=== PATIENT | male | born 1935 ===

== ENCOUNTER 2024-08-18 10:25 | Inpatient (IN) | payer MEDICARE, SELFPAY ==
--- NOTE | ~2024-08-18 | CT_ITS ---
EXAMINATION: CT CERVICAL SPINE WITHOUT CONTRAST CLINICAL INFORMATION: Status post fall. COMPARISON: None available. TECHNIQUE: Contiguous axial images through the cervical spine using 3 mm collimation with bone and soft tissue algorithm. Sagittal and coronal reformatted images acquired. DLP: [address] examination was performed using dose optimization techniques as appropriate, variously including the following: *Automated exposure control *Adjustment of mA and/or kV according to patient size (this includes techniques or standardized protocols for targeted exams where dose is matched to indication/reason for exam; i.e. extremities or head) *Use of iterative reconstruction technique FINDINGS: Craniocervical junction is intact with sclerosis along the articular surfaces of the occipital condyles and lateral masses of C1. No gross malalignment. Marginal osteophyte formation, endplate sclerosis subchondral cyst formation and decreased intervertebral disc height at C6-7 and to a lesser extent C5-6, C4-5 and C3-4 levels. Calcification of the posterior longitudinal ligament at C7-T1. Bilateral facet joint hypertrophy, C2-3 to C7-T1. C1 is intact. C2 demonstrates a subtle lucency at the base of odontoid process junction without gross cortical disruption. C3 is intact. C4 is intact. C5 is intact. C6 is intact. C7 is intact. No prevertebral compartment hematoma. Central spinal canal stenosis at C5-6 on a degenerative basis. Calcified plaques in the carotic arteries bilaterally. Tympanic cavities and mastoid cells are aerated. Calcified plaques in the cavernous segments both ICAs. CT/CT cervical spine wo IV con IMPRESSION: Multilevel cervical spondylosis more conspicuous at C6-7, C5-6 and to a lesser extent C3-4 level. Transverse oriented lucency at the odontoid process/base of C2. Although this could be artifactual nondisplaced type II C2 fracture cannot be excluded. Recommend MRI cervical spine. Fleischner guidelines were followed. Electronically signed by: Lorenzo Jeffrey MD 08/18/2024 12:16 PM EDT
--- NOTE | ~2024-08-18 | MR_ITS ---
EXAMINATION: MR CERVICAL SPINE WITHOUT CONTRAST CLINICAL INFORMATION: Possible C2 fracture seen on CT examination. Recent fall/trauma. COMPARISON: CT cervical spine 08/18/2024. TECHNIQUE: Multiplanar multisequence MR imaging of the cervical spine was done prior to and without the administration IV gadolinium. Examination was performed on a 1.5 Earnestine Siemens unit, using standard sequences. FINDINGS: CORONAL ALIGNMENT: -Normal. SAGITTAL ALIGNMENT: -Minimal straightening of the normal lordosis. -There is a 2 mm degenerative anterolisthesis of C3 on C4, and C4 on C5. -No additional subluxations. CRANIOCERVICAL JUNCTION/C1-2 ARTICULATIONS: -Intact and aligned. Moderate degenerative arthritis. VERTEBRAL BODIES/BONE MARROW: -There is no bone marrow edema, fracture, or evidence of infiltrating abnormal bone marrow signal. No endplate changes are present. DISCS: -Severe degenerative disc changes C5-6 and C6-7. There is otherwise mild to moderate disc degeneration with sparing of C2-3. CERVICAL CORD: -Normal in caliber and signal throughout. No cord impingement evident. PARAVERTEBRAL SOFT TISSUES: -There is a small amount of soft tissue edema in the prevertebral space spanning C3-C7. -The anterior longitudinal ligament, posterior longitudinal ligament, ligamentum flavum, and interspinous ligaments are all intact without tearing. -There is no paraspinous edema identified. VISUALIZED INTRACRANIAL STRUCTURES: -Within normal limits. AXIAL DISC SPACE IMAGING: C2-C3: No central canal or neural foraminal narrowing. C3-C4: Diffuse disc bulge, indenting upon the ventral thecal sac, contiguous with bilateral uncinate spurs. Mild hypertrophic facet changes bilaterally. Mild central canal stenosis, and moderate bilateral neural foraminal stenosis. C4-C5: Minimal shallow disc bulge present without significant central canal narrowing. Normal facets. Patent neural foramen. C5-C6: Diffuse disc osteophytic ridge complex present, contiguous with bilateral uncinate spurs left greater than right, mild bilateral facet hypertrophic arthropathy. There is mild to moderate central canal stenosis, and severe left greater than right neural foraminal stenosis. C6-C7: There is a diffuse disc osteophytic ridge complex present, contiguous with bilateral uncinate spurring. Mild bilateral facet spurring present. There is mild central canal stenosis, severe right and moderate left neural foraminal stenosis. C7-T1: Small central disc extrusion. No significant central canal or neural foraminal narrowing. MR/MR cervical spine wo con IMPRESSION: 1. There is no acute fracture of the cervical spine. C2 is intact. 2. There is trace prevertebral fluid spanning C3-C7, suspect for hyperextension strain injury. No ligamentous tearing is evident. 3. There is moderate degenerative spondylosis as discussed. Electronically signed by: Rudolph Mendoza MD 08/19/2024 12:37 PM EDT
--- NOTE | ~2024-08-18 | CT_ITS ---
EXAMINATION: CT ABDOMEN PELVIS WITHOUT IV CONTRAST HISTORY: left-sided abdominal pain. COMPARISON: There are no prior studies for comparison. TECHNIQUE: CT scan of the abdomen and pelvis was performed without contrast using standard departmental protocol. Coronal and sagittal reformatted images were generated and reviewed. Oral contrast material was not administered at the request of the referring physician. This CT exam was performed with one or more of the following dose reduction techniques: automated exposure control, adjustment of the mA and/or kV according to patient size, use of iterative reconstruction technique. DLP: 1248 mGy-cm FINDINGS: LOWER CHEST: There is mild dependent atelectasis at the left lung base. The visualized right lung base is clear.. There is no pleural effusion. CARDIOVASCULATURE: The heart is normal in size. There is no pericardial effusion. LIVER: The liver is normal in size and contour. The liver has an unremarkable unenhanced appearance. GALLBLADDER / BILE DUCTS: There is cholelithiasis. There is no intra or extrahepatic biliary ductal dilatation. SPLEEN: The spleen is normal in size and has an unremarkable unenhanced appearance. PANCREAS: The pancreas has an unremarkable unenhanced appearance. ADRENAL GLANDS: There is calcification of the bilateral adrenal glands which may be due to prior hemorrhage. KIDNEYS/RETROPERITONEUM: No renal calculi are identified. There is no hydronephrosis. There is a probable 2.6 cm cyst at the upper pole of the right kidney and a probable 1.4 cm cyst at the upper pole of the left kidney. LYMPH NODES: No retroperitoneal lymphadenopathy is identified in the abdomen or pelvis. VASCULATURE: The abdominal aorta demonstrates atherosclerotic calcification, but is normal in caliber. There is a linear calcification in the IVC which may be due to prior thrombus. MESENTERY/PERITONEUM: No free fluid. No masses. There is no free intraperitoneal gas. STOMACH: The stomach is collapsed, limiting evaluation. SMALL BOWEL: The small bowel is normal in caliber. COLON: The colon is unremarkable. APPENDIX: Normal. URINARY BLADDER/PELVIC ORGANS: The urinary bladder is unremarkable. The prostate is normal in size. BONES / SOFT TISSUES: There is a tiny fat-containing umbilical hernia. There is degenerative disc disease of the spine. CT/CT abdomen pelvis wo IV con IMPRESSION: No evidence of traumatic injury to the abdomen or pelvis, although evaluation for solid organ injury is limited by lack of intravenous contrast material. Incidental findings as described. Electronically signed by: Sourav Hale MD 08/18/2024 11:47 AM EDT
--- NOTE | ~2024-08-18 | CT_ITS ---
EXAMINATION: CT HEAD WITHOUT CONTRAST CLINICAL INFORMATION: fall and on Coumadin COMPARISON: None available. TECHNIQUE: Contiguous axial imaging was performed from the skull base to vertex without intravenous administration of contrast. This CT examination was performed using dose optimization techniques as appropriate, variously including the following: *Automated exposure control *Adjustment of mA and/or kV according to patient size (this includes techniques or standardized protocols for targeted exams where dose is matched to indication/reason for exam; i.e. extremities or head) *Use of iterative reconstruction technique DLP: 896 mGy-cm FINDINGS: There is a faint, 1 cm hyperdensity in the mid mal[place]ika. No acute intracranial hemorrhage mass effect midline shift, hydrocephalus or herniation. Lee-white matter differentiation is normal. Bilateral multifocal patchy deep periventricular white matter hypodensities involving centrum semiovale and dutton radiata. Prominence of the extra-axial CSF spaces cerebral sulci and ventricles. Calcified plaques in the cavernous supracavernous segments both ICA. Mucosal thickening right saphenous sinus with increased density. Edentulous, maxilla. Tympanic cavities and mastoid cells are aerated. No acute fracture in the bony calvarium. CT/CT head/brain wo IV con IMPRESSION: No gross acute intracranial hemorrhage. Small vessel occlusive disease. Global cerebral atrophy. Acute on chronic right saphenous sinus disease with the questionable inspissated secretions versus superimposed fungal infection. Questionable subtle hyperdensity mid [place]. Probable artifactual.. Electronically signed by: Lorenzo Jeffrey MD 08/18/2024 12:08 PM EDT
--- NOTE | ~2024-08-18 | CT_ITS ---
CLINICAL HISTORY: abnromal cxr, confusion CT chest without contrast Comparison: CR/SR - XR CHEST 1V - 09/08/24 12:40 EDT Findings: Normal heart size. Moderate coronary artery calcification. The visualized thyroid and mediastinum are unremarkable. Gaseous distention of the esophagus suggesting possible achalasia. Small bilateral pleural effusions. Multiple linear foci of atelectasis within the bilateral lower lobes. Small focus of atelectasis within the lingula. The visualized upper abdomen is unremarkable. The bones are intact. IMPRESSION: Small bilateral pleural effusions. Multifocal atelectasis within the bilateral lungs. This document has been electronically signed by: Gabriela Patricio MD on 09/08/2024 18:13:34
--- NOTE | ~2024-08-18 | XR_ITS ---
EXAMINATION: XR CHEST 1 VIEW HISTORY: fall COMPARISON: There are no prior studies for comparison. FINDINGS: A single AP portable view of the chest performed at 12:52 PM is submitted. The lungs are expanded and clear. There is no pleural effusion, pneumothorax, or pulmonary vascular congestion. The heart is normal in size. The bones are intact. XR/XR chest 1V IMPRESSION: Clear lungs. Electronically signed by: Sourav Hale MD 08/18/2024 01:11 PM EDT
--- NOTE | ~2024-08-18 | XR_ITS ---
EXAMINATION: XR CHEST CLINICAL INFORMATION: hypothermia, to eval for pneumonia COMPARISON: June 18, 2024 TECHNIQUE: Frontal view of the chest was obtained. FINDINGS: Lung volumes are decreased since the prior examination. Cardiac contours not well demonstrated because of the widening. Aside from degenerative changes in the right greater than left shoulders, osseous structures are grossly unremarkable. XR/XR chest 1V IMPRESSION: Moderately decreased lung volumes since the prior is probably related to a [place] and atelectasis. However, pleural effusion or obscured basilar pneumonia, especially on the left, is not ruled out. Electronically signed by: Valerio Sorto MD 09/08/2024 01:10 PM EDT
--- NOTE | ~2024-08-18 | XR_ITS ---
EXAMINATION: XR SHOULDER 2 OR MORE VIEWS LEFT HISTORY: fall and shoulder pain COMPARISON: There are no prior studies available for comparison. FINDINGS: Three views of the left shoulder are submitted. Osseous mineralization is normal. There is no fracture or dislocation. The glenohumeral joint is maintained. There is moderate degenerative change of the AC joint with joint space narrowing. The soft tissues are unremarkable. XR/XR shoulder LT min 2V IMPRESSION: Moderate degenerative change of the AC joint. Electronically signed by: Sourav Hale MD 08/18/2024 01:09 PM EDT RP
--- NOTE | ~2024-08-18 | XR_ITS ---
EXAMINATION: XR HIP 2 OR MORE VIEWS RIGHT HISTORY: s/p fall COMPARISON: There are no prior studies for comparison. FINDINGS: Two views of the right hip are submitted. Osseous mineralization is normal. There is no fracture or dislocation. The joint space is maintained. The soft tissues are unremarkable. XR/XR hip RT min 2V IMPRESSION: No evidence of fracture of the right hip. Electronically signed by: Sourav Hale MD 08/18/2024 01:10 PM EDT
--- NOTE | ~2024-08-18 | CT_ITS ---
EXAMINATION: CT HEAD WITHOUT CONTRAST CLINICAL INFORMATION: Altered mental status, weakness COMPARISON: None available. TECHNIQUE: Contiguous axial imaging was performed from the skull base to vertex without intravenous administration of contrast. This CT examination was performed using dose optimization techniques as appropriate, variously including the following: *Automated exposure control *Adjustment of mA and/or kV according to patient size (this includes techniques or standardized protocols for targeted exams where dose is matched to indication/reason for exam; i.e. extremities or head) *Use of iterative reconstruction technique DLP: 898 mGY*cm FINDINGS: There is no acute ischemic change. Periventricular white matter hypodensities are present. There is no intracranial hemorrhage. There is no mass-effect or midline shift. There is mild to moderate frontotemporal atrophy. Basal cisterns and ventricles are within normal limits for age/cerebral volume. Orbits are symmetrical and unremarkable. Right sphenoid sinus is mostly opacified There is cortical offset lucency through the left nasal bone. CT/CT head/brain wo IV con IMPRESSION: Age-indeterminate left nasal bone fracture. Nonspecific periventricular white matter hypodensities are likely related to small vessel disease. Mild to moderate frontotemporal atrophy. Opacity in the right sphenoid sinus could be related to chronic sinus disease versus posttraumatic in nature. Electronically signed by: Valerio Sorto MD 09/08/2024 01:26 PM EDT
--- NOTE | 2024-08-18 10:43 | ECG_ITS ---
Test Reason : fall Blood Pressure : */* mmHG Vent. Rate : 58 BPM Atrial Rate : 58 BPM P-R Int : 274 ms QRS Dur : 90 ms QT Int : 428 ms P-R-T Axes : 28 -20 225 degrees QTcB Int : 420 ms Sinus bradycardia with 1st degree A-V block Septal infarct , age undetermined ST & T wave abnormality, consider inferolateral ischemia Abnormal ECG No previous ECGs available Referred By: John Rocha Electronically Signed By: Kenny Shaw
[2024-08-18 10:45] VITALS: BP 138/42; BP 157/47; PULSE 59; PULSE 66; RESP 14; TEMP 36.6; O2SAT 97; O2SAT 98; BMI 36.5
--- NOTE | 2024-08-18 10:49 | ED.FALL ---
HPI - Fall General Chief Complaint: Fall Stated Complaint: ?STROKE,VAJL2DA,R FAC ABR,-DROOP/WEAK FROM FACILIT Time Seen by Provider: 08/18/24 10:31 Source: patient, EMS and old records reviewed Mode of arrival: EMS Limitations: no limitations History of Present Illness ED Provider: DR. Rocha HPI Narrative: 88-year-old male came in from half-way afte he sustained unwitnessed fall, patient with history of dementia and he is limited historian. patient is complaining of head, neck, left shoulder, right hip pain. Patient otherwise is unable to give the details of the fall. Patient is on Coumadin. Related Data Home Medications ?Medication ?Instructions ?Recorded ?Confirmed acetaminophen 325 mg tablet 650 mg PO Q4H PRN Pain (Scale 08/18/24 08/18/24 Score 1-3) aluminum-mag hydroxide-simethicone 30 ml PO Q6H PRN Acid Reflux 08/18/24 08/18/24 400 mg-400 mg-40 mg/5 mL oral susp (Mylanta Maximum Strength) atorvastatin 10 mg tablet 10 mg PO BEDTIME 08/18/24 08/18/24 carvedilol 6.25 mg tablet 6.25 mg PO BID 08/18/24 08/18/24 dorzolamide 22.3 mg-timolol 6.8 1 drp ophthalmic (eye) BID 08/18/24 08/18/24 mg/mL eye drops famotidine 20 mg tablet 20 mg PO BID 08/18/24 08/18/24 magnesium hydroxide 400 mg/5 mL 30 ml PO DAILY PRN Constipation 08/18/24 08/18/24 oral suspension (Milk of Magnesia) metformin 750 mg tablet,extended 750 mg PO DAILY 08/18/24 08/18/24 release 24 hr mirtazapine 15 mg tablet 15 mg PO BEDTIME 08/18/24 pantoprazole 40 mg tablet,delayed 40 mg PO DAILY 08/18/24 08/18/24 release warfarin 5 mg tablet mg PO 08/18/24 Allergies Allergy/AdvReac Type Severity Reaction Status Date / Time quetiapine [From Seroquel] Allergy Unknown Verified 08/18/24 10:47 quinapril Allergy Unknown Verified 08/18/24 10:47 trazodone Allergy Unknown Verified 08/18/24 10:47 Review of Systems Review of Systems: All other systems are reviewed and are negative Constitutional: Reports as per HPI and Reports no additional constitutional complaints Eyes: Reports as per HPI and Reports no additional eye complaints Reports system reviewed and no additional complaints, except as documented Cardiovascular: Reports as per HPI and Reports no additional cardiovascular complaints Respiratory: Reports as per HPI and Reports no additional respiratory complaints Gastrointestinal: Reports as per HPI and Reports no additional gastrointestinal complaints Genitourinary: Reports no additional female genitourinary complaints Musculoskeletal: Reports no additional musculoskeletal complaints Skin/Breast: Reports system reviewed and no additional complaints, except as docu Psychiatric: Reports no additional psychiatric complaints Endocrine: Reports no additional endocrine complaints Hematologic/Lymphatic: Reports no additional hematologic/lymphatic complaints Allergic/Immunologic: Reports no additional allergic/immunologic complaints Reports system reviewed and no additional complaints, except as documented and Reports Abnormal speech present [facility] Social History Social History Smoked in Last 30 Days: No Use of substances other than those prescribed or required for medical reasons: No Advance Directives: Yes Advance Directives on File: Yes Advance Directives Date on File: 08/18/24 Do you have a plan to hurt others: No Plan Physical Exam Vital Signs: Vital Signs: Last Vital Signs Temp 97.6 F 08/18/24 15:13 Pulse 55 08/18/24 15:13 Resp 12 08/18/24 15:13 BP 151/51 H 08/18/24 15:13 Pulse Ox 99 08/18/24 15:13 O2 Del Method Room Air 08/18/24 15:13 BMI result Body Mass Index 36.5 Vital signs have been reviewed and appear to be correct. Blood pressure elevated. Heart rate normal. Respiratory rate normal. Temperature normal. Oxygen saturation normal. Appearance: Alert. Oriented X3. No acute distress. Head: Normal external exam. Normocephalic. Atraumatic. No Cotter signs noted. No raccoon eyes noted Eyes: PERRLA. EOMI. Conjunctiva and sclera normal. Eyelids normal. ENT: TM's Normal. Pharynx normal. Uvula midline. Moist mucous membranes. No trismus noted. No drooling noted. No muffled voice noted. Neck: Normal inspection. Neck supple. FROM. No adenopathy. Thyroid Normal. No meningeal signs. No neck mass noted. CVS: Normal heart rate and rhythm. Heart sound normal. No murmurs noted. Pulses normal throughout. Respiratory: No respiratory distress. Painless inspiration. Breath sounds normal. No wheezes/rales/rhonchi noted. Chest nontender. No accessory muscle usage noted or decreased air movement noted. Abdomen: Soft and nontender. Bowel sounds normal in all 4 quadrants. No distention noted. No organomegaly noted. No visible injury noted. Back: No CVA tenderness. Full range of motion noted. Skin: Skin warm and dry. Normal skin color. Normal skin turgor. No rashes/lesions/lacerations noted. Extremities: No lower extremity edema. Extremities exhibit normal range of motion. Extremities nontender. Neuro: Oriented X 3. Cranial nerve exam: II-XII are grossly intact No motor deficit. No sensory deficit. Reflexes normal. Course Reevaluation(s) Reevaluation #1: a/P unwitnessed fall. Unremarkable workup for the day including neuro exam in the head CT. Elevated troponin with no delta changes. Able to ambulate with the assistance in the ED. Time: 15:19 Reevaluation #2: Received patient in sign-out awaiting 2nd cardiac enzyme and final disposition. Upon re-evaluation, patient is continuing to be rather altered, confused and irritated. It is unclear what his baseline is as he presented from a geriatric psych facility that he was recently admitted to. I discussed the case with his provider at that facility who commented that he had only been there for a few hours before he fell. She felt that he was inappropriate to be at that facility due to his inability to ambulate any way. He had an unwitnessed fall and was found down at the facility today. Upon re-evaluation of his workup today as well as his previous record from his primary care doctor's office from 08/07/2024, I feel that he is unstable for discharge at this time. It seems that he would be inappropriate for a [facility] psych facility being unable to ambulate and having worsening delirium. Plan for admission to hospitalist for further care and evaluation. Diagnosis: Frequent falls, delirium, on continuous oral anticoagulation, generalized weakness. Time: 19:15 Reevaluation #3: Case discussed with hospitalist on-call, Dr. Desai who will accept patient for admission. Patient remains hemodynamically stable, delirious. Admitted in guarded condition. Time: 20:59 Medical Decision Making Differential Diagnosis Differential Diagnoses: The differential diagnosis associated with the presentation includes ( intracranial bleed, ischemic stroke, cervical spine injury, left shoulder fracture, left shoulder dislocation, pneumonia, pneumothorax, pleural effusion, hip fracture, intra-abdominal pathology , cervical spine injury.) Admission/Observation Consideration of admission/observation: Escalation of care including admission/observation considered Consult Healthcare Provider Management of the patient was discussed with: Hospitalist Lab Data MDM Lab Attestation statement: I reviewed the patient's lab results. 08/18/24 11:01 08/18/24 11:01 Labs: Lab Results 08/18/24 08/18/24 08/18/24 Range/Units 11:00 11:01 13:47 WBC 8.5 (4.8-10.8) X10*3/uL RBC 3.92 L (4.60-5.80) X10*6/uL Hgb 13.3 L (14.0-18.0) g/dl Hct 38.0 L (42.0-52.0) % MCV 96.9 (80.0-98.0) fL MCH 33.9 H (27.0-33.0) pg MCHC 35.0 (31.0-36.0) g/dl RDW 14.0 (11.0-16.0) % Plt Count 167 (160-400) X10*3/uL MPV 10.8 (9.4-12.4) fL Immature Gran % (Auto) 0.7 H (0.0-0.4) % Neut % (Auto) 69.6 (45-73) % Lymph % (Auto) 19.0 L (20-40) % [place] % (Auto) 9.7 (2-11) % Eos % (Auto) 0.8 (0-4) % Baso % (Auto) 0.2 (0-2) % Lymph # (Auto) 1.6 (1.2-4.9) X10*3/uL [place] # (Auto) 0.8 (0.1-1.2) X10*3/uL Eos # (Auto) 0.1 (0.0-0.4) X10*3/uL Baso # (Auto) 0.0 (0.0-0.2) X10*3/uL Abs Immat Gran (auto) 0.06 H (0.00-0.03) X10*3/uL Absolute Neuts (auto) 5.9 (2.0-8.3) x10*3/uL Absolute Nucleated RBC 0.000 (0.0-0.012) X10*3/uL Nucleated RBC % (auto) 0.0 (0.0-0.2) /100WBC Hold Blue Top SEE NOTE Sodium 143 (135-145) mmol/L Potassium 3.6 (3.3-5.1) mmol/L Chloride 111 H (96-108) mmol/L Carbon Dioxide 23 (22-29) mmol/L Anion Gap 13 (12-20) BUN 32 H (9-16) mg/dL Creatinine 2.13 H (0.5-1.4) mg/dL Estim Creat Clear Calc 31.0 Estimated GFR 30 Random Glucose 224 H (60-115) mg/dL Calcium 8.7 (8.4-10.2) mg/dL Total Bilirubin 1.5 H (0.0-1.0) mg/dL Direct Bilirubin 0.4 (0.0-0.5) mg/dL AST 47 H (5-37) U/L ALT 14 (0-40) U/L Alkaline Phosphatase 70 (39-117) U/L Total Creatine Kinase 519 H (38-174) U/L Troponin I High Sens 95.2 H (<3.5-35.0) ng/L Total Protein 6.2 L (6.5-8.0) g/dL Albumin 3.3 L (3.5-5.0) g/dL Lipase 10 (8-78) U/L Urine Color Dark Yellow Urine Appearance Clear Urine pH 5.0 (5.0-9.0) Ur Specific [place] 1.020 (1.005-1.025) Urine Protein 30 (1+) H (Neg-Trace) mg/dL Urine Glucose (UA) 100 H (Negative) mg/dL Urine Ketones 15 (Negative) mg/dL Urine Blood Negative (Negative) Urine Nitrite Negative (Negative) Ur Leukocyte Esterase Negative (Negative) Urine RBC 0-2 (0-2) /HPF Urine WBC 0-5 (0-5) /HPF Ur Squamous Epith Cells 0-2 (0-2) /HPF Urine Bacteria None Seen (None Seen) Hyaline Casts 6-10 (0-2) /LPF 08/18/24 Range/Units 17:53 WBC (4.8-10.8) X10*3/uL RBC (4.60-5.80) X10*6/uL Hgb (14.0-18.0) g/dl Hct (42.0-52.0) % MCV (80.0-98.0) fL MCH (27.0-33.0) pg MCHC (31.0-36.0) g/dl RDW (11.0-16.0) % Plt Count (160-400) X10*3/uL MPV (9.4-12.4) fL Immature Gran % (Auto) (0.0-0.4) % Neut % (Auto) (45-73) % Lymph % (Auto) (20-40) % [place] % (Auto) (2-11) % Eos % (Auto) (0-4) % Baso % (Auto) (0-2) % Lymph # (Auto) (1.2-4.9) X10*3/uL [place] # (Auto) (0.1-1.2) X10*3/uL Eos # (Auto) (0.0-0.4) X10*3/uL Baso # (Auto) (0.0-0.2) X10*3/uL Abs Immat Gran (auto) (0.00-0.03) X10*3/uL Absolute Neuts (auto) (2.0-8.3) x10*3/uL Absolute Nucleated RBC (0.0-0.012) X10*3/uL Nucleated RBC % (auto) (0.0-0.2) /100WBC Hold Blue Top Sodium (135-145) mmol/L Potassium (3.3-5.1) mmol/L Chloride (96-108) mmol/L Carbon Dioxide (22-29) mmol/L Anion Gap (12-20) BUN (9-16) mg/dL Creatinine (0.5-1.4) mg/dL Estim Creat Clear Calc Estimated GFR Random Glucose (60-115) mg/dL Calcium (8.4-10.2) mg/dL Total Bilirubin (0.0-1.0) mg/dL Direct Bilirubin (0.0-0.5) mg/dL AST (5-37) U/L ALT (0-40) U/L Alkaline Phosphatase (39-117) U/L Total Creatine Kinase (38-174) U/L Troponin I High Sens 72.0 H (<3.5-35.0) ng/L Total Protein (6.5-8.0) g/dL Albumin (3.5-5.0) g/dL Lipase (8-78) U/L Urine Color Urine Appearance Urine pH (5.0-9.0) Ur Specific [place] (1.005-1.025) Urine Protein (Neg-Trace) mg/dL Urine Glucose (UA) (Negative) mg/dL Urine Ketones (Negative) mg/dL Urine Blood (Negative) Urine Nitrite (Negative) Ur Leukocyte Esterase (Negative) Urine RBC (0-2) /HPF Urine WBC (0-5) /HPF Ur Squamous Epith Cells (0-2) /HPF Urine Bacteria (None Seen) Hyaline Casts (0-2) /LPF Independent Interpretation I performed an independent interpretation of an: Plain X-Ray ( Right hip /chest/ left shoulder x-ray: No acute fracture) and CT Scan ( head / C-spine /abdomen and pelvis: No acute pathology.) Radiology Impression Discussion of test interpretation with radiology: I have reviewed the radiologist's reading. Independent Historian Clinical information obtained from an independent historian. History obtained from or confirmed by: Other ([facility] psych facility nursing staff) External Record Review External record reviewed: Outpatient record and Primary care record Chronic Conditions Patient?s care impacted by: Diabetes and Hypertension Discharge Plan Discharge Patient Disposition: Admitted As Inpatient Print Language: Unknown
[2024-08-18 11:06] LABS: MANUAL DIFF FLAG NO
[2024-08-18 11:10] LABS: Hematocrit 38.0 % (42.0-52.0); Hemoglobin 13.3 g/dl (14.0-18.0); Imm Gran Abs Auto 0.06 X10*3/uL (0.00-0.03); Imm Gran Pct Auto 0.7 % (0.0-0.4); Lymphocytes Absolute Auto 1.6 X10*3/uL (1.2-4.9); Mean Corpuscular HGB Conc 35.0 g/dl (31.0-36.0); Mean Corpuscular Hemoglobin 33.9 pg (27.0-33.0); Mean Corpuscular Volume 96.9 fL (80.0-98.0); NRBC Abs Auto 0.000 X10*3/uL (0.0-0.012); NRBC Pct Auto 0.0 /100WBC (0.0-0.2); Platelet Count 167 X10*3/uL (160-400); Red Blood Count 3.92 X10*6/uL (4.60-5.80); White Blood Count 8.5 X10*3/uL (4.8-10.8)
--- NOTE | 2024-08-18 11:15 | PC.NURSE ---
Report received. Taken over care at this time. Pt. in CT.
--- NOTE | 2024-08-18 11:36 | PC.NURSE ---
pt JOSUE from [facility] after fall last night, presumed HS d/t lac to R eye, swelling noted to eye, pt c/o vision changes. on Coumadin. slurred speech and increased confusion. unknown LOC. facility did not transfer pt to ED last night for unknown reasons. pt c/o neck pain, L shoulder pain and R eye/face pain. raw, erythemic skin noted to L groin, R axilla. small skin tear noted to coccyx and R shoulder. this RN spoke with Barbara MCKEON from [place] who reports pt is new to their facility as of yesterday, has a hx of dementia, unknown what his baseline.
[2024-08-18 11:37] LABS: Troponin-I High Sensitivity 95.2 ng/L (<3.5-35.0)
[2024-08-18 11:40] LABS: Alanine Aminotransferase 14 U/L (0-40); Albumin Level 3.3 g/dL (3.5-5.0); Alkaline Phosphatase 70 U/L (39-117); Anion Gap 13 (12-20); Aspartate Amino Transferase 47 U/L (5-37); Blood Urea Nitrogen 32 mg/dL (9-16); Calcium 8.7 mg/dL (8.4-10.2); Carbon Dioxide 23 mmol/L (22-29); Chloride 111 mmol/L (96-108); Creatinine Clr Calc Pharmacy 31.0; Estimated Glomerular Filt Rate 30; Lipase 10 U/L (8-78); Potassium 3.6 mmol/L (3.3-5.1); Sodium 143 mmol/L (135-145); Total Protein 6.2 g/dL (6.5-8.0)
--- NOTE | 2024-08-18 11:45 | PC.NURSE ---
call back # for [facility]
--- OUTSIDE RECORDS SUMMARY | 2024-08-18 12:38 | XMS_ITS ---
Author Organization [facility] Address [address] [place] [address] Care Team Providers Care Tariff Compiling Clerk Name Role Phone Cristy MOLINA, Sergey Primary Care Provider Rick Coronel Unavailable [phone] Encounters Encounter Location Date Provider Diagnosis [facility] [address] [place] [address] 03/19/2023 Rick Gamino Plan Of Treatment No Information Progress Notes * Reji DODSON LDOB:[birth year] (88 yo M)Acc No.[id number]:03/19/2023 Progress Note Patient:Reji NORTON Provider:?Rick Gamino DPM :1935???Age:87 Y???Sex:Male Jose e:03/19/2023 [facility] Pcp:Sergey Muniz MD Subjective: * Chief Complaints: * ??? * Medical History:? Objective: * Vitals:? Assessment: Plan: * Treatment: * Images: * The named appointment provid er may or may not be the originator of this progress note, and it is not deemed complete until electronically signed by the appointment provider. Sign off status: Pending * Provider:?Rick Gamino DPM Date:?2022 Generated for Printi ng/Faxing/eTransmitting on:?08/18/2024 12:38 PM EDT
--- OUTSIDE RECORDS SUMMARY | 2024-08-18 12:38 | XMS_ITS ---
Author Organization [facility] Address [address] [place] [address] Care Team Providers Care Cna Pct Name Role Phone Sergey Muniz MD Primary Care Provider Rick Coronel Unavailable [phone] REASON FOR VISIT 03/19/23 appt Encounters En[facility] [address] [facility]/15[facility] Rick Gamino Plan Of Treatment No Information Progress Notes * Reji DODSON LDOB:[birth year] (87 yo M)Acc No.[id number]:03/15/2023 Patient:?Reji Dodson :1935???Age:87 Y???Sex:Male Address: [place], [address] * true * Date:? Generated for Printi ng/Facharig/eTransmitting on:?08/18/2024 12:38 PM EDT
--- OUTSIDE RECORDS SUMMARY | 2024-08-18 12:38 | XMS_ITS | Patient Health Record ---
Author Organization [facility] Address [address] [facility] [place] [address] Care Team Providers Care Registered Nurse Step Down Name Role Phone Sergey Muniz MD Primary Care Provider Rick Coronel Unavailable [phone] Allergies No Known Allergies Reason For Referral No Information Medications Medication SIG (Take, Route, Fr equency, Duration) Notes Start Date End Date Status Eye Drops Active Warfarin Sodium Acti ve NovoLIN N Active Furosemide Active Atorvastatin Calcium Active metFORMIN HCl Active Ramipril Active Carvedilol Active Immunizations Vaccine Route Administration Date Status Comme nts Influenza Unknown 01/01/2022 Administered Social History Tobacco Use: Social History Observation Description Date Details (start date - stop date) Never Smoker NA - NA Tobacco Use/Smoking Question Answer Notes Are you a: nonsmoker Additional Findings: Tobacco Non-User Current no n-smoker Alcohol Screen Question Answer Notes Did you have a drink containing alcohol in the p ast year? No Points 0 Interpretation Negative Tobacco use other than smoking: Question Answer Notes Are you an other tobacco user? No Problems Problem Type SNOMED Code ICD Code Onset Dates Problem Status W/U Status Risk Notes Problem Acquired hammer toe of right foot (9522576887585785 ) Other hammer toe(s) (acquired), right foot (M20.41) Active confirmed Problem Acquired hammer toe of left foot (9670808386542769 ) Other hammer toe(s) (acquired), left foot (M20.42) Active confirmed Problem Polyneuropathy due to type 2 diabetes mellitus (037736757) Type 2 diabetes mellitus with diabetic polyneuropathy (E11.42) Active confirmed Plan Of Treatment Pending Test Test Name Order Date [id number] NAIL, 1-5 09/18/2022 [id number] NAIL, 1-5 12/18/2022 [id number] SKIN LESIONS, 2 TO 4 09/19/19 [id number] SKIN LESIONS, 2 TO 4 12/19/19 [id number] DYSTROPHIC NAILS ANY # [id number] DYSTROPHIC NAILS ANY # Insurance Providers Payer Name Payer Address Payer Phone Subscriber Number Group Number Insured Name Patient Relationship to Insured Coverage Start Date Coverage End Date [employer] [address] [place] [address] [phone] [id number] Reji Weeks Self - patient is the insured Medical (General) History Medical History History ICD Code Back,Hip,and Knee pain type II diabetes High blood pressure Vascular phlebitis (clots) Surgical History Surgery Date(Month/Year) vein surgery teeth extraction colonoscopy
[2024-08-18 13:57] LABS: Appearance Urine Clear; Glucose Urine UA 100 mg/dL (Negative); PH 5.0 (5.0-9.0); Specific Gravity - Urine 1.020 (1.005-1.025); UMIC TRIGGER UACC YES
[2024-08-18 15:13] VITALS: BP 151/51; PULSE 55; RESP 12; TEMP 36.4; O2SAT 99
--- NOTE | 2024-08-18 16:49 | PC.NURSE ---
Pt. refusing to have lab draw and made aware.
--- NOTE | 2024-08-18 17:53 | PC.NURSE ---
Was able to retrieve blood with assistance from luz maria Stokes.
[2024-08-18 18:19] LABS: Troponin-I High Sensitivity 72.0 ng/L (<3.5-35.0)
--- NOTE | 2024-08-18 21:48 | PHA.MEDREC ---
Pharmacy Consult ? Medication Reconciliation Pharmacy has completed the medication reconciliation. Utilized list from [place]. Called [facility], spoke to El in the silver unit. Confirmed patient is not on ramipril or furosemide although there are claims. El was also able to confirm with me that the patient is on mirtazepine 7.5 mg QHS, olanzapine 2.5 mg BID, insulin lispro PRN and patient is on 2.5 mg of warfarin daily (1/2 tablet of the 5 mg tablets).
--- NOTE | 2024-08-18 23:39 | P.HPHOSP_ITS ---
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 Patient was sent as he fell at outside facility. Unclear details or preceding events. Unable to obtain history from the patient. History obtained from ER provider and chart review. As per the ER provider, patient was very agitated in the ER upon arrival. He was disoriented and not making any sense. Upon my examination, patient is sleeping. He awakens to verbal stimulus but falls back asleep. She is lethargic and disoriented. Unclear baseline. Earlier patient was unable to ambulate in the ER. Does have wheelchair but unknown baseline ambulatory status. In the emergency department, creatinine 2.13 Review of Systems 2 Review of Systems: Yes Unobtainable due to mental status PMFSH Medical History CKD stage 3a, GFR 45-59 ml/min Diabetic neuropathy Insulin dependent type 2 diabetes mellitus Coronary artery disease Mixed hyperlipidemia Hypertension Atrial fibrillation Pertinent family history: Unable to obtain Social History Smoked in Last 30 Days: No Use of substances other than those prescribed or required for medical reasons: No Advance Directives: Yes Advance Directives on File: Yes Advance Directives Date on File: 08/18/24 Do you have a plan to hurt others: No Plan Meds Allergies Allergy/AdvReac Type Severity Reaction Status Date / Time quetiapine [From Seroquel] Allergy Unknown Verified 08/18/24 10:47 quinapril Allergy Unknown Verified 08/18/24 10:47 trazodone Allergy Unknown Verified 08/18/24 10:47 Home Medications ?Medication ?Instructions ?Recorded ?Confirmed ?Last Taken ?Type acetaminophen 325 mg tablet 650 mg PO Q4H PRN Pain (Scale 08/18/24 08/18/24 Unknown History Score 1-3) aluminum-mag hydroxide-simethicone 30 ml PO Q6H PRN Acid Reflux 08/18/24 08/18/24 Unknown History 400 mg-400 mg-40 mg/5 mL oral susp (Mylanta Maximum Strength) atorvastatin 10 mg tablet 10 mg PO BEDTIME 08/18/24 08/18/24 Unknown History carvedilol 6.25 mg tablet 6.25 mg PO BID 08/18/24 08/18/24 Unknown History dorzolamide 2 % eye drops 1 drp ophthalmic (eye) BID 08/18/24 08/18/24 Unknown History famotidine 20 mg tablet 20 mg PO BID 08/18/24 08/18/24 Unknown History insulin lispro 100 unit/mL 1 sliding scale dose subcut 08/18/24 08/18/24 Unknown History subcutaneous solution USEASDIRECTD magnesium hydroxide 400 mg/5 mL 30 ml PO DAILY PRN Constipation 08/18/24 08/18/24 Unknown History oral suspension (Milk of Magnesia) metformin 750 mg tablet,extended 750 mg PO DAILY 08/18/24 08/18/24 Unknown History release 24 hr mirtazapine 15 mg tablet 7.5 mg PO BEDTIME 08/18/24 08/18/24 Unknown History olanzapine 2.5 mg tablet 2.5 mg PO BID 08/18/24 08/18/24 Unknown History pantoprazole 40 mg tablet,delayed 40 mg PO DAILY 08/18/24 08/18/24 Unknown History release timolol maleate 0.5 % eye drops 1 drp ophthalmic (eye) BID 08/18/24 08/18/24 Unknown History warfarin 5 mg tablet 2.5 mg PO DAILY 08/18/24 08/18/24 Unknown History Physical Exam 2 Vital Signs and Narrative: Vital Signs: Last Vital Signs Temp 97.6 F 08/18/24 15:13 Pulse 55 08/18/24 15:13 Resp 12 08/18/24 15:13 BP 151/51 H 08/18/24 15:13 Pulse Ox 99 08/18/24 15:13 O2 Del Method Room Air 08/18/24 15:13 BMI result Body Mass Index 36.5 Elderly male lying in bed in no distress Neck supple, no JVD Regular rate and rhythm, S1-S2 heard Regular breath sounds bilaterally, no wheezing or crackles appreciated Abdomen soft nontender, no guarding, no rigidity Patient is awake, alert and oriented to self, place, time and person ; no focal motor deficit Awakens to verbal stimulus but not oriented Psych: Agitated No pedal edema Results Labs 08/18/24 11:01 08/18/24 11:01 Labs: Laboratory Results - last 24 hr 08/18/24 08/18/24 08/18/24 11:00 11:01 13:47 MCV 96.9 MCH 33.9 H MCHC 35.0 RDW 14.0 Plt Count 167 MPV 10.8 Immature Gran % (Auto) 0.7 H Neut % (Auto) 69.6 Lymph % (Auto) 19.0 L [place] % (Auto) 9.7 Eos % (Auto) 0.8 Baso % (Auto) 0.2 Lymph # (Auto) 1.6 [place] # (Auto) 0.8 Eos # (Auto) 0.1 Baso # (Auto) 0.0 Abs Immat Gran (auto) 0.06 H Absolute Neuts (auto) 5.9 Absolute Nucleated RBC 0.000 Nucleated RBC % (auto) 0.0 Hold Blue Top SEE NOTE Anion Gap 13 Estim Creat Clear Calc 31.0 Estimated GFR 30 Random Glucose 224 H Calcium 8.7 Total Bilirubin 1.5 H Direct Bilirubin 0.4 AST 47 H ALT 14 Alkaline Phosphatase 70 Total Creatine Kinase 519 H Total Protein 6.2 L Albumin 3.3 L Lipase 10 Urine Color Dark Yellow Urine Appearance Clear Urine pH 5.0 Ur Specific [place] 1.020 Urine Protein 30 (1+) H Urine Glucose (UA) 100 H Urine Ketones 15 Urine Blood Negative Urine Nitrite Negative Ur Leukocyte Esterase Negative Urine RBC 0-2 Urine WBC 0-5 Ur Squamous Epith Cells 0-2 Urine Bacteria None Seen Hyaline Casts 6-10 Imaging Radiologist's Impressions: Impressions Cervical Spine CT 08/18/24 10:42 IMPRESSION: Multilevel cervical spondylosis more conspicuous at C6-7, C5-6 and to a lesser extent C3-4 level. Transverse oriented lucency at the odontoid process/base of C2. Although this could be artifactual nondisplaced type II C2 fracture cannot be excluded. Recommend MRI cervical spine. Fleischner guidelines were followed. Electronically signed by: Lorenzo Jeffrey MD 08/18/2024 12:[address] 08/18/24 10:42 IMPRESSION: No gross acute intracranial hemorrhage. Small vessel occlusive disease. Global cerebral atrophy. Acute on chronic right saphenous sinus disease with the questionable inspissated secretions versus superimposed fungal infection. Questionable subtle hyperdensity mid [place]. Probable artifactual.. Electronically signed by: Lorenzo Jeffrey MD 08/18/2024 12:08 PM EDT RP Shoulder X-Ray 08/18/24 10:42 IMPRESSION: Moderate degenerative change of the AC joint. Electronically signed by: Sourav Hale MD 08/18/2024 01:09 PM EDT RP Chest X-Ray 08/18/24 10:43 IMPRESSION: Clear lungs. Electronically signed by: Sourav Hale MD 08/18/2024 01:11 PM EDT RP Hip X-Ray 08/18/24 10:48 IMPRESSION: No evidence of fracture of the right hip. Electronically signed by: Sourav Hale MD 08/18/2024 01:10 PM EDT RP Abdomen/Pelvis CT 08/18/24 11:07 IMPRESSION: No evidence of traumatic injury to the abdomen or pelvis, although evaluation for solid organ injury is limited by lack of intravenous contrast material. Incidental findings as described. 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 #. Unwitnessed fall: Unclear preceding event. Will monitor on tele. #. Altered mentation: Delirum vs other. Also unable to ambulate in the ER, unclear baseline. Does have a prescription for wheelchair. PT eval. Obtaining B12, folate, TSH, ammonia and VBG. May need specialist consult #. Insulin-dependent diabetes mellitus with hyperglycemia: Initiating Accu- Cheks with sliding scale insulin every 6 hours #. Elevated creatinine: Unknown baseline. Monitor with crystalloid resuscitation. Does have CKD stage 3A baseline #. Atrial fibrillation: Rate controlled in the ER. On Coumadin #. Hypertension/mixed hyperlipidemia: Resume p.o. medications once mentation improves Med rec pending DVT prophylaxis: Coumadin Full code. Unable to address code status at the time of admission. Tried to call spouse but no answer. Readdress code status in a.m. Quality Stroke Does the patient have a stroke diagnosis?: No VTE Prior VTE?: No VTE Risk Level:: Medical - moderate - high VTE Device Contraindication: Treatment Not Indicated VTE Drug Contraindication: N/A - Med Ordered
[2024-08-19] VITALS (7 sets, daily range): BP systolic 143–188; BP diastolic 68–83; PULSE 62–78; RESP 14–18; TEMP 36.1–36.6; O2SAT 94–98; BMI 35.8
[2024-08-19] MEDS: Lactated Ringers 1,000 ML 999 ML IV (01:16)
[2024-08-19] MEDS: 0.9 % Sodium Chloride Flush 3 ML SYRINGE IVFLUSH ×4 (01:16→22:32)
--- NOTE | 2024-08-19 01:19 | PC.NURSE ---
Pt a&ox3, no signs of distress. Pt asked by this RN if there was anything he needed and Pt states you people here are stupid, so stupid. Pt medicated per mar Plan of care ongoing.
--- NOTE | 2024-08-19 01:26 | MHC.EDTECH ---
Went into pts room to do a POC. Pt refused to do it. He said he doesn't need it done.
[2024-08-19 02:02] LABS: Glucose, Whole Blood 165 mg/dL (60-115)
--- NOTE | 2024-08-19 04:14 | PC.NURSE ---
this RN resumed care of pt at 0300. pt noted to be screaming pout of room calling hospital staff convicts. pt becoming verbally aggressive but easily redirectable. alert and oriented to self. unknown baseline per MD/previous research staff member. neuros intact. vss and up to date. nsr on the front desk monitor. on RA w/o difficulty. no sob/wob noted. respirations even/unlabored. pt requesting food and water - pt notified he is to remain NPO at this time d/t pending swallow evaluation. pt agreeable to plan of care. plan of care ongoing. call galicia placed within reach.
--- NOTE | 2024-08-19 04:18 | PC.NURSE ---
this RN resumed care of pt at 0300. pt noted to be screaming out of room while in bed calling hospital staff convicts. pt becoming verbally aggressive but easily redirectable. alert and oriented to self. unknown baseline per MD/previous nursing staffing coordinator. neuros intact. vss and up to date. nsr on the monitoring specialist. on RA w/o difficulty. no sob/wob noted. respirations even/unlabored. pt requesting food and water - pt notified he is to remain NPO at this time d/t pending swallow evaluation. pt agreeable to plan of care. plan of care ongoing. call galicia placed within reach.
[2024-08-19] MEDS: diazePAM 10 MG/2 ML CARTRIDGE 5 MG IVPUSH (04:42)
--- NOTE | 2024-08-19 04:44 | PC.NURSE ---
pt continuously yelling out into the hallway calling staff members murderers and convicts. pt noted to have an increased difficulty w/ being redirected. hospitalist notified/aware. 5mg valium ordered via IVP. pt's IV access noted to be infiltrated - new 20gIV placed in the left AC - IV access wrapped w/ curex bandage for safety precautions. pt medicated per provider order. effectiveness pending. plan of care ongoing. call galicia placed within reach.
[2024-08-19 06:00] LABS: MANUAL DIFF FLAG NO
[2024-08-19 06:05] LABS: Hematocrit 33.6 % (42.0-52.0); Hemoglobin 11.7 g/dl (14.0-18.0); Imm Gran Abs Auto 0.04 X10*3/uL (0.00-0.03); Imm Gran Pct Auto 0.7 % (0.0-0.4); Lymphocytes Absolute Auto 1.3 X10*3/uL (1.2-4.9); Mean Corpuscular HGB Conc 34.8 g/dl (31.0-36.0); Mean Corpuscular Hemoglobin 34.4 pg (27.0-33.0); Mean Corpuscular Volume 98.8 fL (80.0-98.0); NRBC Abs Auto 0.000 X10*3/uL (0.0-0.012); NRBC Pct Auto 0.0 /100WBC (0.0-0.2); Platelet Count 122 X10*3/uL (160-400); Red Blood Count 3.40 X10*6/uL (4.60-5.80); White Blood Count 5.8 X10*3/uL (4.8-10.8)
[2024-08-19 06:21] LABS: Anion Gap 14 (12-20); Blood Urea Nitrogen 29 mg/dL (9-16); Calcium 8.1 mg/dL (8.4-10.2); Carbon Dioxide 20 mmol/L (22-29); Chloride 115 mmol/L (96-108); Creatinine Clr Calc Pharmacy 42.4; Estimated Glomerular Filt Rate 42; Potassium 3.4 mmol/L (3.3-5.1); Sodium 146 mmol/L (135-145)
[2024-08-19 08:28] LABS: Glucose, Whole Blood 154 mg/dL (60-115)
--- NOTE | 2024-08-19 10:23 | MHC.CM.PN ---
Patient has Dementia and is noted to be agitated and disoriented; CM spoke with Yhuisegv-xx-Rcc/HCP/Irena @ [phone] and addressed ALARCON with her (original will be mailed to Irena and a copy has been placed on the chart). Patient is admitted here from [facility] and Irena and family do not want him to return there; CM has initiated and will follow for dc planning. Patient typically lives in a house with his , Son and Irena, uses a walker to assist with mobility, and just completed services with [facility] for wound care. Patient will benefit from a Care Tram Consult to assist with disposition. PCP/[facility] [place] is Emilie Marin from [facility].
--- NOTE | 2024-08-19 14:33 | P.PNIM_ITS ---
Subjective Subjective Date of Service: 08/19/24 Interval History: No acute issues overnight. Moving neck freely without pain Review of Systems Denies chest pain Denies shortness of breath Denies nausea vomiting diarrhea Denies fever chills Physical Exam 2 Vital Signs: Vital Signs: Last Vital Signs Temp 97.0 F 08/19/24 10:58 Pulse 68 08/19/24 10:58 Resp 16 08/19/24 10:58 BP 153/81 H 08/19/24 10:58 Pulse Ox 97 08/19/24 10:58 O2 Del Method Room Air 08/19/24 10:58 BMI result Body Mass Index 35.8 Const: Other: Awake alert no acute distress Resp: Other: Clear to auscultation bilaterally no rales rhonchi or wheezes Cardio: Other: No S4; positive S1-S2; no S3 murmurs rubs or gallops GI: Other: Soft nontender nondistended normoactive bowel sounds Extrem: Other: No edema bilaterally Objective Data Active Medications Acetaminophen (Acetaminophen 325 Mg Tablet) 650 mg PO Q6H PRN PRN Reason: Pain, Mild 1-3,fever,headache Calcium Carbonate (Calcium Carbonate 750 Mg Tab.Chew) 750 mg PO Q4H PRN PRN Reason: Heartburn Dextrose (Dextrose 50 % 25 Gm/50 Ml Syringe) 25 gm IVPUSH Q15M PRN; Protocol PRN Reason: per Hypoglycemia Standing Ord. Glucose (Glucose Gel 15 Gm Gel..Gram.) 15 gm PO Q15M PRN; Protocol PRN Reason: per Hypoglycemia Standing Ord. Magnesium Hydroxide (Milk Of Magnesia 30 Ml Oral.Susp) 30 ml PO DAILY PRN PRN Reason: Constipation Melatonin (Melatonin 3 Mg Tablet) 6 mg PO BEDTIME PRN PRN Reason: Insomnia Nystatin (Nystatin Powder 15 Gm Bottle) 1 appl TOPICAL TID [facility]; Protocol Last Admin: 08/19/24 13:00 Dose: Not Given Documented By: JAYJAY Non-Admin Reason: Med Not Available Ondansetron HCl (Ondansetron Hcl 4 Mg/2 Ml Vial) 4 mg IVPUSH Q8H PRN PRN Reason: Nausea and Vomiting Sodium Chloride (0.9 % Sodium Chloride Flush 3 Ml Syringe) [facility] Last Admin: 08/19/24 08:22 Dose: 3 ml Documented By: PRIYANK Labs 08/19/24 05:36 08/19/24 05:36 Labs: Laboratory Results - last 24 hr 08/19/24 08/19/24 08/19/24 01:57 05:36 08:22 MCV 98.8 H MCH 34.4 H MCHC 34.8 RDW 14.0 Plt Count 122 L D MPV 11.0 Immature Gran % (Auto) 0.7 H Neut % (Auto) 63.0 Lymph % (Auto) 22.8 [place] % (Auto) 10.2 Eos % (Auto) 2.8 Baso % (Auto) 0.5 Lymph # (Auto) 1.3 [place] # (Auto) 0.6 Eos # (Auto) 0.2 Baso # (Auto) 0.0 Abs Immat Gran (auto) 0.04 H Absolute Neuts (auto) 3.7 Absolute Nucleated RBC 0.000 Nucleated RBC % (auto) 0.0 Anion Gap 14 Estim Creat Clear Calc 42.4 Estimated GFR 42 POC Glucose 165 H 154 H Random Glucose 168 H Calcium 8.1 L D Assessment and Plan (1) Mental status alteration: Status: Acute (2) Insulin dependent type 2 diabetes mellitus: Status: Acute (3) CKD stage 3a, GFR 45-59 ml/min: Status: Acute Plan This is a 88-year-old male with pertinent history of atrial fibrillation on Coumadin, 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 1.Altered mentation -unclear baseline -we will repeat labs including urine -check NH for in a.m. -PT consult secondary to falls -question of C2 fracture on plain CTA; MRI negative for same 2.Insulin-dependent diabetes mellitus -hold metformin at this time -lispro correctional scale -adjust as indicated 3. SANTOS in backdrop of CKD 3 -slowly resolving to volume repletion -follow renals/divalents 4.Atrial fibrillation -acceptable control on current therapies -adjust as indicated -continue warfarin with daily INRs Coumadin Full code. Quality Stroke Does the patient have a stroke diagnosis?: No VTE Prior VTE?: No VTE Risk Level:: Medical - moderate - high VTE Device Contraindication: Treatment Not Indicated VTE Drug Contraindication: N/A - Med Ordered
[2024-08-19 15:18] LABS: INTERNATIONAL NORM RATIO 2.9 (0.9-1.1); Prothrombin Time 32.8 SEC (10.9-12.4)
[2024-08-19 15:38] LABS: Glucose, Whole Blood 165 mg/dL (60-115)
--- NOTE | 2024-08-19 15:42 | MHC.SL.SWA ---
Speech Pathologist Impression: Dysphagia unspecified, secondary to reduced orientation awareness, unpredictable impulsivity and moderate to significant confusion. Risk of Aspiration Due to: Cognition Impulsivity Dysphasia Diet Status: Liquid diet, thin consistency, NET DEVELOPMENT MANAGER to assess further Liquid Consistency and Strategies for Safe Swallow: Liquid Intake Recommendation: Thin Liquid Intake Strategies: Solid Food Consistency: Dietary Recommendations: Liquid diet Additional Modifications to Solid Foods: Oral Medication Intake: Whole with Liquid Please contact the pharmacy regarding appropriate crushable or liquid drug formulations that are available whenever modified delivery is recommended. Compensatory Strategies and Precautions to be Taken for Safe Swallow: Supervision While Eating and Drinking for Safe Swallow: Intermittent Supervision Foods to Avoid: Swallowing Recommended Treatments: Recommendation for Speech: Further Testing Needed Inpatient Speech Therapy Comment: Pt alert and responsive when NET DEVELOPMENT MANAGER arrived, speaking pragmatically and engaging in conversation dispersed with abrupt topic shifts and extraneous noises. Pt easily redirected with concrete verbal cues. Pt denied pain but refused elevation of HOB to 90 degrees. Oromotor functioning observed during natural movements for speech and swallow as pt unable to follow cues consistently. Pt tolerated thin liquids by consecutive straw sips without overt s/s of aspiration. Pt refused any further trials. Dysphagia unspecified, secondary to reduced orientation awareness, unpredictable impulsivity and moderate to significant confusion. PT saw pt after NET DEVELOPMENT MANAGER, pt was able to sit upright in chair. Recc pt be in upright position for PO, liquid diet recc at this time as no other consistencies observed d/t pt refusal. NET DEVELOPMENT MANAGER to assess further. Frequency/Duration: Daily M-F Date Range for Service Req: Timeline to reassess: Senior Java Software Engineer Clinican/Clinical Fellow: No Supervisory Statement: I have reviewed and agree with the student/clinical fellow's documentation: N/A Speech Language Pathologist: Inocencia Arana M.S., [facility]-NET DEVELOPMENT MANAGER
[2024-08-19 16:20] LABS: Glucose, Whole Blood 179 mg/dL (60-115)
[2024-08-19 17:23] LABS: Appearance Urine Cloudy; Glucose Urine UA 100 mg/dL (Negative); PH 5.5 (5.0-9.0); Specific Gravity - Urine 1.020 (1.005-1.025); UMIC TRIGGER UACC YES
[2024-08-19 17:39] LABS: UACC Culture Trigger YES
[2024-08-19 19:23] LABS: Glucose, Whole Blood 197 mg/dL (60-115)
[2024-08-19] MEDS: Dorzolamide HCl 2 % Ophth Sol 10 ML DRPBTL 1 DROP EYE-BOTH (22:27)
[2024-08-19] MEDS: timoloL maleate 0.5 % Oph Sol 5 ML DRBTL 1 DROP EYE-BOTH (22:28)
[2024-08-20] VITALS (7 sets, daily range): BP systolic 143–162; BP diastolic 61–77; PULSE 53–74; RESP 16–18; TEMP 36.1–37.2; O2SAT 96–98
[2024-08-20 00:48] LABS: Glucose, Whole Blood 205 mg/dL (60-115)
[2024-08-20 07:22] LABS: Glucose, Whole Blood 186 mg/dL (60-115)
[2024-08-20] MEDS: 0.9 % Sodium Chloride Flush 3 ML SYRINGE IVFLUSH ×3 (07:48→21:50)
[2024-08-20] MEDS: Dorzolamide HCl 2 % Ophth Sol 10 ML DRPBTL 1 DROP EYE-BOTH ×2 (07:49→21:48)
[2024-08-20] MEDS: timoloL maleate 0.5 % Oph Sol 5 ML DRBTL 1 DROP EYE-BOTH ×2 (07:49→21:49)
[2024-08-20 08:05] LABS: INTERNATIONAL NORM RATIO 2.9 (0.9-1.1); Prothrombin Time 33.5 SEC (10.9-12.4)
[2024-08-20 08:06] LABS: VBG HCO3 26 mmol/L (22-26); VBG O2 % Saturation 85.0 %
[2024-08-20 08:06] LABS: Ammonia 48 umol/L (13-55)
[2024-08-20 08:07] LABS: Venous Blood Gas Refer to POC result
--- NOTE | 2024-08-20 11:14 | MHC.SL.SWA ---
Speech Pathologist Impression: Mild oral phase dysphagia secondary to edentulous state Risk of Aspiration Due to: Confusion. Dysphasia Diet Status: UPGRADE diet to Ground Mechanical (NDD2), continue on thin liquids (straws ok), pills crushed in puree. Patient requires 1-1 feeding. Liquid Consistency and Strategies for Safe Swallow: Liquid Intake Recommendation: Thin Liquid Intake Strategies: Small Sips Solid Food Consistency: Dietary Recommendations: Chopped/Advanced (NDD3) Additional Modifications to Solid Foods: Patient requires 1-1 feeding. [place] patient to food on tray. Oral Medication Intake: Whole with Liquid Please contact the pharmacy regarding appropriate crushable or liquid drug formulations that are available whenever modified delivery is recommended. Compensatory Strategies and Precautions to be Taken for Safe Swallow: Sitting Upright (90 deg) Liquids from Cup Liquids from Straw Small Bites and Sips Alternate Liquids/Solids Supervision While Eating and Drinking for Safe Swallow: Total Assistance (1:1) Foods to Avoid: Tough, difficult to chew solids. Swallowing Recommended Treatments: Compens. Strategy Educat. Recommendation for Speech: Further Testing Needed Inpatient Speech Therapy Comment: Frequency/Duration: Daily M-F Date Range for Service Req: Timeline to reassess: Port Traffic Manager Clinican/Clinical Fellow: No Supervisory Statement: I have reviewed and agree with the student/clinical fellow's documentation: N/A Speech Language Pathologist: Apoorva Chase M.A., CCC-[employer]PER
[2024-08-20 12:29] LABS: Hematocrit 36.6 % (42.0-52.0); Hemoglobin 12.1 g/dl (14.0-18.0); Imm Gran Abs Auto 0.02 X10*3/uL (0.00-0.03); Imm Gran Pct Auto 0.4 % (0.0-0.4); Lymphocytes Absolute Auto 1.0 X10*3/uL (1.2-4.9); MANUAL DIFF FLAG SCAN; Mean Corpuscular HGB Conc 33.1 g/dl (31.0-36.0); Mean Corpuscular Hemoglobin 33.6 pg (27.0-33.0); Mean Corpuscular Volume 101.7 fL (80.0-98.0); NRBC Abs Auto 0.000 X10*3/uL (0.0-0.012); NRBC Pct Auto 0.0 /100WBC (0.0-0.2); PLT CLUMP 1; Red Blood Count 3.60 X10*6/uL (4.60-5.80); SCAN SMEAR FLAG 1
[2024-08-20 12:40] LABS: Glucose, Whole Blood 167 mg/dL (60-115)
[2024-08-20 12:54] LABS: Alanine Aminotransferase 16 U/L (0-40); Albumin Level 3.0 g/dL (3.5-5.0); Alkaline Phosphatase 71 U/L (39-117); Anion Gap 12 (12-20); Aspartate Amino Transferase 56 U/L (5-37); Blood Urea Nitrogen 23 mg/dL (9-16); Calcium 8.7 mg/dL (8.4-10.2); Carbon Dioxide 21 mmol/L (22-29); Chloride 115 mmol/L (96-108); Creatinine Clr Calc Pharmacy 53.7; Estimated Glomerular Filt Rate 56; Potassium 3.9 mmol/L (3.3-5.1); Sodium 144 mmol/L (135-145); Total Protein 6.3 g/dL (6.5-8.0)
[2024-08-20 13:05] LABS: Thyroid Stimulating Hormone 2.21 uIU/mL (0.32-4.0)
[2024-08-20 13:19] LABS: White Blood Count 4.5 X10*3/uL (4.8-10.8)
--- NOTE | 2024-08-20 13:28 | P.PNIM_ITS ---
Subjective Subjective Date of Service: 08/20/24 Interval History: No acute issues overnight. Remains pleasantly confused Review of Systems Denies chest pain Denies shortness of breath Denies nausea vomiting diarrhea Denies fever chills Physical Exam 2 Vital Signs: Vital Signs: Last Vital Signs Temp 98.9 F 08/20/24 11:09 Pulse 56 08/20/24 11:09 Resp 18 08/20/24 11:09 BP 144/70 H 08/20/24 11:09 Pulse Ox 97 08/20/24 11:09 O2 Del Method Room Air 08/20/24 11:09 BMI result Body Mass Index 35.8 Const: Other: Awake alert no acute distress Resp: Other: Clear to auscultation bilaterally no rales rhonchi or wheezes Cardio: Other: No S4; positive S1-S2; no S3 murmurs rubs or gallops GI: Other: Soft nontender nondistended normoactive bowel sounds Extrem: Other: No edema bilaterally Objective Data Active Medications Acetaminophen (Acetaminophen 325 Mg Tablet) 650 mg PO Q6H PRN PRN Reason: Pain, Mild 1-3,fever,headache Last Admin: 08/19/24 22:36 Dose: 650 mg Documented By: JEANNE Al Hydroxide/Mg Hydroxide (Magnesium Hydrox/Alum Hydrox 30 Ml Oral.Susp) 30 ml PO Q6H PRN PRN Reason: Acid Reflux Atorvastatin Calcium (Atorvastatin Calcium 10 Mg Tablet) 10 mg PO BEDTIME [facility] Last Admin: 08/19/24 22:27 Dose: 10 mg Documented By: JEANNE Calcium Carbonate (Calcium Carbonate 750 Mg Tab.Chew) 750 mg PO Q4H PRN PRN Reason: Heartburn Carvedilol (Carvedilol 6.25 Mg Tablet) 6.25 mg PO BID [facility]; Protocol Last Admin: 08/20/24 07:49 Dose: 6.25 mg Documented By: ANIBAL Dextrose (Dextrose 50 % 25 Gm/50 Ml Syringe) 25 gm IVPUSH Q15M PRN; Protocol PRN Reason: per Hypoglycemia Standing Ord. Dorzolamide HCl (Dorzolamide Hcl 2 % Ophth Alexus 10 Ml Drpbtl) 1 drop EYE-BOTH BID [facility] Last Admin: 08/20/24 07:49 Dose: 1 drop Documented By: ANIBAL Famotidine (Famotidine 20 Mg Tablet) 20 mg PO BID [facility] Last Admin: 08/20/24 07:49 Dose: 20 mg Documented By: ANIBAL Glucose (Glucose Gel 15 Gm Gel..Gram.) 15 gm PO Q15M PRN; Protocol PRN Reason: per Hypoglycemia Standing Ord. Insulin Human Lispro (Insulin Lispro 100 Unit/Ml 3 Ml Vial) 0 unit SUBCUT QIDWMHS [facility]; Protocol Last Admin: 08/20/24 12:43 Dose: 2 unit Documented By: ANIBAL Magnesium Hydroxide (Milk Of Magnesia 30 Ml Oral.Susp) 30 ml PO DAILY PRN PRN Reason: Constipation Melatonin (Melatonin 3 Mg Tablet) 6 mg PO BEDTIME PRN PRN Reason: Insomnia Last Admin: 08/19/24 22:27 Dose: 6 mg Documented By: JEANNE Mirtazapine (Mirtazapine 7.5 Mg Tablet) 7.5 mg PO BEDTIME [facility] Last Admin: 08/19/24 22:27 Dose: 7.5 mg Documented By: JEANNE Nystatin (Nystatin Powder 15 Gm Bottle) 1 appl TOPICAL TID [facility]; Protocol Last Admin: 08/20/24 07:49 Dose: 1 appl Documented By: ANIBAL Olanzapine (Olanzapine 2.5 Mg Tablet) 2.5 mg PO BID [facility] Last Admin: 08/20/24 07:49 Dose: 2.5 mg Documented By: ANIBAL Omeprazole (Omeprazole 20 Mg Capsule.Dr) 20 mg PO DAILY@0630 [facility] Last Admin: 08/20/24 05:48 Dose: 20 mg Documented By: JEANNE Ondansetron HCl (Ondansetron Hcl 4 Mg/2 Ml Vial) 4 mg IVPUSH Q8H PRN PRN Reason: Nausea and Vomiting Sodium Chloride (0.9 % Sodium Chloride Flush 3 Ml Syringe) 3 ml IVFLUSH QSHIFT [facility] Last Admin: 08/20/24 07:48 Dose: 3 ml Documented By: ANIBAL Timolol Maleate (Timolol Maleate 0.5 % Oph Alexus 5 Ml Drbtl) 1 drop EYE-BOTH BID [facility] Last Admin: 08/20/24 07:49 Dose: 1 drop Documented By: ANIBAL Warfarin Sodium (Warfarin Sodium 2.5 Mg Tablet) 2.5 mg PO DAILY@1800 [facility] Last Admin: 08/19/24 17:46 Dose: 2.5 mg Documented By: JAYJAY Labs 08/20/24 12:19 08/20/24 12:19 Labs: Laboratory Results - last 24 hr 08/19/24 08/19/24 08/19/24 12:29 15:07 16:17 MCV MCH MCHC RDW Plt Count MPV Immature Gran % (Auto) Neut % (Auto) Lymph % (Auto) [place] % (Auto) Eos % (Auto) Baso % (Auto) Lymph # (Auto) [place] # (Auto) Eos # (Auto) Baso # (Auto) Abs Immat Gran (auto) Absolute Neuts (auto) Absolute Nucleated RBC Nucleated RBC % (auto) Smear Tech's Comments PT 32.8 H INR 2.9 H VBG pH VBG pCO2 VBG pO2 VBG HCO3 VBG O2 Saturation VBG Base Excess Anion Gap Estim Creat Clear Calc Estimated GFR POC Glucose 165 H 179 H Fasting Glucose Calcium Total Bilirubin AST ALT Alkaline Phosphatase Ammonia Total Protein Albumin TSH Urine Color Urine Appearance Urine pH Ur Specific [place] Urine Protein Urine Glucose (UA) Urine Ketones Urine Blood Urine Nitrite Ur Leukocyte Esterase Urine RBC Urine WBC Ur Squamous Epith Cells Urine Bacteria Hyaline Casts 08/19/24 08/19/24 08/20/24 17:00 19:07 00:43 MCV MCH MCHC RDW Plt Count MPV Immature Gran % (Auto) Neut % (Auto) Lymph % (Auto) [place] % (Auto) Eos % (Auto) Baso % (Auto) Lymph # (Auto) [place] # (Auto) Eos # (Auto) Baso # (Auto) Abs Immat Gran (auto) Absolute Neuts (auto) Absolute Nucleated RBC Nucleated RBC % (auto) Smear Tech's Comments PT INR VBG pH VBG pCO2 VBG pO2 VBG HCO3 VBG O2 Saturation VBG Base Excess Anion Gap Estim Creat Clear Calc Estimated GFR POC Glucose 197 H 205 H Fasting Glucose Calcium Total Bilirubin AST ALT Alkaline Phosphatase Ammonia Total Protein Albumin TSH Urine Color Dark Yellow Urine Appearance Cloudy Urine pH 5.5 Ur Specific [place] 1.020 Urine Protein 30 (1+) H Urine Glucose (UA) 100 H Urine Ketones 15 Urine Blood Large (3+) H Urine Nitrite Negative Ur Leukocyte Esterase Moderate (2+) H Urine RBC >20 H Urine WBC 6-10 H Ur Squamous Epith Cells 6-10 Urine Bacteria 1+ Hyaline Casts 3-5 08/20/24 08/20/24 08/20/24 07:18 07:53 08:02 MCV MCH MCHC RDW Plt Count MPV Immature Gran % (Auto) Neut % (Auto) Lymph % (Auto) [place] % (Auto) Eos % (Auto) Baso % (Auto) Lymph # (Auto) [place] # (Auto) Eos # (Auto) Baso # (Auto) Abs Immat Gran (auto) Absolute Neuts (auto) Absolute Nucleated RBC Nucleated RBC % (auto) Smear Tech's Comments PT 33.5 H INR 2.9 H VBG pH 7.44 H VBG pCO2 38 VBG pO2 56 VBG HCO3 26 VBG O2 Saturation 85.0 VBG Base Excess 2.0 Anion Gap Estim Creat Clear Calc Estimated GFR POC Glucose 186 H Fasting Glucose Calcium Total Bilirubin AST ALT Alkaline Phosphatase Ammonia 48 Total Protein Albumin TSH Urine Color Urine Appearance Urine pH Ur Specific [place] Urine Protein Urine Glucose (UA) Urine Ketones Urine Blood Urine Nitrite Ur Leukocyte Esterase Urine RBC Urine WBC Ur Squamous Epith Cells Urine Bacteria Hyaline Casts 08/20/24 08/20/24 12:19 12:35 MCV 101.7 H MCH 33.6 H MCHC 33.1 RDW 13.8 Plt Count TNP MPV TNP Immature Gran % (Auto) 0.4 Neut % (Auto) 64.3 Lymph % (Auto) 21.4 [place] % (Auto) 8.4 Eos % (Auto) 5.1 H Baso % (Auto) 0.4 Lymph # (Auto) 1.0 L [place] # (Auto) 0.4 Eos # (Auto) 0.2 Baso # (Auto) 0.0 Abs Immat Gran (auto) 0.02 Absolute Neuts (auto) 2.9 Absolute Nucleated RBC 0.000 Nucleated RBC % (auto) 0.0 Smear Tech's Comments VERIFIED PT INR VBG pH VBG pCO2 VBG pO2 VBG HCO3 VBG O2 Saturation VBG Base Excess Anion Gap 12 Estim Creat Clear Calc 53.7 Estimated GFR 56 POC Glucose 167 H Fasting Glucose 175 H Calcium 8.7 D Total Bilirubin 1.3 H AST 56 H ALT 16 Alkaline Phosphatase 71 Ammonia Total Protein 6.3 L Albumin 3.0 L TSH 2.21 Urine Color Urine Appearance Urine pH Ur Specific [place] Urine Protein Urine Glucose (UA) Urine Ketones Urine Blood Urine Nitrite Ur Leukocyte Esterase Urine RBC Urine WBC Ur Squamous Epith Cells Urine Bacteria Hyaline Casts Microbiology Microbiology Results: Microbiology 08/19/24 Unknown Urine Culture - Preliminary Urine clean catch - Clean Catch Midstream Culture in progress. 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 1.Altered mentation -appears at baseline -1 dose ceftriaxone given for active urinary sediment follow clinically -PT consult secondary to falls -question of C2 fracture ; not supported by MRI 2.Insulin-dependent diabetes mellitus -hold metformin at this time -lispro correctional scale -adjust as indicated 3. SANTOS in backdrop of CKD 3 -slowly resolving to volume repletion -follow renals/divalents 4.Atrial fibrillation -acceptable control on current therapies -adjust as indicated -continue warfarin with daily INRs Coumadin Full code. Quality Stroke Does the patient have a stroke diagnosis?: No VTE Prior VTE?: No VTE Risk Level:: Medical - moderate - high VTE Device Contraindication: Treatment Not Indicated VTE Drug Contraindication: N/A - Med Ordered
--- NOTE | 2024-08-20 17:13 | PC.NURSE ---
At 1700 pt was bladder scanned; revealed 371. Pt was straight cath and removed 440 ml. This is the 2nd time pt is being straight cathed. Pt tolerated well; Pt is due to void at 2300. RN will monitor. Safety and fall precautions maintained; Call galicia within reach.
[2024-08-20 17:26] LABS: Glucose, Whole Blood 161 mg/dL (60-115)
--- NOTE | 2024-08-20 17:51 | MHC.CARE ---
CARE Team met with patient and spoke with family, disposition will be determined by psychiatry. Dr. Alanis updated
[2024-08-20 21:44] LABS: Glucose, Whole Blood 142 mg/dL (60-115)
[2024-08-21] VITALS (10 sets, daily range): BP systolic 107–180; BP diastolic 50–72; PULSE 53–98; RESP 16–18; TEMP 36–36.6; O2SAT 97–99
[2024-08-21 07:17] LABS: INTERNATIONAL NORM RATIO 3.2 (0.9-1.1); Prothrombin Time 36.4 SEC (10.9-12.4)
[2024-08-21 07:34] LABS: Glucose, Whole Blood 177 mg/dL (60-115)
[2024-08-21] MEDS: 0.9 % Sodium Chloride Flush 3 ML SYRINGE IVFLUSH ×3 (09:19→21:26)
[2024-08-21] MEDS: Dorzolamide HCl 2 % Ophth Sol 10 ML DRPBTL 1 DROP EYE-BOTH ×2 (09:21→21:23)
[2024-08-21] MEDS: timoloL maleate 0.5 % Oph Sol 5 ML DRBTL 1 DROP EYE-BOTH ×2 (09:21→21:23)
--- NOTE | 2024-08-21 10:04 | MHC.SL.SWA ---
Speech Pathologist Impression: Risk of Aspiration, Oropharyngeal Dysphagia Dysphasia Diet Status: Continue diet of Ground Mechanical (NDD2) and Thin Liquids (straws ok), pills crushed in puree. Patient requires 1-1 feeding. Liquid Consistency and Strategies for Safe Swallow: Liquid Intake Recommendation: Thin Liquid Intake Strategies: Small Sips Solid Food Consistency: Dietary Recommendations: Grnd/Mech Altered (NDD2) Additional Modifications to Solid Foods: Patient requires 1-1 feeding. [place] patient to food on tray. Oral Medication Intake: Whole with Liquid Please contact the pharmacy regarding appropriate crushable or liquid drug formulations that are available whenever modified delivery is recommended. Compensatory Strategies and Precautions to be Taken for Safe Swallow: Sitting Upright (90 deg) Liquids from Cup Liquids from Straw Small Bites and Sips Alternate Liquids/Solids Rate of Ingestion Change Avoid Specific Foods Supervision While Eating and Drinking for Safe Swallow: Total Assistance (1:1) Foods to Avoid: Tough, difficult to chew solids. Swallowing Recommended Treatments: Compens. Strategy Educat. Recommendation for Speech: Further Testing Needed Inpatient Speech Therapy Comment: Frequency/Duration: Daily M-F Date Range for Service Req: Timeline to reassess: Fleet Administrative Assistant Clinican/Clinical Fellow: No Supervisory Statement: I have reviewed and agree with the student/clinical fellow's documentation: N/A Speech Language Pathologist: Marcy Kruger M.A., CCC-STEM CUTTER
--- NOTE | 2024-08-21 10:27 | MHC.CM.PN ---
Per Care Team, disposition will be determined by Psychiatry. PT is recommending STR. CM will follow.
--- NOTE | 2024-08-21 11:35 | HO.PM.IMPN ---
Subjective Subjective Date of Service: 08/21/24 Interval History: No acute issues overnight. No behavioral issues last 24 hours Review of Systems Denies chest pain Denies shortness of breath Denies nausea vomiting diarrhea Denies fever chills Physical Exam Vital Signs: Vital Signs: Last Vital Signs Temp 97.3 F 08/21/24 11:19 Pulse 53 08/21/24 11:19 Resp 18 08/21/24 11:19 BP 107/59 L 08/21/24 11:19 Pulse Ox 99 08/21/24 11:19 O2 Del Method Room Air 08/21/24 11:19 BMI result Body Mass Index 35.8 Const: Other: Awake alert no acute distress Resp: Other: Clear to auscultation bilaterally no rales rhonchi or wheezes Cardio: Other: No S4; positive S1-S2; no S3 murmurs rubs or gallops GI: Other: Soft nontender nondistended normoactive bowel sounds Extrem: Other: No edema bilaterally Objective Data Active Medications Acetaminophen (Acetaminophen 325 Mg Tablet) 650 mg PO Q6H PRN PRN Reason: Pain, Mild 1-3,fever,headache Last Admin: 08/20/24 16:27 Dose: 650 mg Documented By: ANIBAL Al Hydroxide/Mg Hydroxide (Magnesium Hydrox/Alum Hydrox 30 Ml Oral.Susp) 30 ml PO Q6H PRN PRN Reason: Acid Reflux Atorvastatin Calcium (Atorvastatin Calcium 10 Mg Tablet) 10 mg PO BEDTIME [facility] Last Admin: 08/20/24 21:40 Dose: 10 mg Documented By: ERICK Calcium Carbonate (Calcium Carbonate 750 Mg Tab.Chew) 750 mg PO Q4H PRN PRN Reason: Heartburn Carvedilol (Carvedilol 6.25 Mg Tablet) 6.25 mg PO BID [facility]; Protocol Last Admin: 08/21/24 09:17 Dose: 6.25 mg Documented By: HANSA Dextrose (Dextrose 50 % 25 Gm/50 Ml Syringe) 25 gm IVPUSH Q15M PRN; Protocol PRN Reason: per Hypoglycemia Standing Ord. Dorzolamide HCl (Dorzolamide Hcl 2 % Ophth Alexus 10 Ml Drpbtl) 1 drop EYE-BOTH BID [facility] Last Admin: 08/21/24 09:21 Dose: 1 drop Documented By: HANSA Famotidine (Famotidine 20 Mg Tablet) 20 mg PO BID [facility] Last Admin: 08/21/24 09:18 Dose: 20 mg Documented By: HANSA Glucose (Glucose Gel 15 Gm Gel..Gram.) 15 gm PO Q15M PRN; Protocol PRN Reason: per Hypoglycemia Standing Ord. Insulin Human Lispro (Insulin Lispro 100 Unit/Ml 3 Ml Vial) 0 unit SUBCUT QIDWMHS [facility]; Protocol Last Admin: 08/21/24 07:56 Dose: 2 unit Documented By: HANSA Magnesium Hydroxide (Milk Of Magnesia 30 Ml Oral.Susp) 30 ml PO DAILY PRN PRN Reason: Constipation Melatonin (Melatonin 3 Mg Tablet) 6 mg PO BEDTIME PRN PRN Reason: Insomnia Last Admin: 08/20/24 21:40 Dose: 6 mg Documented By: ERICK Mirtazapine (Mirtazapine 7.5 Mg Tablet) 7.5 mg PO BEDTIME [facility] Last Admin: 08/20/24 21:40 Dose: 7.5 mg Documented By: REICK Nystatin (Nystatin Powder 15 Gm Bottle) 1 appl TOPICAL TID [facility]; Protocol Last Admin: 08/21/24 09:25 Dose: 1 appl Documented By: HANSA Olanzapine (Olanzapine 2.5 Mg Tablet) 2.5 mg PO BID [facility] Last Admin: 08/21/24 09:17 Dose: 2.5 mg Documented By: HANSA Omeprazole (Omeprazole 20 Mg Capsule.Dr) 20 mg PO DAILY@0630 [facility] Last Admin: 08/21/24 05:53 Dose: 20 mg Documented By: ERICK Ondansetron HCl (Ondansetron Hcl 4 Mg/2 Ml Vial) 4 mg IVPUSH Q8H PRN PRN Reason: Nausea and Vomiting Sodium Chloride (0.9 % Sodium Chloride Flush 3 Ml Syringe) 3 ml IVFLUSH QSHIFT [facility] Last Admin: 08/21/24 09:19 Dose: 3 ml Documented By: HANSA Timolol Maleate (Timolol Maleate 0.5 % Oph Alexus 5 Ml Drbtl) 1 drop EYE-BOTH BID [facility] Last Admin: 08/21/24 09:21 Dose: 1 drop Documented By: HANSA Warfarin Sodium (Warfarin Sodium 2.5 Mg Tablet) 2.5 mg PO DAILY@1800 [facility] Last Admin: 08/20/24 16:27 Dose: 2.5 mg Documented By: ANIBAL Labs 08/20/24 12:19 08/20/24 12:19 Labs: Laboratory Results - last 24 hr 08/20/24 08/20/24 08/20/24 12:19 12:35 17:21 MCV 101.7 H MCH 33.6 H MCHC 33.1 RDW 13.8 Plt Count TNP MPV TNP Immature Gran % (Auto) 0.4 Neut % (Auto) 64.3 Lymph % (Auto) 21.4 [place] % (Auto) 8.4 Eos % (Auto) 5.1 H Baso % (Auto) 0.4 Lymph # (Auto) 1.0 L [place] # (Auto) 0.4 Eos # (Auto) 0.2 Baso # (Auto) 0.0 Abs Immat Gran (auto) 0.02 Absolute Neuts (auto) 2.9 Absolute Nucleated RBC 0.000 Nucleated RBC % (auto) 0.0 Smear Tech's Comments VERIFIED PT INR Anion Gap 12 Estim Creat Clear Calc 53.7 Estimated GFR 56 POC Glucose 167 H 161 H Fasting Glucose 175 H Calcium 8.7 D Total Bilirubin 1.3 H AST 56 H ALT 16 Alkaline Phosphatase 71 Total Protein 6.3 L Albumin 3.0 L TSH 2.21 08/20/24 08/21/24 08/21/24 21:38 06:38 07:27 MCV MCH MCHC RDW Plt Count MPV Immature Gran % (Auto) Neut % (Auto) Lymph % (Auto) [place] % (Auto) Eos % (Auto) Baso % (Auto) Lymph # (Auto) [place] # (Auto) Eos # (Auto) Baso # (Auto) Abs Immat Gran (auto) Absolute Neuts (auto) Absolute Nucleated RBC Nucleated RBC % (auto) Smear Tech's Comments PT 36.4 H INR 3.2 H Anion Gap Estim Creat Clear Calc Estimated GFR POC Glucose 142 H 177 H Fasting Glucose Calcium Total Bilirubin AST ALT Alkaline Phosphatase Total Protein Albumin TSH Microbiology Microbiology Results: Microbiology 08/19/24 Unknown Urine Culture - Preliminary Urine clean catch - Clean Catch Midstream Culture in progress. 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 1.Altered mentation (question dementia with agitated features) -appears at baseline -1 dose ceftriaxone given for active urinary sediment follow clinically.. Cultures pending -PT consult recommends residential -question of C2 fracture ; not supported by MRI 2.Insulin-dependent diabetes mellitus -hold metformin at this time -lispro correctional scale -adjust as indicated 3. SANTOS in backdrop of CKD 3 -slowly resolving to volume repletion -follow renals/divalents 4.Atrial fibrillation -acceptable control on current therapies -adjust as indicated -continue warfarin with daily INRs Coumadin Full code. Quality Stroke Does the patient have a stroke diagnosis?: No VTE Prior VTE?: No VTE Risk Level:: Medical - moderate - high VTE Device Contraindication: Treatment Not Indicated VTE Drug Contraindication: N/A - Med Ordered
--- NOTE | 2024-08-21 11:36 | PC.NURSE ---
Addendum entered by Nora Marroquin RN 08/21/24 11:38: Clarification: The saline well was noted to be leaking at 09:19 AM on 08/21/24. CRISTINA Pepper, RN, [facility] PN Supervisor [employer] Original Note: Saline Well to L antecubital area is slightly leaking when flushed with Normal Saline. No reports of burning, pain, and no swelling noted to L antecubital site. Halley (Primary nurse) was notified of the saline well leaking when flushed. CRISTINA Pepper, RN, [facility] PN Supervisor [employer]
--- NOTE | 2024-08-21 12:22 | MHC.CM.PN ---
Per UR/RN/CM, Patient has changed from OBSERVATION to INPATIENT. CM left a detailed message for [id number]/HCP/Irena @ [phone], addressing the IMM (original will be mailed certified letter to Irena and a copy has been placed on the chart).
[2024-08-21 12:44] LABS: Folate 4.6 ng/mL (> or = 4.0); Vitamin B12 541 pg/mL (200-900)
[2024-08-21 12:58] LABS: Glucose, Whole Blood 226 mg/dL (60-115)
--- NOTE | 2024-08-21 14:18 | PM.PSYCN ---
History of Present Illness Date of Service: 08/21/2024 Chief Complaint: unwitnessed fall Sources of Information: patient interviewed, chart reviewed and crisis/core team assessment reviewed HPI Narrative: Mr. Weeks is an 88 year-old male who had a fall, brought to [facility] ED. He presented as confused. Pt reported neck pain, suspicious of fracture of C2, which MRI did not show. UA showed possible UTI. Started on ceftriaxone. Psychiatry asked to assess for dementia with agitation. Pt has been calm and cooperative but large confused. Pt seen in his room. He is sitting in chair, comfortably. He reports he is doing better, reports neck pain but is awaiting to hear from doctor as to what is going to happend next. His recollection as to when he came here and why is vague. However, he does know that he had a fall. He knows he is in the hospital. He knows [facility]. He thinks is June. He does not know how long he has been here and is under the impression that his family is not aware that he is in the hospital. He reports he usually ambulates with a walker. No signs of psychosis or delusions. [facility] Medical History CKD stage 3a, GFR 45-59 ml/min Diabetic neuropathy Insulin dependent type 2 diabetes mellitus Coronary artery disease Mixed hyperlipidemia Hypertension Atrial fibrillation Diagnostics Vital Signs (24Hr): Vital Signs - 24 hr 08/20/24 14:49 08/20/24 21:38 08/20/24 23:27 Temperature 98.8 F 98 F 97.0 F Pulse Rate 53 74 63 Respiratory Rate 18 18 16 Blood Pressure 162/70 H 162/61 H Pulse Oximetry 97 98 96 Oxygen Delivery Method Room Air Room Air Room Air 08/21/24 00:28 08/21/24 03:29 08/21/24 07:36 Temperature 97.3 F 97.9 F Pulse Rate 59 55 Respiratory Rate 16 18 Blood Pressure 143/62 H 180/50 H Pulse Oximetry 98 97 Oxygen Delivery Method Room Air Room Air 08/21/24 07:57 08/21/24 09:17 08/21/24 10:48 Temperature Pulse Rate 77 64 64 Respiratory Rate Blood Pressure 152/50 H 152/50 H Pulse Oximetry Oxygen Delivery Method 08/21/24 11:19 Temperature 97.3 F Pulse Rate 53 Respiratory Rate 18 Blood Pressure 107/59 L Pulse Oximetry 99 Oxygen Delivery Method Room Air BMI result Body Mass Index 35.8 Labs 08/20/24 12:19 08/20/24 12:19 Labs: Laboratory Results - last 48 hr 08/19/24 08/19/24 08/19/24 12:29 15:07 16:17 WBC RBC Hgb Hct MCV MCH MCHC RDW Plt Count MPV Immature Gran % (Auto) Neut % (Auto) Lymph % (Auto) [place] % (Auto) Eos % (Auto) Baso % (Auto) Lymph # (Auto) [place] # (Auto) Eos # (Auto) Baso # (Auto) Abs Immat Gran (auto) Absolute Neuts (auto) Absolute Nucleated RBC Nucleated RBC % (auto) Smear Tech's Comments PT 32.8 H INR 2.9 H VBG pH VBG pCO2 VBG pO2 VBG HCO3 VBG O2 Saturation VBG Base Excess Sodium Potassium Chloride Carbon Dioxide Anion Gap BUN Creatinine Estim Creat Clear Calc Estimated GFR POC Glucose 165 H 179 H Fasting Glucose Calcium Total Bilirubin AST ALT Alkaline Phosphatase Ammonia Total Protein Albumin Vitamin B12 Folate TSH Urine Color Urine Appearance Urine pH Ur Specific Braman Urine Protein Urine Glucose (UA) Urine Ketones Urine Blood Urine Nitrite Ur Leukocyte Esterase Urine RBC Urine WBC Ur Squamous Epith Cells Urine Bacteria Hyaline Casts 08/19/24 08/19/24 08/20/24 17:00 19:07 00:43 WBC RBC Hgb Hct MCV MCH MCHC RDW Plt Count MPV Immature Gran % (Auto) Neut % (Auto) Lymph % (Auto) [place] % (Auto) Eos % (Auto) Baso % (Auto) Lymph # (Auto) [place] # (Auto) Eos # (Auto) Baso # (Auto) Abs Immat Gran (auto) Absolute Neuts (auto) Absolute Nucleated RBC Nucleated RBC % (auto) Smear Tech's Comments PT INR VBG pH VBG pCO2 VBG pO2 VBG HCO3 VBG O2 Saturation VBG Base Excess Sodium Potassium Chloride Carbon Dioxide Anion Gap BUN Creatinine Estim Creat Clear Calc Estimated GFR POC Glucose 197 H 205 H Fasting Glucose Calcium Total Bilirubin AST ALT Alkaline Phosphatase Ammonia Total Protein Albumin Vitamin B12 Folate TSH Urine Color Dark Yellow Urine Appearance Cloudy Urine pH 5.5 Ur Specific [place]aman 1.020 Urine Protein 30 (1+) H Urine Glucose (UA) 100 H Urine Ketones 15 Urine Blood Large (3+) H Urine Nitrite Negative Ur Leukocyte Esterase Moderate (2+) H Urine RBC >20 H Urine WBC 6-10 H Ur Squamous Epith Cells 6-10 Urine Bacteria 1+ Hyaline Casts 3-5 08/20/24 08/20/24 08/20/24 07:18 07:53 08:02 WBC RBC Hgb Hct MCV MCH MCHC RDW Plt Count MPV Immature Gran % (Auto) Neut % (Auto) Lymph % (Auto) [place] % (Auto) Eos % (Auto) Baso % (Auto) Lymph # (Auto) [place] # (Auto) Eos # (Auto) Baso # (Auto) Abs Immat Gran (auto) Absolute Neuts (auto) Absolute Nucleated RBC Nucleated RBC % (auto) Smear Tech's Comments PT 33.5 H INR 2.9 H VBG pH 7.44 H VBG pCO2 38 VBG pO2 56 VBG HCO3 26 VBG O2 Saturation 85.0 VBG Base Excess 2.0 Sodium Potassium Chloride Carbon Dioxide Anion Gap BUN Creatinine Estim Creat Clear Calc Estimated GFR POC Glucose 186 H Fasting Glucose Calcium Total Bilirubin AST ALT Alkaline Phosphatase Ammonia 48 Total Protein Albumin Vitamin B12 Folate TSH Urine Color Urine Appearance Urine pH Ur Specific Braman Urine Protein Urine Glucose (UA) Urine Ketones Urine Blood Urine Nitrite Ur Leukocyte Esterase Urine RBC Urine WBC Ur Squamous Epith Cells Urine Bacteria Hyaline Casts 08/20/24 08/20/24 08/20/24 12:19 12:35 17:21 WBC 4.5 L RBC 3.60 L Hgb 12.1 L Hct 36.6 L MCV 101.7 H MCH 33.6 H MCHC 33.1 RDW 13.8 Plt Count TNP MPV TNP Immature Gran % (Auto) 0.4 Neut % (Auto) 64.3 Lymph % (Auto) 21.4 [place] % (Auto) 8.4 Eos % (Auto) 5.1 H Baso % (Auto) 0.4 Lymph # (Auto) 1.0 L [place] # (Auto) 0.4 Eos # (Auto) 0.2 Baso # (Auto) 0.0 Abs Immat Gran (auto) 0.02 Absolute Neuts (auto) 2.9 Absolute Nucleated RBC 0.000 Nucleated RBC % (auto) 0.0 Smear Tech's Comments VERIFIED PT INR VBG pH VBG pCO2 VBG pO2 VBG HCO3 VBG O2 Saturation VBG Base Excess Sodium 144 Potassium 3.9 Chloride 115 H Carbon Dioxide 21 L Anion Gap 12 BUN 23 H Creatinine 1.22 Estim Creat Clear Calc 53.7 Estimated GFR 56 POC Glucose 167 H 161 H Fasting Glucose 175 H Calcium 8.7 D Total Bilirubin 1.3 H AST 56 H ALT 16 Alkaline Phosphatase 71 Ammonia Total Protein 6.3 L Albumin 3.0 L Vitamin B12 Folate TSH 2.21 Urine Color Urine Appearance Urine pH Ur Specific Braman Urine Protein Urine Glucose (UA) Urine Ketones Urine Blood Urine Nitrite Ur Leukocyte Esterase Urine RBC Urine WBC Ur Squamous Epith Cells Urine Bacteria Hyaline Casts 08/20/24 08/21/24 08/21/24 21:38 06:38 07:27 WBC RBC Hgb Hct MCV MCH MCHC RDW Plt Count MPV Immature Gran % (Auto) Neut % (Auto) Lymph % (Auto) [place] % (Auto) Eos % (Auto) Baso % (Auto) Lymph # (Auto) [place] # (Auto) Eos # (Auto) Baso # (Auto) Abs Immat Gran (auto) Absolute Neuts (auto) Absolute Nucleated RBC Nucleated RBC % (auto) Smear Tech's Comments PT 36.4 H INR 3.2 H VBG pH VBG pCO2 VBG pO2 VBG HCO3 VBG O2 Saturation VBG Base Excess Sodium Potassium Chloride Carbon Dioxide Anion Gap BUN Creatinine Estim Creat Clear Calc Estimated GFR POC Glucose 142 H 177 H Fasting Glucose Calcium Total Bilirubin AST ALT Alkaline Phosphatase Ammonia Total Protein Albumin Vitamin B12 Folate TSH Urine Color Urine Appearance Urine pH Ur Specific Braman Urine Protein Urine Glucose (UA) Urine Ketones Urine Blood Urine Nitrite Ur Leukocyte Esterase Urine RBC Urine WBC Ur Squamous Epith Cells Urine Bacteria Hyaline Casts 08/21/24 08/21/24 11:43 12:53 WBC RBC Hgb Hct MCV MCH MCHC RDW Plt Count MPV Immature Gran % (Auto) Neut % (Auto) Lymph % (Auto) [place] % (Auto) Eos % (Auto) Baso % (Auto) Lymph # (Auto) [place] # (Auto) Eos # (Auto) Baso # (Auto) Abs Immat Gran (auto) Absolute Neuts (auto) Absolute Nucleated RBC Nucleated RBC % (auto) Smear Tech's Comments PT INR VBG pH VBG pCO2 VBG pO2 VBG HCO3 VBG O2 Saturation VBG Base Excess Sodium Potassium Chloride Carbon Dioxide Anion Gap BUN Creatinine Estim Creat Clear Calc Estimated GFR POC Glucose 226 H Fasting Glucose Calcium Total Bilirubin AST ALT Alkaline Phosphatase Ammonia Total Protein Albumin Vitamin B12 541 Folate 4.6 TSH Urine Color Urine Appearance Urine pH Ur Specific Braman Urine Protein Urine Glucose (UA) Urine Ketones Urine Blood Urine Nitrite Ur Leukocyte Esterase Urine RBC Urine WBC Ur Squamous Epith Cells Urine Bacteria Hyaline Casts Imaging Radiology Impressions: ITS Impressions Cervical Spine CT 08/18/24 10:42 IMPRESSION: Multilevel cervical spondylosis more conspicuous at C6-7, C5-6 and to a lesser extent C3-4 level. Transverse oriented lucency at the odontoid process/base of C2. Although this could be artifactual nondisplaced type II C2 fracture cannot be excluded. Recommend MRI cervical spine. Fleischner guidelines were followed. Electronically signed by: Lorenzo Jeffrey MD 08/18/2024 12:16 PM EDT RP Head CT 08/18/24 10:42 IMPRESSION: No gross acute intracranial hemorrhage. Small vessel occlusive disease. Global cerebral atrophy. Acute on chronic right saphenous sinus disease with the questionable inspissated secretions versus superimposed fungal infection. Questionable subtle hyperdensity mid malaika. Probable artifactual.. Electronically signed by: Lorenzo Jeffrey MD 08/18/2024 12:08 PM EDT RP Shoulder X-Ray 08/18/24 10:42 IMPRESSION: Moderate degenerative change of the AC joint. Electronically signed by: Sourav Hale MD 08/18/2024 01:09 PM EDT RP Chest X-Ray 08/18/24 10:43 IMPRESSION: Clear lungs. Electronically signed by: Sourav Hale MD 08/18/2024 01:11 PM EDT RP Hip X-Ray 08/18/24 10:48 IMPRESSION: No evidence of fracture of the right hip. Electronically signed by: Sourav Hale MD 08/18/2024 01:10 PM EDT RP Abdomen/Pelvis CT 08/18/24 11:07 IMPRESSION: No evidence of traumatic injury to the abdomen or pelvis, although evaluation for solid organ injury is limited by lack of intravenous contrast material. Incidental findings as described. Electronically signed by: Sourav Hale MD 08/18/2024 11:47 AM EDT RP Cervical Spine MRI 08/19/24 11:37 IMPRESSION: 1. There is no acute fracture of the cervical spine. C2 is intact. 2. There is trace prevertebral fluid spanning C3-C7, suspect for hyperextension strain injury. No ligamentous tearing is evident. 3. There is moderate degenerative spondylosis as discussed. Electronically signed by: Rudolph Mendoza MD 08/19/2024 12:37 PM EDT RP Mental Status Exam Mental Status Exam Narrative: Appearance: wearing hospital gown, fair hygiene, in NAD behavior: cooperative and pleasant Psychomotor: no agitation or retardation noted Speech: mostly clear, normal rate/rhythm/volume, spontaneous TP: mostly linear TC: feeling better, but c/o of neck pain Mood: could be better Affect: congruent SI: none HI: none VH/AH: none Delusions: no overt delusional content Insight/judgment: impaired x 2. Memory/cog: alert, oriented to place, year, situation is vague, not to month. Medications Medications Current Medications Acetaminophen (Acetaminophen 325 Mg Tablet) 650 mg PO Q6H PRN PRN Reason: Pain, Mild 1-3,fever,headache Last Admin: 08/20/24 16:27 Dose: 650 mg Al Hydroxide/Mg Hydroxide (Magnesium Hydrox/Alum Hydrox 30 Ml Oral.Susp) 30 ml PO Q6H PRN PRN Reason: Acid Reflux Atorvastatin Calcium (Atorvastatin Calcium 10 Mg Tablet) 10 mg PO BEDTIME [facility] Last Admin: 08/20/24 21:40 Dose: 10 mg Calcium Carbonate (Calcium Carbonate 750 Mg Tab.Chew) 750 mg PO Q4H PRN PRN Reason: Heartburn Carvedilol (Carvedilol 6.25 Mg Tablet) 6.25 mg PO BID [facility]; Protocol Last Admin: 08/21/24 09:17 Dose: 6.25 mg Dextrose (Dextrose 50 % 25 Gm/50 Ml Syringe) 25 gm IVPUSH Q15M PRN; Protocol PRN Reason: per Hypoglycemia Standing Ord. Dorzolamide HCl (Dorzolamide Hcl 2 % Ophth Alexus 10 Ml Drpbtl) 1 drop EYE-BOTH BID [facility] Last Admin: 08/21/24 09:21 Dose: 1 drop Famotidine (Famotidine 20 Mg Tablet) 20 mg PO BID [facility] Last Admin: 08/21/24 09:18 Dose: 20 mg Glucose (Glucose Gel 15 Gm Gel..Gram.) 15 gm PO Q15M PRN; Protocol PRN Reason: per Hypoglycemia Standing Ord. Insulin Human Lispro (Insulin Lispro 100 Unit/Ml 3 Ml Vial) 0 unit SUBCUT QIDWMHS [facility]; Protocol Last Admin: 08/21/24 13:07 Dose: 4 unit Magnesium Hydroxide (Milk Of Magnesia 30 Ml Oral.Susp) 30 ml PO DAILY PRN PRN Reason: Constipation Melatonin (Melatonin 3 Mg Tablet) 6 mg PO BEDTIME PRN PRN Reason: Insomnia Last Admin: 08/20/24 21:40 Dose: 6 mg Mirtazapine (Mirtazapine 7.5 Mg Tablet) 7.5 mg PO BEDTIME [facility] Last Admin: 08/20/24 21:40 Dose: 7.5 mg Nystatin (Nystatin Powder 15 Gm Bottle) 1 appl TOPICAL TID [facility]; Protocol Last Admin: 08/21/24 09:25 Dose: 1 appl Olanzapine (Olanzapine 2.5 Mg Tablet) 2.5 mg PO BID [facility] Last Admin: 08/21/24 09:17 Dose: 2.5 mg Omeprazole (Omeprazole 20 Mg Capsule.Dr) 20 mg PO DAILY@0630 [facility] Last Admin: 08/21/24 05:53 Dose: 20 mg Ondansetron HCl (Ondansetron Hcl 4 Mg/2 Ml Vial) 4 mg IVPUSH Q8H PRN PRN Reason: Nausea and Vomiting Sodium Chloride (0.9 % Sodium Chloride Flush 3 Ml Syringe) 3 ml IVFLUSH QSHIFT [facility] Last Admin: 08/21/24 09:19 Dose: 3 ml Timolol Maleate (Timolol Maleate 0.5 % Oph Alexus 5 Ml Drbtl) 1 drop EYE-BOTH BID [facility] Last Admin: 08/21/24 09:21 Dose: 1 drop Warfarin Sodium (Warfarin Sodium 2.5 Mg Tablet) 2.5 mg PO DAILY@1800 [facility] Last Admin: 08/20/24 16:27 Dose: 2.5 mg Allergies Allergies Allergy/AdvReac Type Severity Reaction Status Date / Time quetiapine [From Seroquel] Allergy Unknown Verified 08/18/24 10:47 quinapril Allergy Unknown Verified 08/18/24 10:47 trazodone Allergy Unknown Verified 08/18/24 10:47 Assessment & Plan Assessment & Plan (1) Major neurocognitive disorder: Status: Acute Code(s): F03.90 - Unspecified dementia, unspecified severity, without behavioral disturbance, psychotic disturbance, mood disturbance, and anxiety Plan Mr. Weeks is an 88 year-old male with hx of dementia. He came to the hospital after a fall. He appeared very confused initially. He currently presents without signs of delirium, but it is noticeable that he does have underlying neurocognitive impairments. He has not been combative. He is currently on olanzapine 2.5mg po BID. monitor ortho VS and over sedation. He does not need psych inpt level of care. Plan to continue current medications. HCP should be invoked, if not already. Total time managing care of this patient today ____ minutes.
--- NOTE | 2024-08-21 15:09 | MHC.CM.PN ---
Psych Eval has been sent to 3 SNF's who are following; CM will continue to follow for a bed offer.
[2024-08-21 17:39] LABS: Glucose, Whole Blood 201 mg/dL (60-115)
[2024-08-21 19:48] LABS: Glucose, Whole Blood 173 mg/dL (60-115)
[2024-08-22 03:31] VITALS: BP 185/93; PULSE 55; RESP 18; TEMP 36.1; O2SAT 95
[2024-08-22 06:58] LABS: MANUAL DIFF FLAG NO
[2024-08-22 07:10] LABS: INTERNATIONAL NORM RATIO 3.2 (0.9-1.1); Prothrombin Time 36.9 SEC (10.9-12.4)
[2024-08-22 07:17] LABS: Hematocrit 35.0 % (42.0-52.0); Hemoglobin 12.0 g/dl (14.0-18.0); Imm Gran Abs Auto 0.03 X10*3/uL (0.00-0.03); Imm Gran Pct Auto 0.8 % (0.0-0.4); Lymphocytes Absolute Auto 1.2 X10*3/uL (1.2-4.9); Mean Corpuscular HGB Conc 34.3 g/dl (31.0-36.0); Mean Corpuscular Hemoglobin 33.5 pg (27.0-33.0); Mean Corpuscular Volume 97.8 fL (80.0-98.0); NRBC Abs Auto 0.000 X10*3/uL (0.0-0.012); NRBC Pct Auto 0.0 /100WBC (0.0-0.2); Platelet Count 143 X10*3/uL (160-400); Red Blood Count 3.58 X10*6/uL (4.60-5.80); White Blood Count 4.0 X10*3/uL (4.8-10.8)
[2024-08-22 07:28] LABS: Glucose, Whole Blood 121 mg/dL (60-115)
[2024-08-22 07:37] LABS: Alanine Aminotransferase 10 U/L (0-40); Albumin Level 2.9 g/dL (3.5-5.0); Alkaline Phosphatase 66 U/L (39-117); Anion Gap 13 (12-20); Aspartate Amino Transferase 34 U/L (5-37); Blood Urea Nitrogen 21 mg/dL (9-16); Calcium 8.4 mg/dL (8.4-10.2); Carbon Dioxide 25 mmol/L (22-29); Chloride 111 mmol/L (96-108); Creatinine Clr Calc Pharmacy 63.6; Estimated Glomerular Filt Rate > 60; Potassium 3.5 mmol/L (3.3-5.1); Sodium 145 mmol/L (135-145); Total Protein 5.5 g/dL (6.5-8.0)
[2024-08-22 07:42] VITALS: BP 160/73; PULSE 60; RESP 20; TEMP 36.2; O2SAT 97
[2024-08-22] MEDS: timoloL maleate 0.5 % Oph Sol 5 ML DRBTL 1 DROP EYE-BOTH ×2 (09:09→19:54)
[2024-08-22] MEDS: Dorzolamide HCl 2 % Ophth Sol 10 ML DRPBTL 1 DROP EYE-BOTH ×2 (09:09→19:54)
[2024-08-22] MEDS: 0.9 % Sodium Chloride Flush 3 ML SYRINGE IVFLUSH ×2 (09:10→17:43)
--- NOTE | 2024-08-22 09:27 | P.PNIM_ITS ---
Subjective Subjective Date of Service: 08/22/24 Interval History: No acute issues overnight. Behavior stable Review of Systems Denies chest pain Denies shortness of breath Denies nausea vomiting diarrhea Denies fever chills Physical Exam 2 Vital Signs: Vital Signs: Last Vital Signs Temp 97.2 F 08/22/24 07:42 Pulse 60 08/22/24 07:42 Resp 20 08/22/24 07:42 BP 160/73 H 08/22/24 07:42 Pulse Ox 97 08/22/24 07:42 O2 Del Method Room Air 08/22/24 07:42 BMI result Body Mass Index 35.8 Const: Other: Awake alert no acute distress Resp: Other: Clear to auscultation bilaterally no rales rhonchi or wheezes Cardio: Other: No S4; positive S1-S2; no S3 murmurs rubs or gallops GI: Other: Soft nontender nondistended normoactive bowel sounds Extrem: Other: No edema bilaterally Objective Data Active Medications Acetaminophen (Acetaminophen 325 Mg Tablet) 650 mg PO Q6H PRN PRN Reason: Pain, Mild 1-3,fever,headache Last Admin: 08/21/24 19:58 Dose: 650 mg Documented By: ERICK Al Hydroxide/Mg Hydroxide (Magnesium Hydrox/Alum Hydrox 30 Ml Oral.Susp) 30 ml PO Q6H PRN PRN Reason: Acid Reflux Atorvastatin Calcium (Atorvastatin Calcium 10 Mg Tablet) 10 mg PO BEDTIME [facility] Last Admin: 08/21/24 19:57 Dose: 10 mg Documented By: ERICK Calcium Carbonate (Calcium Carbonate 750 Mg Tab.Chew) 750 mg PO Q4H PRN PRN Reason: Heartburn Carvedilol (Carvedilol 6.25 Mg Tablet) 6.25 mg PO BID [facility]; Protocol Last Admin: 08/22/24 09:08 Dose: 6.25 mg Documented By: NOEMY Dextrose (Dextrose 50 % 25 Gm/50 Ml Syringe) 25 gm IVPUSH Q15M PRN; Protocol PRN Reason: per Hypoglycemia Standing Ord. Dorzolamide HCl (Dorzolamide Hcl 2 % Ophth Alexus 10 Ml Drpbtl) 1 drop EYE-BOTH BID [facility] Last Admin: 08/22/24 09:09 Dose: 1 drop Documented By: NOEMY Famotidine (Famotidine 20 Mg Tablet) 20 mg PO BID [facility] Last Admin: 08/22/24 09:09 Dose: 20 mg Documented By: NOEMY Glucose (Glucose Gel 15 Gm Gel..Gram.) 15 gm PO Q15M PRN; Protocol PRN Reason: per Hypoglycemia Standing Ord. Insulin Human Lispro (Insulin Lispro 100 Unit/Ml 3 Ml Vial) 0 unit SUBCUT QIDWMHS [facility]; Protocol Last Admin: 08/22/24 07:36 Dose: Not Given Documented By: NOEMY Non-Admin Reason: No Insulin Coverage Magnesium Hydroxide (Milk Of Magnesia 30 Ml Oral.Susp) 30 ml PO DAILY PRN PRN Reason: Constipation Melatonin (Melatonin 3 Mg Tablet) 6 mg PO BEDTIME PRN PRN Reason: Insomnia Last Admin: 08/21/24 19:57 Dose: 6 mg Documented By: ERICK Mirtazapine (Mirtazapine 7.5 Mg Tablet) 7.5 mg PO BEDTIME [facility] Last Admin: 08/21/24 19:58 Dose: 7.5 mg Documented By: ERICK Nystatin (Nystatin Powder 15 Gm Bottle) 1 appl TOPICAL TID [facility]; Protocol Last Admin: 08/22/24 09:10 Dose: 1 appl Documented By: NOEMY Olanzapine (Olanzapine 2.5 Mg Tablet) 2.5 mg PO BID [facility] Last Admin: 08/22/24 09:08 Dose: 2.5 mg Documented By: NOEMY Omeprazole (Omeprazole 20 Mg Capsule.Dr) 20 mg PO DAILY@0630 [facility] Last Admin: 08/22/24 05:47 Dose: 20 mg Documented By: ERICK Ondansetron HCl (Ondansetron Hcl 4 Mg/2 Ml Vial) 4 mg IVPUSH Q8H PRN PRN Reason: Nausea and Vomiting Sodium Chloride (0.9 % Sodium Chloride Flush 3 Ml Syringe) 3 ml IVFLUSH QSHIFT [facility] Last Admin: 08/22/24 09:10 Dose: 3 ml Documented By: NOEMY Timolol Maleate (Timolol Maleate 0.5 % Oph Alexus 5 Ml Drbtl) 1 drop EYE-BOTH BID [facility] Last Admin: 08/22/24 09:09 Dose: 1 drop Documented By: NOEMY Warfarin Sodium (Warfarin Sodium 3 Mg Tablet) 1.5 mg PO DAILY@1800 [facility] Labs 08/22/24 06:49 08/22/24 06:49 Labs: Laboratory Results - last 24 hr 08/21/24 08/21/24 08/21/24 11:43 12:53 17:35 MCV MCH MCHC RDW Plt Count MPV Immature Gran % (Auto) Neut % (Auto) Lymph % (Auto) [place] % (Auto) Eos % (Auto) Baso % (Auto) Lymph # (Auto) [place] # (Auto) Eos # (Auto) Baso # (Auto) Abs Immat Gran (auto) Absolute Neuts (auto) Absolute Nucleated RBC Nucleated RBC % (auto) PT INR Anion Gap Estim Creat Clear Calc Estimated GFR POC Glucose 226 H 201 H Fasting Glucose Calcium Total Bilirubin AST ALT Alkaline Phosphatase Total Protein Albumin Vitamin B12 541 Folate 4.6 08/21/24 08/22/24 08/22/24 19:40 06:49 07:03 MCV 97.8 MCH 33.5 H MCHC 34.3 RDW 13.6 Plt Count 143 L MPV 10.0 Immature Gran % (Auto) 0.8 H Neut % (Auto) 53.6 Lymph % (Auto) 29.1 [place] % (Auto) 10.4 Eos % (Auto) 5.8 H Baso % (Auto) 0.3 Lymph # (Auto) 1.2 [place] # (Auto) 0.4 Eos # (Auto) 0.2 Baso # (Auto) 0.0 Abs Immat Gran (auto) 0.03 Absolute Neuts (auto) 2.1 Absolute Nucleated RBC 0.000 Nucleated RBC % (auto) 0.0 PT 36.9 H INR 3.2 H Anion Gap 13 Estim Creat Clear Calc 63.6 Estimated GFR > 60 POC Glucose 173 H 121 H Fasting Glucose 137 H Calcium 8.4 Total Bilirubin 1.2 H AST 34 ALT 10 Alkaline Phosphatase 66 Total Protein 5.5 L Albumin 2.9 L Vitamin B12 Folate Microbiology Microbiology Results: Microbiology 08/19/24 Unknown Urine Culture - Final Urine clean catch - Clean Catch Midstream Enterococcus faecalis Assessment and Plan (1) Major neurocognitive disorder: Status: Acute (2) Insulin dependent type 2 diabetes mellitus: Status: Acute Plan This is a 88-year-old male with pertinent history of atrial fibrillation on Coumadin, 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 1. Major neurocognitive disorder -appears at baseline; appreciate psych input -1 dose ceftriaxone given for active urinary sediment follow clinically.. Cultures pending -PT consult recommends detention -question of C2 fracture ; not supported by MRI 2.Insulin-dependent diabetes mellitus -hold metformin at this time -lispro correctional scale -adjust as indicated 3. SANTOS in backdrop of CKD 3 -slowly resolving to volume repletion -follow renals/divalents 4.Atrial fibrillation -acceptable control on current therapies -adjust as indicated -continue warfarin with daily INRs Coumadin Full code. Requires ongoing hospitalization pending safe placement at [facility] Quality Stroke Does the patient have a stroke diagnosis?: No VTE Prior VTE?: No VTE Risk Level:: Medical - moderate - high VTE Device Contraindication: Treatment Not Indicated VTE Drug Contraindication: N/A - Med Ordered
[2024-08-22 11:34] LABS: Glucose, Whole Blood 177 mg/dL (60-115)
[2024-08-22 11:39] VITALS: BP 162/52; PULSE 60; RESP 18; TEMP 36.2; O2SAT 92
[2024-08-22 15:35] VITALS: BP 180/76; PULSE 61; RESP 20; TEMP 36.6; O2SAT 96
[2024-08-22 17:35] LABS: Glucose, Whole Blood 144 mg/dL (60-115)
[2024-08-22] MEDS: Warfarin Sodium 0.5 MG HALFTAB PO (17:37)
[2024-08-22 20:00] VITALS: BP 156/63; PULSE 61; RESP 18; TEMP 36.6; O2SAT 96
[2024-08-22 20:21] LABS: Glucose, Whole Blood 154 mg/dL (60-115)
[2024-08-23 03:22] VITALS: BP 154/90; PULSE 71; RESP 18; TEMP 36.6; O2SAT 92
[2024-08-23 07:32] LABS: Glucose, Whole Blood 123 mg/dL (60-115)
[2024-08-23 07:33] VITALS: BP 190/82; PULSE 80; RESP 18; TEMP 36.2; O2SAT 96
[2024-08-23 07:47] LABS: INTERNATIONAL NORM RATIO 2.8 (0.9-1.1); Prothrombin Time 32.0 SEC (10.9-12.4)
[2024-08-23] MEDS: 0.9 % Sodium Chloride Flush 3 ML SYRINGE IVFLUSH ×2 (08:06→17:09)
[2024-08-23] MEDS: Dorzolamide HCl 2 % Ophth Sol 10 ML DRPBTL 1 DROP EYE-BOTH ×2 (08:07→21:53)
[2024-08-23] MEDS: timoloL maleate 0.5 % Oph Sol 5 ML DRBTL 1 DROP EYE-BOTH ×2 (08:09→21:53)
[2024-08-23 11:47] LABS: Glucose, Whole Blood 122 mg/dL (60-115)
[2024-08-23 11:48] VITALS: BP 169/71; PULSE 73; RESP 18; TEMP 36.3; O2SAT 98
--- NOTE | 2024-08-23 14:05 | MHC.CM.PN ---
Per hospitalist, patient medically cleared and cleared by psychiatry for dc to STR. Referrals updated. Awaiting bed offer.
--- NOTE | 2024-08-23 18:56 | HO.PM.IMPN ---
Subjective Subjective Date of Service: 08/23/24 Interval History: No acute issues overnight Pt initially not following commands or responding to queries, just mumbling nonsensically to self Pt eventually started answering questions appropriately and following commands Denies SOB or difficulty breathing No fever or chills Denies chest pain/pressure No abdominal pain Review of Systems Review of Systems: Yes all other systems are reviewed and are negative Physical Exam Vital Signs: Vital Signs: Last Vital Signs Temp 97.3 F 08/23/24 11:48 Pulse 73 08/23/24 11:48 Resp 18 08/23/24 11:48 BP 169/71 H 08/23/24 11:48 Pulse Ox 98 08/23/24 11:48 O2 Del Method Room Air 08/23/24 11:48 BMI result Body Mass Index 35.8 General: Awake and alert, no acute distress Resp: CTA bilaterally CVS: S1, S2, RRR GI: +BS, NT, no distention Skin: Warm, dry Neuro: Cranial nerves II-XII grossly intact bilaterally. Motor grossly intact bilaterally Extremities: 1+ bilateral pitting edema in feet Psych: Initially not following commands, but eventually pleasantly confused Objective Data Active Medications Acetaminophen (Acetaminophen 325 Mg Tablet) 650 mg PO Q6H PRN PRN Reason: Pain, Mild 1-3,fever,headache Last Admin: 08/22/24 19:53 Dose: 650 mg Documented By: ERICK Al Hydroxide/Mg Hydroxide (Magnesium Hydrox/Alum Hydrox 30 Ml Oral.Susp) 30 ml PO Q6H PRN PRN Reason: Acid Reflux Amlodipine Besylate (Amlodipine Besylate 5 Mg Tablet) 5 mg PO DAILY [facility]; Protocol Last Admin: 08/23/24 11:46 Dose: 5 mg Documented By: MIKE Amoxicillin (Amoxicillin 500 Mg Capsule) 500 mg PO Q8H [place] Atorvastatin Calcium (Atorvastatin Calcium 10 Mg Tablet) 10 mg PO BEDTIME [facility] Last Admin: 08/22/24 19:54 Dose: 10 mg Documented By: ERICK Calcium Carbonate (Calcium Carbonate 750 Mg Tab.Chew) 750 mg PO Q4H PRN PRN Reason: Heartburn Carvedilol (Carvedilol 6.25 Mg Tablet) 6.25 mg PO BID [facility]; Protocol Last Admin: 08/23/24 08:07 Dose: 6.25 mg Documented By: MIKE Dextrose (Dextrose 50 % 25 Gm/50 Ml Syringe) 25 gm IVPUSH Q15M PRN; Protocol PRN Reason: per Hypoglycemia Standing Ord. Dorzolamide HCl (Dorzolamide Hcl 2 % Ophth Alexus 10 Ml Drpbtl) 1 drop EYE-BOTH BID [facility] Last Admin: 08/23/24 08:07 Dose: 1 drop Documented By: MIKE Famotidine (Famotidine 20 Mg Tablet) 20 mg PO BID [facility] Last Admin: 08/23/24 08:07 Dose: 20 mg Documented By: MIKE Glucose (Glucose Gel 15 Gm Gel..Gram.) 15 gm PO Q15M PRN; Protocol PRN Reason: per Hypoglycemia Standing Ord. Insulin Human Lispro (Insulin Lispro 100 Unit/Ml 3 Ml Vial) 0 unit SUBCUT QIDWMHS [facility]; Protocol Last Admin: 08/23/24 16:54 Dose: Not Given Documented By: MIKE Non-Admin Reason: Patient Refused Magnesium Hydroxide (Milk Of Magnesia 30 Ml Oral.Susp) 30 ml PO DAILY PRN PRN Reason: Constipation Melatonin (Melatonin 3 Mg Tablet) 6 mg PO BEDTIME PRN PRN Reason: Insomnia Last Admin: 08/22/24 19:54 Dose: 6 mg Documented By: ERICK Mirtazapine (Mirtazapine 7.5 Mg Tablet) 7.5 mg PO BEDTIME [facility] Last Admin: 08/22/24 19:54 Dose: 7.5 mg Documented By: ERICK Nystatin (Nystatin Powder 15 Gm Bottle) 1 appl TOPICAL TID [facility]; Protocol Last Admin: 08/23/24 13:10 Dose: Not Given Documented By: MIKE Non-Admin Reason: no need at this time Olanzapine (Olanzapine 2.5 Mg Tablet) 2.5 mg PO BID [facility] Last Admin: 08/23/24 08:07 Dose: 2.5 mg Documented By: MIKE Omeprazole (Omeprazole 20 Mg Capsule.Dr) 20 mg PO DAILY@0630 [facility] Last Admin: 08/23/24 06:22 Dose: Not Given Documented By: ERICK Non-Admin Reason: Patient Refused Ondansetron HCl (Ondansetron Hcl 4 Mg/2 Ml Vial) 4 mg IVPUSH Q8H PRN PRN Reason: Nausea and Vomiting Sodium Chloride (0.9 % Sodium Chloride Flush 3 Ml Syringe) 3 ml IVFLUSH QSHIFT [facility] Last Admin: 08/23/24 17:09 Dose: 3 ml Documented By: MIKE Timolol Maleate (Timolol Maleate 0.5 % Oph Alexus 5 Ml Drbtl) 1 drop EYE-BOTH BID [facility] Last Admin: 08/23/24 08:09 Dose: 1 drop Documented By: MIKE Warfarin Sodium (Warfarin Sodium 0.5 Mg Halftab) 0.5 mg PO DAILY@1800 [facility] Last Admin: 08/22/24 17:37 Dose: 0.5 mg Documented By: NOEMY Warfarin Sodium (Warfarin Sodium 1 Mg Tablet) 1 mg PO DAILY@1800 [facility] Last Admin: 08/22/24 17:37 Dose: 1 mg Documented By: NOEMY Labs 08/22/24 06:49 08/22/24 06:49 Labs: Laboratory Results - last 24 hr 08/22/24 08/23/24 08/23/24 20:14 07:18 07:25 Hold Purple Top SEE NOTE PT 32.0 H INR 2.8 H POC Glucose 154 H 123 H 08/23/24 11:39 Hold Purple Top PT INR POC Glucose 122 H Assessment and Plan (1) Major neurocognitive disorder: Status: Acute Plan This is a 88-year-old male with pertinent history of atrial fibrillation on Coumadin, 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 Acute metabolic encephalopathy in the setting of UTI Mentation now appears back at baseline UA culture positive for Enterococcus faecalis Initially given ceftriaxone, will switch to nitrofurantoin, day 1 Weakness and recent fall at facility PT consult recommends senior living Question of C2 fracture; not supported by MRI Insulin-dependent diabetes mellitus Hold metformin at this time Lispro correctional scale Adjust as indicated SANTOS in backdrop of CKD 3, resovled Initial creatinine 2.13, latest 1.03 after IVF Atrial fibrillation Continue carvedilol, warfarin Adjust as indicated Continue warfarin with daily INRs Currently therapeutic at 2.8 HLD Continue statin Mood disorder Pt initially presented from [facility] Seen and evaluated by psychiatry who do not find that he needs psych inpatient level of care and is cleared to go to SNF Continue mirtazapine, olanzapine GERD PPI, famotidine DVT prophylaxis: Coumadin Full code Requires ongoing hospitalization pending safe placement at SNF. Quality Stroke Does the patient have a stroke diagnosis?: No VTE Prior VTE?: No VTE Risk Level:: Medical - moderate - high VTE Device Contraindication: Treatment Not Indicated VTE Drug Contraindication: N/A - Med Ordered
[2024-08-23 19:42] VITALS: BP 160/70; PULSE 63; RESP 18; TEMP 36.1; O2SAT 97
[2024-08-23 20:10] LABS: Glucose, Whole Blood 149 mg/dL (60-115)
[2024-08-23] MEDS: Warfarin Sodium 0.5 MG HALFTAB PO (21:01)
[2024-08-23 23:51] VITALS: BP 158/79; PULSE 62; RESP 18; TEMP 36.1; O2SAT 99
[2024-08-24] MEDS: 0.9 % Sodium Chloride Flush 3 ML SYRINGE IVFLUSH ×3 (00:12→18:41)
[2024-08-24 03:51] VITALS: BP 160/76; PULSE 54; RESP 18; TEMP 36.2; O2SAT 97
[2024-08-24 06:57] VITALS: BP 150/72; PULSE 59; RESP 18; TEMP 36.5; O2SAT 96
[2024-08-24 07:06] LABS: Glucose, Whole Blood 155 mg/dL (60-115)
[2024-08-24 07:49] LABS: INTERNATIONAL NORM RATIO 3.0 (0.9-1.1); Prothrombin Time 34.5 SEC (10.9-12.4)
--- NOTE | 2024-08-24 08:00 | P.PNIM_ITS ---
Subjective Subjective Date of Service: 08/24/24 Interval History: No acute issues overnight Seen resting comfortably bed Pt has no acute medical Review of Systems Review of Systems: Yes all other systems are reviewed and are negative Physical Exam 2 Vital Signs: Vital Signs: Last Vital Signs Temp 97.7 F 08/24/24 06:57 Pulse 59 08/24/24 06:57 Resp 18 08/24/24 06:57 BP 150/72 H 08/24/24 06:57 Pulse Ox 96 08/24/24 06:57 O2 Del Method Room Air 08/24/24 06:57 BMI result Body Mass Index 35.8 General: Alert and oriented to self only, no acute distress Resp: CTA bilaterally CVS: S1, S2, RRR GI: +BS, NT, no distention Skin: Warm, dry Neuro: Cranial nerves II-XII grossly intact bilaterally. Motor grossly intact bilaterally Extremities: Trace bilateral pitting edema Psych: Pleasantly confused Objective Data Active Medications Acetaminophen (Acetaminophen 325 Mg Tablet) 650 mg PO Q6H PRN PRN Reason: Pain, Mild 1-3,fever,headache Last Admin: 08/23/24 21:05 Dose: 650 mg Documented By: NE Al Hydroxide/Mg Hydroxide (Magnesium Hydrox/Alum Hydrox 30 Ml Oral.Susp) 30 ml PO Q6H PRN PRN Reason: Acid Reflux Amlodipine Besylate (Amlodipine Besylate 5 Mg Tablet) 5 mg PO DAILY [facility]; Protocol Last Admin: 08/23/24 11:46 Dose: 5 mg Documented By: MIKE Amoxicillin (Amoxicillin 500 Mg Capsule) 500 mg PO Q8H [facility] Last Admin: 08/24/24 04:58 Dose: Not Given Documented By: NE Non-Admin Reason: Patient Refused Atorvastatin Calcium (Atorvastatin Calcium 10 Mg Tablet) 10 mg PO BEDTIME [facility] Last Admin: 08/23/24 21:01 Dose: 10 mg Documented By: NE Calcium Carbonate (Calcium Carbonate 750 Mg Tab.Chew) 750 mg PO Q4H PRN PRN Reason: Heartburn Carvedilol (Carvedilol 6.25 Mg Tablet) 6.25 mg PO BID [facility]; Protocol Last Admin: 08/23/24 21:01 Dose: 6.25 mg Documented By: NE Dextrose (Dextrose 50 % 25 Gm/50 Ml Syringe) 25 gm IVPUSH Q15M PRN; Protocol PRN Reason: per Hypoglycemia Standing Ord. Dorzolamide HCl (Dorzolamide Hcl 2 % Ophth Alexus 10 Ml Drpbtl) 1 drop EYE-BOTH BID [facility] Last Admin: 08/23/24 21:53 Dose: 1 drop Documented By: NE Famotidine (Famotidine 20 Mg Tablet) 20 mg PO BID [facility] Last Admin: 08/23/24 21:01 Dose: 20 mg Documented By: NE Glucose (Glucose Gel 15 Gm Gel..Gram.) 15 gm PO Q15M PRN; Protocol PRN Reason: per Hypoglycemia Standing Ord. Insulin Human Lispro (Insulin Lispro 100 Unit/Ml 3 Ml Vial) 0 unit SUBCUT QIDWMHS [facility]; Protocol Last Admin: 08/23/24 21:52 Dose: Not Given Documented By: NE Non-Admin Reason: No Insulin Coverage Magnesium Hydroxide (Milk Of Magnesia 30 Ml Oral.Susp) 30 ml PO DAILY PRN PRN Reason: Constipation Melatonin (Melatonin 3 Mg Tablet) 6 mg PO BEDTIME PRN PRN Reason: Insomnia Last Admin: 08/23/24 21:05 Dose: 6 mg Documented By: NE Comments: requested for sleep Mirtazapine (Mirtazapine 7.5 Mg Tablet) 7.5 mg PO BEDTIME [facility] Last Admin: 08/23/24 21:01 Dose: 7.5 mg Documented By: NE Nystatin (Nystatin Powder 15 Gm Bottle) 1 appl TOPICAL TID [facility]; Protocol Last Admin: 08/23/24 21:02 Dose: 1 appl Documented By: NE Olanzapine (Olanzapine 2.5 Mg Tablet) 2.5 mg PO BID [facility] Last Admin: 08/23/24 21:01 Dose: 2.5 mg Documented By: NE Omeprazole (Omeprazole 20 Mg Capsule.Dr) 20 mg PO DAILY@0630 [facility] Last Admin: 08/24/24 04:58 Dose: Not Given Documented By: NE Non-Admin Reason: Patient Refused Ondansetron HCl (Ondansetron Hcl 4 Mg/2 Ml Vial) 4 mg IVPUSH Q8H PRN PRN Reason: Nausea and Vomiting Sodium Chloride (0.9 % Sodium Chloride Flush 3 Ml Syringe) 3 ml IVFLUSH QSHIFT [facility] Last Admin: 08/24/24 00:12 Dose: 3 ml Documented By: NE Timolol Maleate (Timolol Maleate 0.5 % Oph Alexus 5 Ml Drbtl) 1 drop EYE-BOTH BID [facility] Last Admin: 08/23/24 21:53 Dose: 1 drop Documented By: NE Warfarin Sodium (Warfarin Sodium 0.5 Mg Halftab) 0.5 mg PO DAILY@1800 [facility] Last Admin: 08/23/24 21:01 Dose: 0.5 mg Documented By: NE Warfarin Sodium (Warfarin Sodium 1 Mg Tablet) 1 mg PO DAILY@1800 [facility] Last Admin: 08/23/24 21:02 Dose: 1 mg Documented By: NE Labs 08/22/24 06:49 08/22/24 06:49 Labs: Laboratory Results - last 24 hr 08/23/24 08/23/24 08/24/24 11:39 20:06 06:56 PT INR POC Glucose 122 H 149 H 155 H 08/24/24 07:13 PT 34.5 H INR 3.0 H POC Glucose Assessment and Plan (1) Major neurocognitive disorder: Status: Acute Plan This is a 88-year-old male with pertinent history of atrial fibrillation on Coumadin, 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 Acute metabolic encephalopathy in the setting of UTI Mentation now appears back at baseline UA culture positive for Enterococcus faecalis Initially given ceftriaxone, will switch to nitrofurantoin based on sensitivities, day 2 Weakness and recent fall at facility PT recommends longterm Question of C2 fracture; not supported by MRI Insulin-dependent diabetes mellitus Hold metformin Lispro correctional scale Adjust as indicated SANTOS in backdrop of CKD 3, resovled Initial creatinine 2.13, latest 1.03 after IVF Atrial fibrillation Continue carvedilol, warfarin 1.5mg daily Adjust as indicated Continue warfarin with daily INRs Currently therapeutic at 3.0, will give only 1mg today HLD Continue statin Mood disorder Pt initially presented from [facility] Seen and evaluated by psychiatry who do not find that he needs psych inpatient level of care and is cleared to go to SNF Continue mirtazapine, olanzapine GERD PPI, famotidine DVT prophylaxis: Coumadin Full code Requires ongoing hospitalization pending safe placement at SNF. Quality Stroke Does the patient have a stroke diagnosis?: No VTE Prior VTE?: No VTE Risk Level:: Medical - moderate - high VTE Device Contraindication: Treatment Not Indicated VTE Drug Contraindication: N/A - Med Ordered
--- NOTE | 2024-08-24 08:34 | MHC.CM.PN ---
Patient has been medically cleared. Psych eval performed. The patient does not meet IPLOC. PT eval recommendation is STR. No bed offers have been received. A clinical update has been sent to [facility]. DP STR via BLS. [facility] auth will be required for STR.
[2024-08-24 10:54] LABS: Glucose, Whole Blood 135 mg/dL (60-115)
[2024-08-24 11:02] VITALS: BP 139/75; PULSE 61; RESP 16; TEMP 36.2; O2SAT 97
--- NOTE | 2024-08-24 11:12 | MHC.SPEECHCO ---
DIE GRINDER attempted to see patient at breakfast, tray appeared untouched. Patient sleeping, stirring momentarily with sternal rub, but immediately falling back asleep. No PO trials given this date. Patient continues on GROUND/MECH ALTERED (NDD2) diet and THIN liquids.
[2024-08-24] MEDS: Milk of Magnesia 30 ML ORAL.SUSP PO (11:31)
[2024-08-24] MEDS: Dorzolamide HCl 2 % Ophth Sol 10 ML DRPBTL 1 DROP EYE-BOTH ×2 (11:35→19:57)
[2024-08-24] MEDS: timoloL maleate 0.5 % Oph Sol 5 ML DRBTL 1 DROP EYE-BOTH ×2 (11:35→19:57)
[2024-08-24 15:25] VITALS: BP 157/68; PULSE 59; RESP 16; TEMP 36.4; O2SAT 95
[2024-08-24 15:47] LABS: Glucose, Whole Blood 147 mg/dL (60-115)
[2024-08-24 19:29] VITALS: BP 139/59; PULSE 59; RESP 16; TEMP 36.6; O2SAT 95
[2024-08-24 19:51] LABS: Glucose, Whole Blood 159 mg/dL (60-115)
[2024-08-24 21:15] VITALS: PULSE 80; RESP 20
[2024-08-25] MEDS: 0.9 % Sodium Chloride Flush 3 ML SYRINGE IVFLUSH ×2 (02:55→09:24)
[2024-08-25 03:09] VITALS: BP 127/91; PULSE 58; RESP 16; TEMP 36.2; O2SAT 96
[2024-08-25 06:58] VITALS: BP 134/62; PULSE 55; RESP 16; TEMP 36.6; O2SAT 97
[2024-08-25 07:07] LABS: Glucose, Whole Blood 154 mg/dL (60-115)
[2024-08-25 07:53] LABS: INTERNATIONAL NORM RATIO 3.7 (0.9-1.1); Prothrombin Time 42.9 SEC (10.9-12.4)
[2024-08-25] MEDS: Milk of Magnesia 30 ML ORAL.SUSP PO (08:04)
[2024-08-25] MEDS: timoloL maleate 0.5 % Oph Sol 5 ML DRBTL 1 DROP EYE-BOTH ×2 (08:09→21:46)
[2024-08-25] MEDS: Dorzolamide HCl 2 % Ophth Sol 10 ML DRPBTL 1 DROP EYE-BOTH ×2 (08:09→21:46)
--- NOTE | 2024-08-25 11:00 | MHC.CM.PN ---
Addendum entered by Nora Cool 08/25/24 14:08: One of the 2 following facilities have now denied admission. CM awaits word from [facility].CM will follow. Original Note: Per ROUNDS discussion, Patient is medically cleared for dc to SNF/STR today.Patient has 2 facilities that are considering admission but no solid bed offer as of yet. CM will continue to follow.
[2024-08-25 11:15] LABS: Glucose, Whole Blood 173 mg/dL (60-115)
--- NOTE | 2024-08-25 14:04 | MHC.SLORD ---
Speech Language Pathology Order Status: Pt refusing food; AR[employer]ANGING [employer]ER[employer] DIRECTOR to f/u tomorrow.
--- NOTE | 2024-08-25 15:15 | HO.PM.IMPN ---
Subjective Subjective Date of Service: 08/25/24 Interval History: c/o bilateral hip and thigh pain no dysuria Review of Systems Review of Systems: Yes all other systems are reviewed and are negative Physical Exam Vital Signs: Vital Signs: Last Vital Signs Temp 97.9 F 08/25/24 06:58 Pulse 55 08/25/24 06:58 Resp 16 08/25/24 06:58 BP 134/62 08/25/24 06:58 Pulse Ox 97 08/25/24 06:58 O2 Del Method Room Air 08/25/24 06:58 BMI result Body Mass Index 35.8 Gen: in no acute distress HEENT: sclera anicteric, moist mucus membranes Neck: supple Lungs: clear to auscultation bilaterally Heart: regular rate and rhythm, no murmurs Abd: soft, non-tender, non-distended Ext: no edema Skin: warm/well-perfused Neuro: alert and oriented only to self, no focal deficit Psych: impaired insight Objective Data Active Medications Acetaminophen (Acetaminophen 325 Mg Tablet) 650 mg PO Q6H PRN PRN Reason: Pain, Mild 1-3,fever,headache Last Admin: 08/25/24 10:36 Dose: 650 mg Documented By: MIKE Al Hydroxide/Mg Hydroxide (Magnesium Hydrox/Alum Hydrox 30 Ml Oral.Susp) 30 ml PO Q6H PRN PRN Reason: Acid Reflux Amlodipine Besylate (Amlodipine Besylate 5 Mg Tablet) 5 mg PO DAILY [facility]; Protocol Last Admin: 08/25/24 08:00 Dose: 5 mg Documented By: MIKE Amoxicillin (Amoxicillin 500 Mg Capsule) 500 mg PO Q8H [facility] Last Admin: 08/25/24 10:37 Dose: 500 mg Documented By: MIKE Atorvastatin Calcium (Atorvastatin Calcium 10 Mg Tablet) 10 mg PO BEDTIME [facility] Last Admin: 08/24/24 19:57 Dose: 10 mg Documented By: NE Calcium Carbonate (Calcium Carbonate 750 Mg Tab.Chew) 750 mg PO Q4H PRN PRN Reason: Heartburn Carvedilol (Carvedilol 6.25 Mg Tablet) 6.25 mg PO BID [facility]; Protocol Last Admin: 08/25/24 07:59 Dose: 6.25 mg Documented By: MIKE Dextrose (Dextrose 50 % 25 Gm/50 Ml Syringe) 25 gm IVPUSH Q15M PRN; Protocol PRN Reason: per Hypoglycemia Standing Ord. Dorzolamide HCl (Dorzolamide Hcl 2 % Ophth Alexus 10 Ml Drpbtl) 1 drop EYE-BOTH BID [facility] Last Admin: 08/25/24 08:09 Dose: 1 drop Documented By: MKIE Famotidine (Famotidine 20 Mg Tablet) 20 mg PO BID [facility] Last Admin: 08/25/24 08:00 Dose: 20 mg Documented By: MIKE Glucose (Glucose Gel 15 Gm Gel..Gram.) 15 gm PO Q15M PRN; Protocol PRN Reason: per Hypoglycemia Standing Ord. Insulin Human Lispro (Insulin Lispro 100 Unit/Ml 3 Ml Vial) 0 unit SUBCUT QIDWMHS [facility]; Protocol Last Admin: 08/25/24 13:06 Dose: 2 unit Documented By: MIKE Magnesium Hydroxide (Milk Of Magnesia 30 Ml Oral.Susp) 30 ml PO DAILY PRN PRN Reason: Constipation Last Admin: 08/25/24 08:04 Dose: 30 ml Documented By: MIKE Melatonin (Melatonin 3 Mg Tablet) 6 mg PO BEDTIME PRN PRN Reason: Insomnia Last Admin: 08/24/24 20:15 Dose: 6 mg Documented By: NE Comments: request for sleep Mirtazapine (Mirtazapine 7.5 Mg Tablet) 7.5 mg PO BEDTIME [facility] Last Admin: 08/24/24 19:57 Dose: 7.5 mg Documented By: NE Nystatin (Nystatin Powder 15 Gm Bottle) 1 appl TOPICAL TID [facility]; Protocol Last Admin: 08/25/24 09:26 Dose: 1 appl Documented By: MIKE Olanzapine (Olanzapine 2.5 Mg Tablet) 2.5 mg PO BID [facility] Last Admin: 08/25/24 09:26 Dose: 2.5 mg Documented By: MIKE Omeprazole (Omeprazole 20 Mg Capsule.Dr) 20 mg PO DAILY@0630 [facility] Last Admin: 08/25/24 06:16 Dose: 20 mg Documented By: NE Ondansetron HCl (Ondansetron Hcl 4 Mg/2 Ml Vial) 4 mg IVPUSH Q8H PRN PRN Reason: Nausea and Vomiting Sodium Chloride (0.9 % Sodium Chloride Flush 3 Ml Syringe) 3 ml IVFLUSH QSHIFT [facility] Last Admin: 08/25/24 09:24 Dose: 3 ml Documented By: MIKE Timolol Maleate (Timolol Maleate 0.5 % Oph Alexus 5 Ml Drbtl) 1 drop EYE-BOTH BID [facility] Last Admin: 08/25/24 08:09 Dose: 1 drop Documented By: MIKE Warfarin Sodium (Warfarin Sodium 1 Mg Tablet) 1 mg PO DAILY@1800 [facility] Last Admin: 08/24/24 18:47 Dose: 1 mg Documented By: MIKE Labs 08/22/24 06:49 08/22/24 06:49 Labs: Laboratory Results - last 24 hr 08/24/24 08/24/24 08/25/24 15:37 19:44 06:57 PT INR POC Glucose 147 H 159 H 154 H 08/25/24 08/25/24 07:39 11:10 PT 42.9 H D INR 3.7 H POC Glucose 173 H Assessment and Plan (1) Major neurocognitive disorder: Status: Acute Plan d5 for 88yo M with 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, admitted for acute encephalopathy due to UTI acute metabolic encephalopathy in the setting of UTI - mentation now appears back at baseline - UCx grew Enterococcus faecalis, was given ceftriaxone initially but has been on amoxicililn since 08/23-, end date 08/28 prerenal SANTOS/CKD3 - SCr back to baseline after IV fluid hydration weakness fall - PT: STR - question of C2 fracture on C-spine; MRI C-spine negative paroxysmal atrial fibrillation - INR supratherapeutic; hold today's dose and decrease daily dose from 1.5 to 1 mg; recheck INR tomorrow - continue carvedilol HTN - amlodipine, carvedilol HLD - statin DM2 - correction-dose lispro dementia mood disorder - does not meet IPLOC - continue olanzapine + mirtazapine VTE ppx - warfarin dispo - STR then likely LTC In my clinical judgment, the patient requires continued inpatient hospitalization for the following reasons: placement Total time managing care of this patient today: 35 minutes. Quality Stroke Does the patient have a stroke diagnosis?: No VTE Prior VTE?: No VTE Risk Level:: Medical - moderate - high VTE Device Contraindication: Treatment Not Indicated VTE Drug Contraindication: N/A - Med Ordered
[2024-08-25 15:54] VITALS: BP 151/65; PULSE 57; RESP 18; TEMP 36.3; O2SAT 97
[2024-08-25 16:19] LABS: Glucose, Whole Blood 167 mg/dL (60-115)
[2024-08-25 20:00] VITALS: BP 133/61; PULSE 54; RESP 18; TEMP 36.1; O2SAT 95
[2024-08-25 21:37] LABS: Glucose, Whole Blood 182 mg/dL (60-115)
[2024-08-25 21:54] VITALS: BP 133/61; PULSE 59
[2024-08-26 03:31] VITALS: BP 133/76; PULSE 59; RESP 18; TEMP 36.3; O2SAT 95
[2024-08-26 06:57] VITALS: BP 146/56; PULSE 58; RESP 20; TEMP 36.8; O2SAT 96
[2024-08-26 07:31] LABS: INTERNATIONAL NORM RATIO 3.3 (0.9-1.1); Prothrombin Time 37.7 SEC (10.9-12.4)
[2024-08-26 07:48] LABS: Glucose, Whole Blood 169 mg/dL (60-115)
[2024-08-26] MEDS: timoloL maleate 0.5 % Oph Sol 5 ML DRBTL 1 DROP EYE-BOTH ×2 (08:37→22:01)
[2024-08-26] MEDS: Dorzolamide HCl 2 % Ophth Sol 10 ML DRPBTL 1 DROP EYE-BOTH ×2 (11:03→22:01)
--- NOTE | 2024-08-26 11:34 | HO.PM.IMPN ---
Subjective Subjective Date of Service: 08/26/24 Interval History: hip pain improved, just feels so-so denies dyspnea or chest pain no dysuria or hematuria Review of Systems Review of Systems: Yes all other systems are reviewed and are negative Physical Exam Vital Signs: Vital Signs: Last Vital Signs Temp 98.2 F 08/26/24 06:57 Pulse 58 08/26/24 06:57 Resp 20 08/26/24 06:57 BP 146/56 H 08/26/24 06:57 Pulse Ox 96 08/26/24 06:57 O2 Del Method Room Air 08/26/24 06:57 BMI result Body Mass Index 35.8 Gen: in no acute distress HEENT: sclera anicteric, moist mucus membranes Neck: supple Lungs: clear to auscultation bilaterally Heart: regular rate and rhythm, no murmurs Abd: soft, non-tender, non-distended Ext: no edema Skin: warm/well-perfused Neuro: alert and oriented only to self, no focal deficit Psych: impaired insight Objective Data Active Medications Acetaminophen (Acetaminophen 325 Mg Tablet) 650 mg PO Q6H PRN PRN Reason: Pain, Mild 1-3,fever,headache Last Admin: 08/26/24 06:18 Dose: 650 mg Documented By: EVARISTO Al Hydroxide/Mg Hydroxide (Magnesium Hydrox/Alum Hydrox 30 Ml Oral.Susp) 30 ml PO Q6H PRN PRN Reason: Acid Reflux Amlodipine Besylate (Amlodipine Besylate 5 Mg Tablet) 5 mg PO DAILY [facility]; Protocol Last Admin: 08/26/24 08:31 Dose: 5 mg Documented By: NIKITA Amoxicillin (Amoxicillin 500 Mg Capsule) 500 mg PO Q8H [facility] Last Admin: 08/26/24 11:03 Dose: 500 mg Documented By: NIKITA Atorvastatin Calcium (Atorvastatin Calcium 10 Mg Tablet) 10 mg PO BEDTIME [facility] Last Admin: 08/25/24 21:45 Dose: 10 mg Documented By: EVARISTO Calcium Carbonate (Calcium Carbonate 750 Mg Tab.Chew) 750 mg PO Q4H PRN PRN Reason: Heartburn Carvedilol (Carvedilol 6.25 Mg Tablet) 6.25 mg PO BID [facility]; Protocol Last Admin: 08/26/24 08:31 Dose: 6.25 mg Documented By: NIKITA Dextrose (Dextrose 50 % 25 Gm/50 Ml Syringe) 25 gm IVPUSH Q15M PRN; Protocol PRN Reason: per Hypoglycemia Standing Ord. Dorzolamide HCl (Dorzolamide Hcl 2 % Ophth Alexus 10 Ml Drpbtl) 1 drop EYE-BOTH BID [facility] Last Admin: 08/26/24 11:03 Dose: 1 drop Documented By: NIKITA Famotidine (Famotidine 20 Mg Tablet) 20 mg PO BID [facility] Last Admin: 08/26/24 08:31 Dose: 20 mg Documented By: NIKITA Glucose (Glucose Gel 15 Gm Gel..Gram.) 15 gm PO Q15M PRN; Protocol PRN Reason: per Hypoglycemia Standing Ord. Insulin Human Lispro (Insulin Lispro 100 Unit/Ml 3 Ml Vial) 0 unit SUBCUT QIDWMHS [facility]; Protocol Last Admin: 08/26/24 08:31 Dose: 2 unit Documented By: NIKITA Magnesium Hydroxide (Milk Of Magnesia 30 Ml Oral.Susp) 30 ml PO DAILY PRN PRN Reason: Constipation Last Admin: 08/25/24 08:04 Dose: 30 ml Documented By: MIKE Melatonin (Melatonin 3 Mg Tablet) 6 mg PO BEDTIME PRN PRN Reason: Insomnia Last Admin: 08/25/24 21:46 Dose: 6 mg Documented By: EVARISTO Mirtazapine (Mirtazapine 7.5 Mg Tablet) 7.5 mg PO BEDTIME [facility] Last Admin: 08/25/24 21:46 Dose: 7.5 mg Documented By: EVARISTO Nystatin (Nystatin Powder 15 Gm Bottle) 1 appl TOPICAL TID [facility]; Protocol Last Admin: 08/26/24 08:40 Dose: 1 appl Documented By: NIKITA Olanzapine (Olanzapine 2.5 Mg Tablet) 2.5 mg PO BID [facility] Last Admin: 08/26/24 08:31 Dose: 2.5 mg Documented By: NIKITA Omeprazole (Omeprazole 20 Mg Capsule.Dr) 20 mg PO DAILY@0630 [facility] Last Admin: 08/26/24 06:18 Dose: 20 mg Documented By: EVARISTO Ondansetron HCl (Ondansetron Hcl 4 Mg/2 Ml Vial) 4 mg IVPUSH Q8H PRN PRN Reason: Nausea and Vomiting Phenazopyridine HCl (Phenazopyridine Hcl 200 Mg Tablet) 200 mg PO TID PRN PRN Reason: pain with urination Sodium Chloride (0.9 % Sodium Chloride Flush 3 Ml Syringe) 3 ml IVFLUSH QSHIFT [facility] Last Admin: 08/26/24 11:03 Dose: Not Given Documented By: NIKITA Non-Admin Reason: No Access Timolol Maleate (Timolol Maleate 0.5 % Oph Alexus 5 Ml Drbtl) 1 drop EYE-BOTH BID [facility] Last Admin: 08/26/24 08:37 Dose: 1 drop Documented By: NIKITA Warfarin Sodium (Warfarin Sodium 1 Mg Tablet) 1 mg PO DAILY@1800 [facility] Last Admin: 08/24/24 18:47 Dose: 1 mg Documented By: MIKE Labs 08/22/24 06:49 08/22/24 06:49 Labs: Laboratory Results - last 24 hr 08/25/24 08/25/24 08/26/24 16:09 21:33 06:59 PT INR POC Glucose 167 H 182 H 169 H 08/26/24 07:14 PT 37.7 H INR 3.3 H POC Glucose Assessment and Plan (1) Major neurocognitive disorder: Status: Acute Plan d6 for 88yo M with 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, DM2 with neuroipathy, HTN, HLD, CAD, mood disorder, CKD3 presented after unwitnessed fall at [facility], admitted for acute encephalopathy due to UTI acute metabolic encephalopathy in the setting of UTI - mentation now appears close to baseline - UCx grew Enterococcus faecalis, was given ceftriaxone initially but has been on amoxicililn since 08/23-, end date 08/28 prerenal SANTOS/CKD3 - SCr back to baseline after IV fluid hydration weakness fall - PT: STR recommended - question of C2 fracture on C-spine resolved by negative MRI C-spine paroxysmal atrial fibrillation - INR supratherapeutic again 3.7->3.3; likely antibiotic effect; hold today's dose and decreased daily dose from 1.5 to 1 mg; recheck INR tomorrow - continue carvedilol HTN - amlodipine, carvedilol HLD - statin DM2 - correction-dose lispro dementia mood disorder - does not meet IPLOC - continue olanzapine + mirtazapine VTE ppx - warfarin dispo - STR then likely LTC In my clinical judgment, the patient requires continued inpatient hospitalization for the following reasons: placement Total time managing care of this patient today: 35 minutes. Quality Stroke Does the patient have a stroke diagnosis?: No VTE Prior VTE?: No VTE Risk Level:: Medical - moderate - high VTE Device Contraindication: Treatment Not Indicated VTE Drug Contraindication: N/A - Med Ordered
[2024-08-26 11:57] VITALS: BP 150/58; PULSE 50; RESP 16; TEMP 36.3; O2SAT 98
[2024-08-26 13:10] LABS: Glucose, Whole Blood 167 mg/dL (60-115)
[2024-08-26 15:43] VITALS: BP 148/66; PULSE 55; RESP 16; TEMP 36.3; O2SAT 97
[2024-08-26 16:31] LABS: Glucose, Whole Blood 167 mg/dL (60-115)
--- NOTE | 2024-08-26 16:54 | HO.WOUND ---
Wound Consult: Initial 88yr old?male admitted to [facility] on 08/21/24 - See progress notes and H&P for detailed history.? Wound consult placed for buttock, arms and great toe.? Patient agreeable to assessment and photo documentation.? Patient plesantly confused at bedside - not easily reorientated - direct care nurse aware, baseline orientation. Sacrococcygeal (Sacrum, Coccyx and Buttock) Etiology: ?Chronic MASD Wound Bed: Diffuse area of dark maroon purple blanchable intact tissue Drainage / Odor: None Edges: ?defined Vida wound: ?intact - MASD No Induration, Fluctuance or Warmth noted Pain: denies Goals of Treatment: ? barrier cream and foam dressing - barrier cream to protect from moisture and friction and foam dressing to aid in pressure redistribution to the sacrum Skin tears assessed cleansed and redressing no concern for infection or bleeding follow protocol for skin tear treatment. Left great toe assessed - unclear etiology suspect abrasion-small lesions noted with slough noted to central open area - recommend moist wound healing with xeroform. Mild erythema no s/s of infection at this time. Recommendations: 1. Turn and Reposition every 2 hours and as needed for patient comfort.? Use pillows or wedges to support off loading positions. 2. Off Load all bony prominences with use of pillows and heel boots if needed.? Apply Preventative foams where needed. ? 3. Monitor for incontinence and moisture control, use barrier creams when needed for prevention and treatment. 4. Provide adequate and supplemental nutrition.? 5. Order low air loss mattress. 6. When applicable maintain blood glucose levels per Providers order. Sacrum , Coccyx and Buttock (Sacrococcygeal) - Off Load Pressure with Q2 hr turns and use of pillows - Cleanse with PH balance spray or wipes, pat dry. ?Apply foam dressing to sacrum to aid in off loading and protection from friction. Change every 3 days and PRN. Apply barrier cream to buttock area to protect from friction and moisture, apply twice daily and PRN after episodes of incontinence. If foam dressing is repeatedly soiled removed and use barrier cream to area without foam use. Right hand, left forearm and left great toe - Per Protocol ?- Cleanse with normal saline, pat dry. ?Apply Xeroform secure with Abd pads, gauze wrap and tape. Change Daily. ?Do not apply tape to patient?s skin.? Avoid Adhesive application to skin - when necessary, apply skin prep prior.? Re-consult wound care Nurse for wound deterioration or wound changes.
[2024-08-26 20:00] VITALS: BP 140/58; PULSE 58; RESP 18; TEMP 36.3; O2SAT 98
[2024-08-26 20:49] LABS: Glucose, Whole Blood 173 mg/dL (60-115)
[2024-08-27 03:21] VITALS: BP 146/76; PULSE 69; RESP 17; TEMP 36.3
[2024-08-27 06:20] LABS: INTERNATIONAL NORM RATIO 2.4 (0.9-1.1); Prothrombin Time 27.7 SEC (10.9-12.4)
[2024-08-27 07:03] LABS: Glucose, Whole Blood 147 mg/dL (60-115)
[2024-08-27 07:20] VITALS: BP 142/79; PULSE 71; RESP 16; TEMP 36; O2SAT 95
[2024-08-27] MEDS: Dorzolamide HCl 2 % Ophth Sol 10 ML DRPBTL 1 DROP EYE-BOTH ×2 (07:45→20:31)
[2024-08-27] MEDS: timoloL maleate 0.5 % Oph Sol 5 ML DRBTL 1 DROP EYE-BOTH ×2 (07:45→20:31)
--- NOTE | 2024-08-27 08:17 | PC.NURSE ---
Late entry: Pt was unable to void during the night, no episode of incontinence. Pt was bladder scan at 22:05 for 385ml. After the bladder scan pt was still unable to void on his own. Per MD order to straight cath if bladder scan >350. This RN straight cath the pt at 00:50 for 400mls pierre color urine w/ assisted of 2 CNAs due to the pt being confused and combative. Post void residual was 0ml via bladder scan. Will continue to monitor pt's output.
[2024-08-27 11:09] LABS: Glucose, Whole Blood 199 mg/dL (60-115)
--- NOTE | 2024-08-27 11:42 | MHC.CM.PN ---
PER PT NOTES, PT WOULD LIKELY BENEFIT FROM STR WITH TRANSITION TO LTC CM SPOKE TO PTS DAUGHTER, GUY, SHE REPORTS THE GOAL WOULD BE HOME IF PT WERE ABLE TO AMBULATE AGAIN SHE SAYS THERE IS ALWAYS SOMEONE HOME WITH HIM, BUT NOT EVERYONE WOULD BE ABLE TO PHYSICALLY ASSIST HIM IF NEEDED REFERRALS RESENT, NO BED OFFERS AT THIS TIME A REFERRAL WILL ALSO BE MADE TO [facility] TO INITIATE A MH SELINA
--- NOTE | 2024-08-27 12:22 | P.PNIM_ITS ---
Subjective Subjective Date of Service: 08/27/24 Interval History: more agitated and combative straight catheterized overnight for urinary retention, bladder scan now 290 mL Review of Systems Review of Systems: Yes Unobtainable due to mental status Physical Exam 2 Vital Signs: Vital Signs: Last Vital Signs Temp 96.8 F 08/27/24 07:20 Pulse 71 08/27/24 07:20 Resp 16 08/27/24 07:20 BP 142/79 H 08/27/24 07:20 Pulse Ox 95 08/27/24 07:20 O2 Del Method Room Air 08/27/24 07:20 O2 Flow Rate 96 08/27/24 03:21 BMI result Body Mass Index 35.8 Gen: delirious HEENT: sclera anicteric, moist mucus membranes Neck: supple Lungs: clear to auscultation bilaterally Heart: regular rate and rhythm, no murmurs Abd: soft, non-tender, non-distended Ext: no edema Skin: warm/well-perfused Neuro: alert and oriented only to self Psych: impaired insight Objective Data Active Medications Acetaminophen (Acetaminophen 325 Mg Tablet) 650 mg PO Q6H PRN PRN Reason: Pain, Mild 1-3,fever,headache Last Admin: 08/26/24 06:18 Dose: 650 mg Documented By: EVARISTO Al Hydroxide/Mg Hydroxide (Magnesium Hydrox/Alum Hydrox 30 Ml Oral.Susp) 30 ml PO Q6H PRN PRN Reason: Acid Reflux Amlodipine Besylate (Amlodipine Besylate 5 Mg Tablet) 5 mg PO DAILY [facility]; Protocol Last Admin: 08/27/24 07:44 Dose: 5 mg Documented By: TRICIA Amoxicillin (Amoxicillin 500 Mg Capsule) 500 mg PO Q8H [facility] Last Admin: 08/27/24 11:14 Dose: 500 mg Documented By: TRICIA Atorvastatin Calcium (Atorvastatin Calcium 10 Mg Tablet) 10 mg PO BEDTIME [facility] Last Admin: 08/26/24 21:53 Dose: 10 mg Documented By: ADRIANNA Calcium Carbonate (Calcium Carbonate 750 Mg Tab.Chew) 750 mg PO Q4H PRN PRN Reason: Heartburn Carvedilol (Carvedilol 6.25 Mg Tablet) 6.25 mg PO BID [facility]; Protocol Last Admin: 08/27/24 07:44 Dose: 6.25 mg Documented By: TRICIA Dextrose (Dextrose 50 % 25 Gm/50 Ml Syringe) 25 gm IVPUSH Q15M PRN; Protocol PRN Reason: per Hypoglycemia Standing Ord. Dorzolamide HCl (Dorzolamide Hcl 2 % Ophth Alexus 10 Ml Drpbtl) 1 drop EYE-BOTH BID [facility] Last Admin: 08/27/24 07:45 Dose: 1 drop Documented By: TRICIA Famotidine (Famotidine 20 Mg Tablet) 20 mg PO BID [facility] Last Admin: 08/27/24 07:43 Dose: 20 mg Documented By: TRICIA Glucose (Glucose Gel 15 Gm Gel..Gram.) 15 gm PO Q15M PRN; Protocol PRN Reason: per Hypoglycemia Standing Ord. Insulin Human Lispro (Insulin Lispro 100 Unit/Ml 3 Ml Vial) 0 unit SUBCUT QIDWMHS [facility]; Protocol Last Admin: 08/27/24 11:13 Dose: 2 unit Documented By: TRICIA Magnesium Hydroxide (Milk Of Magnesia 30 Ml Oral.Susp) 30 ml PO DAILY PRN PRN Reason: Constipation Last Admin: 08/25/24 08:04 Dose: 30 ml Documented By: MIKE Melatonin (Melatonin 3 Mg Tablet) 6 mg PO BEDTIME PRN PRN Reason: Insomnia Last Admin: 08/25/24 21:46 Dose: 6 mg Documented By: EVARISTO Mirtazapine (Mirtazapine 7.5 Mg Tablet) 7.5 mg PO BEDTIME [facility] Last Admin: 08/26/24 21:52 Dose: 7.5 mg Documented By: ADRIANNA Nystatin (Nystatin Powder 15 Gm Bottle) 1 appl TOPICAL TID [facility]; Protocol Last Admin: 08/27/24 07:45 Dose: 1 appl Documented By: TRICIA Olanzapine (Olanzapine 5 Mg Tablet) 5 mg PO BID [facility] Omeprazole (Omeprazole 20 Mg Capsule.Dr) 20 mg PO DAILY@0630 [facility] Last Admin: 08/27/24 05:39 Dose: Not Given Documented By: ADRIANNA Non-Admin Reason: Patient Refused Ondansetron HCl (Ondansetron Hcl 4 Mg/2 Ml Vial) 4 mg IVPUSH Q8H PRN PRN Reason: Nausea and Vomiting Phenazopyridine HCl (Phenazopyridine Hcl 200 Mg Tablet) 200 mg PO TID PRN PRN Reason: pain with urination Sodium Chloride (0.9 % Sodium Chloride Flush 3 Ml Syringe) 3 ml IVFLUSH QSHIFT [facility] Last Admin: 08/27/24 07:41 Dose: Not Given Documented By: TRICIA Non-Admin Reason: No Access Timolol Maleate (Timolol Maleate 0.5 % Oph Alexus 5 Ml Drbtl) 1 drop EYE-BOTH BID [facility] Last Admin: 08/27/24 07:45 Dose: 1 drop Documented By: TRICIA Warfarin Sodium (Warfarin Sodium 1 Mg Tablet) 1 mg PO DAILY@1800 [facility] Last Admin: 08/24/24 18:47 Dose: 1 mg Documented By: MIKE Labs 08/22/24 06:49 08/22/24 06:49 Labs: Laboratory Results - last 24 hr 08/26/24 08/26/24 08/26/24 13:06 16:26 20:40 Hold Purple Top PT INR POC Glucose 167 H 167 H 173 H 08/27/24 08/27/24 08/27/24 05:54 06:59 11:06 Hold Purple Top SEE NOTE PT 27.7 H D INR 2.4 H POC Glucose 147 H 199 H Assessment and Plan (1) Major neurocognitive disorder: Status: Acute Plan d6 for 88yo M with 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, DM2 with neuroipathy, HTN, HLD, CAD, mood disorder, CKD3 presented after unwitnessed fall at [facility], admitted for acute encephalopathy due to UTI acute metabolic encephalopathy in the setting of UTI - continue amoxicillin 08/23-08/28 for Enterococcus faecalis dementia with behavioral disturbance - increase olanzapine, consult Psychiatry; attempt to establish normal sleep- wake cycles - metabolic labs prerenal SANTOS/CKD3 - SCr went back to baseline after IV fluid hydration weakness fall - PT: STR recommended - question of C2 fracture on C-spine resolved by negative MRI C-spine paroxysmal atrial fibrillation - INR now 2.4; decreased daily dose from 1.5 to 1 mg due to supratherapeutic INR; recheck INR tomorrow - continue carvedilol HTN - amlodipine, carvedilol HLD - statin DM2 - correction-dose lispro mood disorder - continue olanzapine + mirtazapine VTE ppx - warfarin dispo - STR then likely LTC In my clinical judgment, the patient requires continued inpatient hospitalization for the following reasons: placement Total time managing care of this patient today: 45 minutes. Quality Stroke Does the patient have a stroke diagnosis?: No VTE Prior VTE?: No VTE Risk Level:: Medical - moderate - high VTE Device Contraindication: Treatment Not Indicated VTE Drug Contraindication: N/A - Med Ordered
[2024-08-27 13:11] LABS: Hematocrit 35.2 % (42.0-52.0); Hemoglobin 12.4 g/dl (14.0-18.0); Mean Corpuscular HGB Conc 35.2 g/dl (31.0-36.0); Mean Corpuscular Hemoglobin 34.1 pg (27.0-33.0); Mean Corpuscular Volume 96.7 fL (80.0-98.0); NRBC Abs Auto 0.000 X10*3/uL (0.0-0.012); NRBC Pct Auto 0.0 /100WBC (0.0-0.2); Platelet Count 142 X10*3/uL (160-400); Red Blood Count 3.64 X10*6/uL (4.60-5.80); White Blood Count 5.1 X10*3/uL (4.8-10.8)
[2024-08-27 13:12] LABS: Venous Blood Gas Refer to POC result
[2024-08-27 13:13] LABS: VBG HCO3 28 mmol/L (22-26); VBG O2 % Saturation 46.0 %
[2024-08-27 13:26] LABS: Alanine Aminotransferase 15 U/L (0-40); Albumin Level 3.1 g/dL (3.5-5.0); Alkaline Phosphatase 69 U/L (39-117); Anion Gap 10 (12-20); Aspartate Amino Transferase 29 U/L (5-37); Blood Urea Nitrogen 17 mg/dL (9-16); Calcium 8.8 mg/dL (8.4-10.2); Carbon Dioxide 28 mmol/L (22-29); Chloride 110 mmol/L (96-108); Creatinine Clr Calc Pharmacy 54.6; Estimated Glomerular Filt Rate 57; Potassium 3.9 mmol/L (3.3-5.1); Sodium 144 mmol/L (135-145); Total Protein 5.7 g/dL (6.5-8.0)
[2024-08-27 16:00] VITALS: BP 136/60; PULSE 92; RESP 18; TEMP 36.6; O2SAT 95
[2024-08-27 16:44] LABS: Glucose, Whole Blood 178 mg/dL (60-115)
--- NOTE | 2024-08-27 19:09 | MHC.SL.SWA ---
Speech Pathologist Impression: Risk of Aspiration Due to: Dysphasia Diet Status: Continue diet of Ground Mechanical (NDD2) and Thin Liquids (straws ok), pills crushed in puree. Patient requires 1-1 feeding. Liquid Consistency and Strategies for Safe Swallow: Liquid Intake Recommendation: Thin Liquid Intake Strategies: Small Sips Solid Food Consistency: Dietary Recommendations: Grnd/Mech Altered (NDD2) Additional Modifications to Solid Foods: Patient requires 1-1 feeding. [place] patient to food on tray. Oral Medication Intake: Whole with Liquid Please contact the pharmacy regarding appropriate crushable or liquid drug formulations that are available whenever modified delivery is recommended. Compensatory Strategies and Precautions to be Taken for Safe Swallow: Sitting Upright (90 deg) Liquids from Cup Liquids from Straw Small Bites and Sips Alternate Liquids/Solids Rate of Ingestion Change Avoid Specific Foods Supervision While Eating and Drinking for Safe Swallow: Total Assistance (1:1) Foods to Avoid: Tough, difficult to chew solids. Swallowing Recommended Treatments: Compens. Strategy Educat. Recommendation for Speech: Inpatient Speech Therapy Comment: Patient seen at lunch with CORE CLEANER present who was preparing to feed patient. CORE CLEANER reports patient has become increasingly combative and difficult to feed. Patient at onset was lower in bed and required repositioning which was done with two additional CNAs assisting, however patient noted to be combative, yelling at aids, pushing at one aid in this process. Patient highly confused, visually hallucinating/manipulating fabric in hands/noting unseen objects, however at times also commenting appropriately. BOBBIN WINDER TENDER then attempted to feed patient, with patient closing mouth, protesting, but eventually taking bite of food stating oh, that's chicken! while eating. Patient took two or three more bites of food from BOBBIN WINDER TENDER, with moderate protest, but appeared to chew and swallow with some poor oral coordination but no clinical signs of aspiration. Patient also given sip of liquid by straw, with patient producing timely swallow. CORE CLEANER then attempted to feed, with patient pushing and attempting to strike CORE CLEANER. CORE CLEANER decided to take break from feeding patient, re-attempt if patient calmed. Patient is able to tolerate current diet, however has become behaviorally very difficult to feed, due to resistance, combativeness. Patient likely at risk for poor po intake as a result, and should continue to be monitored. Frequency/Duration: Daily M-F Date Range for Service Req: Timeline to reassess: Train Control Technician Clinican/Clinical Fellow: No Supervisory Statement: I have reviewed and agree with the student/clinical fellow's documentation: N/A Speech Language Pathologist: Apoorva Chase M.A., [facility]
--- NOTE | 2024-08-27 19:15 | PC.NURSE ---
Bladder scan 10:00 showed 296ml, no urination, 1430 bladder scan at 520ml, MD alerted and ordered a chavarria rather than another straight cath.
[2024-08-27 20:00] VITALS: BP 132/60; PULSE 66; RESP 18; TEMP 36.4; O2SAT 97
[2024-08-27 20:30] LABS: Glucose, Whole Blood 119 mg/dL (60-115)
[2024-08-28 04:00] VITALS: RESP 18
[2024-08-28 07:07] LABS: INTERNATIONAL NORM RATIO 2.2 (0.9-1.1); Prothrombin Time 25.0 SEC (10.9-12.4)
[2024-08-28 08:00] VITALS: BP 149/67; PULSE 72; RESP 17; TEMP 36.1; O2SAT 97
[2024-08-28 08:07] LABS: Glucose, Whole Blood 141 mg/dL (60-115)
[2024-08-28] MEDS: Dorzolamide HCl 2 % Ophth Sol 10 ML DRPBTL 1 DROP EYE-BOTH (08:57)
[2024-08-28] MEDS: timoloL maleate 0.5 % Oph Sol 5 ML DRBTL 1 DROP EYE-BOTH (08:57)
--- NOTE | 2024-08-28 10:54 | HO.PM.IMPN ---
Subjective Subjective Date of Service: 08/28/24 Interval History: Dodson placed for urinary retention [bladder scan 598 mL] finally slept last night was tugging at Dodson, now calm Review of Systems Review of Systems: Yes Unobtainable due to mental status Physical Exam Vital Signs: Vital Signs: Last Vital Signs Temp 97 F 08/28/24 08:00 Pulse 72 08/28/24 08:00 Resp 17 08/28/24 08:00 BP 149/67 H 08/28/24 08:00 Pulse Ox 97 08/28/24 08:00 O2 Del Method Room Air 08/28/24 08:00 O2 Flow Rate 96 08/27/24 03:21 BMI result Body Mass Index 35.8 Gen: somnolent but arousable HEENT: sclera anicteric, moist mucus membranes Neck: supple Lungs: clear to auscultation bilaterally Heart: regular rate and rhythm, no murmurs Abd: soft, non-tender, non-distended : Dodson draining clear urine Ext: no edema Skin: warm/well-perfused Neuro: alert and oriented only to self, moving all extremities Psych: impaired insight Objective Data Active Medications Acetaminophen (Acetaminophen 325 Mg Tablet) 650 mg PO Q6H PRN PRN Reason: Pain, Mild 1-3,fever,headache Last Admin: 08/26/24 06:18 Dose: 650 mg Documented By: EVARISTO Al Hydroxide/Mg Hydroxide (Magnesium Hydrox/Alum Hydrox 30 Ml Oral.Susp) 30 ml PO Q6H PRN PRN Reason: Acid Reflux Amlodipine Besylate (Amlodipine Besylate 5 Mg Tablet) 5 mg PO DAILY [facility]; Protocol Last Admin: 08/28/24 08:55 Dose: 5 mg Documented By: TRICIA Amoxicillin (Amoxicillin 500 Mg Capsule) 500 mg PO Q8H [facility] Last Admin: 08/28/24 06:06 Dose: 500 mg Documented By: ALEKSEY Atorvastatin Calcium (Atorvastatin Calcium 10 Mg Tablet) 10 mg PO BEDTIME [facility] Last Admin: 08/27/24 20:25 Dose: 10 mg Documented By: ALEKSEY Calcium Carbonate (Calcium Carbonate 750 Mg Tab.Chew) 750 mg PO Q4H PRN PRN Reason: Heartburn Carvedilol (Carvedilol 6.25 Mg Tablet) 6.25 mg PO BID [facility]; Protocol Last Admin: 08/28/24 08:56 Dose: 6.25 mg Documented By: TRICIA Dextrose (Dextrose 50 % 25 Gm/50 Ml Syringe) 25 gm IVPUSH Q15M PRN; Protocol PRN Reason: per Hypoglycemia Standing Ord. Dorzolamide HCl (Dorzolamide Hcl 2 % Ophth Alexus 10 Ml Drpbtl) 1 drop EYE-BOTH BID [facility] Last Admin: 08/28/24 08:57 Dose: 1 drop Documented By: TRICIA Famotidine (Famotidine 20 Mg Tablet) 20 mg PO BID [facility] Last Admin: 08/28/24 08:54 Dose: 20 mg Documented By: TRICIA Finasteride (Finasteride 5 Mg Tablet) 5 mg PO DAILY [facility] Last Admin: 08/28/24 08:55 Dose: 5 mg Documented By: TRICIA Glucose (Glucose Gel 15 Gm Gel..Gram.) 15 gm PO Q15M PRN; Protocol PRN Reason: per Hypoglycemia Standing Ord. Insulin Human Lispro (Insulin Lispro 100 Unit/Ml 3 Ml Vial) 0 unit SUBCUT QIDWMHS [facility]; Protocol Last Admin: 08/28/24 08:51 Dose: Not Given Documented By: TRICIA Non-Admin Reason: No Insulin Coverage Magnesium Hydroxide (Milk Of Magnesia 30 Ml Oral.Susp) 30 ml PO DAILY PRN PRN Reason: Constipation Last Admin: 08/25/24 08:04 Dose: 30 ml Documented By: MIKE Melatonin (Melatonin 3 Mg Tablet) 6 mg PO BEDTIME PRN PRN Reason: Insomnia Last Admin: 08/25/24 21:46 Dose: 6 mg Documented By: EVARISTO Mirtazapine (Mirtazapine 7.5 Mg Tablet) 7.5 mg PO BEDTIME [facility] Last Admin: 08/27/24 20:25 Dose: 7.5 mg Documented By: SINARISHomero Nystatin (Nystatin Powder 15 Gm Bottle) 1 appl TOPICAL TID [facility]; Protocol Last Admin: 08/28/24 08:57 Dose: 1 appl Documented By: TRICIA Olanzapine (Olanzapine 5 Mg Tablet) 5 mg PO BID [facility] Last Admin: 08/28/24 08:55 Dose: 5 mg Documented By: TRICIA Omeprazole (Omeprazole 20 Mg Capsule.Dr) 20 mg PO DAILY@0630 [facility] Last Admin: 08/28/24 06:06 Dose: 20 mg Documented By: ALEKSEY Ondansetron HCl (Ondansetron Hcl 4 Mg/2 Ml Vial) 4 mg IVPUSH Q8H PRN PRN Reason: Nausea and Vomiting Phenazopyridine HCl (Phenazopyridine Hcl 200 Mg Tablet) 200 mg PO TID PRN PRN Reason: pain with urination Sodium Chloride (0.9 % Sodium Chloride Flush 3 Ml Syringe) 3 ml IVFLUSH QSHIFT [facility] Last Admin: 08/28/24 08:51 Dose: Not Given Documented By: TRICIA Non-Admin Reason: No Access Tamsulosin HCl (Tamsulosin Hcl 0.4 Mg Capsule) 0.4 mg PO BEDTIME [facility] Last Admin: 08/27/24 20:25 Dose: 0.4 mg Documented By: ALEKSEY Timolol Maleate (Timolol Maleate 0.5 % Oph Alexus 5 Ml Drbtl) 1 drop EYE-BOTH BID [facility] Last Admin: 08/28/24 08:57 Dose: 1 drop Documented By: TRICIA Warfarin Sodium (Warfarin Sodium 1 Mg Tablet) 1 mg PO DAILY@1800 [facility] Last Admin: 08/27/24 18:10 Dose: 1 mg Documented By: TRICIA Labs 08/27/24 13:01 08/27/24 13:01 Labs: Laboratory Results - last 24 hr 08/27/24 08/27/24 08/27/24 11:06 13:01 13:09 MCV 96.7 MCH 34.1 H MCHC 35.2 RDW 13.9 Plt Count 142 L MPV 9.7 Absolute Nucleated RBC 0.000 Nucleated RBC % (auto) 0.0 Hold Purple Top PT INR VBG pH 7.42 VBG pCO2 43 VBG pO2 33 VBG HCO3 28 H VBG O2 Saturation 46.0 VBG Base Excess 4.1 Anion Gap 10 L Estim Creat Clear Calc 54.6 Estimated GFR 57 POC Glucose 199 H Random Glucose 161 H Calcium 8.8 Total Bilirubin 1.3 H AST 29 ALT 15 Alkaline Phosphatase 69 Total Protein 5.7 L Albumin 3.1 L 08/27/24 08/27/24 08/28/24 16:31 20:14 06:40 MCV MCH MCHC RDW Plt Count MPV Absolute Nucleated RBC Nucleated RBC % (auto) Hold Purple Top SEE NOTE PT 25.0 H INR 2.2 H VBG pH VBG pCO2 VBG pO2 VBG HCO3 VBG O2 Saturation VBG Base Excess Anion Gap Estim Creat Clear Calc Estimated GFR POC Glucose 178 H 119 H Random Glucose Calcium Total Bilirubin AST ALT Alkaline Phosphatase Total Protein Albumin 08/28/24 07:59 MCV MCH MCHC RDW Plt Count MPV Absolute Nucleated RBC Nucleated RBC % (auto) Hold Purple Top PT INR VBG pH VBG pCO2 VBG pO2 VBG HCO3 VBG O2 Saturation VBG Base Excess Anion Gap Estim Creat Clear Calc Estimated GFR POC Glucose 141 H Random Glucose Calcium Total Bilirubin AST ALT Alkaline Phosphatase Total Protein Albumin Assessment and Plan (1) Major neurocognitive disorder: Status: Acute Plan d7 for 88yo M with 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, DM2 with neuroipathy, HTN, HLD, CAD, mood disorder, CKD3 presented after unwitnessed fall at [facility], admitted for acute encephalopathy due to UTI acute metabolic encephalopathy in the setting of UTI - continue amoxicillin 08/23-08/28 for Enterococcus faecalis dementia with behavioral disturbance - increased olanzapine; Psychiatry re-consult pending; attempt to establish normal sleep-wake cycles prerenal SANTOS/CKD3 - SCr back to baseline after IV fluid hydration weakness fall - PT: STR recommended - question of C2 fracture on C-spine resolved by negative MRI C-spine paroxysmal atrial fibrillation - INR now 2.2; decreased daily dose from 1.5 to 1 mg due to supratherapeutic INR; recheck INR tomorrow - continue carvedilol HTN - amlodipine, carvedilol HLD - statin DM2 - correction-dose lispro mood disorder - continue olanzapine + mirtazapine VTE ppx - warfarin dispo - STR then likely LTC In my clinical judgment, the patient requires continued inpatient hospitalization for the following reasons: encephalopathy, placement Total time managing care of this patient today: 35 minutes. Quality Stroke Does the patient have a stroke diagnosis?: No VTE Prior VTE?: No VTE Risk Level:: Medical - moderate - high VTE Device Contraindication: Treatment Not Indicated VTE Drug Contraindication: N/A - Med Ordered
[2024-08-28 12:03] LABS: Glucose, Whole Blood 128 mg/dL (60-115)
--- NOTE | 2024-08-28 14:38 | MHC.SLORD ---
Speech Language Pathology Order Status: DISH CLOTH INSPECTOR attempted to see patient for repeat bedside swallow eval this afternoon. Patient was obtunded, not responding to change in positioning or sternal rub. Sitter was present, reported patient tolerated his pills crushed in applesauce this morning, but did not eat his breakfast or lunch d/t lethargic state, sitter attempted for 10 minutes, but was unable to wake patient for lunch. Patient is on a ground/white hospital altered (NDD2) diet and thin liquids. Do not feed if patient is too lethargic or not engaging in meal.
--- NOTE | 2024-08-28 15:00 | MHC.CM.PN ---
Per MD rounds patient is not medically cleared to discharge. A Psych consult has been ordered. DP STR via BLS vs IPLOC.
[2024-08-28 15:41] VITALS: PULSE 104; RESP 17; TEMP 36.4; O2SAT 94
[2024-08-28 16:16] LABS: Glucose, Whole Blood 138 mg/dL (60-115)
--- NOTE | 2024-08-28 16:42 | PM.PSYCN ---
History of Present Illness Date of Service: 08/28/2024 Chief Complaint: unwitnessed fall Discussed with referring provider: Yes Sources of Information: patient interviewed, chart reviewed and crisis/core team assessment reviewed HPI Narrative: Interim Hx: pt asleep for most of the day but increasingly more agitated since day prior, attempting to hit staff. He is currently with sitter for safety. His was given increase dose of olazapine. When attempted to assess pt, he was asleep, difficult to wake up. [facility] Medical History CKD stage 3a, GFR 45-59 ml/min Diabetic neuropathy Insulin dependent type 2 diabetes mellitus Coronary artery disease Mixed hyperlipidemia Hypertension Atrial fibrillation Diagnostics Vital Signs (24Hr): Vital Signs - 24 hr 08/27/24 20:00 08/28/24 04:00 08/28/24 08:00 Temperature 97.5 F 97 F Pulse Rate 66 72 Respiratory Rate 18 18 17 Blood Pressure 132/60 149/67 H Pulse Oximetry 97 97 Oxygen Delivery Method Room Air Room Air 08/28/24 15:41 Temperature 97.5 F Pulse Rate 104 H Respiratory Rate 17 Blood Pressure Pulse Oximetry 94 Oxygen Delivery Method Room Air BMI result Body Mass Index 35.8 Labs 08/30/24 08:18 08/30/24 08:18 Labs: Laboratory Results - last 48 hr 08/26/24 08/27/24 08/27/24 20:40 05:54 06:59 WBC RBC Hgb Hct MCV MCH MCHC RDW Plt Count MPV Absolute Nucleated RBC Nucleated RBC % (auto) Hold Purple Top SEE NOTE PT 27.7 H D INR 2.4 H VBG pH VBG pCO2 VBG pO2 VBG HCO3 VBG O2 Saturation VBG Base Excess Sodium Potassium Chloride Carbon Dioxide Anion Gap BUN Creatinine Estim Creat Clear Calc Estimated GFR POC Glucose 173 H 147 H Random Glucose Calcium Total Bilirubin AST ALT Alkaline Phosphatase Total Protein Albumin 08/27/24 08/27/24 08/27/24 11:06 13:01 13:09 WBC 5.1 RBC 3.64 L Hgb 12.4 L Hct 35.2 L MCV 96.7 MCH 34.1 H MCHC 35.2 RDW 13.9 Plt Count 142 L MPV 9.7 Absolute Nucleated RBC 0.000 Nucleated RBC % (auto) 0.0 Hold Purple Top PT INR VBG pH 7.42 VBG pCO2 43 VBG pO2 33 VBG HCO3 28 H VBG O2 Saturation 46.0 VBG Base Excess 4.1 Sodium 144 Potassium 3.9 Chloride 110 H Carbon Dioxide 28 Anion Gap 10 L BUN 17 H Creatinine 1.20 Estim Creat Clear Calc 54.6 Estimated GFR 57 POC Glucose 199 H Random Glucose 161 H Calcium 8.8 Total Bilirubin 1.3 H AST 29 ALT 15 Alkaline Phosphatase 69 Total Protein 5.7 L Albumin 3.1 L 08/27/24 08/27/24 08/28/24 16:31 20:14 06:40 WBC RBC Hgb Hct MCV MCH MCHC RDW Plt Count MPV Absolute Nucleated RBC Nucleated RBC % (auto) Hold Purple Top SEE NOTE PT 25.0 H INR 2.2 H VBG pH VBG pCO2 VBG pO2 VBG HCO3 VBG O2 Saturation VBG Base Excess Sodium Potassium Chloride Carbon Dioxide Anion Gap BUN Creatinine Estim Creat Clear Calc Estimated GFR POC Glucose 178 H 119 H Random Glucose Calcium Total Bilirubin AST ALT Alkaline Phosphatase Total Protein Albumin 08/28/24 08/28/24 08/28/24 07:59 11:59 16:09 WBC RBC Hgb Hct MCV MCH MCHC RDW Plt Count MPV Absolute Nucleated RBC Nucleated RBC % (auto) Hold Purple Top PT INR VBG pH VBG pCO2 VBG pO2 VBG HCO3 VBG O2 Saturation VBG Base Excess Sodium Potassium Chloride Carbon Dioxide Anion Gap BUN Creatinine Estim Creat Clear Calc Estimated GFR POC Glucose 141 H 128 H 138 H Random Glucose Calcium Total Bilirubin AST ALT Alkaline Phosphatase Total Protein Albumin Imaging Radiology Impressions: ITS Impressions Cervical Spine CT 08/18/24 10:42 IMPRESSION: Multilevel cervical spondylosis more conspicuous at C6-7, C5-6 and to a lesser extent C3-4 level. Transverse oriented lucency at the odontoid process/base of C2. Although this could be artifactual nondisplaced type II C2 fracture cannot be excluded. Recommend MRI cervical spine. Fleischner guidelines were followed. Electronically signed by: Lorenzo Jeffrey MD 08/18/2024 12:16 PM EDT RP Head CT 08/18/24 10:42 IMPRESSION: No gross acute intracranial hemorrhage. Small vessel occlusive disease. Global cerebral atrophy. Acute on chronic right saphenous sinus disease with the questionable inspissated secretions versus superimposed fungal infection. Questionable subtle hyperdensity mid malaika. Probable artifactual.. Electronically signed by: Lorenzo Jeffrey MD 08/18/2024 12:08 PM EDT RP Shoulder X-Ray 08/18/24 10:42 IMPRESSION: Moderate degenerative change of the AC joint. Electronically signed by: Sourav Hale MD 08/18/2024 01:09 PM EDT RP Chest X-Ray 08/18/24 10:43 IMPRESSION: Clear lungs. Electronically signed by: Sourav Hale MD 08/18/2024 01:11 PM EDT RP Hip X-Ray 08/18/24 10:48 IMPRESSION: No evidence of fracture of the right hip. Electronically signed by: Sourav Hale MD 08/18/2024 01:10 PM EDT RP Abdomen/Pelvis CT 08/18/24 11:07 IMPRESSION: No evidence of traumatic injury to the abdomen or pelvis, although evaluation for solid organ injury is limited by lack of intravenous contrast material. Incidental findings as described. Electronically signed by: Sourav Hale MD 08/18/2024 11:47 AM EDT RP Cervical Spine MRI 08/19/24 11:37 IMPRESSION: 1. There is no acute fracture of the cervical spine. C2 is intact. 2. There is trace prevertebral fluid spanning C3-C7, suspect for hyperextension strain injury. No ligamentous tearing is evident. 3. There is moderate degenerative spondylosis as discussed. Electronically signed by: Rudolph Mendoza MD 08/19/2024 12:37 PM EDT RP Medications Medications Current Medications Acetaminophen (Acetaminophen 325 Mg Tablet) 650 mg PO Q6H PRN PRN Reason: Pain, Mild 1-3,fever,headache Last Admin: 08/26/24 06:18 Dose: 650 mg Al Hydroxide/Mg Hydroxide (Magnesium Hydrox/Alum Hydrox 30 Ml Oral.Susp) 30 ml PO Q6H PRN PRN Reason: Acid Reflux Amlodipine Besylate (Amlodipine Besylate 5 Mg Tablet) 5 mg PO DAILY [facility]; Protocol Last Admin: 08/28/24 08:55 Dose: 5 mg Amoxicillin (Amoxicillin 500 Mg Capsule) 500 mg PO Q8H [facility] Last Admin: 08/28/24 12:09 Dose: 500 mg Atorvastatin Calcium (Atorvastatin Calcium 10 Mg Tablet) 10 mg PO BEDTIME [facility] Last Admin: 08/27/24 20:25 Dose: 10 mg Calcium Carbonate (Calcium Carbonate 750 Mg Tab.Chew) 750 mg PO Q4H PRN PRN Reason: Heartburn Carvedilol (Carvedilol 6.25 Mg Tablet) 6.25 mg PO BID [facility]; Protocol Last Admin: 08/28/24 08:56 Dose: 6.25 mg Dextrose (Dextrose 50 % 25 Gm/50 Ml Syringe) 25 gm IVPUSH Q15M PRN; Protocol PRN Reason: per Hypoglycemia Standing Ord. Dorzolamide HCl (Dorzolamide Hcl 2 % Ophth Alexus 10 Ml Drpbtl) 1 drop EYE-BOTH BID [facility] Last Admin: 08/28/24 08:57 Dose: 1 drop Famotidine (Famotidine 20 Mg Tablet) 20 mg PO BID [facility] Last Admin: 08/28/24 08:54 Dose: 20 mg Finasteride (Finasteride 5 Mg Tablet) 5 mg PO DAILY [facility] Last Admin: 08/28/24 08:55 Dose: 5 mg Glucose (Glucose Gel 15 Gm Gel..Gram.) 15 gm PO Q15M PRN; Protocol PRN Reason: per Hypoglycemia Standing Ord. Insulin Human Lispro (Insulin Lispro 100 Unit/Ml 3 Ml Vial) 0 unit SUBCUT QIDWMHS [facility]; Protocol Last Admin: 08/28/24 12:47 Dose: Not Given Magnesium Hydroxide (Milk Of Magnesia 30 Ml Oral.Susp) 30 ml PO DAILY PRN PRN Reason: Constipation Last Admin: 08/25/24 08:04 Dose: 30 ml Melatonin (Melatonin 3 Mg Tablet) 6 mg PO BEDTIME PRN PRN Reason: Insomnia Last Admin: 08/25/24 21:46 Dose: 6 mg Mirtazapine (Mirtazapine 7.5 Mg Tablet) 7.5 mg PO BEDTIME [facility] Last Admin: 08/27/24 20:25 Dose: 7.5 mg Nystatin (Nystatin Powder 15 Gm Bottle) 1 appl TOPICAL TID [facility]; Protocol Last Admin: 08/28/24 14:23 Dose: Not Given Olanzapine (Olanzapine 5 Mg Tablet) 5 mg PO BID [facility] Last Admin: 08/28/24 08:55 Dose: 5 mg Omeprazole (Omeprazole 20 Mg Capsule.Dr) 20 mg PO DAILY@0630 [facility] Last Admin: 08/28/24 06:06 Dose: 20 mg Ondansetron HCl (Ondansetron Hcl 4 Mg/2 Ml Vial) 4 mg IVPUSH Q8H PRN PRN Reason: Nausea and Vomiting Phenazopyridine HCl (Phenazopyridine Hcl 200 Mg Tablet) 200 mg PO TID PRN PRN Reason: pain with urination Sodium Chloride (0.9 % Sodium Chloride Flush 3 Ml Syringe) 3 ml IVFLUSH QSHIFT [facility] Last Admin: 08/28/24 08:51 Dose: Not Given Tamsulosin HCl (Tamsulosin Hcl 0.4 Mg Capsule) 0.4 mg PO BEDTIME [facility] Last Admin: 08/27/24 20:25 Dose: 0.4 mg Timolol Maleate (Timolol Maleate 0.5 % Oph Alexus 5 Ml Drbtl) 1 drop EYE-BOTH BID [facility] Last Admin: 08/28/24 08:57 Dose: 1 drop Warfarin Sodium (Warfarin Sodium 1 Mg Tablet) 1 mg PO DAILY@1800 [facility] Last Admin: 08/27/24 18:10 Dose: 1 mg Allergies Allergies Allergy/AdvReac Type Severity Reaction Status Date / Time quetiapine [From Seroquel] Allergy Unknown Verified 08/18/24 10:47 quinapril Allergy Unknown Verified 08/18/24 10:47 trazodone Allergy Unknown Verified 08/18/24 10:47 Assessment & Plan Assessment & Plan (1) Major neurocognitive disorder: Status: Acute Code(s): F03.90 - Unspecified dementia, unspecified severity, without behavioral disturbance, psychotic disturbance, mood disturbance, and anxiety Plan Mr. Weeks is an 88 year-old male with hx of dementia. He came to the hospital after a fall. He appeared very confused initially. He was seen by this principal technical writer on 08/21 when pt presents without signs of delirium, but it is noticeable that he does have underlying neurocognitive impairments. At that time he did not present as combative. He apparently became more combative since day prior attempting to hit staff. He was given higher dose of olanzapine. at time of assessment, pt asleep. Increase olanzapine to 5mg po BID. Total time managing care of this patient today ____ minutes.
[2024-08-28 20:00] VITALS: BP 111/56; PULSE 53; RESP 18; TEMP 36.6; O2SAT 93
[2024-08-28 20:21] LABS: Glucose, Whole Blood 132 mg/dL (60-115)
[2024-08-29 05:20] VITALS: BP 135/63; PULSE 58; RESP 18; TEMP 37.1; O2SAT 94
[2024-08-29 06:32] LABS: INTERNATIONAL NORM RATIO 2.1 (0.9-1.1); Prothrombin Time 24.2 SEC (10.9-12.4)
[2024-08-29 07:28] VITALS: BP 136/60; PULSE 60; RESP 14; TEMP 37.5; O2SAT 96
[2024-08-29 07:38] LABS: Glucose, Whole Blood 147 mg/dL (60-115)
[2024-08-29 09:53] VITALS: BP 136/60
[2024-08-29] MEDS: Dorzolamide HCl 2 % Ophth Sol 10 ML DRPBTL 1 DROP EYE-BOTH ×2 (09:58→20:27)
[2024-08-29] MEDS: timoloL maleate 0.5 % Oph Sol 5 ML DRBTL 1 DROP EYE-BOTH ×2 (09:58→20:27)
--- NOTE | 2024-08-29 10:24 | HO.PM.IMPN ---
Subjective Subjective Date of Service: 08/29/24 Interval History: confused has Dodson Review of Systems Review of Systems: Yes Unobtainable due to mental status Physical Exam Vital Signs: Vital Signs: Last Vital Signs Temp 99.5 F 08/29/24 07:28 Pulse 60 08/29/24 07:28 Resp 14 08/29/24 07:28 BP 136/60 08/29/24 09:53 Pulse Ox 96 08/29/24 07:28 O2 Del Method Room Air 08/29/24 07:28 O2 Flow Rate 96 08/27/24 03:21 BMI result Body Mass Index 35.8 Gen: awake, confused HEENT: sclera anicteric, moist mucus membranes Neck: supple Lungs: clear to auscultation bilaterally Heart: regular rate and rhythm, no murmurs Abd: soft, non-tender, non-distended : Dodson draining clear urine Ext: no edema Skin: warm/well-perfused Neuro: alert and oriented only to self, moving all extremities Psych: impaired insight Objective Data Active Medications Acetaminophen (Acetaminophen 325 Mg Tablet) 650 mg PO Q6H PRN PRN Reason: Pain, Mild 1-3,fever,headache Last Admin: 08/26/24 06:18 Dose: 650 mg Documented By: EVARISTO Al Hydroxide/Mg Hydroxide (Magnesium Hydrox/Alum Hydrox 30 Ml Oral.Susp) 30 ml PO Q6H PRN PRN Reason: Acid Reflux Amlodipine Besylate (Amlodipine Besylate 5 Mg Tablet) 5 mg PO DAILY [facility]; Protocol Last Admin: 08/29/24 09:53 Dose: 5 mg Documented By: DERRICK Amoxicillin (Amoxicillin 500 Mg Capsule) 500 mg PO Q8H [facility] Last Admin: 08/29/24 05:26 Dose: 500 mg Documented By: JO Atorvastatin Calcium (Atorvastatin Calcium 10 Mg Tablet) 10 mg PO BEDTIME [facility] Last Admin: 08/28/24 21:51 Dose: 10 mg Documented By: JO Calcium Carbonate (Calcium Carbonate 750 Mg Tab.Chew) 750 mg PO Q4H PRN PRN Reason: Heartburn Carvedilol (Carvedilol 6.25 Mg Tablet) 6.25 mg PO BID [facility]; Protocol Last Admin: 08/29/24 09:57 Dose: 6.25 mg Documented By: DERRICK Dextrose (Dextrose 50 % 25 Gm/50 Ml Syringe) 25 gm IVPUSH Q15M PRN; Protocol PRN Reason: per Hypoglycemia Standing Ord. Dorzolamide HCl (Dorzolamide Hcl 2 % Ophth Alexus 10 Ml Drpbtl) 1 drop EYE-BOTH BID [facility] Last Admin: 08/29/24 09:58 Dose: 1 drop Documented By: DERRICK Famotidine (Famotidine 20 Mg Tablet) 20 mg PO BID [facility] Last Admin: 08/29/24 09:54 Dose: 20 mg Documented By: DERRICK Finasteride (Finasteride 5 Mg Tablet) 5 mg PO DAILY [facility] Last Admin: 08/29/24 09:53 Dose: 5 mg Documented By: DERRICK Glucose (Glucose Gel 15 Gm Gel..Gram.) 15 gm PO Q15M PRN; Protocol PRN Reason: per Hypoglycemia Standing Ord. Insulin Human Lispro (Insulin Lispro 100 Unit/Ml 3 Ml Vial) 0 unit SUBCUT QIDWMHS [facility]; Protocol Last Admin: 08/29/24 09:48 Dose: Not Given Documented By: DERRICK Non-Admin Reason: No Insulin Coverage Magnesium Hydroxide (Milk Of Magnesia 30 Ml Oral.Susp) 30 ml PO DAILY PRN PRN Reason: Constipation Last Admin: 08/25/24 08:04 Dose: 30 ml Documented By: MIKE Melatonin (Melatonin 3 Mg Tablet) 6 mg PO BEDTIME PRN PRN Reason: Insomnia Last Admin: 08/25/24 21:46 Dose: 6 mg Documented By: EVARISTO Mirtazapine (Mirtazapine 7.5 Mg Tablet) 7.5 mg PO BEDTIME [facility] Last Admin: 08/28/24 21:51 Dose: 7.5 mg Documented By: JO Nystatin (Nystatin Powder 15 Gm Bottle) 1 appl TOPICAL TID [facility]; Protocol Last Admin: 08/29/24 09:58 Dose: 1 appl Documented By: DERRICK Olanzapine (Olanzapine 5 Mg Tablet) 5 mg PO BID [facility] Last Admin: 08/29/24 09:54 Dose: 5 mg Documented By: DERRICK Omeprazole (Omeprazole 20 Mg Capsule.Dr) 20 mg PO DAILY@0630 [facility] Last Admin: 08/29/24 05:25 Dose: 20 mg Documented By: JO Ondansetron HCl (Ondansetron Hcl 4 Mg/2 Ml Vial) 4 mg IVPUSH Q8H PRN PRN Reason: Nausea and Vomiting Phenazopyridine HCl (Phenazopyridine Hcl 200 Mg Tablet) 200 mg PO TID PRN PRN Reason: pain with urination Sodium Chloride (0.9 % Sodium Chloride Flush 3 Ml Syringe) 3 ml IVFLUSH QSHIFT [facility] Last Admin: 08/29/24 09:53 Dose: Not Given Documented By: DERRICK Non-Admin Reason: No Access Tamsulosin HCl (Tamsulosin Hcl 0.4 Mg Capsule) 0.4 mg PO BEDTIME [facility] Last Admin: 08/28/24 21:51 Dose: 0.4 mg Documented By: JO Timolol Maleate (Timolol Maleate 0.5 % Oph Alexus 5 Ml Drbtl) 1 drop EYE-BOTH BID [facility] Last Admin: 08/29/24 09:58 Dose: 1 drop Documented By: DERRICK Warfarin Sodium (Warfarin Sodium 1 Mg Tablet) 1 mg PO DAILY@1800 [facility] Last Admin: 08/28/24 18:26 Dose: 1 mg Documented By: TRICIA Labs 08/27/24 13:01 08/27/24 13:01 Labs: Laboratory Results - last 24 hr 08/28/24 08/28/24 08/28/24 11:59 16:09 20:17 PT INR POC Glucose 128 H 138 H 132 H 08/29/24 08/29/24 05:15 07:34 PT 24.2 H INR 2.1 H POC Glucose 147 H Assessment and Plan (1) Major neurocognitive disorder: Status: Acute Plan d7 for 88yo M with 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, DM2 with neuroipathy, HTN, HLD, CAD, mood disorder, CKD3 presented after unwitnessed fall at [facility], admitted for acute encephalopathy due to UTI acute metabolic encephalopathy in the setting of UTI - completed amoxicillin 08/23-08/28 for Enterococcus faecalis dementia with behavioral disturbance - increased olanzapine; Psychiatry re-consult pending; attempt to establish normal sleep-wake cycles acute urinary retention - voiding trial; continue tamsulosin + finasteride prerenal SANTOS/CKD3 - SCr back to baseline after IV fluid hydration weakness fall - PT: STR recommended - question of C2 fracture on C-spine resolved by negative MRI C-spine paroxysmal atrial fibrillation - INR now 2.1; decreased daily dose from 1.5 to 1 mg due to supratherapeutic INR; recheck INR tomorrow - continue carvedilol HTN - amlodipine, carvedilol HLD - statin DM2 - correction-dose lispro mood disorder - continue olanzapine + mirtazapine VTE ppx - warfarin dispo - STR then likely LTC In my clinical judgment, the patient requires continued inpatient hospitalization for the following reasons: encephalopathy, placement Total time managing care of this patient today: 35 minutes. Quality Stroke Does the patient have a stroke diagnosis?: No VTE Prior VTE?: No VTE Risk Level:: Medical - moderate - high VTE Device Contraindication: Treatment Not Indicated VTE Drug Contraindication: N/A - Med Ordered
[2024-08-29 11:47] LABS: Glucose, Whole Blood 177 mg/dL (60-115)
--- NOTE | 2024-08-29 15:19 | PC.NURSE ---
Pt chavarria cath removed at 1200. Pt with an incontinent void bladder scanned for 0 will monitor
[2024-08-29 15:26] VITALS: BP 137/60; PULSE 59; RESP 16; TEMP 36.4; O2SAT 96
[2024-08-29 16:17] LABS: Glucose, Whole Blood 206 mg/dL (60-115)
[2024-08-29 19:16] VITALS: BP 119/60; PULSE 59; RESP 16; TEMP 36.8; O2SAT 95
[2024-08-29 20:04] LABS: Glucose, Whole Blood 193 mg/dL (60-115)
--- NOTE | 2024-08-29 21:03 | MHC.PIE ---
p; pt anxious, agitated, confused and yelling/screaming get me out of here . pt at this time refusing any care. i; dr cunningham notified. new order, haldol im now e; 3 staff in room for safe med administration as pt yelling at staff and being combative. will cont to monitor
[2024-08-30] VITALS (8 sets, daily range): BP systolic 125–137; BP diastolic 60–76; PULSE 58–65; RESP 16–18; TEMP 36.6–37; O2SAT 93–97
--- NOTE | 2024-08-30 07:22 | HO.PM.IMPN ---
Subjective Subjective Date of Service: 08/30/24 Interval History: confused has Dodson Review of Systems Review of Systems: Yes Unobtainable due to mental status Physical Exam Vital Signs: Vital Signs: Last Vital Signs Temp 98.6 F 08/30/24 07:10 Pulse 58 08/30/24 07:10 Resp 18 08/30/24 07:10 BP 125/62 08/30/24 07:10 Pulse Ox 96 08/30/24 07:10 O2 Del Method Room Air 08/30/24 07:10 O2 Flow Rate 96 08/27/24 03:21 BMI result Body Mass Index 35.8 Gen: awake, confused HEENT: sclera anicteric, moist mucus membranes Neck: supple Lungs: clear to auscultation bilaterally Heart: regular rate and rhythm, no murmurs Abd: soft, non-tender, non-distended : Dodson draining clear urine Ext: no edema Skin: warm/well-perfused Neuro: alert and oriented only to self, moving all extremities Psych: impaired insight Objective Data Active Medications Acetaminophen (Acetaminophen 325 Mg Tablet) 650 mg PO Q6H PRN PRN Reason: Pain, Mild 1-3,fever,headache Last Admin: 08/26/24 06:18 Dose: 650 mg Documented By: EVARISTO Al Hydroxide/Mg Hydroxide (Magnesium Hydrox/Alum Hydrox 30 Ml Oral.Susp) 30 ml PO Q6H PRN PRN Reason: Acid Reflux Amlodipine Besylate (Amlodipine Besylate 5 Mg Tablet) 5 mg PO DAILY [facility]; Protocol Last Admin: 08/29/24 09:53 Dose: 5 mg Documented By: DERRICK Atorvastatin Calcium (Atorvastatin Calcium 10 Mg Tablet) 10 mg PO BEDTIME [facility] Last Admin: 08/29/24 20:27 Dose: 10 mg Documented By: JO Calcium Carbonate (Calcium Carbonate 750 Mg Tab.Chew) 750 mg PO Q4H PRN PRN Reason: Heartburn Carvedilol (Carvedilol 6.25 Mg Tablet) 6.25 mg PO BID [facility]; Protocol Last Admin: 08/29/24 20:26 Dose: 6.25 mg Documented By: JO Dextrose (Dextrose 50 % 25 Gm/50 Ml Syringe) 25 gm IVPUSH Q15M PRN; Protocol PRN Reason: per Hypoglycemia Standing Ord. Dorzolamide HCl (Dorzolamide Hcl 2 % Ophth Alexus 10 Ml Drpbtl) 1 drop EYE-BOTH BID [facility] Last Admin: 08/29/24 20:27 Dose: 1 drop Documented By: JO Famotidine (Famotidine 20 Mg Tablet) 20 mg PO BID [facility] Last Admin: 08/29/24 20:26 Dose: 20 mg Documented By: JO Finasteride (Finasteride 5 Mg Tablet) 5 mg PO DAILY [facility] Last Admin: 08/29/24 09:53 Dose: 5 mg Documented By: DERRICK Glucose (Glucose Gel 15 Gm Gel..Gram.) 15 gm PO Q15M PRN; Protocol PRN Reason: per Hypoglycemia Standing Ord. Insulin Human Lispro (Insulin Lispro 100 Unit/Ml 3 Ml Vial) 0 unit SUBCUT QIDWMHS [facility]; Protocol Last Admin: 08/29/24 20:26 Dose: 2 unit Documented By: JO Magnesium Hydroxide (Milk Of Magnesia 30 Ml Oral.Susp) 30 ml PO DAILY PRN PRN Reason: Constipation Last Admin: 08/25/24 08:04 Dose: 30 ml Documented By: MIKE Melatonin (Melatonin 3 Mg Tablet) 6 mg PO BEDTIME PRN PRN Reason: Insomnia Last Admin: 08/25/24 21:46 Dose: 6 mg Documented By: EVARISTO Mirtazapine (Mirtazapine 7.5 Mg Tablet) 7.5 mg PO BEDTIME [facility] Last Admin: 08/29/24 20:26 Dose: 7.5 mg Documented By: JO Nystatin (Nystatin Powder 15 Gm Bottle) 1 appl TOPICAL TID [facility]; Protocol Last Admin: 08/29/24 20:27 Dose: 1 appl Documented By: JO Olanzapine (Olanzapine 5 Mg Tablet) 5 mg PO BID [facility] Last Admin: 08/29/24 20:27 Dose: 5 mg Documented By: JO Omeprazole (Omeprazole 20 Mg Capsule.Dr) 20 mg PO DAILY@0630 [facility] Last Admin: 08/30/24 06:24 Dose: 20 mg Documented By: JO Phenazopyridine HCl (Phenazopyridine Hcl 200 Mg Tablet) 200 mg PO TID PRN PRN Reason: pain with urination Sodium Chloride (0.9 % Sodium Chloride Flush 3 Ml Syringe) 3 ml IVFLUSH QSHIFT [facility] Last Admin: 08/29/24 20:32 Dose: Not Given Documented By: JO Non-Admin Reason: No Access Tamsulosin HCl (Tamsulosin Hcl 0.4 Mg Capsule) 0.4 mg PO BEDTIME [facility] Last Admin: 08/29/24 20:27 Dose: 0.4 mg Documented By: JO Timolol Maleate (Timolol Maleate 0.5 % Oph Alexus 5 Ml Drbtl) 1 drop EYE-BOTH BID [facility] Last Admin: 08/29/24 20:27 Dose: 1 drop Documented By: JO Warfarin Sodium (Warfarin Sodium 1 Mg Tablet) 1 mg PO DAILY@1800 [facility] Last Admin: 08/29/24 16:56 Dose: 1 mg Documented By: DERRICK Labs 08/30/24 08:18 08/30/24 08:18 Labs: Laboratory Results - last 24 hr 08/29/24 08/29/24 08/29/24 07:34 11:38 16:13 POC Glucose 147 H 177 H 206 H 08/29/24 20:01 POC Glucose 193 H Assessment and Plan (1) Major neurocognitive disorder: Status: Acute Plan d7 for 88yo M with 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, DM2 with neuroipathy, HTN, HLD, CAD, mood disorder, CKD3 presented after unwitnessed fall at [facility], admitted for acute encephalopathy due to UTI acute metabolic encephalopathy in the setting of UTI - completed amoxicillin 08/23-08/28 for Enterococcus faecalis dementia with behavioral disturbance - increased olanzapine; Psychiatry re-consult pending; attempt to establish normal sleep-wake cycles acute urinary retention - voiding trial; continue tamsulosin + finasteride prerenal SANTOS/CKD3 - SCr back to baseline after IV fluid hydration weakness fall - PT: STR recommended - question of C2 fracture on C-spine resolved by negative MRI C-spine paroxysmal atrial fibrillation - INR now 2.0; decreased daily dose from 1.5 to 1 mg due to supratherapeutic INR; increase back up to 1.5mg, recheck INR tomorrow - continue carvedilol HTN - amlodipine, carvedilol HLD - statin DM2 - correction-dose lispro mood disorder - continue olanzapine + mirtazapine VTE ppx - warfarin dispo - STR then likely LTC In my clinical judgment, the patient requires continued inpatient hospitalization for the following reasons: encephalopathy, placement Total time managing care of this patient today: 35 minutes. Quality Stroke Does the patient have a stroke diagnosis?: No VTE Prior VTE?: No VTE Risk Level:: Medical - moderate - high VTE Device Contraindication: Treatment Not Indicated VTE Drug Contraindication: N/A - Med Ordered
[2024-08-30 07:32] LABS: Glucose, Whole Blood 180 mg/dL (60-115)
[2024-08-30] MEDS: Dorzolamide HCl 2 % Ophth Sol 10 ML DRPBTL 1 DROP EYE-BOTH ×2 (08:48→20:33)
[2024-08-30] MEDS: timoloL maleate 0.5 % Oph Sol 5 ML DRBTL 1 DROP EYE-BOTH ×2 (08:48→20:33)
[2024-08-30 08:50] LABS: MANUAL DIFF FLAG NO
[2024-08-30 08:53] LABS: Hematocrit 30.3 % (42.0-52.0); Hemoglobin 11.0 g/dl (14.0-18.0); Imm Gran Abs Auto 0.02 X10*3/uL (0.00-0.03); Imm Gran Pct Auto 0.5 % (0.0-0.4); Lymphocytes Absolute Auto 1.0 X10*3/uL (1.2-4.9); Mean Corpuscular HGB Conc 36.3 g/dl (31.0-36.0); Mean Corpuscular Hemoglobin 34.6 pg (27.0-33.0); Mean Corpuscular Volume 95.3 fL (80.0-98.0); NRBC Abs Auto 0.000 X10*3/uL (0.0-0.012); NRBC Pct Auto 0.0 /100WBC (0.0-0.2); Platelet Count 125 X10*3/uL (160-400); Red Blood Count 3.18 X10*6/uL (4.60-5.80); White Blood Count 4.2 X10*3/uL (4.8-10.8)
[2024-08-30 08:58] LABS: INTERNATIONAL NORM RATIO 2.0 (0.9-1.1); Prothrombin Time 22.4 SEC (10.9-12.4)
[2024-08-30 09:11] LABS: Alanine Aminotransferase 11 U/L (0-40); Albumin Level 2.8 g/dL (3.5-5.0); Alkaline Phosphatase 73 U/L (39-117); Anion Gap 12 (12-20); Aspartate Amino Transferase 28 U/L (5-37); Blood Urea Nitrogen 20 mg/dL (9-16); Calcium 8.4 mg/dL (8.4-10.2); Carbon Dioxide 23 mmol/L (22-29); Chloride 110 mmol/L (96-108); Creatinine Clr Calc Pharmacy 52.8; Estimated Glomerular Filt Rate 55; Potassium 3.9 mmol/L (3.3-5.1); Sodium 141 mmol/L (135-145); Total Protein 5.3 g/dL (6.5-8.0)
[2024-08-30 11:09] LABS: Glucose, Whole Blood 151 mg/dL (60-115)
[2024-08-30 16:05] LABS: Glucose, Whole Blood 153 mg/dL (60-115)
[2024-08-30] MEDS: Warfarin Sodium 0.5 MG HALFTAB 1.5 MG PO (18:09)
[2024-08-30 20:21] LABS: Glucose, Whole Blood 171 mg/dL (60-115)
[2024-08-31] VITALS (7 sets, daily range): BP systolic 127–148; BP diastolic 59–83; PULSE 55–65; RESP 14–18; TEMP 36.2–37; O2SAT 94–97
[2024-08-31 06:27] LABS: INTERNATIONAL NORM RATIO 1.7 (0.9-1.1); Prothrombin Time 19.7 SEC (10.9-12.4)
--- NOTE | 2024-08-31 07:19 | HO.PM.IMPN ---
Subjective Subjective Date of Service: 08/31/24 Interval History: f/u on dementia, encephalopathy, uti remains confused Physical Exam Vital Signs: Vital Signs: Last Vital Signs Temp 97.2 F 08/31/24 03:16 Pulse 65 08/31/24 03:16 Resp 17 08/31/24 03:16 BP 137/83 08/31/24 03:16 Pulse Ox 94 08/31/24 03:16 O2 Del Method Room Air 08/30/24 23:14 O2 Flow Rate 96 08/27/24 03:21 BMI result Body Mass Index 35.8 Gen: awake, confused Lungs: clear to auscultation bilaterally Heart: regular rate and rhythm, no murmurs Abd: soft, non-tender, non-distended : Dodson draining clear urine Ext: no edema Skin: warm/well-perfused Neuro: alert and oriented only to self, moving all extremities Psych: impaired insight Objective Data Active Medications Acetaminophen (Acetaminophen 325 Mg Tablet) 650 mg PO Q6H PRN PRN Reason: Pain, Mild 1-3,fever,headache Last Admin: 08/26/24 06:18 Dose: 650 mg Documented By: EVARISTO Al Hydroxide/Mg Hydroxide (Magnesium Hydrox/Alum Hydrox 30 Ml Oral.Susp) 30 ml PO Q6H PRN PRN Reason: Acid Reflux Amlodipine Besylate (Amlodipine Besylate 5 Mg Tablet) 5 mg PO DAILY [facility]; Protocol Last Admin: 08/30/24 08:37 Dose: 5 mg Documented By: RIGOBERTO Atorvastatin Calcium (Atorvastatin Calcium 10 Mg Tablet) 10 mg PO BEDTIME [facility] Last Admin: 08/30/24 20:28 Dose: 10 mg Documented By: DWIGHT Calcium Carbonate (Calcium Carbonate 750 Mg Tab.Chew) 750 mg PO Q4H PRN PRN Reason: Heartburn Carvedilol (Carvedilol 6.25 Mg Tablet) 6.25 mg PO BID [facility]; Protocol Last Admin: 08/30/24 20:28 Dose: 6.25 mg Documented By: DWIGHT Dextrose (Dextrose 50 % 25 Gm/50 Ml Syringe) 25 gm IVPUSH Q15M PRN; Protocol PRN Reason: per Hypoglycemia Standing Ord. Dorzolamide HCl (Dorzolamide Hcl 2 % Ophth Alexus 10 Ml Drpbtl) 1 drop EYE-BOTH BID [facility] Last Admin: 08/30/24 20:33 Dose: 1 drop Documented By: DWIGHT Famotidine (Famotidine 20 Mg Tablet) 20 mg PO BID [facility] Last Admin: 08/30/24 20:28 Dose: 20 mg Documented By: DWIGHT Finasteride (Finasteride 5 Mg Tablet) 5 mg PO DAILY [facility] Last Admin: 08/30/24 08:36 Dose: 5 mg Documented By: RIGOBERTO Glucose (Glucose Gel 15 Gm Gel..Gram.) 15 gm PO Q15M PRN; Protocol PRN Reason: per Hypoglycemia Standing Ord. Insulin Human Lispro (Insulin Lispro 100 Unit/Ml 3 Ml Vial) 0 unit SUBCUT QIDWMHS [facility]; Protocol Last Admin: 08/30/24 20:25 Dose: Not Given Documented By: DWIGHT Non-Admin Reason: poor po,refused snack Magnesium Hydroxide (Milk Of Magnesia 30 Ml Oral.Susp) 30 ml PO DAILY PRN PRN Reason: Constipation Last Admin: 08/25/24 08:04 Dose: 30 ml Documented By: MIKE Melatonin (Melatonin 3 Mg Tablet) 6 mg PO BEDTIME PRN PRN Reason: Insomnia Last Admin: 08/30/24 20:28 Dose: 6 mg Documented By: DWIGHT Mirtazapine (Mirtazapine 7.5 Mg Tablet) 7.5 mg PO BEDTIME [facility] Last Admin: 08/30/24 20:28 Dose: 7.5 mg Documented By: DWIGHT Nystatin (Nystatin Powder 15 Gm Bottle) 1 appl TOPICAL TID [facility]; Protocol Last Admin: 08/30/24 20:33 Dose: 1 appl Documented By: DWIGHT Olanzapine (Olanzapine 5 Mg Tablet) 5 mg PO BID [facility] Last Admin: 08/30/24 20:28 Dose: 5 mg Documented By: DWIGHT Omeprazole (Omeprazole 20 Mg Capsule.) 20 mg PO DAILY@0630 [facility] Last Admin: 08/31/24 05:33 Dose: 20 mg Documented By: DWIGHT Phenazopyridine HCl (Phenazopyridine Hcl 200 Mg Tablet) 200 mg PO TID PRN PRN Reason: pain with urination Sodium Chloride (0.9 % Sodium Chloride Flush 3 Ml Syringe) 3 ml IVFLUSH QSHIFT [facility] Last Admin: 08/31/24 01:17 Dose: Not Given Documented By: DWIGHT Non-Admin Reason: No Access Tamsulosin HCl (Tamsulosin Hcl 0.4 Mg Capsule) 0.4 mg PO BEDTIME [facility] Last Admin: 08/30/24 20:28 Dose: 0.4 mg Documented By: DWIGHT Timolol Maleate (Timolol Maleate 0.5 % Oph Alexus 5 Ml Drbtl) 1 drop EYE-BOTH BID [facility] Last Admin: 08/30/24 20:33 Dose: 1 drop Documented By: DWIGHT Warfarin Sodium (Warfarin Sodium 0.5 Mg Halftab) 1.5 mg PO DAILY@1800 [facility] Last Admin: 08/30/24 18:09 Dose: 1.5 mg Documented By: RIGOBERTO Labs 08/30/24 08:18 08/30/24 08:18 Labs: Laboratory Results - last 24 hr 08/30/24 08/30/24 08/30/24 07:18 08:18 11:03 MCV 95.3 MCH 34.6 H MCHC 36.3 H RDW 14.2 Plt Count 125 L MPV 10.5 Immature Gran % (Auto) 0.5 H Neut % (Auto) 61.9 Lymph % (Auto) 24.6 [place] % (Auto) 10.4 Eos % (Auto) 2.1 Baso % (Auto) 0.5 Lymph # (Auto) 1.0 L [place] # (Auto) 0.4 Eos # (Auto) 0.1 Baso # (Auto) 0.0 Abs Immat Gran (auto) 0.02 Absolute Neuts (auto) 2.6 Absolute Nucleated RBC 0.000 Nucleated RBC % (auto) 0.0 Hold Purple Top PT 22.4 H INR 2.0 H Anion Gap 12 Estim Creat Clear Calc 52.8 Estimated GFR 55 POC Glucose 180 H 151 H Random Glucose 180 H Calcium 8.4 Total Bilirubin 1.4 H Direct Bilirubin 0.5 AST 28 ALT 11 Alkaline Phosphatase 73 Total Protein 5.3 L Albumin 2.8 L 08/30/24 08/30/24 08/31/24 16:02 20:17 05:43 MCV MCH MCHC RDW Plt Count MPV Immature Gran % (Auto) Neut % (Auto) Lymph % (Auto) [place] % (Auto) Eos % (Auto) Baso % (Auto) Lymph # (Auto) [place] # (Auto) Eos # (Auto) Baso # (Auto) Abs Immat Gran (auto) Absolute Neuts (auto) Absolute Nucleated RBC Nucleated RBC % (auto) Hold Purple Top SEE NOTE PT 19.7 H INR 1.7 H Anion Gap Estim Creat Clear Calc Estimated GFR POC Glucose 153 H 171 H Random Glucose Calcium Total Bilirubin Direct Bilirubin AST ALT Alkaline Phosphatase Total Protein Albumin Assessment and Plan (1) Major neurocognitive disorder: Status: Acute Plan 88yo M with 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, DM2 with neuroipathy, HTN, HLD, CAD, mood disorder, CKD3 presented after unwitnessed fall at [facility], admitted for acute encephalopathy due to UTI acute metabolic encephalopathy in the setting of UTI completed amoxicillin 08/23-08/28 for Enterococcus faecalis dementia with behavioral disturbance continue olanzapine; Psychiatry re-consult pending; attempt to establish normal sleep-wake cycles acute urinary retention voiding trial; continue tamsulosin + finasteride prerenal SANTOS/CKD3 SCr back to baseline after IV fluid hydration weakness fall PT: STR recommended question of C2 fracture on C-spine resolved by negative MRI C-spine paroxysmal atrial fibrillation continue coumadin and adjust for INR 2-3, INR 1.7 today HTN amlodipine, carvedilol HLD statin DM2 correction-dose lispro mood disorder continue olanzapine + mirtazapine VTE ppx coumadin dispo STR then likely LTC In my clinical judgment, the patient requires continued inpatient hospitalization for the following reasons: encephalopathy, placement Total time managing care of this patient today: 35 minutes. Quality Stroke Does the patient have a stroke diagnosis?: No VTE Prior VTE?: No VTE Risk Level:: Medical - moderate - high VTE Device Contraindication: Treatment Not Indicated VTE Drug Contraindication: N/A - Med Ordered
[2024-08-31 07:40] LABS: Glucose, Whole Blood 193 mg/dL (60-115)
[2024-08-31] MEDS: Dorzolamide HCl 2 % Ophth Sol 10 ML DRPBTL 1 DROP EYE-BOTH ×2 (08:42→21:50)
[2024-08-31] MEDS: timoloL maleate 0.5 % Oph Sol 5 ML DRBTL 1 DROP EYE-BOTH ×2 (08:45→21:05)
--- NOTE | 2024-08-31 10:38 | MHC.SLORD ---
Addendum entered and electronically signed by Inocencia Arana MS, CCC-TREE FELLER 08/31/24 14:38: TREE FELLER returned in the afternoon, pt not waking to eat. clerical warehouse worker attempted to feed pt earlier, RN noted pt not waking enough to eat. Pt did eat breakfast. TREE FELLER to follow up tomorrow. Original Note: Speech Language Pathology Order Status: Pt seen for dysphagia treatment, pt responsive to sternal rub but significantly dysarthric, not opening eyes. RN consulted, RN noted pt has been drowsy, questioned medication. TREE FELLER to return when pt awake to assess PO tolerance. Pt currently on NDD2 with thin liquids.
[2024-08-31 11:30] LABS: Glucose, Whole Blood 175 mg/dL (60-115)
--- NOTE | 2024-08-31 15:06 | MHC.CM.PN ---
Patient is medically cleared and waiting for a bed offer for STR. Patients confusion has been given as the reason for not accepting him. A clinical update has been sent to facilities. [facility] DP STR via BLS once a bed is secured.
[2024-08-31 16:43] LABS: Glucose, Whole Blood 165 mg/dL (60-115)
--- NOTE | 2024-08-31 18:24 | PC.NURSE ---
unknown last void from patient d/t dementia and incontinence, pt bladder scanned at 1805 for 366mls, Dr. Barrientos made aware, MD wants to monitor for now and see if pt has another episode of incontinence then will recheck bladder scan at that time.
[2024-08-31 19:49] LABS: Glucose, Whole Blood 165 mg/dL (60-115)
[2024-09-01] VITALS (7 sets, daily range): BP systolic 128–176; BP diastolic 58–67; PULSE 55–63; RESP 16–18; TEMP 36.3–36.8; O2SAT 95–97
[2024-09-01 06:49] LABS: INTERNATIONAL NORM RATIO 1.8 (0.9-1.1); Prothrombin Time 21.0 SEC (10.9-12.4)
[2024-09-01 07:37] LABS: Glucose, Whole Blood 163 mg/dL (60-115)
[2024-09-01] MEDS: Dorzolamide HCl 2 % Ophth Sol 10 ML DRPBTL 1 DROP EYE-BOTH ×2 (08:19→19:42)
[2024-09-01] MEDS: timoloL maleate 0.5 % Oph Sol 5 ML DRBTL 1 DROP EYE-BOTH ×2 (08:19→19:42)
--- NOTE | 2024-09-01 09:03 | P.PNIM_ITS ---
Subjective Subjective Date of Service: 09/01/24 Interval History: f/u on dementia, encephalopathy, uti he's more alert and oriented today Physical Exam 2 Vital Signs: Vital Signs: Last Vital Signs Temp 98.2 F 09/01/24 07:42 Pulse 55 09/01/24 07:42 Resp 16 09/01/24 07:42 BP 146/63 H 09/01/24 07:42 Pulse Ox 96 09/01/24 07:42 O2 Del Method Room Air 09/01/24 07:42 O2 Flow Rate 96 08/27/24 03:21 BMI result Body Mass Index 35.8 Gen: awake, less confused Lungs: clear to auscultation bilaterally Heart: regular rate and rhythm, no murmurs Abd: soft, non-tender, non-distended : Dodson draining clear urine Ext: no edema Skin: warm/well-perfused Neuro: alert and oriented only to self, moving all extremities Psych: impaired insight Objective Data Active Medications Acetaminophen (Acetaminophen 325 Mg Tablet) 650 mg PO Q6H PRN PRN Reason: Pain, Mild 1-3,fever,headache Last Admin: 08/31/24 20:55 Dose: 650 mg Documented By: ALEKSEY Al Hydroxide/Mg Hydroxide (Magnesium Hydrox/Alum Hydrox 30 Ml Oral.Susp) 30 ml PO Q6H PRN PRN Reason: Acid Reflux Amlodipine Besylate (Amlodipine Besylate 5 Mg Tablet) 5 mg PO DAILY [facility]; Protocol Last Admin: 09/01/24 08:17 Dose: 5 mg Documented By: ZIA Atorvastatin Calcium (Atorvastatin Calcium 10 Mg Tablet) 10 mg PO BEDTIME [facility] Last Admin: 08/31/24 20:54 Dose: 10 mg Documented By: ALEKSEY Calcium Carbonate (Calcium Carbonate 750 Mg Tab.Chew) 750 mg PO Q4H PRN PRN Reason: Heartburn Carvedilol (Carvedilol 6.25 Mg Tablet) 6.25 mg PO BID [facility]; Protocol Last Admin: 09/01/24 08:17 Dose: 6.25 mg Documented By: ZIA Dextrose (Dextrose 50 % 25 Gm/50 Ml Syringe) 25 gm IVPUSH Q15M PRN; Protocol PRN Reason: per Hypoglycemia Standing Ord. Dorzolamide HCl (Dorzolamide Hcl 2 % Ophth Alexus 10 Ml Drpbtl) 1 drop EYE-BOTH BID [facility] Last Admin: 09/01/24 08:19 Dose: 1 drop Documented By: ZIA Famotidine (Famotidine 20 Mg Tablet) 20 mg PO BID [facility] Last Admin: 09/01/24 08:17 Dose: 20 mg Documented By: ZIA Finasteride (Finasteride 5 Mg Tablet) 5 mg PO DAILY [facility] Last Admin: 09/01/24 08:17 Dose: 5 mg Documented By: ZIA Glucose (Glucose Gel 15 Gm Gel..Gram.) 15 gm PO Q15M PRN; Protocol PRN Reason: per Hypoglycemia Standing Ord. Insulin Human Lispro (Insulin Lispro 100 Unit/Ml 3 Ml Vial) 0 unit SUBCUT QIDWMHS [facility]; Protocol Last Admin: 09/01/24 08:50 Dose: 2 unit Documented By: ZIA Magnesium Hydroxide (Milk Of Magnesia 30 Ml Oral.Susp) 30 ml PO DAILY PRN PRN Reason: Constipation Last Admin: 08/25/24 08:04 Dose: 30 ml Documented By: MIKE Melatonin (Melatonin 3 Mg Tablet) 6 mg PO BEDTIME PRN PRN Reason: Insomnia Last Admin: 08/30/24 20:28 Dose: 6 mg Documented By: CASTILHomero Mirtazapine (Mirtazapine 7.5 Mg Tablet) 7.5 mg PO BEDTIME [facility] Last Admin: 08/31/24 20:54 Dose: 7.5 mg Documented By: ALEKSEY Nystatin (Nystatin Powder 15 Gm Bottle) 1 appl TOPICAL TID [facility]; Protocol Last Admin: 09/01/24 08:18 Dose: 1 appl Documented By: ZIA Olanzapine (Olanzapine 5 Mg Tablet) 5 mg PO BID [facility] Last Admin: 09/01/24 08:17 Dose: 5 mg Documented By: ZIA Omeprazole (Omeprazole 20 Mg Capsule.Dr) 20 mg PO DAILY@0630 [facility] Last Admin: 09/01/24 05:47 Dose: 20 mg Documented By: ALEKSEY Phenazopyridine HCl (Phenazopyridine Hcl 200 Mg Tablet) 200 mg PO TID PRN PRN Reason: pain with urination Sodium Chloride (0.9 % Sodium Chloride Flush 3 Ml Syringe) 3 ml IVFLUSH QSHIFT [facility] Last Admin: 09/01/24 08:16 Dose: Not Given Documented By: ZIA Non-Admin Reason: No Access Tamsulosin HCl (Tamsulosin Hcl 0.4 Mg Capsule) 0.4 mg PO BEDTIME [facility] Last Admin: 08/31/24 20:53 Dose: 0.4 mg Documented By: ALEKSEY Timolol Maleate (Timolol Maleate 0.5 % Oph Alexus 5 Ml Drbtl) 1 drop EYE-BOTH BID [facility] Last Admin: 09/01/24 08:19 Dose: 1 drop Documented By: ZIA Warfarin Sodium (Warfarin Sodium 2 Mg Tablet) 2 mg PO DAILY@1800 [facility] Last Admin: 08/31/24 18:16 Dose: 2 mg Documented By: DAVE Labs 08/30/24 08:18 08/30/24 08:18 Labs: Laboratory Results - last 24 hr 08/31/24 08/31/24 08/31/24 11:23 16:37 19:23 PT INR POC Glucose 175 H 165 H 165 H 09/01/24 09/01/24 05:57 07:22 PT 21.0 H INR 1.8 H POC Glucose 163 H Assessment and Plan (1) Major neurocognitive disorder: Status: Acute Plan 88yo M with 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, admitted for acute encephalopathy due to UTI acute metabolic encephalopathy in the setting of UTI completed amoxicillin 08/23-08/28 for Enterococcus faecalis dementia with behavioral disturbance continue olanzapine; Psychiatry re-consult pending; attempt to establish normal sleep-wake cycles acute urinary retention voiding trial; continue tamsulosin + finasteride, PRN straight cath prerenal SANTOS/CKD3 SCr back to baseline after IV fluid hydration weakness fall PT: STR recommended question of C2 fracture on C-spine resolved by negative MRI C-spine paroxysmal atrial fibrillation continue coumadin and adjust for INR 2-3, INR 1.7 today HTN amlodipine, carvedilol HLD statin DM2 correction-dose lispro mood disorder continue olanzapine + mirtazapine VTE ppx coumadin dispo STR then likely LTC In my clinical judgment, the patient requires continued inpatient hospitalization for the following reasons: encephalopathy, placement Total time managing care of this patient today: 35 minutes. Quality Stroke Does the patient have a stroke diagnosis?: No VTE Prior VTE?: No VTE Risk Level:: Medical - moderate - high VTE Device Contraindication: Treatment Not Indicated VTE Drug Contraindication: N/A - Med Ordered
[2024-09-01 11:53] LABS: Glucose, Whole Blood 188 mg/dL (60-115)
--- NOTE | 2024-09-01 13:23 | PC.NURSE ---
late entry from 08-24-2024 regarding this patient's Acetaminophen dosage. Patient with chief compliant of leg pain and a headache, he actually requested Tylenol and there is no other pain medication available at that time
--- NOTE | 2024-09-01 14:19 | MHC.SL.SWA ---
Risk of Aspiration Due to: cognition, edentulous state Dysphasia Diet Status: Continue diet of Ground Mechanical (NDD2) and Thin Liquids (straws ok), pills crushed in puree. Patient requires 1-1 feeding. Liquid Consistency and Strategies for Safe Swallow: Liquid Intake Recommendation: Thin Liquid Intake Strategies: Small Sips Solid Food Consistency: Dietary Recommendations: Grnd/Mech Altered (NDD2) Additional Modifications to Solid Foods: Patient requires 1-1 feeding. Palmer patient to food on tray. Oral Medication Intake: Whole with Liquid Please contact the pharmacy regarding appropriate crushable or liquid drug formulations that are available whenever modified delivery is recommended. Compensatory Strategies and Precautions to be Taken for Safe Swallow: Sitting Upright (90 deg) Liquids from Cup Liquids from Straw Small Bites and Sips Alternate Liquids/Solids Rate of Ingestion Change Avoid Specific Foods Supervision While Eating and Drinking for Safe Swallow: Total Assistance (1:1) Foods to Avoid: Tough, difficult to chew solids. Swallowing Recommended Treatments: Compens. Strategy Educat. Recommendation for Speech: Inpatient Speech Therapy Frequency/Duration: Daily M-F International Organizer Clinican/Clinical Fellow: No Supervisory Statement: I have reviewed and agree with the student/clinical fellow's documentation: N/A Speech Language Pathologist: Kizzy Sargent M.A., CCC-[employer]IR[employer]
[2024-09-01 17:34] LABS: Glucose, Whole Blood 187 mg/dL (60-115)
[2024-09-01 20:02] LABS: Glucose, Whole Blood 194 mg/dL (60-115)
[2024-09-02] VITALS (7 sets, daily range): BP systolic 100–148; BP diastolic 52–78; PULSE 54–70; RESP 14–18; TEMP 36.3–36.8; O2SAT 96–98
[2024-09-02 07:42] LABS: Glucose, Whole Blood 166 mg/dL (60-115)
[2024-09-02] MEDS: timoloL maleate 0.5 % Oph Sol 5 ML DRBTL 1 DROP EYE-BOTH ×2 (08:15→20:01)
[2024-09-02] MEDS: Dorzolamide HCl 2 % Ophth Sol 10 ML DRPBTL 1 DROP EYE-BOTH ×2 (08:15→20:01)
[2024-09-02 09:37] LABS: INTERNATIONAL NORM RATIO 1.7 (0.9-1.1); Prothrombin Time 19.9 SEC (10.9-12.4)
--- NOTE | 2024-09-02 09:56 | MHC.CLN ---
NUTRITION CONSULT DIET=DM 2000 KCALS, GROUND CONSISTENCY. PATIENT WITH VARIABLE PO INTAKE. ADDING ENSURE BID TO IMPROVE NUTRITIONAL INTAKE. SUPPLEMENT PROVIDES 700 KCALS, 40 G PROTEIN. SKIN WITH REDNESS TO BUTTOCKS. RD TO MONITOR WEEKLY.
--- NOTE | 2024-09-02 10:44 | P.PNIM_ITS ---
Subjective Subjective Date of Service: 09/02/24 Interval History: f/u on dementia, encephalopathy, uti he's more alert, but confused Physical Exam 2 Vital Signs: Vital Signs: Last Vital Signs Temp 97.8 F 09/02/24 07:23 Pulse 56 09/02/24 07:23 Resp 14 09/02/24 07:23 BP 135/63 09/02/24 07:23 Pulse Ox 97 09/02/24 07:23 O2 Del Method Room Air 09/02/24 07:23 O2 Flow Rate 96 08/27/24 03:21 BMI result Body Mass Index 35.8 Gen: awake, less confused Lungs: clear to auscultation bilaterally Heart: regular rate and rhythm, no murmurs Abd: soft, non-tender, non-distended : Dodson draining clear urine Ext: no edema Skin: warm/well-perfused Neuro: alert and oriented only to self, moving all extremities Psych: impaired insight Objective Data Active Medications Acetaminophen (Acetaminophen 325 Mg Tablet) 650 mg PO Q6H PRN PRN Reason: Pain, Mild 1-3,fever,headache Last Admin: 08/31/24 20:55 Dose: 650 mg Documented By: ALEKSEY Al Hydroxide/Mg Hydroxide (Magnesium Hydrox/Alum Hydrox 30 Ml Oral.Susp) 30 ml PO Q6H PRN PRN Reason: Acid Reflux Amlodipine Besylate (Amlodipine Besylate 5 Mg Tablet) 5 mg PO DAILY [facility]; Protocol Last Admin: 09/02/24 08:14 Dose: 5 mg Documented By: DEWEY Atorvastatin Calcium (Atorvastatin Calcium 10 Mg Tablet) 10 mg PO BEDTIME [facility] Last Admin: 09/01/24 19:37 Dose: 10 mg Documented By: ELZBIETA Calcium Carbonate (Calcium Carbonate 750 Mg Tab.Chew) 750 mg PO Q4H PRN PRN Reason: Heartburn Carvedilol (Carvedilol 6.25 Mg Tablet) 6.25 mg PO BID [facility]; Protocol Last Admin: 09/02/24 08:14 Dose: 6.25 mg Documented By: DEWEY Dextrose (Dextrose 50 % 25 Gm/50 Ml Syringe) 25 gm IVPUSH Q15M PRN; Protocol PRN Reason: per Hypoglycemia Standing Ord. Dorzolamide HCl (Dorzolamide Hcl 2 % Ophth Alexus 10 Ml Drpbtl) 1 drop EYE-BOTH BID [facility] Last Admin: 09/02/24 08:15 Dose: 1 drop Documented By: DEWEY Famotidine (Famotidine 20 Mg Tablet) 20 mg PO BID [facility] Last Admin: 09/02/24 08:14 Dose: 20 mg Documented By: DEWEY Finasteride (Finasteride 5 Mg Tablet) 5 mg PO DAILY [facility] Last Admin: 09/02/24 08:14 Dose: 5 mg Documented By: DEWEY Glucose (Glucose Gel 15 Gm Gel..Gram.) 15 gm PO Q15M PRN; Protocol PRN Reason: per Hypoglycemia Standing Ord. Insulin Human Lispro (Insulin Lispro 100 Unit/Ml 3 Ml Vial) 0 unit SUBCUT QIDWMHS [facility]; Protocol Last Admin: 09/02/24 08:14 Dose: 2 unit Documented By: DEWEY Magnesium Hydroxide (Milk Of Magnesia 30 Ml Oral.Susp) 30 ml PO DAILY PRN PRN Reason: Constipation Last Admin: 08/25/24 08:04 Dose: 30 ml Documented By: MIKE Melatonin (Melatonin 3 Mg Tablet) 6 mg PO BEDTIME PRN PRN Reason: Insomnia Last Admin: 09/01/24 19:32 Dose: 6 mg Documented By: ELZBIETA Mirtazapine (Mirtazapine 7.5 Mg Tablet) 7.5 mg PO BEDTIME [facility] Last Admin: 09/01/24 19:32 Dose: 7.5 mg Documented By: ELZBIETA Nystatin (Nystatin Powder 15 Gm Bottle) 1 appl TOPICAL TID [facility]; Protocol Last Admin: 09/02/24 08:15 Dose: 1 appl Documented By: DEWEY Olanzapine (Olanzapine 5 Mg Tablet) 5 mg PO BID [facility] Last Admin: 09/02/24 08:14 Dose: 5 mg Documented By: DEWEY Omeprazole (Omeprazole 20 Mg Capsule.Dr) 20 mg PO DAILY@0630 [facility] Last Admin: 09/02/24 06:25 Dose: Not Given Documented By: SIVAN Non-Admin Reason: cannot crush Phenazopyridine HCl (Phenazopyridine Hcl 200 Mg Tablet) 200 mg PO TID PRN PRN Reason: pain with urination Sodium Chloride (0.9 % Sodium Chloride Flush 3 Ml Syringe) 3 ml IVFLUSH QSHIFT [facility] Last Admin: 09/02/24 08:14 Dose: Not Given Documented By: DEWEY Non-Admin Reason: No Access Tamsulosin HCl (Tamsulosin Hcl 0.4 Mg Capsule) 0.4 mg PO BEDTIME [facility] Last Admin: 09/01/24 19:32 Dose: 0.4 mg Documented By: ELZBIETA Timolol Maleate (Timolol Maleate 0.5 % Oph Alexus 5 Ml Drbtl) 1 drop EYE-BOTH BID [facility] Last Admin: 09/02/24 08:15 Dose: 1 drop Documented By: DEWEY Warfarin Sodium (Warfarin Sodium 2 Mg Tablet) 2 mg PO DAILY@1800 [facility] Last Admin: 09/01/24 17:00 Dose: 2 mg Documented By: ZIA Labs 08/30/24 08:18 08/30/24 08:18 Labs: Laboratory Results - last 24 hr 09/01/24 09/01/24 09/01/24 11:36 17:29 19:32 PT INR POC Glucose 188 H 187 H 194 H 09/02/24 09/02/24 07:25 08:51 PT 19.9 H INR 1.7 H POC Glucose 166 H Assessment and Plan (1) Major neurocognitive disorder: Status: Acute Plan 88yo M with 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, DM2 with neuroipathy, HTN, HLD, CAD, mood disorder, CKD3 presented after unwitnessed fall at [facility], admitted for acute encephalopathy due to UTI acute metabolic encephalopathy in the setting of UTI completed amoxicillin 08/23-08/28 for Enterococcus faecalis dementia with behavioral disturbance continue olanzapine; Psychiatry following; attempt to establish normal sleep- wake cycles acute urinary retention voiding trial; continue tamsulosin + finasteride, PRN straight cath prerenal SANTOS/CKD3 SCr back to baseline after IV fluid hydration weakness fall PT: STR recommended question of C2 fracture on C-spine resolved by negative MRI C-spine paroxysmal atrial fibrillation continue coumadin and adjust for INR 2-3, INR 1.7, change to eliquis when INR 1.5 or less HTN amlodipine, carvedilol HLD statin DM2 correction-dose lispro mood disorder continue olanzapine + mirtazapine VTE ppx coumadin dispo STR then likely LTC In my clinical judgment, the patient requires continued inpatient hospitalization for the following reasons: encephalopathy, placement Total time managing care of this patient today: 35 minutes. Quality Stroke Does the patient have a stroke diagnosis?: No VTE Prior VTE?: No VTE Risk Level:: Medical - moderate - high VTE Device Contraindication: Treatment Not Indicated VTE Drug Contraindication: N/A - Med Ordered
[2024-09-02 11:04] LABS: Glucose, Whole Blood 170 mg/dL (60-115)
--- NOTE | 2024-09-02 11:17 | MHC.CM.PN ---
CM OFFICE RECEIVED CALL FROM STEVE/KATHY THURMAN [phone] WHO SUGGESTED FACILITIES IN [place] STEVE HAS BEEN GOING OON WITH THESE FACILITIES AND PLACING SIMILIAR PATIENTS REFERRALS MADE TO SUGGESTED FACILITIES [facility] [place]
--- NOTE | 2024-09-02 16:10 | MHC.SLORD ---
Speech Language Pathology Order Status: Pt seen for dysphagia treatment but was not interested in any PO other than a sip of gingerale. director of in service education report pt is tolerating diet without concern; director of in service education implement strategies to promote pt participation in meal. CLIP WRAPPER following daily.
[2024-09-02 16:30] LABS: Glucose, Whole Blood 211 mg/dL (60-115)
[2024-09-02 20:35] LABS: Glucose, Whole Blood 151 mg/dL (60-115)
[2024-09-03] VITALS (7 sets, daily range): BP systolic 107–140; BP diastolic 46–64; PULSE 52–60; RESP 14–18; TEMP 36.1–36.6; O2SAT 95–97
[2024-09-03 06:23] LABS: INTERNATIONAL NORM RATIO 1.9 (0.9-1.1); Prothrombin Time 22.3 SEC (10.9-12.4)
[2024-09-03 07:30] LABS: Glucose, Whole Blood 124 mg/dL (60-115)
--- NOTE | 2024-09-03 08:48 | P.PNIM_ITS ---
Subjective Subjective Date of Service: 09/03/24 Interval History: f/u on dementia, encephalopathy, uti sleepy, confused this morning, Physical Exam 2 Vital Signs: Vital Signs: Last Vital Signs Temp 97.3 F 09/03/24 07:52 Pulse 55 09/03/24 07:52 Resp 18 09/03/24 07:52 BP 107/46 L 09/03/24 07:52 Pulse Ox 97 09/03/24 07:52 O2 Del Method Room Air 09/03/24 07:52 O2 Flow Rate 96 08/27/24 03:21 BMI result Body Mass Index 35.8 Gen: sleepy, easily aroused, confused Lungs: clear to auscultation bilaterally Heart: regular rate and rhythm, no murmurs Abd: soft, non-tender, non-distended : Dodson draining clear urine Ext: no edema Skin: warm/well-perfused Neuro: alert and oriented only to self, moving all extremities Psych: impaired insight Objective Data Active Medications Acetaminophen (Acetaminophen 325 Mg Tablet) 650 mg PO Q6H PRN PRN Reason: Pain, Mild 1-3,fever,headache Last Admin: 09/02/24 20:00 Dose: 650 mg Documented By: ELZBIETA Al Hydroxide/Mg Hydroxide (Magnesium Hydrox/Alum Hydrox 30 Ml Oral.Susp) 30 ml PO Q6H PRN PRN Reason: Acid Reflux Amlodipine Besylate (Amlodipine Besylate 5 Mg Tablet) 5 mg PO DAILY [facility]; Protocol Last Admin: 09/02/24 08:14 Dose: 5 mg Documented By: DEWEY Atorvastatin Calcium (Atorvastatin Calcium 10 Mg Tablet) 10 mg PO BEDTIME [facility] Last Admin: 09/02/24 20:00 Dose: 10 mg Documented By: ELZBIETA Calcium Carbonate (Calcium Carbonate 750 Mg Tab.Chew) 750 mg PO Q4H PRN PRN Reason: Heartburn Carvedilol (Carvedilol 6.25 Mg Tablet) 6.25 mg PO BID [facility]; Protocol Last Admin: 09/02/24 19:59 Dose: 6.25 mg Documented By: ELZBIETA Dextrose (Dextrose 50 % 25 Gm/50 Ml Syringe) 25 gm IVPUSH Q15M PRN; Protocol PRN Reason: per Hypoglycemia Standing Ord. Dorzolamide HCl (Dorzolamide Hcl 2 % Ophth Alexus 10 Ml Drpbtl) 1 drop EYE-BOTH BID [facility] Last Admin: 09/02/24 20:01 Dose: 1 drop Documented By: ELZBIETA Famotidine (Famotidine 20 Mg Tablet) 20 mg PO BID [facility] Last Admin: 09/02/24 20:00 Dose: 20 mg Documented By: ELZBIETA Finasteride (Finasteride 5 Mg Tablet) 5 mg PO DAILY [facility] Last Admin: 09/02/24 08:14 Dose: 5 mg Documented By: DEWEY Glucose (Glucose Gel 15 Gm Gel..Gram.) 15 gm PO Q15M PRN; Protocol PRN Reason: per Hypoglycemia Standing Ord. Insulin Human Lispro (Insulin Lispro 100 Unit/Ml 3 Ml Vial) 0 unit SUBCUT QIDWMHS [facility]; Protocol Last Admin: 09/03/24 07:36 Dose: Not Given Documented By: JAD Non-Admin Reason: No Insulin Coverage Magnesium Hydroxide (Milk Of Magnesia 30 Ml Oral.Susp) 30 ml PO DAILY PRN PRN Reason: Constipation Last Admin: 08/25/24 08:04 Dose: 30 ml Documented By: MIKE Melatonin (Melatonin 3 Mg Tablet) 6 mg PO BEDTIME PRN PRN Reason: Insomnia Last Admin: 09/02/24 20:00 Dose: 6 mg Documented By: ELZBIETA Mirtazapine (Mirtazapine 7.5 Mg Tablet) 7.5 mg PO BEDTIME [facility] Last Admin: 09/02/24 20:00 Dose: 7.5 mg Documented By: ELZBIETA Nystatin (Nystatin Powder 15 Gm Bottle) 1 appl TOPICAL TID [facility]; Protocol Last Admin: 09/02/24 20:01 Dose: 1 appl Documented By: ELZBIETA Olanzapine (Olanzapine 5 Mg Tablet) 5 mg PO BID [facility] Last Admin: 09/02/24 20:01 Dose: 5 mg Documented By: ELZBIETA Omeprazole (Omeprazole 20 Mg Capsule.) 20 mg PO DAILY@0630 [facility] Last Admin: 09/03/24 06:00 Dose: 20 mg Documented By: ELZBIETA Phenazopyridine HCl (Phenazopyridine Hcl 200 Mg Tablet) 200 mg PO TID PRN PRN Reason: pain with urination Sodium Chloride (0.9 % Sodium Chloride Flush 3 Ml Syringe) 3 ml IVFLUSH QSHIFT [facility] Last Admin: 09/03/24 07:37 Dose: Not Given Documented By: JAD Non-Admin Reason: No Access Tamsulosin HCl (Tamsulosin Hcl 0.4 Mg Capsule) 0.4 mg PO BEDTIME [facility] Last Admin: 09/02/24 20:00 Dose: 0.4 mg Documented By: ELZBIETA Timolol Maleate (Timolol Maleate 0.5 % Oph Alexus 5 Ml Drbtl) 1 drop EYE-BOTH BID [facility] Last Admin: 09/02/24 20:01 Dose: 1 drop Documented By: ELZBIETA Warfarin Sodium (Warfarin Sodium 2 Mg Tablet) 2 mg PO DAILY@1800 [facility] Last Admin: 09/02/24 17:30 Dose: 2 mg Documented By: DARIANA Labs 08/30/24 08:18 08/30/24 08:18 Labs: Laboratory Results - last 24 hr 09/02/24 09/02/24 09/02/24 08:51 10:56 16:26 PT 19.9 H INR 1.7 H POC Glucose 170 H 211 H 09/02/24 09/03/24 09/03/24 20:21 06:04 07:22 PT 22.3 H INR 1.9 H POC Glucose 151 H 124 H Assessment and Plan (1) Major neurocognitive disorder: Status: Acute Plan 88yo M with 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, DM2 with neuroipathy, HTN, HLD, CAD, mood disorder, CKD3 presented after unwitnessed fall at [facility], admitted for acute encephalopathy due to UTI acute metabolic encephalopathy in the setting of UTI completed amoxicillin 08/23-08/28 for Enterococcus faecalis dementia with behavioral disturbance continue olanzapine; Psychiatry following; attempt to establish normal sleep- wake cycles acute urinary retention voiding trial; continue tamsulosin + finasteride, PRN straight cath prerenal SANTOS/CKD3 SCr back to baseline after IV fluid hydration weakness fall PT: STR recommended question of C2 fracture on C-spine resolved by negative MRI C-spine paroxysmal atrial fibrillation continue coumadin and adjust for INR 2-3, 1.9 today HTN amlodipine, carvedilol HLD statin DM2 correction-dose lispro mood disorder continue olanzapine + mirtazapine VTE ppx coumadin dispo STR then likely LTC In my clinical judgment, the patient requires continued inpatient hospitalization for the following reasons: encephalopathy, placement Total time managing care of this patient today: 35 minutes. Quality Stroke Does the patient have a stroke diagnosis?: No VTE Prior VTE?: No VTE Risk Level:: Medical - moderate - high VTE Device Contraindication: Treatment Not Indicated VTE Drug Contraindication: N/A - Med Ordered
[2024-09-03] MEDS: timoloL maleate 0.5 % Oph Sol 5 ML DRBTL 1 DROP EYE-BOTH ×2 (09:03→21:05)
[2024-09-03] MEDS: Dorzolamide HCl 2 % Ophth Sol 10 ML DRPBTL 1 DROP EYE-BOTH ×2 (09:03→21:05)
[2024-09-03 11:25] LABS: Glucose, Whole Blood 182 mg/dL (60-115)
[2024-09-03 16:37] LABS: Glucose, Whole Blood 162 mg/dL (60-115)
--- NOTE | 2024-09-03 17:19 | MHC.SLORD ---
Speech Language Pathology Order Status: Attempted to see patient at lunch, patient sleeping soundly. Patient has been stable on current diet of Ground Mechanical with thin liquids for several weeks, issue has continued to be behavior at meal (requires 1-1 feeding)/combativeness which makes him difficult to feed. However, current diet is considered to be least restrictive for patient, and should be continued at the next level of care, with continued need for 1-1 feeding. No further BISQUE FINISHER service indicated at this time, BISQUE FINISHER will d/c from speech.
[2024-09-03 21:15] LABS: Glucose, Whole Blood 179 mg/dL (60-115)
[2024-09-04 03:20] VITALS: BP 113/58; PULSE 52; RESP 16; TEMP 36.2; O2SAT 95
[2024-09-04 06:20] LABS: INTERNATIONAL NORM RATIO 2.1 (0.9-1.1); Prothrombin Time 23.8 SEC (10.9-12.4)
[2024-09-04 07:32] VITALS: BP 152/65; PULSE 53; RESP 14; TEMP 36.4; O2SAT 98
[2024-09-04 07:46] LABS: Glucose, Whole Blood 177 mg/dL (60-115)
[2024-09-04] MEDS: timoloL maleate 0.5 % Oph Sol 5 ML DRBTL 1 DROP EYE-BOTH ×2 (07:58→20:01)
[2024-09-04] MEDS: Dorzolamide HCl 2 % Ophth Sol 10 ML DRPBTL 1 DROP EYE-BOTH ×2 (07:58→20:01)
--- NOTE | 2024-09-04 08:41 | HO.PM.IMPN ---
Subjective Subjective Date of Service: 09/04/24 Interval History: f/u on dementia, encephalopathy, uti awake, conversing but confused to place, date Physical Exam Vital Signs: Vital Signs: Last Vital Signs Temp 97.6 F 09/04/24 07:32 Pulse 53 09/04/24 07:32 Resp 14 09/04/24 07:32 BP 152/65 H 09/04/24 07:32 Pulse Ox 98 09/04/24 07:32 O2 Del Method Room Air 09/04/24 07:32 O2 Flow Rate 96 08/27/24 03:21 BMI result Body Mass Index 35.8 Gen: sleepy, easily aroused, confused Lungs: clear to auscultation bilaterally Heart: regular rate and rhythm, no murmurs Abd: soft, non-tender, non-distended : Dodson draining clear urine Ext: no edema Skin: warm/well-perfused Neuro: alert and oriented only to self, moving all extremities Psych: impaired insight Objective Data Active Medications Acetaminophen (Acetaminophen 325 Mg Tablet) 650 mg PO Q6H PRN PRN Reason: Pain, Mild 1-3,fever,headache Last Admin: 09/02/24 20:00 Dose: 650 mg Documented By: ELZBIETA Al Hydroxide/Mg Hydroxide (Magnesium Hydrox/Alum Hydrox 30 Ml Oral.Susp) 30 ml PO Q6H PRN PRN Reason: Acid Reflux Amlodipine Besylate (Amlodipine Besylate 5 Mg Tablet) 5 mg PO DAILY [facility]; Protocol Last Admin: 09/04/24 07:56 Dose: 5 mg Documented By: VIRGINIA Atorvastatin Calcium (Atorvastatin Calcium 10 Mg Tablet) 10 mg PO BEDTIME [facility] Last Admin: 09/03/24 21:04 Dose: 10 mg Documented By: TAE Calcium Carbonate (Calcium Carbonate 750 Mg Tab.Chew) 750 mg PO Q4H PRN PRN Reason: Heartburn Carvedilol (Carvedilol 6.25 Mg Tablet) 6.25 mg PO BID [facility]; Protocol Last Admin: 09/04/24 07:56 Dose: Not Given Documented By: VIRGINIA Non-Admin Reason: Patient Condition Contraindication Dextrose (Dextrose 50 % 25 Gm/50 Ml Syringe) 25 gm IVPUSH Q15M PRN; Protocol PRN Reason: per Hypoglycemia Standing Ord. Dorzolamide HCl (Dorzolamide Hcl 2 % Ophth Alexus 10 Ml Drpbtl) 1 drop EYE-BOTH BID [facility] Last Admin: 09/04/24 07:58 Dose: 1 drop Documented By: VIRGINIA Famotidine (Famotidine 20 Mg Tablet) 20 mg PO BID [facility] Last Admin: 09/04/24 07:56 Dose: 20 mg Documented By: VIRGINIA Finasteride (Finasteride 5 Mg Tablet) 5 mg PO DAILY [facility] Last Admin: 09/04/24 07:56 Dose: 5 mg Documented By: VIRGINIA Glucose (Glucose Gel 15 Gm Gel..Gram.) 15 gm PO Q15M PRN; Protocol PRN Reason: per Hypoglycemia Standing Ord. Insulin Human Lispro (Insulin Lispro 100 Unit/Ml 3 Ml Vial) 0 unit SUBCUT QIDWMHS [facility]; Protocol Last Admin: 09/04/24 07:57 Dose: 2 unit Documented By: VIRGINIA Magnesium Hydroxide (Milk Of Magnesia 30 Ml Oral.Susp) 30 ml PO DAILY PRN PRN Reason: Constipation Last Admin: 08/25/24 08:04 Dose: 30 ml Documented By: MIKE Melatonin (Melatonin 3 Mg Tablet) 6 mg PO BEDTIME PRN PRN Reason: Insomnia Last Admin: 09/02/24 20:00 Dose: 6 mg Documented By: ELZBIETA Mirtazapine (Mirtazapine 7.5 Mg Tablet) 7.5 mg PO BEDTIME [facility] Last Admin: 09/03/24 21:04 Dose: 7.5 mg Documented By: TAE Nystatin (Nystatin Powder 15 Gm Bottle) 1 appl TOPICAL TID [facility]; Protocol Last Admin: 09/04/24 07:58 Dose: 1 appl Documented By: VIRGINIA Olanzapine (Olanzapine 5 Mg Tablet) 5 mg PO BID [facility] Last Admin: 09/04/24 07:58 Dose: 5 mg Documented By: VIRGINIA Omeprazole (Omeprazole 20 Mg Capsule.Dr) 20 mg PO DAILY@30 [facility] Last Admin: 09/04/24 05:58 Dose: 20 mg Documented By: TAE Phenazopyridine HCl (Phenazopyridine Hcl 200 Mg Tablet) 200 mg PO TID PRN PRN Reason: pain with urination Sodium Chloride (0.9 % Sodium Chloride Flush 3 Ml Syringe) 3 ml IVFLUSH QSHIFT [facility] Last Admin: 09/04/24 07:53 Dose: Not Given Documented By: VIRGINIA Non-Admin Reason: No Access Tamsulosin HCl (Tamsulosin Hcl 0.4 Mg Capsule) 0.4 mg PO BEDTIME [facility] Last Admin: 09/03/24 21:03 Dose: 0.4 mg Documented By: TAE Timolol Maleate (Timolol Maleate 0.5 % Oph Alexus 5 Ml Drbtl) 1 drop EYE-BOTH BID [facility] Last Admin: 09/04/24 07:58 Dose: 1 drop Documented By: VIRGINIA Warfarin Sodium (Warfarin Sodium 2 Mg Tablet) 2 mg PO DAILY@1800 [facility] Last Admin: 09/03/24 17:46 Dose: 2 mg Documented By: JAD Labs 08/30/24 08:18 08/30/24 08:18 Labs: Laboratory Results - last 24 hr 09/03/24 09/03/24 09/03/24 11:21 16:32 21:03 PT INR POC Glucose 182 H 162 H 179 H 09/04/24 09/04/24 05:37 07:31 PT 23.8 H INR 2.1 H POC Glucose 177 H Assessment and Plan (1) Major neurocognitive disorder: Status: Acute Plan 88yo M with 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, DM2 with neuroipathy, HTN, HLD, CAD, mood disorder, CKD3 presented after unwitnessed fall at [facility], admitted for acute encephalopathy due to UTI acute metabolic encephalopathy in the setting of UTI completed amoxicillin 08/23-08/28 for Enterococcus faecalis dementia with behavioral disturbance continue olanzapine; Psychiatry following as needed acute urinary retention continue tamsulosin + finasteride, PRN straight cath prerenal SANTOS/CKD3 SCr back to baseline after IV fluid hydration weakness fall PT: STR recommended question of C2 fracture on C-spine resolved by negative MRI C-spine paroxysmal atrial fibrillation continue coumadin and adjust for INR 2-3, 2.1 today HTN, acceptable control amlodipine, carvedilol HLD statin DM2 correction-dose lispro mood disorder continue olanzapine + mirtazapine VTE ppx coumadin dispo STR then likely LTC In my clinical judgment, the patient requires continued inpatient hospitalization for the following reasons: encephalopathy, need for safe placement Total time managing care of this patient today: 35 minutes. Quality Stroke Does the patient have a stroke diagnosis?: No VTE Prior VTE?: No VTE Risk Level:: Medical - moderate - high VTE Device Contraindication: Treatment Not Indicated VTE Drug Contraindication: N/A - Med Ordered
[2024-09-04 10:10] LABS: Hematocrit 31.1 % (42.0-52.0); Hemoglobin 10.6 g/dl (14.0-18.0); Mean Corpuscular HGB Conc 34.1 g/dl (31.0-36.0); Mean Corpuscular Hemoglobin 33.9 pg (27.0-33.0); Mean Corpuscular Volume 99.4 fL (80.0-98.0); NRBC Abs Auto 0.000 X10*3/uL (0.0-0.012); NRBC Pct Auto 0.0 /100WBC (0.0-0.2); Platelet Count 135 X10*3/uL (160-400); Red Blood Count 3.13 X10*6/uL (4.60-5.80); White Blood Count 4.0 X10*3/uL (4.8-10.8)
[2024-09-04 10:29] LABS: Anion Gap 9 (12-20); Blood Urea Nitrogen 19 mg/dL (9-16); Calcium 8.4 mg/dL (8.4-10.2); Carbon Dioxide 24 mmol/L (22-29); Chloride 111 mmol/L (96-108); Creatinine Clr Calc Pharmacy 58.5; Estimated Glomerular Filt Rate > 60; Potassium 4.0 mmol/L (3.3-5.1); Sodium 140 mmol/L (135-145)
[2024-09-04 11:22] LABS: Glucose, Whole Blood 186 mg/dL (60-115)
--- NOTE | 2024-09-04 14:29 | MHC.CM.PN ---
Addendum entered by Sanam Bran 09/04/24 16:09: Per [facility] financial counselor, she will be speaking with pts [id number] Irena and pts Joaquina on Saturday at 12:30pm. Addendum entered by Sanam Bran 09/04/24 15:48: This CM spoke with liarene Du from [facility]. She states she spoke to the [id number] Corinaer, and she believed that [facility] would cover him at the facility for LTC after STR. Per Ana Laura, [facility] may cover him for 2 weeks at the most for STR. Per Ana Laura, this pt is a huge financial risk for them, they will continue to follow and try to work with us, but they cannot accept him at this time. Call received from pts [id number] Irena, she states that they don't think they will be able to take him home in his current state, and the family has made no plans for his LTC needs. This CM suggested that the family have a meeting to discuss his needs and make a plan for his LTC. Referral sent to [facility] financial counselors, as pt will likely be in need of LTC placement. Original Note: EMR reviewed and per MD rounds, pt remains medically cleared for discharge, pending STR bed offer. [facility] liaison and business supervisor in to meet pt today, they are reviewing with their team and will let us know if they can offer him a bed.
[2024-09-04 15:31] VITALS: BP 155/70; PULSE 56; RESP 14; TEMP 36.8; O2SAT 98
[2024-09-04 16:16] LABS: Glucose, Whole Blood 181 mg/dL (60-115)
[2024-09-04 19:58] VITALS: BP 155/70; PULSE 56
[2024-09-04 20:07] LABS: Glucose, Whole Blood 153 mg/dL (60-115)
[2024-09-04 23:40] VITALS: BP 136/62; PULSE 59; RESP 18; TEMP 36.3; O2SAT 98
[2024-09-05 07:50] LABS: INTERNATIONAL NORM RATIO 1.7 (0.9-1.1); Prothrombin Time 19.3 SEC (10.9-12.4)
[2024-09-05 07:52] LABS: Glucose, Whole Blood 169 mg/dL (60-115)
[2024-09-05 07:57] VITALS: BP 108/55; PULSE 67; RESP 18; TEMP 36.3; O2SAT 94
[2024-09-05] MEDS: timoloL maleate 0.5 % Oph Sol 5 ML DRBTL 1 DROP EYE-BOTH ×2 (08:49→20:48)
[2024-09-05] MEDS: Dorzolamide HCl 2 % Ophth Sol 10 ML DRPBTL 1 DROP EYE-BOTH ×2 (08:50→21:08)
--- NOTE | 2024-09-05 09:27 | PC.NURSE ---
Skin tears resolved, ASPARAGUS CUTTER.
--- NOTE | 2024-09-05 09:32 | P.PNIM_ITS ---
Subjective Subjective Date of Service: 09/05/24 Interval History: f/u on dementia, encephalopathy, uti baseline confusion, no new issues Physical Exam 2 Vital Signs: Vital Signs: Last Vital Signs Temp 97.4 F 09/05/24 07:57 Pulse 67 09/05/24 07:57 Resp 18 09/05/24 07:57 BP 108/55 L 09/05/24 07:57 Pulse Ox 94 09/05/24 07:57 O2 Del Method Room Air 09/05/24 07:57 O2 Flow Rate 96 08/27/24 03:21 BMI result Body Mass Index 35.8 Gen: sleepy, easily aroused, confused Lungs: clear to auscultation bilaterally Heart: regular rate and rhythm, no murmurs Abd: soft, non-tender, non-distended : Dodson draining clear urine Ext: no edema Skin: warm/well-perfused Neuro: alert and oriented only to self, moving all extremities Psych: impaired insight Objective Data Active Medications Acetaminophen (Acetaminophen 325 Mg Tablet) 650 mg PO Q6H PRN PRN Reason: Pain, Mild 1-3,fever,headache Last Admin: 09/04/24 19:55 Dose: 650 mg Documented By: THIERNO Al Hydroxide/Mg Hydroxide (Magnesium Hydrox/Alum Hydrox 30 Ml Oral.Susp) 30 ml PO Q6H PRN PRN Reason: Acid Reflux Amlodipine Besylate (Amlodipine Besylate 5 Mg Tablet) 5 mg PO DAILY [facility]; Protocol Last Admin: 09/05/24 08:49 Dose: 5 mg Documented By: DELMY Atorvastatin Calcium (Atorvastatin Calcium 10 Mg Tablet) 10 mg PO BEDTIME [facility] Last Admin: 09/04/24 19:57 Dose: 10 mg Documented By: THIERNO Calcium Carbonate (Calcium Carbonate 750 Mg Tab.Chew) 750 mg PO Q4H PRN PRN Reason: Heartburn Carvedilol (Carvedilol 6.25 Mg Tablet) 6.25 mg PO BID [facility]; Protocol Last Admin: 09/05/24 08:49 Dose: 6.25 mg Documented By: DELMY Dextrose (Dextrose 50 % 25 Gm/50 Ml Syringe) 25 gm IVPUSH Q15M PRN; Protocol PRN Reason: per Hypoglycemia Standing Ord. Dorzolamide HCl (Dorzolamide Hcl 2 % Ophth Alexus 10 Ml Drpbtl) 1 drop EYE-BOTH BID [facility] Last Admin: 09/05/24 08:50 Dose: 1 drop Documented By: DELMY Famotidine (Famotidine 20 Mg Tablet) 20 mg PO BID [facility] Last Admin: 09/05/24 08:49 Dose: 20 mg Documented By: DEMLY Finasteride (Finasteride 5 Mg Tablet) 5 mg PO DAILY [facility] Last Admin: 09/05/24 08:49 Dose: 5 mg Documented By: DELMY Glucose (Glucose Gel 15 Gm Gel..Gram.) 15 gm PO Q15M PRN; Protocol PRN Reason: per Hypoglycemia Standing Ord. Insulin Human Lispro (Insulin Lispro 100 Unit/Ml 3 Ml Vial) 0 unit SUBCUT QIDWMHS [facility]; Protocol Last Admin: 09/05/24 08:02 Dose: 2 unit Documented By: DELMY Magnesium Hydroxide (Milk Of Magnesia 30 Ml Oral.Susp) 30 ml PO DAILY PRN PRN Reason: Constipation Last Admin: 08/25/24 08:04 Dose: 30 ml Documented By: MIKE Melatonin (Melatonin 3 Mg Tablet) 6 mg PO BEDTIME PRN PRN Reason: Insomnia Last Admin: 09/04/24 19:58 Dose: 6 mg Documented By: THIERNO Mirtazapine (Mirtazapine 7.5 Mg Tablet) 7.5 mg PO BEDTIME [facility] Last Admin: 09/04/24 19:54 Dose: 7.5 mg Documented By: THIERNO Nystatin (Nystatin Powder 15 Gm Bottle) 1 appl TOPICAL TID [facility]; Protocol Last Admin: 09/05/24 08:49 Dose: 1 appl Documented By: DELMY Olanzapine (Olanzapine 5 Mg Tablet) 5 mg PO BID [facility] Last Admin: 09/05/24 08:49 Dose: 5 mg Documented By: DELMY Omeprazole (Omeprazole 20 Mg Capsule.) 20 mg PO DAILY@0630 [facility] Last Admin: 09/05/24 06:36 Dose: 20 mg Documented By: THIERNO Phenazopyridine HCl (Phenazopyridine Hcl 200 Mg Tablet) 200 mg PO TID PRN PRN Reason: pain with urination Tamsulosin HCl (Tamsulosin Hcl 0.4 Mg Capsule) 0.4 mg PO BEDTIME [facility] Last Admin: 09/04/24 19:57 Dose: 0.4 mg Documented By: THIERNO Timolol Maleate (Timolol Maleate 0.5 % Oph Alexus 5 Ml Drbtl) 1 drop EYE-BOTH BID [facility] Last Admin: 09/05/24 08:49 Dose: 1 drop Documented By: DELMY Warfarin Sodium (Warfarin Sodium 2 Mg Tablet) 2 mg PO DAILY@1800 [facility] Last Admin: 09/04/24 17:18 Dose: 2 mg Documented By: VIRGINIA Warfarin Sodium (Warfarin Sodium 0.5 Mg Halftab) 0.5 mg PO ONCE ONE Stop: 09/05/24 18:01 Labs 09/04/24 09:08 09/04/24 09:08 Labs: Laboratory Results - last 24 hr 09/04/24 09/04/24 09/04/24 09:08 11:12 16:09 MCV 99.4 H MCH 33.9 H MCHC 34.1 RDW 14.6 Plt Count 135 L MPV 11.0 Absolute Nucleated RBC 0.000 Nucleated RBC % (auto) 0.0 Hold Purple Top PT INR Anion Gap 9 L Estim Creat Clear Calc 58.5 Estimated GFR > 60 POC Glucose 186 H 181 H Random Glucose 181 H Calcium 8.4 09/04/24 09/05/24 09/05/24 19:30 07:30 07:48 MCV MCH MCHC RDW Plt Count MPV Absolute Nucleated RBC Nucleated RBC % (auto) Hold Purple Top SEE NOTE PT 19.3 H INR 1.7 H Anion Gap Estim Creat Clear Calc Estimated GFR POC Glucose 153 H 169 H Random Glucose Calcium Assessment and Plan (1) Major neurocognitive disorder: Status: Acute Plan 88yo M with 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, DM2 with neuroipathy, HTN, HLD, CAD, mood disorder, CKD3 presented after unwitnessed fall at [facility], admitted for acute encephalopathy due to UTI acute metabolic encephalopathy in the setting of UTI completed amoxicillin 08/23-08/28 for Enterococcus faecalis dementia with behavioral disturbance continue olanzapine; Psychiatry following as needed acute urinary retention continue tamsulosin + finasteride, PRN straight cath prerenal SANTOS/CKD3 SCr back to baseline after IV fluid hydration weakness fall PT: STR recommended question of C2 fracture on C-spine resolved by negative MRI C-spine paroxysmal atrial fibrillation continue coumadin and adjust for INR 2-3, 1.7, adjust coumadin today HTN, acceptable control amlodipine, carvedilol HLD statin DM2 correction-dose lispro mood disorder continue olanzapine + mirtazapine VTE ppx coumadin dispo STR then likely LTC In my clinical judgment, the patient requires continued inpatient hospitalization for the following reasons: encephalopathy, need for safe placement Total time managing care of this patient today: 35 minutes. Quality Stroke Does the patient have a stroke diagnosis?: No VTE Prior VTE?: No VTE Risk Level:: Medical - moderate - high VTE Device Contraindication: Treatment Not Indicated VTE Drug Contraindication: N/A - Med Ordered
[2024-09-05 11:35] LABS: Glucose, Whole Blood 129 mg/dL (60-115)
[2024-09-05 15:37] VITALS: BP 135/59; PULSE 69; RESP 18; TEMP 36.4; O2SAT 95
[2024-09-05 16:40] LABS: Glucose, Whole Blood 152 mg/dL (60-115)
[2024-09-05] MEDS: Warfarin Sodium 0.5 MG HALFTAB PO (17:35)
[2024-09-05 20:14] LABS: Glucose, Whole Blood 140 mg/dL (60-115)
[2024-09-05 20:41] VITALS: BP 132/50; PULSE 66
[2024-09-05 23:42] VITALS: BP 129/60; PULSE 65; RESP 16; TEMP 36.1; O2SAT 96
[2024-09-06 06:57] LABS: INTERNATIONAL NORM RATIO 1.8 (0.9-1.1); Prothrombin Time 20.8 SEC (10.9-12.4)
[2024-09-06 07:42] VITALS: BP 137/62; PULSE 52; RESP 18; TEMP 36; O2SAT 97
[2024-09-06 08:00] LABS: Glucose, Whole Blood 152 mg/dL (60-115)
[2024-09-06] MEDS: Dorzolamide HCl 2 % Ophth Sol 10 ML DRPBTL 1 DROP EYE-BOTH ×2 (08:38→21:25)
[2024-09-06] MEDS: timoloL maleate 0.5 % Oph Sol 5 ML DRBTL 1 DROP EYE-BOTH ×2 (08:38→21:25)
--- NOTE | 2024-09-06 09:31 | P.PNIM_ITS ---
Subjective Subjective Date of Service: 09/06/24 Interval History: f/u on dementia, encephalopathy, uti baseline confusion, no new issues, was a bit unruly yesterday, seems calm this morning Physical Exam 2 Vital Signs: Vital Signs: Last Vital Signs Temp 96.8 F 09/06/24 07:42 Pulse 52 09/06/24 07:42 Resp 18 09/06/24 07:42 BP 137/62 09/06/24 07:42 Pulse Ox 97 09/06/24 07:42 O2 Del Method Room Air 09/06/24 07:42 O2 Flow Rate 96 08/27/24 03:21 BMI result Body Mass Index 35.8 Gen: sleepy, easily aroused, confused Lungs: clear to auscultation bilaterally Heart: regular rate and rhythm, no murmurs Abd: soft, non-tender, non-distended : Dodson draining clear urine Ext: no edema Skin: warm/well-perfused Neuro: alert and oriented only to self, moving all extremities Psych: impaired insight Objective Data Active Medications Acetaminophen (Acetaminophen 325 Mg Tablet) 650 mg PO Q6H PRN PRN Reason: Pain, Mild 1-3,fever,headache Last Admin: 09/04/24 19:55 Dose: 650 mg Documented By: THIERNO Al Hydroxide/Mg Hydroxide (Magnesium Hydrox/Alum Hydrox 30 Ml Oral.Susp) 30 ml PO Q6H PRN PRN Reason: Acid Reflux Amlodipine Besylate (Amlodipine Besylate 5 Mg Tablet) 5 mg PO DAILY [facility]; Protocol Last Admin: 09/06/24 08:34 Dose: 5 mg Documented By: VIRGINIA Atorvastatin Calcium (Atorvastatin Calcium 10 Mg Tablet) 10 mg PO BEDTIME [facility] Last Admin: 09/05/24 20:40 Dose: 10 mg Documented By: YVONNE Calcium Carbonate (Calcium Carbonate 750 Mg Tab.Chew) 750 mg PO Q4H PRN PRN Reason: Heartburn Carvedilol (Carvedilol 6.25 Mg Tablet) 6.25 mg PO BID [facility]; Protocol Last Admin: 09/06/24 08:34 Dose: 6.25 mg Documented By: VIRGINIA Dextrose (Dextrose 50 % 25 Gm/50 Ml Syringe) 25 gm IVPUSH Q15M PRN; Protocol PRN Reason: per Hypoglycemia Standing Ord. Dorzolamide HCl (Dorzolamide Hcl 2 % Ophth Alexus 10 Ml Drpbtl) 1 drop EYE-BOTH BID [facility] Last Admin: 09/06/24 08:38 Dose: 1 drop Documented By: VIRGINIA Famotidine (Famotidine 20 Mg Tablet) 20 mg PO BID [facility] Last Admin: 09/06/24 08:34 Dose: 20 mg Documented By: VIRGINIA Finasteride (Finasteride 5 Mg Tablet) 5 mg PO DAILY [facility] Last Admin: 09/06/24 08:35 Dose: 5 mg Documented By: VIRGINIA Glucose (Glucose Gel 15 Gm Gel..Gram.) 15 gm PO Q15M PRN; Protocol PRN Reason: per Hypoglycemia Standing Ord. Insulin Human Lispro (Insulin Lispro 100 Unit/Ml 3 Ml Vial) 0 unit SUBCUT QIDWMHS [facility]; Protocol Last Admin: 09/06/24 08:37 Dose: 2 unit Documented By: VIRGINIA Magnesium Hydroxide (Milk Of Magnesia 30 Ml Oral.Susp) 30 ml PO DAILY PRN PRN Reason: Constipation Last Admin: 08/25/24 08:04 Dose: 30 ml Documented By: MIKE Melatonin (Melatonin 3 Mg Tablet) 6 mg PO BEDTIME PRN PRN Reason: Insomnia Last Admin: 09/04/24 19:58 Dose: 6 mg Documented By: THIERNO Mirtazapine (Mirtazapine 7.5 Mg Tablet) 7.5 mg PO BEDTIME [facility] Last Admin: 09/05/24 20:40 Dose: 7.5 mg Documented By: YVONNE Nystatin (Nystatin Powder 15 Gm Bottle) 1 appl TOPICAL TID [facility]; Protocol Last Admin: 09/06/24 08:40 Dose: Not Given Documented By: VIRGINIA Non-Admin Reason: Med Not Available Olanzapine (Olanzapine 5 Mg Tablet) 5 mg PO BID [facility] Last Admin: 09/06/24 08:34 Dose: 5 mg Documented By: VIRGINIA Omeprazole (Omeprazole 20 Mg Capsule.Dr) 20 mg PO DAILY@0630 [facility] Last Admin: 09/06/24 05:27 Dose: 20 mg Documented By: YVONNE Phenazopyridine HCl (Phenazopyridine Hcl 200 Mg Tablet) 200 mg PO TID PRN PRN Reason: pain with urination Tamsulosin HCl (Tamsulosin Hcl 0.4 Mg Capsule) 0.4 mg PO BEDTIME [facility] Last Admin: 09/05/24 20:48 Dose: 0.4 mg Documented By: YVONNE Timolol Maleate (Timolol Maleate 0.5 % Oph Alexus 5 Ml Drbtl) 1 drop EYE-BOTH BID [facility] Last Admin: 09/06/24 08:38 Dose: 1 drop Documented By: VIRGINIA Warfarin Sodium (Warfarin Sodium 2 Mg Tablet) 2 mg PO DAILY@1800 [facility] Last Admin: 09/05/24 17:35 Dose: 2 mg Documented By: DAVE Labs 09/04/24 09:08 09/04/24 09:08 Labs: Laboratory Results - last 24 hr 09/05/24 09/05/24 09/05/24 11:32 16:37 20:01 Hold Purple Top PT INR POC Glucose 129 H 152 H 140 H 09/06/24 09/06/24 06:16 07:47 Hold Purple Top SEE NOTE PT 20.8 H INR 1.8 H POC Glucose 152 H Assessment and Plan (1) Major neurocognitive disorder: Status: Acute Plan 88yo M with 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, DM2 with neuroipathy, HTN, HLD, CAD, mood disorder, CKD3 presented after unwitnessed fall at [facility], admitted for acute encephalopathy due to UTI acute metabolic encephalopathy in the setting of UTI completed amoxicillin 08/23-08/28 for Enterococcus faecalis dementia with behavioral disturbance continue olanzapine; Psychiatry following as needed acute urinary retention continue tamsulosin + finasteride, PRN straight cath prerenal SANTOS/CKD3 SCr back to baseline after IV fluid hydration weakness fall PT: STR recommended question of C2 fracture on C-spine resolved by negative MRI C-spine paroxysmal atrial fibrillation continue coumadin and adjust for INR 2-3, 1.7, adjust coumadin today HTN, acceptable control amlodipine, carvedilol HLD statin DM2 correction-dose lispro mood disorder continue olanzapine + mirtazapine VTE ppx coumadin dispo STR then likely LTC In my clinical judgment, the patient requires continued inpatient hospitalization for the following reasons: encephalopathy, need for safe placement Total time managing care of this patient today: 35 minutes. Quality Stroke Does the patient have a stroke diagnosis?: No VTE Prior VTE?: No VTE Risk Level:: Medical - moderate - high VTE Device Contraindication: Treatment Not Indicated VTE Drug Contraindication: N/A - Med Ordered
[2024-09-06 11:31] LABS: Glucose, Whole Blood 205 mg/dL (60-115)
[2024-09-06 15:50] VITALS: BP 125/65; PULSE 50; RESP 18; TEMP 36; O2SAT 98
[2024-09-06 16:41] LABS: Glucose, Whole Blood 141 mg/dL (60-115)
[2024-09-06 19:51] LABS: Glucose, Whole Blood 174 mg/dL (60-115)
[2024-09-06 21:30] VITALS: PULSE 49
[2024-09-06 21:31] VITALS: BP 119/58; PULSE 49; RESP 18; TEMP 36.2; O2SAT 99
--- NOTE | 2024-09-07 | ECG_ITS ---
Test Reason : bradycardia Blood Pressure : */* mmHG Vent. Rate : 44 BPM Atrial Rate : * BPM P-R Int : * ms QRS Dur : 94 ms QT Int : 524 ms P-R-T Axes : * -26 -6 degrees QTcB Int : 448 ms Possible Possible Sinus bradycardia with 1st degree A-V block Cannot rule out Anterior infarct (cited on or before 18-Aug-2024) Abnormal ECG When compared with ECG of 18-Aug-2024 11:03, Questionable change in initial forces of Anteroseptal leads ST elevation now present in Lateral leads T wave inversion no longer evident in Lateral leads Referred By: [facility] Electronically Signed By: YASMANY CARLSON MD
[2024-09-07 07:20] LABS: INTERNATIONAL NORM RATIO 2.1 (0.9-1.1); Prothrombin Time 23.9 SEC (10.9-12.4)
[2024-09-07 07:36] VITALS: BP 119/59; PULSE 48; RESP 18; O2SAT 99
[2024-09-07 07:46] LABS: Glucose, Whole Blood 188 mg/dL (60-115)
--- NOTE | 2024-09-07 08:04 | P.PNIM_ITS ---
Subjective Subjective Date of Service: 09/07/24 Interval History: f/u on dementia, encephalopathy, uti baseline confusion, no new issues, calm this morning Physical Exam 2 Vital Signs: Vital Signs: Last Vital Signs Temp 97.2 F 09/06/24 21:31 Pulse 49 L 09/06/24 21:31 Resp 18 09/07/24 07:36 BP 119/59 L 09/07/24 07:36 Pulse Ox 99 09/07/24 07:36 O2 Del Method Room Air 09/07/24 07:36 O2 Flow Rate 96 08/27/24 03:21 BMI result Body Mass Index 35.8 Objective Data Active Medications Acetaminophen (Acetaminophen 325 Mg Tablet) 650 mg PO Q6H PRN PRN Reason: Pain, Mild 1-3,fever,headache Last Admin: 09/07/24 06:35 Dose: 650 mg Documented By: EVARISTO Al Hydroxide/Mg Hydroxide (Magnesium Hydrox/Alum Hydrox 30 Ml Oral.Susp) 30 ml PO Q6H PRN PRN Reason: Acid Reflux Amlodipine Besylate (Amlodipine Besylate 5 Mg Tablet) 5 mg PO DAILY [facility]; Protocol Last Admin: 09/06/24 08:34 Dose: 5 mg Documented By: VIRGINIA Atorvastatin Calcium (Atorvastatin Calcium 10 Mg Tablet) 10 mg PO BEDTIME [facility] Last Admin: 09/06/24 21:24 Dose: 10 mg Documented By: EVARISTO Calcium Carbonate (Calcium Carbonate 750 Mg Tab.Chew) 750 mg PO Q4H PRN PRN Reason: Heartburn Carvedilol (Carvedilol 6.25 Mg Tablet) 6.25 mg PO BID [facility]; Protocol Last Admin: 09/06/24 21:30 Dose: Not Given Documented By: EVARISTO Non-Admin Reason: HR 49 Dextrose (Dextrose 50 % 25 Gm/50 Ml Syringe) 25 gm IVPUSH Q15M PRN; Protocol PRN Reason: per Hypoglycemia Standing Ord. Dorzolamide HCl (Dorzolamide Hcl 2 % Ophth Alexus 10 Ml Drpbtl) 1 drop EYE-BOTH BID [facility] Last Admin: 09/06/24 21:25 Dose: 1 drop Documented By: EVARISTO Famotidine (Famotidine 20 Mg Tablet) 20 mg PO BID [facility] Last Admin: 09/06/24 21:24 Dose: 20 mg Documented By: EVARISTO Finasteride (Finasteride 5 Mg Tablet) 5 mg PO DAILY [facility] Last Admin: 09/06/24 08:35 Dose: 5 mg Documented By: VIRGINIA Glucose (Glucose Gel 15 Gm Gel..Gram.) 15 gm PO Q15M PRN; Protocol PRN Reason: per Hypoglycemia Standing Ord. Insulin Human Lispro (Insulin Lispro 100 Unit/Ml 3 Ml Vial) 0 unit SUBCUT QIDWMHS [facility]; Protocol Last Admin: 09/06/24 21:24 Dose: 2 unit Documented By: EVARISTO Magnesium Hydroxide (Milk Of Magnesia 30 Ml Oral.Susp) 30 ml PO DAILY PRN PRN Reason: Constipation Last Admin: 08/25/24 08:04 Dose: 30 ml Documented By: MIKE Melatonin (Melatonin 3 Mg Tablet) 6 mg PO BEDTIME PRN PRN Reason: Insomnia Last Admin: 09/06/24 21:24 Dose: 6 mg Documented By: EVARISTO Mirtazapine (Mirtazapine 7.5 Mg Tablet) 7.5 mg PO BEDTIME [facility] Last Admin: 09/06/24 21:24 Dose: 7.5 mg Documented By: EVARISTO Nystatin (Nystatin Powder 15 Gm Bottle) 1 appl TOPICAL TID [facility]; Protocol Last Admin: 09/06/24 21:24 Dose: 1 appl Documented By: EVARISTO Olanzapine (Olanzapine 5 Mg Tablet) 5 mg PO BID [facility] Last Admin: 09/06/24 21:24 Dose: 5 mg Documented By: EVARISTO Omeprazole (Omeprazole 20 Mg Capsule.Dr) 20 mg PO DAILY@0630 [facility] Last Admin: 09/07/24 06:32 Dose: 20 mg Documented By: EVARISTO Phenazopyridine HCl (Phenazopyridine Hcl 200 Mg Tablet) 200 mg PO TID PRN PRN Reason: pain with urination Tamsulosin HCl (Tamsulosin Hcl 0.4 Mg Capsule) 0.4 mg PO BEDTIME [facility] Last Admin: 09/06/24 21:24 Dose: 0.4 mg Documented By: EVARISTO Timolol Maleate (Timolol Maleate 0.5 % Oph Alexus 5 Ml Drbtl) 1 drop EYE-BOTH BID [facility] Last Admin: 09/06/24 21:25 Dose: 1 drop Documented By: EVARISTO Warfarin Sodium (Warfarin Sodium 2.5 Mg Tablet) 2.5 mg PO DAILY@1800 [facility] Last Admin: 09/06/24 17:38 Dose: 2.5 mg Documented By: VIRGINIA Labs 09/04/24 09:08 09/04/24 09:08 Labs: Laboratory Results - last 24 hr 09/06/24 09/06/24 09/06/24 11:15 16:34 19:46 PT INR POC Glucose 205 H 141 H 174 H 09/07/24 09/07/24 06:40 07:39 PT 23.9 H INR 2.1 H POC Glucose 188 H Assessment and Plan (1) Major neurocognitive disorder: Status: Acute Plan 88yo M with 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, DM2 with neuroipathy, HTN, HLD, CAD, mood disorder, CKD3 [facility] admitted for acute encephalopathy due to UTI acute metabolic encephalopathy in the setting of UTI completed amoxicillin 08/23-08/28 for Enterococcus faecalis dementia with behavioral disturbance continue olanzapine; Psychiatry following as needed acute urinary retention continue tamsulosin + finasteride, PRN straight cath prerenal SANTOS/CKD3 SCr back to baseline after IV fluid hydration weakness fall PT: STR recommended question of C2 fracture on C-spine resolved by negative MRI C-spine paroxysmal atrial fibrillation continue coumadin and adjust for INR 2-3, 2.1 today today HTN, acceptable control amlodipine, carvedilol HLD statin DM2 correction-dose lispro mood disorder continue olanzapine + mirtazapine VTE ppx coumadin dispo Placement In my clinical judgment, the patient requires continued inpatient hospitalization for the following reasons: encephalopathy, need for safe placement Total time managing care of this patient today: 35 minutes. Quality Stroke Does the patient have a stroke diagnosis?: No VTE Prior VTE?: No VTE Risk Level:: Medical - moderate - high VTE Device Contraindication: Treatment Not Indicated VTE Drug Contraindication: N/A - Med Ordered
[2024-09-07 09:23] VITALS: TEMP 33.2
[2024-09-07] MEDS: Dorzolamide HCl 2 % Ophth Sol 10 ML DRPBTL 1 DROP EYE-BOTH (09:55)
[2024-09-07] MEDS: timoloL maleate 0.5 % Oph Sol 5 ML DRBTL 1 DROP EYE-BOTH (09:55)
--- NOTE | 2024-09-07 10:12 | PC.NURSE ---
Pt HR 48. Dr. Barrientos notified and advised to hold carvedilol
--- NOTE | 2024-09-07 10:13 | PC.NURSE ---
NURSING ADMINISTRATOR reported that patient had a low temporal artery temp of 88.6. Oral and axillary temp would not register on oral thermometer, Rectal temp was taken and was 91.8. Dr. Barrientos was notified and advised to put warming blankets on him and ordered multiple tests and cont tele monitoring. At rounds, this RN informed MD that hr continues to drop into the 30s. MD gave verbal orders for a lisa hugger.
--- NOTE | 2024-09-07 10:19 | MHC.CM.PN ---
EMR REVIEWED, PT HYPOTHERMIC, PER HOSPITALIST PLAN FOR [facility], PT WILL NEED LTC ONCE MEDICALLY CLEARED, PT'S /DTR TO MEET W/FS AT 12:30PM TODAY, DAY [facility] FOLLOWING, CM WILL CONT TO FOLLOW DC NEEDS.
[2024-09-07 11:04] LABS: Hematocrit 29.0 % (42.0-52.0); Hemoglobin 10.2 g/dl (14.0-18.0); Mean Corpuscular HGB Conc 35.2 g/dl (31.0-36.0); Mean Corpuscular Hemoglobin 34.3 pg (27.0-33.0); Mean Corpuscular Volume 97.6 fL (80.0-98.0); NRBC Abs Auto 0.000 X10*3/uL (0.0-0.012); NRBC Pct Auto 0.0 /100WBC (0.0-0.2); Platelet Count 135 X10*3/uL (160-400); Red Blood Count 2.97 X10*6/uL (4.60-5.80); White Blood Count 3.2 X10*3/uL (4.8-10.8)
[2024-09-07 11:20] LABS: Anion Gap 9 (12-20); Blood Urea Nitrogen 19 mg/dL (9-16); Calcium 8.5 mg/dL (8.4-10.2); Carbon Dioxide 23 mmol/L (22-29); Chloride 110 mmol/L (96-108); Creatinine Clr Calc Pharmacy 60.7; Estimated Glomerular Filt Rate > 60; Potassium 4.1 mmol/L (3.3-5.1); Sodium 138 mmol/L (135-145)
--- NOTE | 2024-09-07 11:28 | PM.EVENT ---
Event Note Date of Service: 09/07/24 Event Note: Pt noted to be bradycardic, HR in 30s, slow afib. He is also hypothermic with temp of 91. He has been taking off blanket in a room thhat is relative cold. check CBC, bmp, tsh, blood culture, urine culture, rewarming blanket, cardiac monitoring, hold coreg and continue monitoring and if bradycardia persists and or symptoms will call cardiology Time Spent With Patient Time: Total time managing care of this patient today ____ minutes.
[2024-09-07 11:39] LABS: Glucose, Whole Blood 195 mg/dL (60-115)
[2024-09-07 11:40] VITALS: TEMP 33.5
[2024-09-07 13:00] VITALS: BMI 35.8
--- NOTE | 2024-09-07 13:10 | MHC.CLN ---
NUTRITION CONSULT DIET=DIABETIC 2000 KCALS, GROUND CONSISTENCY. PATIENT REQUIRES 1:1 FEEDING ASSIST. INTAKE AT MEALS USUALLY 0-25%, OCCASIONALLY HIGHER. CHANGING SUPPLEMENT TO ENSURE TID TO PROMOTE NUTRITIONAL INTAKE. SUPPLEMENT PROVIDES 1050 KCALS, 60 G PROTEIN. SKIN WITH REDNESS TO BUTTOCK AND DM ULCER L GREAT TOE. CONTINUE CURRENT DIET AND SUPPLEMENT. ENCOURAGE INTAKE ABLE. SEE CLINICAL NUTRITION ASSESSMENT 09/07/24.
[2024-09-07 13:35] VITALS: TEMP 33.5
--- NOTE | 2024-09-07 15:28 | PC.NURSE ---
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 Family educated on visiting hours plan to come in to visit with patient.
--- NOTE | 2024-09-07 15:39 | W.MHC.ACPN ---
Advanced Care Planning Note Advanced Care Planning Note Time spent (in minutes): 20 Narrative: The patient's condition has progressively worsened throughout the day. He has become hypothermic and increasingly bradycardic, although his blood pressure remains stable. No clear source of infection has been identified. Empiric antibiotics were initiated. Despite the use of a warming blanket, his temperature remained low. He became more confused, and his bradycardia worsened, with episodes of sinus pause. Overall, the patient's clinical status and mental status have declined steadily during his hospitalization. After a discussion with the patient's health care proxy, Kathleen, who consulted with the rest of the family, a unanimous decision was made to transition the patient to comfort measures only. It was agreed that all curative treatments would be discontinued, and the patient would receive morphine and benzodiazepines as needed for comfort. My conversation with HCP was confirmed by RN, Mira Riddle and ELLE Howell RN Problems Discussed (1) Major neurocognitive disorder:
[2024-09-07 15:55] VITALS: BP 118/56; PULSE 98; RESP 20; TEMP 33.6; O2SAT 99
--- NOTE | 2024-09-07 16:00 | MHC.CM.PN ---
CM DISCUSSED W/HOSPITALIST, HCP INVOKED AND CM CONTACTED PT'S HCP/SIMA AT NUMBER ON FILE, SIMA CONFIRMED WISHES ARE FOR DNR/DNI AND LABORATORY DIRECTOR AND REPORTS SHE IS GATHERING FAMILY TO VISIT PT, SIMA AWARE FAMILY CAN VISIT OUTSIDE OF VISITING HRS D/T LABORATORY DIRECTOR STATUS.
[2024-09-08] VITALS: RESP 18
--- NOTE | 2024-09-08 | ECG_ITS ---
Test Reason : tonny Blood Pressure : */* mmHG Vent. Rate : 48 BPM Atrial Rate : * BPM P-R Int : * ms QRS Dur : 108 ms QT Int : 520 ms P-R-T Axes : * -19 4 degrees QTcB Int : 464 ms Sinus bradycardia with 1st degree A-V block Abnormal ECG When compared with ECG of 07-Sep-2024 12:56, Minimal criteria for Anterior infarct are no longer Present Referred By: Eliazar Dick Electronically Signed By: YASMANY CARLSON MD
[2024-09-08] MEDS: diazePAM 10 MG/2 ML CARTRIDGE 5 MG IVPUSH ×3 (00:47→10:22)
[2024-09-08 07:34] VITALS: RESP 14
--- NOTE | 2024-09-08 09:59 | HO.PM.IMPN ---
Subjective Subjective Date of Service: 09/08/24 Interval History: seen and examined appears in no distress arms folded and does not respond to verbal / tactile stimuli Physical Exam Vital Signs: Vital Signs: Last Vital Signs Temp 92.5 F L 09/07/24 15:55 Pulse 98 09/07/24 15:55 Resp 14 09/08/24 07:34 BP 118/56 L 09/07/24 15:55 Pulse Ox 99 09/07/24 15:55 O2 Del Method Room Air 09/07/24 15:55 O2 Flow Rate 96 08/27/24 03:21 BMI result Body Mass Index 35.8 Const: Other: appears comfortable no resp distress no response to verbal/tactile stimuli Objective Data Active Medications Acetaminophen (Acetaminophen 325 Mg Tablet) 650 mg PO Q4H PRN PRN Reason: Fever >/= 100, Pain, mild 1-3 Diazepam (Diazepam 10 Mg/2 Ml Cartridge) 5 mg IVPUSH Q4H PRN PRN Reason: anxiety/restlessness Last Admin: 09/08/24 05:49 Dose: 5 mg Documented By: JO Docusate Sodium (Docusate Sodium 100 Mg Capsule) 100 mg PO BEDTIME [facility] Last Admin: 09/07/24 20:22 Dose: Not Given Documented By: JO Non-Admin Reason: com, unsafe at this time Morphine Sulfate (Morphine Sulfate 2 Mg/Ml Cartridge) 2 mg IVPUSH Q1H PRN PRN Reason: Pain, Severe (7-10)/ RR>/=24 Last Admin: 09/07/24 22:39 Dose: 2 mg Documented By: JO Ondansetron HCl (Ondansetron Odt 4 Mg Tab.Rapdis) 4 mg TRANSLINGU Q8H PRN PRN Reason: Nausea and Vomiting Scopolamine (Scopolamine 1.5 Mg Patch.Td.3) 1.5 mg EAR-BEHIND Q72H [facility] Last Admin: 09/07/24 16:43 Dose: 1.5 mg Documented By: PHANLYM Labs 09/07/24 10:30 09/07/24 10:30 Labs: Laboratory Results - last 24 hr 09/07/24 09/07/24 10:30 11:34 MCV 97.6 MCH 34.3 H MCHC 35.2 RDW 14.9 Plt Count 135 L MPV 10.2 Absolute Nucleated RBC 0.000 Nucleated RBC % (auto) 0.0 Anion Gap 9 L Estim Creat Clear Calc 60.7 Estimated GFR > 60 POC Glucose 195 H Random Glucose 212 H Calcium 8.5 TSH 3.37 Assessment and Plan (1) Major neurocognitive disorder: Status: Acute Plan 88yo M with 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 [facility] Care: continue current mgmt; appears comfortable Previously treated issues: acute metabolic encephalopathy due to UTI dementia with behavioral disturbance acute urinary retention prerenal SANTOS on CKD3 weakness fall paroxysmal atrial fibrillation HTN HLD DM2 mood disorder Hypothermia/bradycardia Total time managing care of this patient today: 35 minutes. Quality Stroke Does the patient have a stroke diagnosis?: No VTE Prior VTE?: No VTE Risk Level:: Medical - moderate - high VTE Device Contraindication: Treatment Not Indicated VTE Drug Contraindication: N/A - Med Ordered
--- NOTE | 2024-09-08 10:47 | MHC.CM.PN ---
Per MD during phone call discussion with HCP/[id number]/Irena, NEON TUBE BENDER is being reversed, Patient is a DNR, and a transfer to [facility] has been requested by family.
[2024-09-08 10:59] VITALS: BP 99/50; PULSE 52; RESP 16; TEMP 33.8; O2SAT 98
[2024-09-08 11:24] LABS: Alanine Aminotransferase 15 U/L (0-40); Albumin Level 2.8 g/dL (3.5-5.0); Alkaline Phosphatase 77 U/L (39-117); Anion Gap 10 (12-20); Aspartate Amino Transferase 26 U/L (5-37); Blood Urea Nitrogen 18 mg/dL (9-16); Calcium 8.4 mg/dL (8.4-10.2); Carbon Dioxide 24 mmol/L (22-29); Chloride 111 mmol/L (96-108); Creatinine Clr Calc Pharmacy 58.0; Estimated Glomerular Filt Rate > 60; Potassium 4.0 mmol/L (3.3-5.1); Sodium 141 mmol/L (135-145); Total Protein 4.9 g/dL (6.5-8.0)
[2024-09-08] MEDS: Lactated Ringers 1,000 ML 100 ML IVCONT ×2 (11:30→21:54)
[2024-09-08 12:15] LABS: INTERNATIONAL NORM RATIO 2.6 (0.9-1.1); Prothrombin Time 29.9 SEC (10.9-12.4)
[2024-09-08 12:34] LABS: Troponin-I High Sensitivity 8.8 ng/L (<3.5-35.0)
[2024-09-08 14:05] LABS: Appearance Urine Clear; Glucose Urine UA Negative (Negative); PH 5.0 (5.0-9.0); Specific Gravity - Urine 1.020 (1.005-1.025); UMIC TRIGGER UACC YES
[2024-09-08 14:06] LABS: Hematocrit 31.6 % (42.0-52.0); Hemoglobin 11.1 g/dl (14.0-18.0); Mean Corpuscular HGB Conc 35.1 g/dl (31.0-36.0); Mean Corpuscular Hemoglobin 34.5 pg (27.0-33.0); Mean Corpuscular Volume 98.1 fL (80.0-98.0); NRBC Abs Auto 0.000 X10*3/uL (0.0-0.012); NRBC Pct Auto 0.0 /100WBC (0.0-0.2); Platelet Count 132 X10*3/uL (160-400); Red Blood Count 3.22 X10*6/uL (4.60-5.80); White Blood Count 3.4 X10*3/uL (4.8-10.8)
[2024-09-08 14:54] VITALS: BP 123/58; PULSE 52; RESP 16; TEMP 34.1; O2SAT 96
[2024-09-08 15:40] LABS: Glucose, Whole Blood 144 mg/dL (60-115)
[2024-09-08 19:43] VITALS: BP 114/57; PULSE 56; RESP 15; O2SAT 96
[2024-09-08 21:07] LABS: Glucose, Whole Blood 141 mg/dL (60-115)
[2024-09-08] MEDS: timoloL maleate 0.5 % Oph Sol 5 ML DRBTL 1 DROP EYE-BOTH (22:05)
[2024-09-08] MEDS: Dorzolamide HCl 2 % Ophth Sol 10 ML DRPBTL 1 DROP EYE-BOTH (22:06)
[2024-09-08 23:38] VITALS: BP 132/59; PULSE 59; RESP 18; TEMP 36.4; O2SAT 96
[2024-09-09 03:25] VITALS: BP 118/74; PULSE 65; RESP 18; TEMP 36.6; O2SAT 95
[2024-09-09 07:03] LABS: Glucose, Whole Blood 120 mg/dL (60-115)
[2024-09-09 07:27] VITALS: BP 132/58; PULSE 57; RESP 16; TEMP 36.1; O2SAT 96
[2024-09-09 09:34] LABS: Hematocrit 28.9 % (42.0-52.0); Hemoglobin 10.2 g/dl (14.0-18.0); Mean Corpuscular HGB Conc 35.3 g/dl (31.0-36.0); Mean Corpuscular Hemoglobin 34.9 pg (27.0-33.0); Mean Corpuscular Volume 99.0 fL (80.0-98.0); NRBC Abs Auto 0.000 X10*3/uL (0.0-0.012); NRBC Pct Auto 0.0 /100WBC (0.0-0.2); Platelet Count 128 X10*3/uL (160-400); Red Blood Count 2.92 X10*6/uL (4.60-5.80); White Blood Count 3.9 X10*3/uL (4.8-10.8)
[2024-09-09 09:40] LABS: INTERNATIONAL NORM RATIO 2.8 (0.9-1.1); Prothrombin Time 31.6 SEC (10.9-12.4)
[2024-09-09 09:49] LABS: Alanine Aminotransferase 14 U/L (0-40); Albumin Level 2.7 g/dL (3.5-5.0); Alkaline Phosphatase 77 U/L (39-117); Anion Gap 11 (12-20); Aspartate Amino Transferase 27 U/L (5-37); Blood Urea Nitrogen 17 mg/dL (9-16); Calcium 8.1 mg/dL (8.4-10.2); Carbon Dioxide 24 mmol/L (22-29); Chloride 111 mmol/L (96-108); Creatinine Clr Calc Pharmacy 52.8; Estimated Glomerular Filt Rate 55; Potassium 3.9 mmol/L (3.3-5.1); Sodium 142 mmol/L (135-145); Total Protein 5.0 g/dL (6.5-8.0)
[2024-09-09] MEDS: Dorzolamide HCl 2 % Ophth Sol 10 ML DRPBTL 1 DROP EYE-BOTH ×2 (10:34→20:07)
[2024-09-09 10:50] VITALS: BP 146/63; PULSE 60; RESP 16; TEMP 35.8; O2SAT 97
[2024-09-09 11:00] LABS: Glucose, Whole Blood 114 mg/dL (60-115)
--- NOTE | 2024-09-09 11:05 | P.CONCA_ITS ---
History of Present Illness History of Present Illness Date of Service: 09/09/24 Requesting physician: Margarito Mahajan Consult reason: other (Sinus bradycardia) Chief complaint: unwitnessed fall Narrative: I was consulted to see Reji in cardiology consultation today for sinus bradycardia. Patient yesterday on the floor was hypothermic and was noted to have slow heart rate in the 30s, reported as a having atrial fibrillation although there was no clear evidence of atrial fibrillation. He does have prior history of atrial fibrillation in his on warfarin therapy. He was admitted with sepsis and subsequently made comfort measures which was reversed yesterday. Was on Valium. Yesterday was altered mental status and drowsy. This morning he is much more awake since his medications have been withheld. He is noted to have sinus bradycardia with intermittent Mobitz type 1 second-degree AV block on the monitor. There were no obvious cardiac symptoms reported by the patient. He declines any chest pain, lightheadedness, shortness of breath currently. Patient has no prior history of syncope. Reported from the family that he had prior history of slow heart rate while he was admitted at [facility]. He has noted on his home meds to be on carvedilol but currently not getting any rate lowering medications in the medication reconciliation list. He is on timolol eyedrops. 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 If so, by whom?: No Do you feel safe in your current relationship?: Yes Is there a partner from a previous relationship who is making you feel unsafe now?: No Are you made to feel afraid or neglected: No Spiritual Healthcare Practices: oriental orthodox Advance Directives: Yes Advance Directives on File: Yes Advance Directives Date on File: 08/18/24 Do you have a plan to hurt others: No Plan Recently lost weight without trying: Unsure How much weight loss: Unsure Eating poorly because of decreased appetite: No Nutrition screen score: 4 Nutrition Risks: Dental problems and Difficulty chewing service: No Meds Allergies Allergy/AdvReac Type Severity Reaction Status Date / Time quetiapine [From Seroquel] Allergy Unknown Verified 08/18/24 10:47 quinapril Allergy Unknown Verified 08/18/24 10:47 trazodone Allergy Unknown Verified 08/18/24 10:47 Active Medications: Current Medications Acetaminophen (Acetaminophen 325 Mg Tablet) 650 mg PO Q4H PRN PRN Reason: Fever >/= 100, Pain, mild 1-3 Atorvastatin Calcium (Atorvastatin Calcium 10 Mg Tablet) 10 mg PO BEDTIME [facility] Last Admin: 09/08/24 22:03 Dose: Not Given Docusate Sodium (Docusate Sodium 100 Mg Capsule) 100 mg PO BEDTIME [facility] Last Admin: 09/08/24 22:03 Dose: Not Given Dorzolamide HCl (Dorzolamide Hcl 2 % Ophth Alexus 10 Ml Drpbtl) 1 drop EYE-BOTH BID [facility] Last Admin: 09/09/24 10:34 Dose: 1 drop Famotidine (Famotidine 20 Mg Tablet) 20 mg PO BID [facility] Last Admin: 09/09/24 10:28 Dose: 20 mg Finasteride (Finasteride 5 Mg Tablet) 5 mg PO DAILY [facility] Last Admin: 09/09/24 10:28 Dose: 5 mg Ampicillin Sodium/Sulbactam (Sodium 3 gm/ Sodium Chloride) 100 mls @ 200 mls/hr IV Q6H [facility] Last Admin: 09/09/24 10:27 Dose: 200 mls/hr Insulin Human Lispro (Insulin Lispro 100 Unit/Ml 3 Ml Vial) 0 unit SUBCUT QIDACHS [facility]; Protocol Last Admin: 09/09/24 07:37 Dose: Not Given Omeprazole (Omeprazole 20 Mg Capsule.Dr) 20 mg PO DAILY@0630 [facility] Last Admin: 09/09/24 06:18 Dose: Not Given Timolol Maleate (Timolol Maleate 0.5 % Oph Alexus 5 Ml Drbtl) 1 drop EYE-BOTH BID [facility] Last Admin: 09/09/24 10:33 Dose: Not Given Warfarin Sodium (Warfarin Sodium 2.5 Mg Tablet) 2.5 mg PO DAILY@1800 [facility] Last Admin: 09/08/24 16:10 Dose: Not Given Home Medications ?Medication ?Instructions ?Recorded ?Confirmed ?Last Taken ?Type acetaminophen 325 mg tablet 650 mg PO Q4H PRN Pain (Scale 08/18/24 08/18/24 Unknown History Score 1-3) aluminum-mag hydroxide-simethicone 30 ml PO Q6H PRN Acid Reflux 08/18/24 08/18/24 Unknown History 400 mg-400 mg-40 mg/5 mL oral susp (Mylanta Maximum Strength) atorvastatin 10 mg tablet 10 mg PO BEDTIME 08/18/24 08/18/24 Unknown History carvedilol 6.25 mg tablet 6.25 mg PO BID 08/18/24 08/18/24 Unknown History dorzolamide 2 % eye drops 1 drp ophthalmic (eye) BID 08/18/24 08/18/24 Unknown History famotidine 20 mg tablet 20 mg PO BID 08/18/24 08/18/24 Unknown History insulin lispro 100 unit/mL 1 sliding scale dose subcut 08/18/24 08/18/24 Unknown History subcutaneous solution USEASDIRECTD magnesium hydroxide 400 mg/5 mL 30 ml PO DAILY PRN Constipation 08/18/24 08/18/24 Unknown History oral suspension (Milk of Magnesia) metformin 750 mg tablet,extended 750 mg PO DAILY 08/18/24 08/18/24 Unknown History release 24 hr mirtazapine 15 mg tablet 7.5 mg PO BEDTIME 08/18/24 08/18/24 Unknown History olanzapine 2.5 mg tablet 2.5 mg PO BID 08/18/24 08/18/24 Unknown History pantoprazole 40 mg tablet,delayed 40 mg PO DAILY 08/18/24 08/18/24 Unknown History release timolol maleate 0.5 % eye drops 1 drp ophthalmic (eye) BID 08/18/24 08/18/24 Unknown History warfarin 5 mg tablet 2.5 mg PO DAILY 08/18/24 08/18/24 Unknown History Physical Exam 2 Vital Signs: Vital Signs: Last Vital Signs Temp 96.4 F L 09/09/24 10:50 Pulse 60 09/09/24 10:50 Resp 16 09/09/24 10:50 BP 146/63 H 09/09/24 10:50 Pulse Ox 97 09/09/24 10:50 O2 Del Method Room Air 09/09/24 10:50 O2 Flow Rate 96 08/27/24 03:21 BMI result Body Mass Index 35.8 Const: General: cooperative, comfortable and other (Arousable) Nutritional Appearance: obese HEENT: Head: Yes normocephalic and Yes atraumatic Neck: Neck: Yes trachea midline, Yes supple and Yes no JVD Resp: Effort & Inspection: decreased respiratory effort Auscultation: clear to auscultation bilaterally and diminished lung sounds Cardio: Jugular venous distension: no JVD Rate: bradycardic Rhythm: r egular rhythm Heart sounds: S1 normal heart sound present, S2 normal heart sound present, no click, no gallops, no murmurs and no rubs GI: Auscultation: normal bowel sounds Skin: General skin exam: no rashes or lesions noted Neuro: General: moves all extremities Extrem: General: Yes no clubbing, cyanosis or edema Objective Labs and Meds 09/09/24 09:13 09/09/24 09:13 Lab results: Laboratory Results - last 24 hr 09/08/24 09/08/24 09/08/24 11:01 11:53 14:00 WBC 3.4 L RBC 3.22 L Hgb 11.1 L Hct 31.6 L MCV 98.1 H MCH 34.5 H MCHC 35.1 RDW 15.4 Plt Count 132 L MPV 10.4 Absolute Nucleated RBC 0.000 Nucleated RBC % (auto) 0.0 PT 29.9 H D INR 2.6 H Sodium 141 Potassium 4.0 Chloride 111 H Carbon Dioxide 24 Anion Gap 10 L BUN 18 H Creatinine 1.13 Estim Creat Clear Calc 58.0 Estimated GFR > 60 POC Glucose Random Glucose 153 H Calcium 8.4 Total Bilirubin 1.0 AST 26 ALT 15 Alkaline Phosphatase 77 Troponin I High Sens 8.8 D Total Protein 4.9 L Albumin 2.8 L Urine Color Urine Appearance Urine pH Ur Specific [place] Urine Protein Urine Glucose (UA) Urine Ketones Urine Blood Urine Nitrite Ur Leukocyte Esterase Urine RBC Urine WBC Ur Squamous Epith Cells Urine Bacteria Hyaline Casts 09/08/24 09/08/24 09/08/24 15:37 21:03 Unknown WBC RBC Hgb Hct MCV MCH MCHC RDW Plt Count MPV Absolute Nucleated RBC Nucleated RBC % (auto) PT INR Sodium Potassium Chloride Carbon Dioxide Anion Gap BUN Creatinine Estim Creat Clear Calc Estimated GFR POC Glucose 144 H 141 H Random Glucose Calcium Total Bilirubin AST ALT Alkaline Phosphatase Troponin I High Sens Total Protein Albumin Urine Color Yellow Urine Appearance Clear Urine pH 5.0 Ur Specific [place] 1.020 Urine Protein Trace Urine Glucose (UA) Negative Urine Ketones Trace Urine Blood Moderate (2+) H Urine Nitrite Negative Ur Leukocyte Esterase Negative Urine RBC 6-10 H Urine WBC 0-5 Ur Squamous Epith Cells 0-2 Urine Bacteria Trace Hyaline Casts 3-5 09/09/24 09/09/24 09/09/24 06:50 09:13 10:50 WBC 3.9 L RBC 2.92 L Hgb 10.2 L Hct 28.9 L MCV 99.0 H MCH 34.9 H MCHC 35.3 RDW 15.8 Plt Count 128 L MPV 10.2 Absolute Nucleated RBC 0.000 Nucleated RBC % (auto) 0.0 PT 31.6 H INR 2.8 H Sodium 142 Potassium 3.9 Chloride 111 H Carbon Dioxide 24 Anion Gap 11 L BUN 17 H Creatinine 1.24 Estim Creat Clear Calc 52.8 Estimated GFR 55 POC Glucose 120 H 114 Random Glucose 119 H Calcium 8.1 L Total Bilirubin 0.9 AST 27 ALT 14 Alkaline Phosphatase 77 Troponin I High Sens Total Protein 5.0 L Albumin 2.7 L Urine Color Urine Appearance Urine pH Ur Specific [place] Urine Protein Urine Glucose (UA) Urine Ketones Urine Blood Urine Nitrite Ur Leukocyte Esterase Urine RBC Urine WBC Ur Squamous Epith Cells Urine Bacteria Hyaline Casts Imaging Radiologist's impression: Impressions Head CT 09/08/24 12:36 IMPRESSION: Age-indeterminate left nasal bone fracture. Nonspecific periventricular white matter hypodensities are likely related to small vessel disease. Mild to moderate frontotemporal atrophy. Opacity in the right sphenoid sinus could be related to chronic sinus disease versus posttraumatic in nature. Electronically signed by: Valerio Sorto MD 09/08/2024 01:26 PM EDT RP Chest X-Ray 09/08/24 12:40 IMPRESSION: Moderately decreased lung volumes since the prior is probably related to a [place] and atelectasis. However, pleural effusion or obscured basilar pneumonia, especially on the left, is not ruled out. Electronically signed by: Valerio Sorto MD 09/08/2024 01:10 PM EDT RP Assessment and Plan (1) Bradycardia: Status: Acute Patient noted yesterday to have significant bradycardia which appears to be most likely related to hypothermia. His heart rate has improved since correction of his temperature. 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 At this point time there was no indication for pacing therapy. I would avoid any rate lowering medication and him. I will also think about discontinuing his timolol eyedrops. Can continue full disclosure cardiac telemetry on him. Continue management of blood pressure with alternative blood pressure medication such as amlodipine. Will sign of the case. Thank you for allowing me to partake in his care Procedures Date of Service Date of Service: 09/09/24
--- NOTE | 2024-09-09 12:08 | MHC.CLN ---
F/U INTAKE AT MEALS 0-25% DIET RX: 2000DM GROUND CONSISTENCY PATIENT REQUIRES 1:1 FEEDING ASSIST PT RECEIVING SUPPLEMENT ENSURE TID TO PROMOTE NUTRITIONAL INTAKE SUPPLEMENT PROVIDES 1050 KCALS, 60G PROTEIN WITH 100% ACCEPTANCE MONITOR PO INTAKE AND ENCOURAGE SUPPLEMENT
--- NOTE | 2024-09-09 15:09 | P.PNIM_ITS ---
Subjective Subjective Date of Service: 09/09/24 Interval History: Seen and evaluated this morning laying comfortable in bed no recurrence of bradycardia Review of Systems Review of Systems: Yes all other systems are reviewed and are negative Physical Exam 2 Vital Signs: Vital Signs: Last Vital Signs Temp 96.4 F L 09/09/24 10:50 Pulse 60 09/09/24 10:50 Resp 16 09/09/24 10:50 BP 146/63 H 09/09/24 10:50 Pulse Ox 97 09/09/24 10:50 O2 Del Method Room Air 09/09/24 10:50 O2 Flow Rate 96 08/27/24 03:21 BMI result Body Mass Index 35.8 Const: Other: Constitutional : interactive, not in distress Cardiovascular : no JVP, no lower extremity edema Respiratory : bilateral chest movement, not in resp distress Gastrointestinal: soft, lax, Non tender Skin : Warm, Dry Neurological : Alert & oriented to self and place, No focal deficit Objective Data Active Medications Acetaminophen (Acetaminophen 325 Mg Tablet) 650 mg PO Q4H PRN PRN Reason: Fever >/= 100, Pain, mild 1-3 Atorvastatin Calcium (Atorvastatin Calcium 10 Mg Tablet) 10 mg PO BEDTIME [facility] Last Admin: 09/08/24 22:03 Dose: Not Given Documented By: ELZBIETA Non-Admin Reason: Patient Condition Contraindication Docusate Sodium (Docusate Sodium 100 Mg Capsule) 100 mg PO BEDTIME [facility] Last Admin: 09/08/24 22:03 Dose: Not Given Documented By: ELZBIETA Non-Admin Reason: Patient Condition Contraindication Dorzolamide HCl (Dorzolamide Hcl 2 % Ophth Alexus 10 Ml Drpbtl) 1 drop EYE-BOTH BID [facility] Last Admin: 09/09/24 10:34 Dose: 1 drop Documented By: JAYJAY Famotidine (Famotidine 20 Mg Tablet) 20 mg PO BID [facility] Last Admin: 09/09/24 10:28 Dose: 20 mg Documented By: JAYJAY Finasteride (Finasteride 5 Mg Tablet) 5 mg PO DAILY [facility] Last Admin: 09/09/24 10:28 Dose: 5 mg Documented By: JAYJAY Ampicillin Sodium/Sulbactam (Sodium 3 gm/ Sodium Chloride) 100 mls @ 200 mls/hr IV Q6H [facility] Last Infusion: 09/09/24 14:51 Dose: Infused Documented By: JAYJAY Insulin Human Lispro (Insulin Lispro 100 Unit/Ml 3 Ml Vial) 0 unit SUBCUT QIDACHS [facility]; Protocol Last Admin: 09/09/24 12:05 Dose: Not Given Documented By: JAYJAY Non-Admin Reason: No Insulin Coverage Omeprazole (Omeprazole 20 Mg Capsule.Dr) 20 mg PO DAILY@0630 [facility] Last Admin: 09/09/24 06:18 Dose: Not Given Documented By: ELZBIETA Non-Admin Reason: Patient Condition Contraindication Timolol Maleate (Timolol Maleate 0.5 % Oph Alexus 5 Ml Drbtl) 1 drop EYE-BOTH BID [facility] Last Admin: 09/09/24 10:33 Dose: Not Given Documented By: JAYJAY Non-Derick Reason: HOLD PER CARDIO Warfarin Sodium (Warfarin Sodium 2.5 Mg Tablet) 2.5 mg PO DAILY@1800 [facility] Last Admin: 09/08/24 16:10 Dose: Not Given Documented By: JAYJAY Non-Derick Reason: PT lethargic, not safe for PO meds Labs 09/09/24 09:13 09/09/24 09:13 Labs: Laboratory Results - last 24 hr 09/08/24 09/08/24 09/09/24 15:37 21:03 06:50 MCV MCH MCHC RDW Plt Count MPV Absolute Nucleated RBC Nucleated RBC % (auto) PT INR Anion Gap Estim Creat Clear Calc Estimated GFR POC Glucose 144 H 141 H 120 H Random Glucose Calcium Total Bilirubin AST ALT Alkaline Phosphatase Total Protein Albumin 09/09/24 09/09/24 09:13 10:50 MCV 99.0 H MCH 34.9 H MCHC 35.3 RDW 15.8 Plt Count 128 L MPV 10.2 Absolute Nucleated RBC 0.000 Nucleated RBC % (auto) 0.0 PT 31.6 H INR 2.8 H Anion Gap 11 L Estim Creat Clear Calc 52.8 Estimated GFR 55 POC Glucose 114 Random Glucose 119 H Calcium 8.1 L Total Bilirubin 0.9 AST 27 ALT 14 Alkaline Phosphatase 77 Total Protein 5.0 L Albumin 2.7 L Microbiology Microbiology Results: Microbiology 09/08/24 12:19 Blood Culture - Preliminary Blood - Venous No growth after 24 hours. 09/08/24 11:53 Blood Culture - Preliminary Blood - Venous No growth after 24 hours. 09/07/24 10:30 Blood Culture - Preliminary Blood - Venous No growth after 48 hours. 09/07/24 10:30 Blood Culture - Preliminary Blood - Venous No growth after 48 hours. 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 PRE BILLING CLINICIAN # PRE BILLING CLINICIAN Care discontinued per HCP recommendations. The patient appears comfortable though at this point. Hypothermia complicated with sinuse bradycardia warm blankets as needed on Tele CT Negative for acute findings DC Carvedilol, use Amlodipine instead on Unasyn as empirical coverage cultures pending Cardiology input appreciated acute metabolic encephalopathy 2/2 dementia with behavioral disturbance continue olanzapine; Psychiatry following as needed UTI completed amoxicillin 08/23-08/28 for Enterococcus faecalis acute urinary retention continue tamsulosin + finasteride, PRN straight cath prerenal SANTOS/CKD3 SCr back to baseline weakness w fall PT: STR recommended question of C2 fracture on C-spine resolved by negative MRI C-spine paroxysmal atrial fibrillation continue coumadin and adjust for INR 2-3, 2.1 today today HTN, acceptable control amlodipine, carvedilol HLD statin DM2 correction-dose lispro mood disorder continue olanzapine + mirtazapine VTE ppx coumadin dispo Placement In my clinical judgment, the patient requires continued inpatient hospitalization for the following reasons: hypothermia, bradycardia Quality Stroke Does the patient have a stroke diagnosis?: No VTE Prior VTE?: No VTE Risk Level:: Medical - moderate - high VTE Device Contraindication: Treatment Not Indicated VTE Drug Contraindication: N/A - Med Ordered
[2024-09-09] MEDS: OLANZapine 10 MG VIAL 5 MG IM ×2 (17:59→22:58)
[2024-09-09 20:00] VITALS: BP 144/67; PULSE 61; RESP 16; TEMP 37.1; O2SAT 97
[2024-09-09] MEDS: timoloL maleate 0.5 % Oph Sol 5 ML DRBTL 1 DROP EYE-BOTH (20:07)
[2024-09-09 21:09] LABS: Glucose, Whole Blood 157 mg/dL (60-115)
[2024-09-10 03:45] VITALS: BP 146/69; PULSE 96; RESP 18; TEMP 36.6; O2SAT 95
--- NOTE | 2024-09-10 05:26 | PC.NURSE ---
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 Hospitalist notified. IM Zyprexa given x1. Pt still requiring Ax3/4 staff members d/t behaviors.
[2024-09-10 07:06] VITALS: BP 144/64; PULSE 62; RESP 17; TEMP 36.6; O2SAT 95
[2024-09-10 07:13] LABS: Glucose, Whole Blood 128 mg/dL (60-115)
[2024-09-10] MEDS: timoloL maleate 0.5 % Oph Sol 5 ML DRBTL 1 DROP EYE-BOTH ×2 (08:52→20:05)
[2024-09-10] MEDS: Dorzolamide HCl 2 % Ophth Sol 10 ML DRPBTL 1 DROP EYE-BOTH ×2 (08:52→20:05)
--- NOTE | 2024-09-10 10:52 | MHC.CM.PN ---
Per ROUNDS discussion, Patient will benefit from a PT Eval to assist with disposition. CM will follow.
[2024-09-10 10:59] VITALS: BP 156/72; PULSE 54; RESP 17; TEMP 36.4; O2SAT 97
[2024-09-10 11:34] LABS: Glucose, Whole Blood 136 mg/dL (60-115)
--- NOTE | 2024-09-10 11:42 | HO.PM.IMPN ---
Subjective Subjective Date of Service: 09/10/24 Interval History: Seen and evaluated this morning laying comfortable in bed no recurrence of bradycardia Review of Systems Review of Systems: Yes all other systems are reviewed and are negative Physical Exam Vital Signs: Vital Signs: Last Vital Signs Temp 97.5 F 09/10/24 10:59 Pulse 54 09/10/24 10:59 Resp 17 09/10/24 10:59 BP 156/72 H 09/10/24 10:59 Pulse Ox 97 09/10/24 10:59 O2 Del Method Room Air 09/10/24 10:59 O2 Flow Rate 96 08/27/24 03:21 BMI result Body Mass Index 35.8 Const: Other: Constitutional : interactive, not in distress Cardiovascular : no JVP, no lower extremity edema Respiratory : bilateral chest movement, not in resp distress Gastrointestinal: soft, lax, Non tender Skin : Warm, Dry Neurological : Alert & oriented to self and place, No focal deficit Objective Data Active Medications Acetaminophen (Acetaminophen 325 Mg Tablet) 650 mg PO Q4H PRN PRN Reason: Fever >/= 100, Pain, mild 1-3 Atorvastatin Calcium (Atorvastatin Calcium 10 Mg Tablet) 10 mg PO BEDTIME [facility] Last Admin: 09/09/24 20:06 Dose: 10 mg Documented By: ROB Docusate Sodium (Docusate Sodium 100 Mg Capsule) 100 mg PO BEDTIME [facility] Last Admin: 09/09/24 20:07 Dose: 100 mg Documented By: ALLI-NICOLE Dorzolamide HCl (Dorzolamide Hcl 2 % Ophth Alexus 10 Ml Drpbtl) 1 drop EYE-BOTH BID [facility] Last Admin: 09/10/24 08:52 Dose: 1 drop Documented By: MICAH Famotidine (Famotidine 20 Mg Tablet) 20 mg PO BID [facility] Last Admin: 09/10/24 08:45 Dose: 20 mg Documented By: MICAH Finasteride (Finasteride 5 Mg Tablet) 5 mg PO DAILY [facility] Last Admin: 09/10/24 08:45 Dose: 5 mg Documented By: MICAH Ampicillin Sodium/Sulbactam (Sodium 3 gm/ Sodium Chloride) 100 mls @ 200 mls/hr IV Q6H [facility] Last Infusion: 09/10/24 09:30 Dose: Infused Documented By: MICAH Insulin Human Lispro (Insulin Lispro 100 Unit/Ml 3 Ml Vial) 0 unit SUBCUT QIDACHS [facility]; Protocol Last Admin: 09/10/24 07:27 Dose: Not Given Documented By: MICAH Non-Admin Reason: No Insulin Coverage Mirtazapine (Mirtazapine 7.5 Mg Tablet) 7.5 mg PO BEDTIME [facility] Last Admin: 09/09/24 20:07 Dose: 7.5 mg Documented By: ROB Olanzapine (Olanzapine 2.5 Mg Tablet) 2.5 mg PO BID [facility] Last Admin: 09/10/24 08:45 Dose: 2.5 mg Documented By: MICAH Omeprazole (Omeprazole 20 Mg Capsule.Dr) 20 mg PO DAILY@0630 [facility] Last Admin: 09/10/24 05:26 Dose: Not Given Documented By: ROB Non-Admin Reason: Agitation Timolol Maleate (Timolol Maleate 0.5 % Oph Alexus 5 Ml Drbtl) 1 drop EYE-BOTH BID [facility] Last Admin: 09/10/24 08:52 Dose: 1 drop Documented By: MICAH Warfarin Sodium (Warfarin Sodium 2.5 Mg Tablet) 2.5 mg PO DAILY@1800 [facility] Last Admin: 09/09/24 17:39 Dose: Not Given Documented By: MIKE Non-Admin Reason: Patient Refused Labs 09/09/24 09:13 09/09/24 09:13 Labs: Laboratory Results - last 24 hr 09/09/24 09/10/24 09/10/24 21:04 07:05 11:31 POC Glucose 157 H 128 H 136 H Microbiology Microbiology Results: Microbiology 09/08/24 12:19 Blood Culture - Preliminary Blood - Venous No growth after 24 hours. 09/08/24 11:53 Blood Culture - Preliminary Blood - Venous No growth after 24 hours. 09/07/24 10:30 Blood Culture - Preliminary Blood - Venous No growth after 48 hours. 09/07/24 10:30 Blood Culture - Preliminary Blood - Venous No growth after 48 hours. 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 Hypothermia complicated with sinuse bradycardia, resolved warm blankets as needed, DC Tele CT Negative for acute findings DC Carvedilol, use Amlodipine instead on Unasyn as empirical coverage pending final blood cultures Cardiology input appreciated, DC Carvedilol acute metabolic encephalopathy 2/2 dementia with behavioral disturbance continue olanzapine; increased to 5 mg bid Mirtazapine night time Psychiatry following as needed UTI completed amoxicillin 08/23-08/28 for Enterococcus faecalis acute urinary retention continue tamsulosin + finasteride, PRN straight cath prerenal SANTOS/CKD3 SCr back to baseline weakness w fall PT: STR recommended question of C2 fracture on C-spine resolved by negative MRI C-spine paroxysmal atrial fibrillation continue coumadin and adjust for INR 2-3 today HTN, acceptable control amlodipine, carvedilol HLD statin DM2 correction-dose lispro mood disorder continue olanzapine + mirtazapine VTE ppx coumadin dispo Placement, WINDOW DRESSER Care discontinued 09/08 per HCP recommendations. The patient appears comfortable though at this point. In my clinical judgment, the patient requires continued inpatient hospitalization for the following reasons: hypothermia, bradycardia Quality Stroke Does the patient have a stroke diagnosis?: No VTE Prior VTE?: No VTE Risk Level:: Medical - moderate - high VTE Device Contraindication: Treatment Not Indicated VTE Drug Contraindication: N/A - Med Ordered
[2024-09-10] MEDS: OLANZapine 10 MG VIAL 5 MG IM (14:58)
[2024-09-10 15:27] VITALS: BP 161/67; PULSE 69; RESP 18; TEMP 36.3; O2SAT 98
[2024-09-10 16:05] LABS: Glucose, Whole Blood 190 mg/dL (60-115)
[2024-09-10 19:50] VITALS: BP 118/60; PULSE 66; RESP 20; TEMP 36.9; O2SAT 97
[2024-09-10 21:33] LABS: Glucose, Whole Blood 140 mg/dL (60-115)
[2024-09-10 23:45] VITALS: BP 150/63; PULSE 59; RESP 18; TEMP 36.4; O2SAT 97
[2024-09-11 03:14] VITALS: BP 139/93; PULSE 62; RESP 18; TEMP 36.4; O2SAT 95
[2024-09-11 06:59] LABS: INTERNATIONAL NORM RATIO 2.4 (0.9-1.1); Prothrombin Time 28.0 SEC (10.9-12.4)
[2024-09-11 07:02] VITALS: BP 141/63; PULSE 61; RESP 17; TEMP 36.2; O2SAT 99
[2024-09-11 07:15] LABS: Glucose, Whole Blood 132 mg/dL (60-115)
--- NOTE | 2024-09-11 10:32 | MHC.CM.PN ---
Per MD in ROUNDS, Patient will be seen by Psych for behaviors/meds. Financial is involved; Patient will need LTC Medicaid and has no bed offers. CM will follow.
[2024-09-11 11:03] LABS: Glucose, Whole Blood 130 mg/dL (60-115)
[2024-09-11 11:16] VITALS: BP 137/60; PULSE 63; RESP 16; TEMP 36.1; O2SAT 96
--- NOTE | 2024-09-11 12:21 | P.PNIM_ITS ---
Subjective Subjective Date of Service: 09/11/24 Interval History: Seen and evaluated this morning laying comfortable in bed no recurrence of bradycardia agitated overnight, refusing care , trying to hit staff on occasions Review of Systems Review of Systems: Yes all other systems are reviewed and are negative Physical Exam 2 Vital Signs: Vital Signs: Last Vital Signs Temp 97.0 F 09/11/24 11:16 Pulse 63 09/11/24 11:16 Resp 16 09/11/24 11:16 BP 137/60 09/11/24 11:16 Pulse Ox 96 09/11/24 11:16 O2 Del Method Room Air 09/11/24 11:16 O2 Flow Rate 96 08/27/24 03:21 BMI result Body Mass Index 35.8 Const: Other: Constitutional : interactive, not in distress Cardiovascular : no JVP, no lower extremity edema Respiratory : bilateral chest movement, not in resp distress Gastrointestinal: soft, lax, Non tender Skin : Warm, Dry Neurological : Alert & oriented to self, No focal deficit Objective Data Active Medications Acetaminophen (Acetaminophen 325 Mg Tablet) 650 mg PO Q4H PRN PRN Reason: Fever >/= 100, Pain, mild 1-3 Last Admin: 09/10/24 20:00 Dose: 650 mg Documented By: ROB Amlodipine Besylate (Amlodipine Besylate 5 Mg Tablet) 5 mg PO DAILY [facility]; Protocol Last Admin: 09/11/24 09:19 Dose: 5 mg Documented By: MICAH Atorvastatin Calcium (Atorvastatin Calcium 10 Mg Tablet) 10 mg PO BEDTIME [facility] Last Admin: 09/10/24 20:01 Dose: 10 mg Documented By: ROB Docusate Sodium (Docusate Sodium 100 Mg Capsule) 100 mg PO BEDTIME [facility] Last Admin: 09/10/24 20:01 Dose: 100 mg Documented By: ROB Dorzolamide HCl (Dorzolamide Hcl 2 % Ophth Alexus 10 Ml Drpbtl) 1 drop EYE-BOTH BID [facility] Last Admin: 09/11/24 09:20 Dose: Not Given Documented By: MICAH Non-Admin Reason: Patient Refused Famotidine (Famotidine 20 Mg Tablet) 20 mg PO BID [facility] Last Admin: 09/11/24 09:18 Dose: 20 mg Documented By: MICAH Finasteride (Finasteride 5 Mg Tablet) 5 mg PO DAILY [facility] Last Admin: 09/11/24 09:19 Dose: 5 mg Documented By: MICAH Ampicillin Sodium/Sulbactam (Sodium 3 gm/ Sodium Chloride) 100 mls @ 200 mls/hr IV Q6H [facility] Last Infusion: 09/11/24 09:30 Dose: Infused Documented By: MICAH Insulin Human Lispro (Insulin Lispro 100 Unit/Ml 3 Ml Vial) 0 unit SUBCUT QIDACHS [facility]; Protocol Last Admin: 09/11/24 11:04 Dose: Not Given Documented By: MICAH Non-Admin Reason: No Insulin Coverage Mirtazapine (Mirtazapine 7.5 Mg Tablet) 7.5 mg PO BEDTIME [facility] Last Admin: 09/10/24 20:00 Dose: 7.5 mg Documented By: ROB Olanzapine (Olanzapine 5 Mg Tablet) 5 mg PO BID [facility] Last Admin: 09/11/24 09:18 Dose: 5 mg Documented By: MICAH Olanzapine (Olanzapine 5 Mg Tablet) 5 mg PO BID PRN PRN Reason: agitation Omeprazole (Omeprazole 20 Mg Capsule.Dr) 20 mg PO DAILY@0630 [facility] Last Admin: 09/11/24 06:46 Dose: Not Given Documented By: ROB Non-Admin Reason: Patient Refused Timolol Maleate (Timolol Maleate 0.5 % Oph Alexus 5 Ml Drbtl) 1 drop EYE-BOTH BID [facility] Last Admin: 09/11/24 09:20 Dose: Not Given Documented By: MICAH Non-Admin Reason: Patient Refused Warfarin Sodium (Warfarin Sodium 2.5 Mg Tablet) 2.5 mg PO DAILY@1800 [facility] Last Admin: 09/10/24 17:35 Dose: 2.5 mg Documented By: MICAH Labs 09/09/24 09:13 09/09/24 09:13 Labs: Laboratory Results - last 24 hr 09/10/24 09/10/24 09/11/24 15:58 21:13 06:30 Hold Purple Top SEE NOTE PT 28.0 H INR 2.4 H POC Glucose 190 H 140 H 09/11/24 09/11/24 07:05 10:54 Hold Purple Top PT INR POC Glucose 132 H 130 H Microbiology Microbiology Results: Microbiology 09/08/24 12:19 Blood Culture - Preliminary Blood - Venous No growth after 48 hours. 09/08/24 11:53 Blood Culture - Preliminary Blood - Venous No growth after 48 hours. Assessment and Plan (1) Major neurocognitive disorder: Status: Acute Plan 88yo M with 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, DM2 with neuroipathy, HTN, HLD, CAD, mood disorder, CKD3 presented after unwitnessed fall at [facility], admitted for acute encephalopathy due to UTI hospital course complicated by hypothermia and bradycardia with changes to goals of care on 09/07. 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 Hypothermia complicated with sinuse bradycardia, resolved warm blankets as needed, DC Tele CT Negative for acute findings DC Carvedilol, use Amlodipine instead on Unasyn as empirical coverage pending final blood cultures Cardiology input appreciated, DC Carvedilol acute metabolic encephalopathy 2/2 dementia with behavioral disturbance continue olanzapine; increased to 5 mg bid PRN Olanzapine added Mirtazapine night time Psychiatry following as needed UTI completed amoxicillin 08/23-08/28 for Enterococcus faecalis acute urinary retention continue tamsulosin + finasteride, PRN straight cath prerenal SANTOS/CKD3 SCr back to baseline weakness w fall PT: STR recommended question of C2 fracture on C-spine resolved by negative MRI C-spine paroxysmal atrial fibrillation continue coumadin and adjust for INR 2-3 today HTN, acceptable control amlodipine, carvedilol HLD statin DM2 correction-dose lispro mood disorder continue olanzapine + mirtazapine VTE ppx coumadin dispo Placement, TRY ON BASTER Care discontinued 09/08 per HCP recommendations. In my clinical judgment, the patient requires continued inpatient hospitalization for behavioural management and discharge planning Quality Stroke Does the patient have a stroke diagnosis?: No VTE Prior VTE?: No VTE Risk Level:: Medical - moderate - high VTE Device Contraindication: Treatment Not Indicated VTE Drug Contraindication: N/A - Med Ordered
--- NOTE | 2024-09-11 12:50 | PM.PSYCN ---
History of Present Illness Date of Service: 09/11/24 Chief Complaint: unwitnessed fall Reason for Consult: Patient has not sleep last night, not napping during the day yesterday. Increasing agitation, grabbing and kicking staff. He currently with assistance for safety. He was given an IM of Zyprexa yesterday in the afternoon, and recently has olanzapine increased up to 5 mg twice a day. Per nurses, the IM yesterday was able to calm the patient down, however is not help him sleep. I saw the patient in his room, he is awake, just took medication this morning by 09:30 per nursing, however he is takes him a long period of time to complete taking morning schedule medications. Per sitter, he was kicking at times thinking test animal sometimes, he also occasionally grabbing air air. Is hard to understand him as he does not have the denture on, but he able to state his date of . He thinks he is at the police, and that he is in the car and need gas. Requesting physician: Eleazar Pimentel Discussed with referring provider: No Sources of Information: patient interviewed and chart reviewed Additional Sources of Information: Nurses and the [facility] Medical History CKD stage 3a, GFR 45-59 ml/min Diabetic neuropathy Insulin dependent type 2 diabetes mellitus Coronary artery disease Mixed hyperlipidemia Hypertension Atrial fibrillation Diagnostics Vital Signs (24Hr): Vital Signs - 24 hr 09/10/24 15:27 09/10/24 19:50 09/10/24 23:45 Temperature 97.3 F 98.4 F 97.6 F Pulse Rate 69 66 59 Respiratory Rate 18 20 18 Blood Pressure 161/67 H 118/60 150/63 H Pulse Oximetry 98 97 97 Oxygen Delivery Method Room Air Room Air Room Air 09/11/24 03:14 09/11/24 07:02 09/11/24 11:16 Temperature 97.6 F 97.2 F 97.0 F Pulse Rate 62 61 63 Respiratory Rate 18 17 16 Blood Pressure 139/93 H 141/63 H 137/60 Pulse Oximetry 95 99 96 Oxygen Delivery Method Room Air Room Air Room Air BMI result Body Mass Index 35.8 Labs 09/09/24 09:13 09/09/24 09:13 Labs: Laboratory Results - last 48 hr 09/09/24 09/10/24 09/10/24 21:04 07:05 11:31 Hold Purple Top PT INR POC Glucose 157 H 128 H 136 H 09/10/24 09/10/24 09/11/24 15:58 21:13 06:30 Hold Purple Top SEE NOTE PT 28.0 H INR 2.4 H POC Glucose 190 H 140 H 09/11/24 09/11/24 07:05 10:54 Hold Purple Top PT INR POC Glucose 132 H 130 H Imaging Radiology Impressions: ITS Impressions Cervical Spine CT 08/18/24 10:42 IMPRESSION: Multilevel cervical spondylosis more conspicuous at C6-7, C5-6 and to a lesser extent C3-4 level. Transverse oriented lucency at the odontoid process/base of C2. Although this could be artifactual nondisplaced type II C2 fracture cannot be excluded. Recommend MRI cervical spine. Fleischner guidelines were followed. Electronically signed by: Lorenzo Jeffrey MD 08/18/2024 12:16 PM EDT RP Head CT 08/18/24 10:42 IMPRESSION: No gross acute intracranial hemorrhage. Small vessel occlusive disease. Global cerebral atrophy. Acute on chronic right saphenous sinus disease with the questionable inspissated secretions versus superimposed fungal infection. Questionable subtle hyperdensity mid malaika. Probable artifactual.. Electronically signed by: Lorenzo Jeffrey MD 08/18/2024 12:08 PM EDT RP Shoulder X-Ray 08/18/24 10:42 IMPRESSION: Moderate degenerative change of the AC joint. Electronically signed by: Sourav Hale MD 08/18/2024 01:09 PM EDT RP Chest X-Ray 08/18/24 10:43 IMPRESSION: Clear lungs. Electronically signed by: Sourav Hale MD 08/18/2024 01:11 PM EDT RP Hip X-Ray 08/18/24 10:48 IMPRESSION: No evidence of fracture of the right hip. Electronically signed by: Sourav Hale MD 08/18/2024 01:10 PM EDT RP Abdomen/Pelvis CT 08/18/24 11:07 IMPRESSION: No evidence of traumatic injury to the abdomen or pelvis, although evaluation for solid organ injury is limited by lack of intravenous contrast material. Incidental findings as described. Electronically signed by: Sourav Hale MD 08/18/2024 11:47 AM EDT RP Cervical Spine MRI 08/19/24 11:37 IMPRESSION: 1. There is no acute fracture of the cervical spine. C2 is intact. 2. There is trace prevertebral fluid spanning C3-C7, suspect for hyperextension strain injury. No ligamentous tearing is evident. 3. There is moderate degenerative spondylosis as discussed. Electronically signed by: Rudolph Mendoza MD 08/19/2024 12:37 PM EDT RP Head CT 09/08/24 12:36 IMPRESSION: Age-indeterminate left nasal bone fracture. Nonspecific periventricular white matter hypodensities are likely related to small vessel disease. Mild to moderate frontotemporal atrophy. Opacity in the right sphenoid sinus could be related to chronic sinus disease versus posttraumatic in nature. Electronically signed by: Valerio Sorto MD 09/08/2024 01:26 PM EDT RP Chest X-Ray 09/08/24 12:40 IMPRESSION: Moderately decreased lung volumes since the prior is probably related to a Prosper and atelectasis. However, pleural effusion or obscured basilar pneumonia, especially on the left, is not ruled out. Electronically signed by: Valerio Sorto MD 09/08/2024 01:10 PM EDT RP Mental Status Exam Mental Status Exam Narrative: Appearance/Clothing: Wearing hospital attire, clean, in NAD, and appears stated age Eye Contact: Poor Posture: Lying down in bed Body Movement: Keep moving in bed, however not able to help himself, sometimes kicking the leg up to the air, and also grabbed the air. Calmly talk to the sitter Behavior:Cooperative Speech: Is hard to understand him without the denture on Affect: consricte, eyes closed at times Thought content: Kicking to the reporting that he see animals. Some level of this visual disturbances Thought Process: Disorganized Orientation: Oriented x2 Memory: Poor Insight: Poor Judgment: Poor Medications Medications Current Medications Acetaminophen (Acetaminophen 325 Mg Tablet) 650 mg PO Q4H PRN PRN Reason: Fever >/= 100, Pain, mild 1-3 Last Admin: 09/10/24 20:00 Dose: 650 mg Amlodipine Besylate (Amlodipine Besylate 5 Mg Tablet) 5 mg PO DAILY [facility]; Protocol Last Admin: 09/11/24 09:19 Dose: 5 mg Atorvastatin Calcium (Atorvastatin Calcium 10 Mg Tablet) 10 mg PO BEDTIME [facility] Last Admin: 09/10/24 20:01 Dose: 10 mg Docusate Sodium (Docusate Sodium 100 Mg Capsule) 100 mg PO BEDTIME [facility] Last Admin: 09/10/24 20:01 Dose: 100 mg Dorzolamide HCl (Dorzolamide Hcl 2 % Ophth Alexus 10 Ml Drpbtl) 1 drop EYE-BOTH BID [facility] Last Admin: 09/11/24 09:20 Dose: Not Given Famotidine (Famotidine 20 Mg Tablet) 20 mg PO BID [facility] Last Admin: 09/11/24 09:18 Dose: 20 mg Finasteride (Finasteride 5 Mg Tablet) 5 mg PO DAILY [facility] Last Admin: 09/11/24 09:19 Dose: 5 mg Ampicillin Sodium/Sulbactam (Sodium 3 gm/ Sodium Chloride) 100 mls @ 200 mls/hr IV Q6H [facility] Last Infusion: 09/11/24 09:30 Dose: Infused Insulin Human Lispro (Insulin Lispro 100 Unit/Ml 3 Ml Vial) 0 unit SUBCUT QIDACHS [facility]; Protocol Last Admin: 09/11/24 11:04 Dose: Not Given Mirtazapine (Mirtazapine 7.5 Mg Tablet) 7.5 mg PO BEDTIME [facility] Last Admin: 09/10/24 20:00 Dose: 7.5 mg Olanzapine (Olanzapine 5 Mg Tablet) 5 mg PO BID [facility] Last Admin: 09/11/24 09:18 Dose: 5 mg Olanzapine (Olanzapine 5 Mg Tablet) 5 mg PO BID PRN PRN Reason: agitation Omeprazole (Omeprazole 20 Mg Capsule.Dr) 20 mg PO DAILY@0630 [facility] Last Admin: 09/11/24 06:46 Dose: Not Given Timolol Maleate (Timolol Maleate 0.5 % Oph Alexus 5 Ml Drbtl) 1 drop EYE-BOTH BID [facility] Last Admin: 09/11/24 09:20 Dose: Not Given Warfarin Sodium (Warfarin Sodium 2.5 Mg Tablet) 2.5 mg PO DAILY@1800 [facility] Last Admin: 09/10/24 17:35 Dose: 2.5 mg Allergies Allergies Allergy/AdvReac Type Severity Reaction Status Date / Time quetiapine [From Seroquel] Allergy Unknown Verified 08/18/24 10:47 quinapril Allergy Unknown Verified 08/18/24 10:47 trazodone Allergy Unknown Verified 08/18/24 10:47 Assessment & Plan Assessment & Plan (1) Agitation: Status: Acute Code(s): R45.1 - Restlessness and agitation Plan Plan Mr. Weeks is an 88 year-old male with hx of dementia. He came to the hospital after a fall. He appeared very confused initially. He was seen by Linda-[facility]DOCTOR[facility] SCIENTIST on 08/21 and 08/28 when pt presents without signs of delirium, but it is noticeable that he does have underlying neurocognitive impairments. He apparently became more combative since day prior attempting to hit staff. He was given Zyprexa 5 mg IM yesterday on September 10. Which was able to calm patient. Psych consult placed regarding agitation, I prescribed Zyprexa 5 mg twice a day PRN in additional to Zyprexa b.i.d. schedule on reorder before. Nurses report the patient was not sleeping last night or did not eat well. He Is alert and awake, oriented x2, but not knowing where he is. Think he is at the police and that he is in the car. A couple of times he tried to grab in the air or hitting slightly hitting staff, but redirectable. He is able to answer the questions when the sitter who familiar with him help this provider to translate for him and he has does not have the denture on is hard to understand him. Zyprexa 5mg p.r.n. twice a day as needed for agitation. Continue with Zyprexa 5 mg twice a day schedule. Continue to monitor for insomnia as he not sleeping well last night. Continue with food monitor as he is not eating well as well this morning. Nursing to report any change in his behavior and to report extra Zyprexa at helpful and report any sedation Total time managing care of this patient today ____ minutes. Informed Consent: further education needed
--- NOTE | 2024-09-11 13:42 | MHC.CLN ---
F/U DIET=DIABETIC 2000 KCAL, GROUND CONSISTENCY. SUPPLEMENT ENSURE TID PROVIDES 1050 KCALS, 60 G PROTEIN. CONTINUES WITH USUALLY POOR PO INTAKE. WILL CHANGE DM 2000 KCALS TO REGULAR TO PROMOTE PO INTAKE. FOLLOW FOR INTAKE AND PLAN OF CARE.
[2024-09-11 15:45] VITALS: BP 166/70; PULSE 65; RESP 18; TEMP 36.4; O2SAT 99
[2024-09-11 16:01] LABS: Glucose, Whole Blood 122 mg/dL (60-115)
[2024-09-11 20:24] VITALS: BP 105/59; RESP 18; TEMP 36.4; O2SAT 100
[2024-09-11 20:51] LABS: Glucose, Whole Blood 151 mg/dL (60-115)
[2024-09-12] VITALS (8 sets, daily range): BP systolic 124–134; BP diastolic 57–82; PULSE 52–69; RESP 14–18; TEMP 33–36.7; O2SAT 97–100
[2024-09-12 07:28] LABS: Glucose, Whole Blood 120 mg/dL (60-115)
--- NOTE | 2024-09-12 09:43 | MHC.CM.PN ---
PER HOSPITALIST PT MEDICALLY CLEARED AND PLAN FOR CARE TEAM CONSULT FOR POSSIBLE GERIPSYCH IPLOC, CM WILL CONT TO FOLLOW.
--- NOTE | 2024-09-12 09:59 | PC.NURSE ---
This RN went into patients room to medicate patient, patient found to be more lethargic than day prior. Patient allowing staff too take vitals without issue which is unusual for patient, patient is typically very combative and fights staff when trying to care for patient. Temp. found to be low when taking temporally & orally Temp taken rectally coming back at 91.4. MD notified and patient placed back on the lisa hugger. Decreased respirations with periods of apnea and decreased pulse. Patient laying comfortably in bed all other needs met at this time.
--- NOTE | 2024-09-12 10:38 | MHC.CARE ---
T/W attempted to assess Pt however he was unresponsive, and could not awaken or engage in the assessment. Per nursing at baseline Reji is extremely agitated, aggressive, and assaultive. She stated his presentation at this time was concerning and far from baseline so she was contacting the physician. T/W spoke with Pt's invoked HCP and son who do not want Pt placed on a psychiatric unit as they do not see the benefit and want Pt to continue to be monitored and treated for his behaviors on the medical floor until a fdc placement can be secured. After reading all nursing, hospitalist and case management notes Pt does not meet criteria for a [facility] psych admission as his agitation and aggressive behaviors are related to his dementia DX and an inpatient psychiatric admission is not going to be beneficial. The recommendation of the CARE team is that Pt should continue to be followed by psychiatry for medication management on the medical floor and continue to be followed by case management for placement. Pt is cleared by the CARE team.
[2024-09-12 11:20] LABS: Glucose, Whole Blood 119 mg/dL (60-115)
--- NOTE | 2024-09-12 13:49 | HO.PM.IMPN ---
Subjective Subjective Date of Service: 09/12/24 Interval History: Seen and evaluated this morning laying comfortable , more altered Hypothermic with mild sinus bradycardia refusing care overnight Review of Systems Review of Systems: Yes Unobtainable due to mental status Physical Exam Vital Signs: Vital Signs: Last Vital Signs Temp 93.2 F L 09/12/24 12:32 Pulse 52 09/12/24 09:51 Resp 14 09/12/24 09:51 BP 124/57 L 09/12/24 09:51 Pulse Ox 100 09/12/24 09:51 O2 Del Method Room Air 09/12/24 09:51 O2 Flow Rate 96 08/27/24 03:21 BMI result Body Mass Index 35.8 Const: Other: Constitutional : altered, sleeping, not in distress Cardiovascular : no JVP, no lower extremity edema Respiratory : bilateral chest movement, not in resp distress Gastrointestinal: soft, lax, Non tender Skin : Warm, Dry Neurological :altered, difficult to arouse, No focal deficit Objective Data Active Medications Acetaminophen (Acetaminophen 325 Mg Tablet) 650 mg PO Q4H PRN PRN Reason: Fever >/= 100, Pain, mild 1-3 Last Admin: 09/10/24 20:00 Dose: 650 mg Documented By: ROB Amlodipine Besylate (Amlodipine Besylate 5 Mg Tablet) 5 mg PO DAILY [facility]; Protocol Last Admin: 09/12/24 09:58 Dose: Not Given Documented By: DUSTIN Non-Admin Reason: patient too lethargic Atorvastatin Calcium (Atorvastatin Calcium 10 Mg Tablet) 10 mg PO BEDTIME [facility] Last Admin: 09/11/24 21:44 Dose: 10 mg Documented By: KHLOEZESean Docusate Sodium (Docusate Sodium 100 Mg Capsule) 100 mg PO BEDTIME [facility] Last Admin: 09/11/24 21:44 Dose: 100 mg Documented By: GOMEZ Dorzolamide HCl (Dorzolamide Hcl 2 % Ophth Alexus 10 Ml Drpbtl) 1 drop EYE-BOTH BID [facility] Last Admin: 09/12/24 09:47 Dose: Not Given Documented By: DUSTIN Non-Admin Reason: Patient Refused Famotidine (Famotidine 20 Mg Tablet) 20 mg PO BID [facility] Last Admin: 09/12/24 09:58 Dose: Not Given Documented By: DUSTIN Non-Admin Reason: patient too lethargic Finasteride (Finasteride 5 Mg Tablet) 5 mg PO DAILY [facility] Last Admin: 09/12/24 09:58 Dose: Not Given Documented By: DUSTIN Non-Admin Reason: patient too lethargic Haloperidol Lactate (Haloperidol Lactate 5 Mg/Ml Vial) 2 mg IM ONCE PRN PRN Reason: anxiety/restlessness Insulin Human Lispro (Insulin Lispro 100 Unit/Ml 3 Ml Vial) [facility] Protocol Last Admin: 09/12/24 11:23 Dose: Not Given Documented By: DUSTIN Non-Admin Reason: No Insulin Coverage Mirtazapine (Mirtazapine 7.5 Mg Tablet) 7.5 mg PO BEDTIME [facility] Last Admin: 09/11/24 21:45 Dose: 7.5 mg Documented By: GOMEZ Olanzapine (Olanzapine 5 Mg Tablet) 5 mg PO BID [facility] Last Admin: 09/12/24 09:58 Dose: Not Given Documented By: DUSTIN Non-Admin Reason: patient too lethargic Omeprazole (Omeprazole 20 Mg Capsule.Dr) 20 mg PO DAILY@0630 [facility] Last Admin: 09/12/24 05:39 Dose: Not Given Documented By: GOMEZ Non-Admin Reason: Patient Refused Timolol Maleate (Timolol Maleate 0.5 % Oph Alexus 5 Ml Drbtl) 1 drop EYE-BOTH BID [facility] Last Admin: 09/12/24 09:48 Dose: Not Given Documented By: DUSTIN Non-Admin Reason: Patient Refused Warfarin Sodium (Warfarin Sodium 2.5 Mg Tablet) 2.5 mg PO DAILY@1800 [facility] Last Admin: 09/11/24 17:37 Dose: 2.5 mg Documented By: MOHSENNLYM Labs 09/09/24 09:13 09/09/24 09:13 Labs: Laboratory Results - last 24 hr 09/11/24 09/11/24 09/12/24 15:58 20:44 07:11 POC Glucose 122 H 151 H 120 H 09/12/24 11:14 POC Glucose 119 H Microbiology Microbiology Results: Microbiology 09/07/24 10:30 Blood Culture - Final Blood - Venous No growth after 5 days. 09/07/24 10:30 Blood Culture - Final Blood - Venous No growth after 5 days. 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, admitted for acute encephalopathy due to UTI hospital course complicated by hypothermia and bradycardia with changes to goals of care on 09/07. 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 BE[facility]IOR Hypothermia complicated with sinuse bradycardia, resolved second episode today; not shivering; likely related to medications (Zyprexa) or infection warm blankets as needed, bear hugger Hold Zyprexa recent head CT Negative for acute findings DC Carvedilol, use Amlodipine instead Dcd Unasyn as negative final blood cultures Cardiology input appreciated, DC Carvedilol recheck urine analysis acute metabolic encephalopathy 2/2 dementia with behavioral disturbance hold olanzapine dc PRN Olanzapine Im Haldol if needed Mirtazapine night time Psychiatry following to decide next option UTI completed amoxicillin 08/23-08/28 for Enterococcus faecalis acute urinary retention continue tamsulosin + finasteride, PRN straight cath prerenal SANTOS/CKD3 SCr back to baseline weakness w fall PT: STR recommended question of C2 fracture on C-spine resolved by negative MRI C-spine paroxysmal atrial fibrillation continue coumadin and adjust for INR 2-3 today HTN, acceptable control amlodipine, carvedilol HLD statin DM2 correction-dose lispro mood disorder continue olanzapine + mirtazapine VTE ppx coumadin dispo Placement, [facility]NA[facility] Care discontinued 09/08 per HCP recommendations. In my clinical judgment, the patient requires continued inpatient hospitalization for behavioural management and discharge planning Quality Stroke Does the patient have a stroke diagnosis?: No VTE Prior VTE?: No VTE Risk Level:: Medical - moderate - high VTE Device Contraindication: Treatment Not Indicated VTE Drug Contraindication: N/A - Med Ordered
[2024-09-12 16:01] LABS: Glucose, Whole Blood 106 mg/dL (60-115)
--- NOTE | 2024-09-12 17:12 | P.CNPS_ITS ---
History of Present Illness Date of Service: [id number] Chief Complaint: unwitnessed fall Reason for Consult: Hypothermia second presentation after uti- but also on olanzapine which could be cause of hypothermia- However patient also agitated when not on med for psychosis/agitation Requesting physician: Margarito Mahajan Discussed with referring provider: Yes Sources of Information: patient interviewed (pt seen sedated) and chart reviewed HPI Narrative: 88 yo with hx of dementia with behavioral disturbance - for 2nd time with uti and hypothermia- but has been on abiotoic for 5 days and still hypothermic ? of olanzapine as source Discussed with provider and he has held olanzapine- which is not necessary other than behavioral management- he is not someone with hx of schizophrenia looking back to 2019 patient was on no antipsychotic and just low dose mirtaapine at that time Past Psychiatric History: none just since dementia Medical Evaluation Reviewed: Yes [facility] Medical History CKD stage 3a, GFR 45-59 ml/min Diabetic neuropathy Insulin dependent type 2 diabetes mellitus Coronary artery disease Mixed hyperlipidemia Hypertension Atrial fibrillation Family History: NA Social History: son hcp has been invoked, they don't want him on psychiatric unit Substance History: na Diagnostics Vital Signs (24Hr): Vital Signs - 24 hr 09/11/24 20:24 09/12/24 07:32 09/12/24 09:51 Temperature 97.5 F 97.4 F 91.4 F L Pulse Rate 52 Respiratory Rate 18 17 14 Blood Pressure 105/59 L 124/57 L Pulse Oximetry 100 100 Oxygen Delivery Method Room Air Room Air 09/12/24 12:32 09/12/24 16:00 09/12/24 17:08 Temperature 93.2 F L 97.3 F 97.3 F Pulse Rate 59 Respiratory Rate 18 Blood Pressure 131/58 L Pulse Oximetry 97 Oxygen Delivery Method Room Air BMI result Body Mass Index 35.8 Labs 09/09/24 09:13 09/09/24 09:13 Labs: Laboratory Results - last 48 hr 09/10/24 09/11/24 09/11/24 21:13 06:30 07:05 Hold Purple Top SEE NOTE PT 28.0 H INR 2.4 H POC Glucose 140 H 132 H 09/11/24 09/11/24 09/11/24 10:54 15:58 20:44 Hold Purple Top PT INR POC Glucose 130 H 122 H 151 H 09/12/24 09/12/24 09/12/24 07:11 11:14 15:52 Hold Purple Top PT INR POC Glucose 120 H 119 H 106 Imaging Radiology Impressions: ITS Impressions Cervical Spine CT 08/18/24 10:42 IMPRESSION: Multilevel cervical spondylosis more conspicuous at C6-7, C5-6 and to a lesser extent C3-4 level. Transverse oriented lucency at the odontoid process/base of C2. Although this could be artifactual nondisplaced type II C2 fracture cannot be excluded. Recommend MRI cervical spine. Fleischner guidelines were followed. Electronically signed by: Lorenzo Jeffrey MD 08/18/2024 12:16 PM EDT RP Head CT 08/18/24 10:42 IMPRESSION: No gross acute intracranial hemorrhage. Small vessel occlusive disease. Global cerebral atrophy. Acute on chronic right saphenous sinus disease with the questionable inspissated secretions versus superimposed fungal infection. Questionable subtle hyperdensity mid [place]. Probable artifactual.. Electronically signed by: Loernzo Jeffrey MD 08/18/2024 12:08 PM EDT RP Shoulder X-Ray 08/18/24 10:42 IMPRESSION: Moderate degenerative change of the AC joint. Electronically signed by: Sourav Hale MD 08/18/2024 01:09 PM EDT RP Chest X-Ray 08/18/24 10:43 IMPRESSION: Clear lungs. Electronically signed by: Sourav Hale MD 08/18/2024 01:11 PM EDT RP Hip X-Ray 08/18/24 10:48 IMPRESSION: No evidence of fracture of the right hip. Electronically signed by: Sourav Hale MD 08/18/2024 01:10 PM EDT RP Abdomen/Pelvis CT 08/18/24 11:07 IMPRESSION: No evidence of traumatic injury to the abdomen or pelvis, although evaluation for solid organ injury is limited by lack of intravenous contrast material. Incidental findings as described. Electronically signed by: Sourav Hale MD 08/18/2024 11:47 AM EDT RP Cervical Spine MRI 08/19/24 11:37 IMPRESSION: 1. There is no acute fracture of the cervical spine. C2 is intact. 2. There is trace prevertebral fluid spanning C3-C7, suspect for hyperextension strain injury. No ligamentous tearing is evident. 3. There is moderate degenerative spondylosis as discussed. Electronically signed by: Rudolph Mendoza MD 08/19/2024 12:37 PM EDT RP Head CT 09/08/24 12:36 IMPRESSION: Age-indeterminate left nasal bone fracture. Nonspecific periventricular white matter hypodensities are likely related to small vessel disease. Mild to moderate frontotemporal atrophy. Opacity in the right sphenoid sinus could be related to chronic sinus disease versus posttraumatic in nature. Electronically signed by: Valerio Sorto MD 09/08/2024 01:26 PM EDT RP Chest X-Ray 09/08/24 12:40 IMPRESSION: Moderately decreased lung volumes since the prior is probably related to a [place] and atelectasis. However, pleural effusion or obscured basilar pneumonia, especially on the left, is not ruled out. Electronically signed by: Valerio Sorto MD 09/08/2024 01:10 PM EDT RP Mental Status Exam Mental Status Exam Narrative: patient sedated and sleeping reported by provider when awake agitated Medications Medications Current Medications Acetaminophen (Acetaminophen 325 Mg Tablet) 650 mg PO Q4H PRN PRN Reason: Fever >/= 100, Pain, mild 1-3 Last Admin: 09/10/24 20:00 Dose: 650 mg Amlodipine Besylate (Amlodipine Besylate 5 Mg Tablet) 5 mg PO DAILY [facility]; Protocol Last Admin: 09/12/24 09:58 Dose: Not Given Atorvastatin Calcium (Atorvastatin Calcium 10 Mg Tablet) 10 mg PO BEDTIME [facility] Last Admin: 09/11/24 21:44 Dose: 10 mg Docusate Sodium (Docusate Sodium 100 Mg Capsule) 100 mg PO BEDTIME [facility] Last Admin: 09/11/24 21:44 Dose: 100 mg Dorzolamide HCl (Dorzolamide Hcl 2 % Ophth Alexus 10 Ml Drpbtl) 1 drop EYE-BOTH BID [facility] Last Admin: 09/12/24 09:47 Dose: Not Given Famotidine (Famotidine 20 Mg Tablet) 20 mg PO BID [facility] Last Admin: 09/12/24 09:58 Dose: Not Given Finasteride (Finasteride 5 Mg Tablet) 5 mg PO DAILY [facility] Last Admin: 09/12/24 09:58 Dose: Not Given Haloperidol Lactate (Haloperidol Lactate 5 Mg/Ml Vial) 2 mg IM ONCE PRN PRN Reason: anxiety/restlessness Insulin Human Lispro (Insulin Lispro 100 Unit/Ml 3 Ml Vial) 0 unit SUBCUT QIDACHS [facility]; Protocol Last Admin: 09/12/24 16:59 Dose: Not Given Mirtazapine (Mirtazapine 7.5 Mg Tablet) 7.5 mg PO BEDTIME [facility] Last Admin: 09/11/24 21:45 Dose: 7.5 mg Olanzapine (Olanzapine 5 Mg Tablet) 5 mg PO BID [facility] Last Admin: 09/12/24 09:58 Dose: Not Given Omeprazole (Omeprazole 20 Mg Capsule.Dr) 20 mg PO DAILY@0630 [facility] Last Admin: 09/12/24 05:39 Dose: Not Given Timolol Maleate (Timolol Maleate 0.5 % Oph Alexus 5 Ml Drbtl) 1 drop EYE-BOTH BID [facility] Last Admin: 09/12/24 09:48 Dose: Not Given Warfarin Sodium (Warfarin Sodium 2.5 Mg Tablet) 2.5 mg PO DAILY@1800 [facility] Last Admin: 09/12/24 17:00 Dose: Not Given Allergies Allergies Allergy/AdvReac Type Severity Reaction Status Date / Time quetiapine [From Seroquel] Allergy Unknown Verified 08/18/24 10:47 quinapril Allergy Unknown Verified 08/18/24 10:47 trazodone Allergy Unknown Verified 08/18/24 10:47 Assessment & Plan Assessment & Plan (1) Major neurocognitive disorder: Status: Acute Code(s): F03.90 - Unspecified dementia, unspecified severity, without behavioral disturbance, psychotic disturbance, mood disturbance, and anxiety Assessment and Plan: alternatives to antipsychotics in treating behavioral disturbance in dementia When non-pharmacological management is exhausted, pharmacotherapy is often used. There are two challenges in pharmacological management of BD in dementia patients. First, there are no FDA approved medications to treat BD in patients with dementia. In clinical practice, various psychotropic medications such as antipsychotics, antidepressants, anxiolytics, and anticonvulsants have been suggested, although none of them is consistently effective [4 https://pmc.ncbi.nlm.nih.gov/articles/DXS8130891/#nth885 ].? donepezil and memantine if they haven't already been tried should be considered (2) Delirium: Status: Acute Code(s): R41.0 - Disorientation, unspecified Assessment and Plan: might be due to uti, severity of dementia - (3) Hypothermia: Status: Acute Code(s): T68.XXXA - Hypothermia, initial encounter Assessment and Plan: hold olanzapine for ? of this being causative though haldol could do as well - but worth trying IF FTD type of dementia then haldol should be avoided and could worsen agitation- Might consider rexulti 0.5mg bid as alternative but not sure this would be different than olanzapine- here is artical from 2017 provider found on hypothermia and [employer] https://pmc.ncbi.nlm.nih.gov/articles/ZMC0243476/ Plan hold olanzapine if haldol 2mg worsens or doens't help hold that as well - may need to try anticonvulsants for calming- as benzo or antihistamines can also worsen. underlying conditions Total time managing care of this patient today _30_ minutes.
[2024-09-12 18:42] LABS: Appearance Urine Clear; Glucose Urine UA Negative (Negative); PH 6.0 (5.0-9.0); Specific Gravity - Urine 1.020 (1.005-1.025)
[2024-09-12 20:36] LABS: Glucose, Whole Blood 102 mg/dL (60-115)
[2024-09-13 00:04] LABS: INTERNATIONAL NORM RATIO 3.1 (0.9-1.1); Prothrombin Time 35.8 SEC (10.9-12.4)
[2024-09-13 02:00] VITALS: TEMP 36.6
[2024-09-13 03:57] VITALS: BP 115/58; PULSE 64; RESP 18; O2SAT 95
[2024-09-13 06:58] LABS: INTERNATIONAL NORM RATIO 3.6 (0.9-1.1); Prothrombin Time 41.7 SEC (10.9-12.4)
[2024-09-13 07:04] LABS: Glucose, Whole Blood 85 mg/dL (60-115)
[2024-09-13 08:00] VITALS: BP 116/62; PULSE 73; RESP 17; TEMP 36.5; O2SAT 96
[2024-09-13 12:04] LABS: Glucose, Whole Blood 90 mg/dL (60-115)
--- NOTE | 2024-09-13 12:28 | P.PNIM_ITS ---
Subjective Subjective Date of Service: 09/13/24 Interval History: Seen and evaluated this morning laying comfortable , altered and responsive to physical stimuli Hypothermia resolved refusing care and food this morning Review of Systems Review of Systems: Yes Unobtainable due to mental status Physical Exam 2 Vital Signs: Vital Signs: Last Vital Signs Temp 97.7 F 09/13/24 08:00 Pulse 73 09/13/24 08:00 Resp 17 09/13/24 08:00 BP 116/62 09/13/24 08:00 Pulse Ox 96 09/13/24 08:00 O2 Del Method Room Air 09/13/24 08:00 O2 Flow Rate 96 08/27/24 03:21 BMI result Body Mass Index 35.8 Const: Other: Constitutional : altered, sleeping, not in distress Cardiovascular : no JVP, no lower extremity edema Respiratory : bilateral chest movement, not in resp distress Gastrointestinal: soft, lax, Non tender Skin : Warm, Dry Neurological :altered, difficult to arouse, No focal deficit Objective Data Active Medications Acetaminophen (Acetaminophen 325 Mg Tablet) 650 mg PO Q4H PRN PRN Reason: Fever >/= 100, Pain, mild 1-3 Last Admin: 09/10/24 20:00 Dose: 650 mg Documented By: ROB Amlodipine Besylate (Amlodipine Besylate 5 Mg Tablet) 5 mg PO DAILY [facility]; Protocol Last Admin: 09/13/24 07:54 Dose: Not Given Documented By: DUSTIN Non-Admin Reason: patient too lethargic Atorvastatin Calcium (Atorvastatin Calcium 10 Mg Tablet) 10 mg PO BEDTIME [facility] Last Admin: 09/12/24 23:23 Dose: Not Given Documented By: EVARISTO Non-Admin Reason: lethargy Docusate Sodium (Docusate Sodium 100 Mg Capsule) 100 mg PO BEDTIME [facility] Last Admin: 09/12/24 23:23 Dose: Not Given Documented By: EVARISTO Non-Admin Reason: lethargy Dorzolamide HCl (Dorzolamide Hcl 2 % Ophth Alexus 10 Ml Drpbtl) 1 drop EYE-BOTH BID [facility] Last Admin: 09/13/24 07:46 Dose: Not Given Documented By: DUSTIN Non-Admin Reason: Patient Refused Famotidine (Famotidine 20 Mg Tablet) 20 mg PO BID [facility] Last Admin: 09/13/24 07:53 Dose: Not Given Documented By: DUSTIN Non-Admin Reason: patient too lethargic Finasteride (Finasteride 5 Mg Tablet) 5 mg PO DAILY [facility] Last Admin: 09/13/24 07:53 Dose: Not Given Documented By: DUSTIN Non-Admin Reason: patient too lethargic Haloperidol Lactate (Haloperidol Lactate 5 Mg/Ml Vial) 2 mg IM ONCE PRN PRN Reason: anxiety/restlessness Insulin Human Lispro (Insulin Lispro 100 Unit/Ml 3 Ml Vial) 0 unit SUBCUT QIDACHS [facility]; Protocol Last Admin: 09/13/24 12:20 Dose: Not Given Documented By: DUSTIN Non-Admin Reason: No Insulin Coverage Mirtazapine (Mirtazapine 7.5 Mg Tablet) 7.5 mg PO BEDTIME [facility] Last Admin: 09/12/24 23:24 Dose: Not Given Documented By: EVARISTO Non-Admin Reason: lethargy Olanzapine (Olanzapine 5 Mg Tablet) 5 mg PO BID [facility] Last Admin: 09/12/24 09:58 Dose: Not Given Documented By: DUSTIN Non-Admin Reason: patient too lethargic Omeprazole (Omeprazole 20 Mg Capsule.Dr) 20 mg PO DAILY@0630 [facility] Last Admin: 09/13/24 04:50 Dose: Not Given Documented By: EVARISTO Non-Admin Reason: lethargy Timolol Maleate (Timolol Maleate 0.5 % Oph Alexus 5 Ml Drbtl) 1 drop EYE-BOTH BID [facility] Last Admin: 09/13/24 07:46 Dose: Not Given Documented By: DUSTIN Non-Admin Reason: Patient Refused Warfarin Sodium (Warfarin Sodium 2.5 Mg Tablet) 2.5 mg PO DAILY@1800 [facility] Last Admin: 09/12/24 17:00 Dose: Not Given Documented By: DUSTIN Non-Admin Reason: patient too lethargic to take meds Labs 09/09/24 09:13 09/09/24 09:13 Labs: Laboratory Results - last 24 hr 09/12/24 09/12/24 09/12/24 15:52 18:29 20:32 PT INR POC Glucose 106 102 Urine Color Yellow Urine Appearance Clear Urine pH 6.0 Ur Specific [place] 1.020 Urine Protein Trace Urine Glucose (UA) Negative Urine Ketones Trace Urine Blood Negative Urine Nitrite Negative Ur Leukocyte Esterase Negative 09/12/24 09/13/24 09/13/24 23:41 06:35 06:55 PT 35.8 H D 41.7 H INR 3.1 H 3.6 H POC Glucose 85 Urine Color Urine Appearance Urine pH Ur Specific [place] Urine Protein Urine Glucose (UA) Urine Ketones Urine Blood Urine Nitrite Ur Leukocyte Esterase 09/13/24 11:55 PT INR POC Glucose 90 Urine Color Urine Appearance Urine pH Ur Specific [place] Urine Protein Urine Glucose (UA) Urine Ketones Urine Blood Urine Nitrite Ur Leukocyte Esterase Microbiology Microbiology Results: Microbiology 09/07/24 10:30 Blood Culture - Final Blood - Venous No growth after 5 days. 09/07/24 10:30 Blood Culture - Final Blood - Venous No growth after 5 days. 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 [employer] Hypothermia complicated with sinuse bradycardia, resolved second episode 09/12; not shivering; likely related to medications (Zyprexa) or infection warm blankets as needed, bear hugger Hold Zyprexa recent head CT Negative for acute findings DC Carvedilol, use Amlodipine instead Dcd Unasyn as negative final blood cultures Cardiology input appreciated, DC Carvedilol urine analysis negative Psychiatry following up for medicaitons adjustment PRN Haldol as of now as needed acute metabolic encephalopathy 2/2 dementia with behavioral disturbance hold olanzapine dc PRN Olanzapine Im Haldol if needed Mirtazapine night time Psychiatry following to decide next option UTI completed amoxicillin 08/23-08/28 for Enterococcus faecalis acute urinary retention continue tamsulosin + finasteride, PRN straight cath prerenal SANTOS/CKD3 SCr back to baseline weakness w fall PT: STR recommended question of C2 fracture on C-spine resolved by negative MRI C-spine paroxysmal atrial fibrillation continue coumadin and adjust for INR 2-3 today to hold for high INR HTN, acceptable control amlodipine, carvedilol HLD statin DM2 correction-dose lispro mood disorder continue olanzapine + mirtazapine VTE ppx coumadin dispo Placement, [employer] Care discontinued 09/08 per HCP recommendations. In my clinical judgment, the patient requires continued inpatient hospitalization for behavioural management and discharge planning Quality Stroke Does the patient have a stroke diagnosis?: No VTE Prior VTE?: No VTE Risk Level:: Medical - moderate - high VTE Device Contraindication: Treatment Not Indicated VTE Drug Contraindication: N/A - Med Ordered
[2024-09-13 15:55] LABS: Glucose, Whole Blood 83 mg/dL (60-115)
[2024-09-13 16:00] VITALS: BP 135/59; PULSE 65; RESP 17; TEMP 36.7; O2SAT 98
[2024-09-13 19:45] VITALS: BP 141/65; PULSE 63; RESP 18; TEMP 36.6; O2SAT 97
[2024-09-13 20:28] LABS: Glucose, Whole Blood 132 mg/dL (60-115)
[2024-09-14] VITALS: TEMP 36.3
[2024-09-14 06:46] LABS: MANUAL DIFF FLAG NO
[2024-09-14 06:58] LABS: Hematocrit 29.7 % (42.0-52.0); Hemoglobin 10.4 g/dl (14.0-18.0); Imm Gran Abs Auto 0.02 X10*3/uL (0.00-0.03); Imm Gran Pct Auto 0.5 % (0.0-0.4); Lymphocytes Absolute Auto 1.3 X10*3/uL (1.2-4.9); Mean Corpuscular HGB Conc 35.0 g/dl (31.0-36.0); Mean Corpuscular Hemoglobin 34.4 pg (27.0-33.0); Mean Corpuscular Volume 98.3 fL (80.0-98.0); NRBC Abs Auto 0.000 X10*3/uL (0.0-0.012); NRBC Pct Auto 0.0 /100WBC (0.0-0.2); Platelet Count 111 X10*3/uL (160-400); Red Blood Count 3.02 X10*6/uL (4.60-5.80); White Blood Count 3.7 X10*3/uL (4.8-10.8)
[2024-09-14 07:03] LABS: Anion Gap 9 (12-20); Blood Urea Nitrogen 19 mg/dL (9-16); Calcium 8.6 mg/dL (8.4-10.2); Carbon Dioxide 26 mmol/L (22-29); Chloride 113 mmol/L (96-108); Creatinine Clr Calc Pharmacy 55.5; Estimated Glomerular Filt Rate 58; Potassium 3.9 mmol/L (3.3-5.1); Sodium 144 mmol/L (135-145)
[2024-09-14 07:06] LABS: INTERNATIONAL NORM RATIO 3.2 (0.9-1.1); Prothrombin Time 36.4 SEC (10.9-12.4)
[2024-09-14 07:47] LABS: Glucose, Whole Blood 163 mg/dL (60-115)
[2024-09-14 07:49] VITALS: BP 149/64; PULSE 59; RESP 17; TEMP 36.2; O2SAT 97
--- NOTE | 2024-09-14 11:08 | MHC.CM.PN ---
Plan/goal is for CM to find LTC placement for Patient. Psych is involved with med changes with the goal of improved behaviors. CM will continue to follow.
[2024-09-14 11:36] LABS: Glucose, Whole Blood 111 mg/dL (60-115)
--- NOTE | 2024-09-14 12:44 | MHC.CM.PN ---
Addendum entered by Nora Cool 09/14/24 12:54: Current SNF referrals have been updated and multiple new referrals have been made. CM will follow. Original Note: A referral has been faxed to [facility] @ [phone]; CM has asked if they are not able to accept Patient, if they are aware of any facilities that may be able to meet Patient's needs. CM will follow.
--- NOTE | 2024-09-14 12:58 | P.PNIM_ITS ---
Subjective Subjective Date of Service: 09/14/24 Interval History: Seen and evaluated this morning laying comfortable , more alert and interactive Hypothermia resolved tolerating diet Review of Systems Review of Systems: Yes all other systems are reviewed and are negative Physical Exam 2 Vital Signs: Vital Signs: Last Vital Signs Temp 97.2 F 09/14/24 07:49 Pulse 59 09/14/24 07:49 Resp 17 09/14/24 07:49 BP 149/64 H 09/14/24 07:49 Pulse Ox 97 09/14/24 07:49 O2 Del Method Room Air 09/14/24 07:49 O2 Flow Rate 96 08/27/24 03:21 BMI result Body Mass Index 35.8 Const: Other: Constitutional : alert with stimulation, not in distress Cardiovascular : no JVP, no lower extremity edema Respiratory : bilateral chest movement, not in resp distress Gastrointestinal: soft, lax, Non tender Skin : Warm, Dry Neurological :alert, interactive, oriented to self and place, No focal deficit Objective Data Active Medications Acetaminophen (Acetaminophen 325 Mg Tablet) 650 mg PO Q4H PRN PRN Reason: Fever >/= 100, Pain, mild 1-3 Last Admin: 09/10/24 20:00 Dose: 650 mg Documented By: ROB Amlodipine Besylate (Amlodipine Besylate 5 Mg Tablet) 5 mg PO DAILY [facility]; Protocol Last Admin: 09/14/24 08:16 Dose: 5 mg Documented By: MIKE Atorvastatin Calcium (Atorvastatin Calcium 10 Mg Tablet) 10 mg PO BEDTIME [facility] Last Admin: 09/13/24 22:39 Dose: 10 mg Documented By: EVARISTO Docusate Sodium (Docusate Sodium 100 Mg Capsule) 100 mg PO BEDTIME [facility] Last Admin: 09/13/24 22:40 Dose: 100 mg Documented By: EVARISTO Dorzolamide HCl (Dorzolamide Hcl 2 % Ophth Alexus 10 Ml Drpbtl) 1 drop EYE-BOTH BID [facility] Last Admin: 09/13/24 22:40 Dose: Not Given Documented By: EVARISTO Non-Admin Reason: Patient Refused Famotidine (Famotidine 20 Mg Tablet) 20 mg PO BID [facility] Last Admin: 09/14/24 08:00 Dose: 20 mg Documented By: MIKE Finasteride (Finasteride 5 Mg Tablet) 5 mg PO DAILY [facility] Last Admin: 09/14/24 08:16 Dose: 5 mg Documented By: MIKE Haloperidol Lactate (Haloperidol Lactate 5 Mg/Ml Vial) 2 mg IM ONCE PRN PRN Reason: anxiety/restlessness Insulin Human Lispro (Insulin Lispro 100 Unit/Ml 3 Ml Vial) 0 unit SUBCUT QIDACHS [facility]; Protocol Last Admin: 09/14/24 12:34 Dose: Not Given Documented By: MIKE Non-Admin Reason: No Insulin Coverage Mirtazapine (Mirtazapine 7.5 Mg Tablet) 7.5 mg PO BEDTIME [facility] Last Admin: 09/13/24 22:39 Dose: 7.5 mg Documented By: EVARISTO Olanzapine (Olanzapine 5 Mg Tablet) 5 mg PO BID [facility] Last Admin: 09/12/24 09:58 Dose: Not Given Documented By: DUSTIN Non-Admin Reason: patient too lethargic Omeprazole (Omeprazole 20 Mg Capsule.Dr) 20 mg PO DAILY@0630 [facility] Last Admin: 09/14/24 06:05 Dose: 20 mg Documented By: EVARISTO Timolol Maleate (Timolol Maleate 0.5 % Oph Alexus 5 Ml Drbtl) 1 drop EYE-BOTH BID [facility] Last Admin: 09/13/24 22:40 Dose: Not Given Documented By: EVARISTO Non-Admin Reason: Patient Refused Warfarin Sodium (Warfarin Sodium 2.5 Mg Tablet) 2.5 mg PO DAILY@1800 [facility] Last Admin: 09/12/24 17:00 Dose: Not Given Documented By: DUSTIN Non-Admin Reason: patient too lethargic to take meds Labs 09/14/24 06:17 09/14/24 06:17 Labs: Laboratory Results - last 24 hr 09/13/24 09/13/24 09/14/24 15:44 20:22 06:17 MCV 98.3 H MCH 34.4 H MCHC 35.0 RDW 15.9 Plt Count 111 L MPV 10.1 Immature Gran % (Auto) 0.5 H Neut % (Auto) 50.5 Lymph % (Auto) 34.4 [place] % (Auto) 11.6 H Eos % (Auto) 2.7 Baso % (Auto) 0.3 Lymph # (Auto) 1.3 [place] # (Auto) 0.4 Eos # (Auto) 0.1 Baso # (Auto) 0.0 Abs Immat Gran (auto) 0.02 Absolute Neuts (auto) 1.9 L Absolute Nucleated RBC 0.000 Nucleated RBC % (auto) 0.0 PT 36.4 H INR 3.2 H Anion Gap 9 L Estim Creat Clear Calc 55.5 Estimated GFR 58 POC Glucose 83 132 H Random Glucose 196 H Calcium 8.6 D 09/14/24 09/14/24 07:16 11:17 MCV MCH MCHC RDW Plt Count MPV Immature Gran % (Auto) Neut % (Auto) Lymph % (Auto) [place] % (Auto) Eos % (Auto) Baso % (Auto) Lymph # (Auto) [place] # (Auto) Eos # (Auto) Baso # (Auto) Abs Immat Gran (auto) Absolute Neuts (auto) Absolute Nucleated RBC Nucleated RBC % (auto) PT INR Anion Gap Estim Creat Clear Calc Estimated GFR POC Glucose 163 H 111 Random Glucose Calcium Microbiology Microbiology Results: Microbiology 09/08/24 12:19 Blood Culture - Final Blood - Venous No growth after 5 days. 09/08/24 11:53 Blood Culture - Final Blood - Venous No growth after 5 days. Assessment and Plan (1) Hypothermia: Status: Acute (2) Major neurocognitive disorder: Status: Acute Plan 88yo M with 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, DM2 with neuroipathy, HTN, HLD, CAD, mood disorder, CKD3 presented after unwitnessed fall at [facility], admitted for acute encephalopathy due to UTI hospital course complicated by hypothermia and bradycardia with changes to goals of care on 09/07. 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 [employer] Hypothermia complicated with sinuse bradycardia, resolved second episode 09/12; not shivering; likely related to medications (Zyprexa) or infection warm blankets as needed, bear hugger Hold Zyprexa recent head CT Negative for acute findings DC Carvedilol, use Amlodipine instead Dcd Unasyn as negative final blood cultures Cardiology input appreciated, DC Carvedilol urine analysis negative Psychiatry following up for medicaitons adjustment; consider anti-convulsant as alternative \ Rexulti 0.5 mg bid PRN Haldol as of now as needed acute metabolic encephalopathy 2/2 dementia with behavioral disturbance hold olanzapine dc PRN Olanzapine Im Haldol if needed Mirtazapine night time Psychiatry following to decide next option UTI completed amoxicillin 08/23-08/28 for Enterococcus faecalis acute urinary retention continue tamsulosin + finasteride, PRN straight cath prerenal SANTOS/CKD3 SCr back to baseline weakness w fall PT: STR recommended question of C2 fracture on C-spine resolved by negative MRI C-spine paroxysmal atrial fibrillation continue coumadin and adjust for INR 2-3 today to hold for high INR HTN, acceptable control amlodipine, carvedilol HLD statin DM2 correction-dose lispro mood disorder continue olanzapine + mirtazapine VTE ppx coumadin dispo Placement, [employer] Care discontinued 09/08 per HCP recommendations. In my clinical judgment, the patient requires continued inpatient hospitalization for behavioural management and discharge planning Quality Stroke Does the patient have a stroke diagnosis?: No VTE Prior VTE?: No VTE Risk Level:: Medical - moderate - high VTE Device Contraindication: Treatment Not Indicated VTE Drug Contraindication: N/A - Med Ordered
[2024-09-14] MEDS: timoloL maleate 0.5 % Oph Sol 5 ML DRBTL 1 DROP EYE-BOTH (13:10)
[2024-09-14] MEDS: Dorzolamide HCl 2 % Ophth Sol 10 ML DRPBTL 1 DROP EYE-BOTH (13:10)
--- NOTE | 2024-09-14 13:13 | MHC.CLN ---
F/U PO REMAINS POOR DIET LIBERALIZED TO REGULAR GRD M/S SUPPLEMENT ENSURE TID PROVIDES 1050 KCALS, 60 G PROTEIN CONTINUE TO MONITOR PO INTAKE AND ENCOURAGE INTAKE
--- NOTE | 2024-09-14 15:46 | MHC.CM.PN ---
ELLE returned a call to the Director of @ [facility]/Mera Conti @ [phone], but was only able to leave a detailed message. ELLE awaits a return call from Mera Conti.
[2024-09-14 15:50] VITALS: BP 160/65; PULSE 53; RESP 17; TEMP 36.2; O2SAT 97
[2024-09-14 15:51] LABS: Glucose, Whole Blood 188 mg/dL (60-115)
[2024-09-14 20:05] LABS: Glucose, Whole Blood 264 mg/dL (60-115)
--- NOTE | 2024-09-14 22:55 | PC.NURSE ---
Pt refused PM meds. This RN made multiple attempts however, pt was unable to be redirected or educated on importance. notified. Pt was not physically aggressive however did raise his voice and shout several times.
[2024-09-14 23:37] VITALS: BP 145/87; PULSE 62; RESP 18; TEMP 36.3; O2SAT 98
[2024-09-15] MEDS: diazePAM 10 MG/2 ML CARTRIDGE 2.5 MG IVPUSH (04:44)
--- NOTE | 2024-09-15 08:26 | MHC.CM.PN ---
Addendum entered by Nora Cool 09/15/24 14:09: [facility] SNFs have denied admission; CM awaits a response from [facility]. CM will follow. Original Note: [facility] unable to accept Patient. CM will reach out to all [facility] facilities and [facility] today. CM will follow.
[2024-09-15] MEDS: Dorzolamide HCl 2 % Ophth Sol 10 ML DRPBTL 1 DROP EYE-BOTH ×2 (09:12→20:29)
[2024-09-15 10:51] LABS: INTERNATIONAL NORM RATIO 1.6 (0.9-1.1); Prothrombin Time 18.9 SEC (10.9-12.4)
[2024-09-15 11:54] LABS: Glucose, Whole Blood 299 mg/dL (60-115)
[2024-09-15 11:58] VITALS: BP 150/74; PULSE 66; RESP 20; TEMP 35.9; O2SAT 99
--- NOTE | 2024-09-15 12:42 | HO.PM.IMPN ---
Subjective Subjective Date of Service: 09/15/24 Interval History: Seen and evaluated this morning laying in bed, mildly altered combative overnight again requiring IM meds refusing meds no other events Review of Systems Review of Systems: Yes Unobtainable due to mental status Physical Exam Vital Signs: Vital Signs: Last Vital Signs Temp 96.7 F L 09/15/24 11:58 Pulse 66 09/15/24 11:58 Resp 20 09/15/24 11:58 BP 150/74 H 09/15/24 11:58 Pulse Ox 99 09/15/24 11:58 O2 Del Method Room Air 09/15/24 11:58 O2 Flow Rate 96 08/27/24 03:21 BMI result Body Mass Index 35.8 Const: Other: Constitutional : alert with stimulation, not in distress Cardiovascular : no JVP, no lower extremity edema Respiratory : bilateral chest movement, not in resp distress Gastrointestinal: soft, lax, Non tender Skin : Warm, Dry Neurological :alert, oriented to self and place, No focal deficit Objective Data Active Medications Acetaminophen (Acetaminophen 325 Mg Tablet) 650 mg PO Q4H PRN PRN Reason: Fever >/= 100, Pain, mild 1-3 Last Admin: 09/10/24 20:00 Dose: 650 mg Documented By: ROB Amlodipine Besylate (Amlodipine Besylate 5 Mg Tablet) 5 mg PO DAILY [facility]; Protocol Last Admin: 09/15/24 09:11 Dose: 5 mg Documented By: MIKE Atorvastatin Calcium (Atorvastatin Calcium 10 Mg Tablet) 10 mg PO BEDTIME [facility] Last Admin: 09/14/24 22:54 Dose: Not Given Documented By: YAMILE Non-Admin Reason: Patient Refused Docusate Sodium (Docusate Sodium 100 Mg Capsule) 100 mg PO BID [facility] Last Admin: 09/15/24 09:11 Dose: 100 mg Documented By: MIKE Dorzolamide HCl (Dorzolamide Hcl 2 % Ophth Alexus 10 Ml Drpbtl) 1 drop EYE-BOTH BID [facility] Last Admin: 09/15/24 09:12 Dose: 1 drop Documented By: MIKE Famotidine (Famotidine 20 Mg Tablet) 20 mg PO BID [facility] Last Admin: 09/15/24 09:11 Dose: 20 mg Documented By: MIKE Finasteride (Finasteride 5 Mg Tablet) 5 mg PO DAILY [facility] Last Admin: 09/15/24 09:11 Dose: 5 mg Documented By: MIKE Haloperidol Lactate (Haloperidol Lactate 5 Mg/Ml Vial) 2 mg IM ONCE PRN PRN Reason: anxiety/restlessness Last Admin: 09/14/24 23:52 Dose: 2 mg Documented By: YAMILE Insulin Human Lispro (Insulin Lispro 100 Unit/Ml 3 Ml Vial) 0 unit SUBCUT QIDACHS [facility]; Protocol Last Admin: 09/15/24 11:59 Dose: 6 unit Documented By: MIKE Mirtazapine (Mirtazapine 7.5 Mg Tablet) 7.5 mg PO BEDTIME [facility] Last Admin: 09/14/24 22:54 Dose: Not Given Documented By: YAMILE Non-Admin Reason: Patient Refused Olanzapine (Olanzapine 5 Mg Tablet) 5 mg PO BID [facility] Last Admin: 09/12/24 09:58 Dose: Not Given Documented By: DUSTIN Non-Admin Reason: patient too lethargic Omeprazole (Omeprazole 20 Mg Capsule.Dr) 20 mg PO DAILY@0630 [facility] Last Admin: 09/15/24 06:05 Dose: Not Given Documented By: YAMILE Non-Admin Reason: Patient Refused Senna (Sennosides 8.6 Mg Tablet) 8.6 mg PO BEDTIME [facility] Timolol Maleate (Timolol Maleate 0.5 % Oph Alexus 5 Ml Drbtl) 1 drop EYE-BOTH BID [facility] Last Admin: 09/14/24 22:54 Dose: Not Given Documented By: YAMILE Non-Admin Reason: Patient Refused Warfarin Sodium (Warfarin Sodium 2.5 Mg Tablet) 2.5 mg PO DAILY@1800 [facility] Last Admin: 09/12/24 17:00 Dose: Not Given Documented By: DUSTIN Non-Admin Reason: patient too lethargic to take meds Labs 09/14/24 06:17 09/14/24 06:17 Labs: Laboratory Results - last 24 hr 09/14/24 09/14/24 09/15/24 15:42 19:53 10:26 PT 18.9 H D INR 1.6 H POC Glucose 188 H 264 H 09/15/24 11:50 PT INR POC Glucose 299 H Assessment and Plan (1) Agitation: Status: Acute (2) Major neurocognitive disorder: Status: Acute Plan 88yo M with 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, DM2 with neuroipathy, HTN, HLD, CAD, mood disorder, CKD3 presented after unwitnessed fall at [facility], admitted for acute encephalopathy due to UTI hospital course complicated by hypothermia and bradycardia with changes to goals of care on 09/07. 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 acute metabolic encephalopathy 2/2 dementia with behavioral disturbance hold olanzapine dc PRN Olanzapine Im Haldol if needed Mirtazapine night time Psychiatry following to decide next option Hypothermia complicated with sinuse bradycardia, resolved, second episode 09/12; not shivering; likely related to medications (Zyprexa) rather than infection recent head CT Negative for acute findings urine analysis, CXR negative blood cultures negative , Abx DCd DC Zyprexa Cardiology input appreciated, DC Carvedilol , Amlodipine instead Psychiatry following up for medicaitons adjustment; consider anti-convulsant as alternative \ Rexulti 0.5 mg bid New PSych consult PRN Haldol as of now as needed UTI completed amoxicillin 08/23-08/28 for Enterococcus faecalis repeat UA negative acute urinary retention resolved continue tamsulosin + finasteride, PRN straight cath prerenal SANTOS/CKD3 SCr back to baseline weakness w fall PT: STR recommended question of C2 fracture on C-spine resolved by negative MRI C-spine paroxysmal atrial fibrillation continue coumadin and adjust for INR 2-3 today to hold for high INR HTN, acceptable control amlodipine, carvedilol HLD statin DM2 correction-dose lispro mood disorder continue olanzapine + mirtazapine VTE ppx coumadin dispo 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 In my clinical judgment, the patient requires continued inpatient hospitalization for behavioral management and discharge planning Quality Stroke Does the patient have a stroke diagnosis?: No VTE Prior VTE?: No VTE Risk Level:: Medical - moderate - high VTE Device Contraindication: Treatment Not Indicated VTE Drug Contraindication: N/A - Med Ordered
--- NOTE | 2024-09-15 14:22 | MHC.CM.PN ---
Addendum entered by Sanam Mcclure RN 09/15/24 15:09: Per FS - home has not yet been sold, plan to close next week and will acquire $100k elizabeth. Also has >5k in the bank. Per financial counselor, will not qualify for [facility]. CM reviewed w/ daughter in law. Again, discussed home w/ family and potentially ACP & private pay services vs private pay LTC. Irena will discuss with . Plan for a phone call with decision tomorrow. Original Note: CM spoke w/ daughter in law/HCP Irena. She has gathered financial documents and will reach out to financial services to meet by the end of the week. She reports there are private funds and a house was sold 2 months ago. She is aware that if patient doesn't qualify for [facility] options are: private pay LTC or return home w/ family. Financial counselor updated. CM will continue to follow.
[2024-09-15 14:24] VITALS: BP 142/60; PULSE 60; RESP 17; TEMP 36.4; O2SAT 96
[2024-09-15 16:22] LABS: Glucose, Whole Blood 176 mg/dL (60-115)
[2024-09-15] MEDS: timoloL maleate 0.5 % Oph Sol 5 ML DRBTL 1 DROP EYE-BOTH (20:29)
[2024-09-15 20:58] LABS: Glucose, Whole Blood 141 mg/dL (60-115)
[2024-09-15 23:49] VITALS: BP 163/69; PULSE 59; RESP 18; TEMP 36; O2SAT 98
[2024-09-16 02:37] VITALS: BP 128/58; PULSE 60; RESP 18; TEMP 36.1; O2SAT 97
[2024-09-16 06:39] LABS: INTERNATIONAL NORM RATIO 1.3 (0.9-1.1); Prothrombin Time 15.3 SEC (10.9-12.4)
[2024-09-16 08:00] VITALS: BP 142/64; PULSE 56; RESP 16; TEMP 36.4; O2SAT 96
[2024-09-16 08:01] LABS: Glucose, Whole Blood 145 mg/dL (60-115)
[2024-09-16] MEDS: Dorzolamide HCl 2 % Ophth Sol 10 ML DRPBTL 1 DROP EYE-BOTH ×2 (09:26→20:40)
--- NOTE | 2024-09-16 09:51 | HO.PM.IMPN ---
Subjective Subjective Date of Service: 09/16/24 Interval History: Seen and evaluated this morning laying in bed, alert and interactive less agitated and restless accepting meds and diet no other events Physical Exam Vital Signs: Vital Signs: Last Vital Signs Temp 97.6 F 09/16/24 08:00 Pulse 56 09/16/24 08:00 Resp 16 09/16/24 08:00 BP 142/64 H 09/16/24 08:00 Pulse Ox 96 09/16/24 08:00 O2 Del Method Room Air 09/16/24 08:00 O2 Flow Rate 96 08/27/24 03:21 BMI result Body Mass Index 35.8 Const: Other: Constitutional : alert , frail, not in distress Cardiovascular : no JVP, no lower extremity edema Respiratory : bilateral chest movement, not in resp distress Gastrointestinal: soft, lax, Non tender Skin : Warm, Dry Neurological :alert, oriented to self, No focal deficit Objective Data Active Medications Acetaminophen (Acetaminophen 325 Mg Tablet) 650 mg PO Q4H PRN PRN Reason: Fever >/= 100, Pain, mild 1-3 Last Admin: 09/10/24 20:00 Dose: 650 mg Documented By: ROB Amlodipine Besylate (Amlodipine Besylate 5 Mg Tablet) 5 mg PO DAILY [facility]; Protocol Last Admin: 09/16/24 09:25 Dose: 5 mg Documented By: PARAM Apixaban (Apixaban 5 Mg Tablet) 5 mg PO BID [facility] Last Admin: 09/16/24 09:25 Dose: 5 mg Documented By: PARAM Atorvastatin Calcium (Atorvastatin Calcium 10 Mg Tablet) 10 mg PO BEDTIME [facility] Last Admin: 09/15/24 20:27 Dose: 10 mg Documented By: EVARISTO Docusate Sodium (Docusate Sodium 100 Mg Capsule) 100 mg PO BID [facility] Last Admin: 09/16/24 09:25 Dose: 100 mg Documented By: PARAM Dorzolamide HCl (Dorzolamide Hcl 2 % Ophth Alexus 10 Ml Drpb) 1 drop EYE-BOTH BID [facility] Last Admin: 09/16/24 09:26 Dose: 1 drop Documented By: PARAM Famotidine (Famotidine 20 Mg Tablet) 20 mg PO BID [facility] Last Admin: 09/16/24 09:25 Dose: 20 mg Documented By: PARAM Finasteride (Finasteride 5 Mg Tablet) 5 mg PO DAILY [facility] Last Admin: 09/16/24 09:25 Dose: 5 mg Documented By: PARAM Haloperidol Lactate (Haloperidol Lactate 5 Mg/Ml Vial) 2 mg IM ONCE PRN PRN Reason: anxiety/restlessness Last Admin: 09/14/24 23:52 Dose: 2 mg Documented By: YAMILE Insulin Human Lispro (Insulin Lispro 100 Unit/Ml 3 Ml Vial) 0 unit SUBCUT QIDACHS [facility]; Protocol Last Admin: 09/16/24 08:54 Dose: Not Given Documented By: PARAM Non-Admin Reason: No Insulin Coverage Mirtazapine (Mirtazapine 7.5 Mg Tablet) 7.5 mg PO BEDTIME [facility] Last Admin: 09/15/24 20:27 Dose: 7.5 mg Documented By: EVARISTO Omeprazole (Omeprazole 20 Mg Capsule.Dr) 20 mg PO DAILY@0630 [facility] Last Admin: 09/16/24 06:41 Dose: 20 mg Documented By: EVARISTO Senna (Sennosides 8.6 Mg Tablet) 8.6 mg PO BEDTIME [facility] Last Admin: 09/15/24 20:27 Dose: 8.6 mg Documented By: EVARISTO Timolol Maleate (Timolol Maleate 0.5 % Oph Alexus 5 Ml Drbtl) 1 drop EYE-BOTH BID [facility] On Hold: 09/16/24 07:27 Last Admin: 09/15/24 20:29 Dose: 1 drop Documented By: EVARISTO Labs 09/14/24 06:17 09/14/24 06:17 Labs: Laboratory Results - last 24 hr 09/15/24 09/15/24 09/15/24 10:26 11:50 16:19 PT 18.9 H D INR 1.6 H POC Glucose 299 H 176 H 09/15/24 09/16/24 09/16/24 20:45 06:21 07:54 PT 15.3 H INR 1.3 H POC Glucose 141 H 145 H Assessment and Plan (1) Major neurocognitive disorder: Status: Acute Plan 88yo M with 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 Neurocognitive disorder 2/2 dementia complicated with behavioral disturbance mentation improved DC olanzapine Im Haldol if needed Mirtazapine night time Psychiatry following to decide next option Hypothermia complicated with sinuse bradycardia, resolved, second episode 09/12; not shivering; likely related to medications (Zyprexa) rather than infection recent head CT Negative for acute findings urine analysis, CXR negative blood cultures negative , Abx DCd DC Zyprexa Cardiology input appreciated, DC Carvedilol , Amlodipine instead Psychiatry following up for medicaitons adjustment; consider anti-convulsant as alternative \ Rexulti 0.5 mg bid UTI completed amoxicillin 08/23-08/28 for Enterococcus faecalis repeat UA negative acute urinary retention resolved continue tamsulosin + finasteride, PRN straight cath prerenal SANTOS/CKD3 SCr back to baseline weakness w fall PT: STR recommended question of C2 fracture on C-spine resolved by negative MRI C-spine paroxysmal atrial fibrillation continue coumadin and adjust for INR 2-3 today to hold for high INR HTN, acceptable control amlodipine, carvedilol HLD statin DM2 correction-dose lispro mood disorder continue olanzapine + mirtazapine VTE ppx coumadin dispo 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 In my clinical judgment, the patient requires continued inpatient hospitalization for behavioral management and discharge planning Quality Stroke Does the patient have a stroke diagnosis?: No VTE Prior VTE?: No VTE Risk Level:: Medical - moderate - high VTE Device Contraindication: Treatment Not Indicated VTE Drug Contraindication: N/A - Med Ordered
--- NOTE | 2024-09-16 10:21 | MHC.CLN ---
F/U PO REMAINS POOR DIET LIBERALIZED TO REGULAR, GROUND CONSISTENCY TO PROMOTE PO INTAKE. SUPPLEMENT ENSURE TID PROVIDES 1050 KCALS, 60 G PROTEIN SKIN WITH REDNESS TO COCCYX CONTINUE TO MONITOR PO INTAKE AND ENCOURAGE INTAKE
[2024-09-16 11:34] LABS: Glucose, Whole Blood 230 mg/dL (60-115)
--- NOTE | 2024-09-16 11:38 | PC.NURSE ---
Pt calm and cooperative with care this shift.
--- NOTE | 2024-09-16 13:40 | MHC.CM.PN ---
CM MET WITH PT'S FAMILY AT BEDSIDE TO DISCUSS DC PLAN. FAMILY IS WILLING TO PAY PRIVATELY FOR [facility] WHILE [facility] IS IN PROCESS, REFERRALS EXPANDED TO [facility] ([facility] IS NOT ABLE TO DO A SITE VISIT UNTIL THURSDAY 09/21. REFERRAL ALSO FAXED TO [facility] WITH F/U CALL TO [facility], AWAITING RESPONSE. CM WILL CONTINUE BED SEARCH.
[2024-09-16 15:13] VITALS: BP 159/67; PULSE 62; RESP 16; O2SAT 98
[2024-09-16 15:31] VITALS: TEMP 36.1
[2024-09-16 16:37] LABS: Glucose, Whole Blood 215 mg/dL (60-115)
[2024-09-16 20:05] LABS: Glucose, Whole Blood 155 mg/dL (60-115)
[2024-09-16 20:33] VITALS: BP 156/67; PULSE 63; RESP 17; TEMP 36.1; O2SAT 99
[2024-09-16] MEDS: Butalb/Acetamin/Caff 50/325/40 TABLET 1 TAB PO (20:38)
[2024-09-17 03:02] VITALS: BP 127/61; PULSE 61; RESP 16; TEMP 36; O2SAT 99
[2024-09-17 07:20] LABS: Glucose, Whole Blood 166 mg/dL (60-115)
[2024-09-17 07:47] VITALS: BP 127/61; PULSE 59; RESP 18; TEMP 36.1; O2SAT 100
[2024-09-17 07:49] LABS: Glucose, Whole Blood 171 mg/dL (60-115)
--- NOTE | 2024-09-17 08:20 | PC.NURSE ---
pt c/o headache at start of shift. Dr. Andino aware and fioricet wtih + effect. Pt alert and cooperative, later when he woke from sleep he attempted to get OOB but was easily redirected. Camera in place He was mildly resistive to care when roused from sleep for vital signs but ultimately allowed them to be taken. Pt slept well overnight.
[2024-09-17 09:36] VITALS: BP 139/66; PULSE 58
[2024-09-17] MEDS: Dorzolamide HCl 2 % Ophth Sol 10 ML DRPBTL 1 DROP EYE-BOTH ×2 (09:40→21:12)
--- NOTE | 2024-09-17 10:43 | PC.NURSE ---
Patient drowsy this am,cooperative ,took all his meds crushed with pudding,need to be re-directed frequently
[2024-09-17 11:29] LABS: Glucose, Whole Blood 226 mg/dL (60-115)
--- NOTE | 2024-09-17 11:53 | PC.NURSE ---
patient calm at present,oriented to name and birthday,SLAGGER is washing patient,patient cooperative
--- NOTE | 2024-09-17 13:16 | P.PNIM_ITS ---
Subjective Subjective Date of Service: 09/17/24 Interval History: Seen and evaluated this morning laying in bed, alert and interactive accepting meds and diet no other events Review of Systems Review of Systems: Yes all other systems are reviewed and are negative Physical Exam 2 Vital Signs: Vital Signs: Last Vital Signs Temp 97.0 F 09/17/24 07:47 Pulse 58 09/17/24 09:36 Resp 18 09/17/24 07:47 BP 139/66 09/17/24 09:36 Pulse Ox 100 09/17/24 07:47 O2 Del Method Room Air 09/17/24 07:47 O2 Flow Rate 96 08/27/24 03:21 BMI result Body Mass Index 35.8 Const: Other: Constitutional : alert , frail, not in distress Cardiovascular : no JVP, no lower extremity edema Respiratory : bilateral chest movement, not in resp distress Gastrointestinal: soft, lax, Non tender Skin : Warm, Dry Neurological :alert, oriented to self, No focal deficit Objective Data Active Medications Acetaminophen (Acetaminophen 325 Mg Tablet) 650 mg PO Q4H PRN PRN Reason: Fever >/= 100, Pain, mild 1-3 Last Admin: 09/10/24 20:00 Dose: 650 mg Documented By: ROB Amlodipine Besylate (Amlodipine Besylate 5 Mg Tablet) 5 mg PO DAILY [facility]; Protocol Last Admin: 09/17/24 09:38 Dose: 5 mg Documented By: CANDELARIO Apixaban (Apixaban 5 Mg Tablet) 5 mg PO BID [facility] Last Admin: 09/17/24 09:38 Dose: 5 mg Documented By: CANDELARIO Atorvastatin Calcium (Atorvastatin Calcium 10 Mg Tablet) 10 mg PO BEDTIME [facility] Last Admin: 09/16/24 20:36 Dose: 10 mg Documented By: BASILIO Docusate Sodium (Docusate Sodium 100 Mg Capsule) 100 mg PO BID [facility] Last Admin: 09/17/24 09:37 Dose: 100 mg Documented By: CANDELARIO Dorzolamide HCl (Dorzolamide Hcl 2 % Ophth Alexus 10 Ml Drpbtl) 1 drop EYE-BOTH BID [facility] Last Admin: 09/17/24 09:40 Dose: 1 drop Documented By: CANDELARIO Famotidine (Famotidine 20 Mg Tablet) 20 mg PO BID [facility] Last Admin: 09/17/24 09:38 Dose: 20 mg Documented By: CANDELARIO Finasteride (Finasteride 5 Mg Tablet) 5 mg PO DAILY [facility] Last Admin: 09/17/24 09:38 Dose: 5 mg Documented By: CANDELARIO Haloperidol Lactate (Haloperidol Lactate 5 Mg/Ml Vial) 2 mg IM ONCE PRN PRN Reason: anxiety/restlessness Last Admin: 09/14/24 23:52 Dose: 2 mg Documented By: YAMILE Insulin Human Lispro (Insulin Lispro 100 Unit/Ml 3 Ml Vial) 0 unit SUBCUT QIDACHS [facility]; Protocol Last Admin: 09/17/24 11:52 Dose: 4 unit Documented By: CANDELARIO Mirtazapine (Mirtazapine 7.5 Mg Tablet) 7.5 mg PO BEDTIME [facility] Last Admin: 09/16/24 20:36 Dose: 7.5 mg Documented By: BASILIO Omeprazole (Omeprazole 20 Mg Capsule.Dr) 20 mg PO DAILY@0630 [facility] Last Admin: 09/17/24 07:03 Dose: Not Given Documented By: BASILIO Non-Admin Reason: Patient Refused Risperidone (Risperidone 0.25 Mg Tablet) 0.25 mg PO DAILY@1700 [facility] Last Admin: 09/16/24 16:43 Dose: 0.25 mg Documented By: PARAM Senna (Sennosides 8.6 Mg Tablet) 8.6 mg PO BEDTIME [facility] Last Admin: 09/16/24 20:37 Dose: 8.6 mg Documented By: BASILIO Timolol Maleate (Timolol Maleate 0.5 % Oph Alexus 5 Ml Drbtl) 1 drop EYE-BOTH BID [facility] On Hold: 09/16/24 07:27 Last Admin: 09/15/24 20:29 Dose: 1 drop Documented By: EVARISTO Labs 09/14/24 06:17 09/14/24 06:17 Labs: Laboratory Results - last 24 hr 09/16/24 09/16/24 09/17/24 16:32 20:02 06:57 POC Glucose 215 H 155 H 166 H 09/17/24 09/17/24 07:44 11:21 POC Glucose 171 H 226 H Assessment and Plan (1) Major neurocognitive disorder: Status: Acute Plan 88yo M with 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, admitted for acute encephalopathy due to UTI hospital course complicated by hypothermia and bradycardia with changes to goals of care on 09/07. 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 mentation improved DC olanzapine Im Haldol if needed (not need since 09/14) Mirtazapine night time Start low dose Risperidone Psychiatry following Hypothermia complicated with sinuse bradycardia, Resolved likely related to medications (Zyprexa) or Timolol eye drops rather than infection recent head CT Negative for acute findings urine analysis, CXR negative blood cultures negative , Abx DCd DC Zyprexa and Timolol Cardiology input appreciated, DC Carvedilol , Amlodipine instead Psychiatry following up for medicaitons adjustment; consider anti-convulsant as alternative \ Rexulti 0.5 mg bid UTI completed amoxicillin 08/23-08/28 for Enterococcus faecalis repeat UA negative acute urinary retention resolved continue tamsulosin + finasteride, PRN straight cath prerenal SANTOS/CKD3 SCr back to baseline weakness w fall PT: STR recommended question of C2 fracture on C-spine resolved by negative MRI C-spine paroxysmal atrial fibrillation continue coumadin and adjust for INR 2-3 today to hold for high INR HTN, acceptable control amlodipine, carvedilol HLD statin DM2 correction-dose lispro mood disorder continue olanzapine + mirtazapine VTE ppx coumadin dispo Placement, BLOW MOLD OPERATOR Care discontinued 09/08 per HCP recommendations. In my clinical judgment, the patient requires continued inpatient hospitalization for behavioral management and discharge planning Quality Stroke Does the patient have a stroke diagnosis?: No VTE Prior VTE?: No VTE Risk Level:: Medical - moderate - high VTE Device Contraindication: Treatment Not Indicated VTE Drug Contraindication: N/A - Med Ordered
--- NOTE | 2024-09-17 14:03 | MHC.CM.PN ---
CM SPOKE WITH DIL/HCP SIMA REGARDING F/U WITH [facility]. SIMA STATES SHE HAS NOT HEARD FROM THE SNF. [facility] NUMBER PROVIDED TO SIMA FOR F/U. [facility] WILL NEED TO DISCUSS FINANCES, SALE OF HOUSE TRANSACTION BEFORE ACCEPTANCE. ELLE CONTINUES TO STRESS THE SENSE OF URGENCY TO CONNECT WITH THE CENTER SO PT MAY BE MOVED TO NEXT LEVEL OF CARE. CM WILL CONTINUE TO FOLLOW.
[2024-09-17 15:15] VITALS: BP 101/57; PULSE 68; RESP 16; TEMP 36; O2SAT 99
[2024-09-17 16:50] LABS: Glucose, Whole Blood 253 mg/dL (60-115)
[2024-09-17 21:30] LABS: Glucose, Whole Blood 162 mg/dL (60-115)
[2024-09-18] VITALS: BP 152/68; PULSE 62; RESP 18; TEMP 36.2; O2SAT 99
--- NOTE | 2024-09-18 01:27 | PC.NURSE ---
pt alert and cooperative with care this evening. He c/o mild back pain medicated with APAP with pt now sleeping with no s/s distress. bed alarm and safety precautions mainained.
[2024-09-18 07:47] VITALS: BP 152/63; PULSE 68; RESP 18; TEMP 36.2; O2SAT 100
[2024-09-18 07:58] LABS: Glucose, Whole Blood 165 mg/dL (60-115)
--- NOTE | 2024-09-18 08:49 | MHC.CM.PN ---
Addendum entered by Sanam Mcclure RN 09/18/24 11:05: Family updated that [facility] has reviewed updates and is not offering a bed at this time. [facility] in [place] is showing interest and will reach out to HCP. Irena is aware and agrees to speak with liaison. Original Note: Rec'd call from daughter in law/HCP Irena. She has not returned call to [facility] to discuss finances and reports she is not interested in the location. Reviewed - [facility] is currently the only facility showing interest, patient cannot remain in hospital with no medical need, family should follow up with any interested facility and can plan for transfer when local beds become available. Irena verbalized understanding and plans to call [facility] liaison today. Also reports she called [facility] and was told they may be able to offer a bed. Curtis was previously referred to via [facility], with periodic updates sent, no bed offer. New updates sent to [facility] and 40 other referrals in [facility], including RN notes re: improved behaviors. Son also on phone call, yelling and cursing at this CM. Reminded that all interactions should remain respectful and professional. CM will continue to follow.
[2024-09-18 09:52] VITALS: BP 119/56
[2024-09-18] MEDS: Dorzolamide HCl 2 % Ophth Sol 10 ML DRPBTL 1 DROP EYE-BOTH ×2 (09:53→20:22)
--- NOTE | 2024-09-18 10:23 | MHC.CLN ---
F/U PO INTAKE VARIABLE, 25-50%, WITH MOST MEALS APPROX 25%. DIET= REGULAR, GROUND CONSISTENCY. SUPPLEMENT ENSURE TID PROVIDES 1050 KCALS, 60 G PROTEIN. SKIN WITH REDNESS TO COCCYX. CONTINUE TO MONITOR PO INTAKE AND ENCOURAGE INTAKE.
--- NOTE | 2024-09-18 11:03 | PC.NURSE ---
patient cooperative this am, took crushed medications with pudding, JOSE Masters reported pt refused to eat breakfast,
[2024-09-18 11:10] LABS: Glucose, Whole Blood 191 mg/dL (60-115)
--- NOTE | 2024-09-18 11:55 | PC.NURSE ---
patient unable to urinate since 12:30 am, Bladder scanned for 227 mL, and Dr Mahajan notified
--- NOTE | 2024-09-18 13:03 | P.PNIM_ITS ---
Subjective Subjective Date of Service: 09/18/24 Interval History: Seen and evaluated this morning laying in bed, alert and interactive accepting meds and diet no other events Review of Systems Review of Systems: Yes all other systems are reviewed and are negative Physical Exam 2 Vital Signs: Vital Signs: Last Vital Signs Temp 97.1 F 09/18/24 07:47 Pulse 68 09/18/24 07:47 Resp 18 09/18/24 07:47 BP 119/56 L 09/18/24 09:52 Pulse Ox 100 09/18/24 07:47 O2 Del Method Room Air 09/18/24 07:47 O2 Flow Rate 96 08/27/24 03:21 BMI result Body Mass Index 35.8 Const: Other: Constitutional : alert , frail, not in distress Cardiovascular : no JVP, no lower extremity edema Respiratory : bilateral chest movement, not in resp distress Gastrointestinal: soft, lax, Non tender Skin : Warm, Dry Neurological :alert, oriented to self, No focal deficit Objective Data Active Medications Acetaminophen (Acetaminophen 325 Mg Tablet) 650 mg PO Q4H PRN PRN Reason: Fever >/= 100, Pain, mild 1-3 Last Admin: 09/17/24 21:07 Dose: 650 mg Documented By: BASILIO Amlodipine Besylate (Amlodipine Besylate 5 Mg Tablet) 5 mg PO DAILY [facility]; Protocol Last Admin: 09/18/24 09:52 Dose: 5 mg Documented By: CANDELARIO Apixaban (Apixaban 5 Mg Tablet) 5 mg PO BID [facility] Last Admin: 09/18/24 09:48 Dose: 5 mg Documented By: CANDELARIO Atorvastatin Calcium (Atorvastatin Calcium 10 Mg Tablet) 10 mg PO BEDTIME [facility] Last Admin: 09/17/24 21:07 Dose: 10 mg Documented By: BASILIO Docusate Sodium (Docusate Sodium 100 Mg Capsule) 100 mg PO BID [facility] Last Admin: 09/18/24 09:53 Dose: 100 mg Documented By: CANDELARIO Dorzolamide HCl (Dorzolamide Hcl 2 % Ophth Alexus 10 Ml Drpbtl) 1 drop EYE-BOTH BID [facility] Last Admin: 09/18/24 09:53 Dose: 1 drop Documented By: CANDELARIO Famotidine (Famotidine 20 Mg Tablet) 20 mg PO BID [facility] Last Admin: 09/18/24 09:52 Dose: 20 mg Documented By: CANDELARIO Finasteride (Finasteride 5 Mg Tablet) 5 mg PO DAILY [facility] Last Admin: 09/18/24 09:53 Dose: 5 mg Documented By: CANDELARIO Insulin Human Lispro (Insulin Lispro 100 Unit/Ml 3 Ml Vial) 0 unit SUBCUT QIDACHS [facility]; Protocol Last Admin: 09/18/24 12:10 Dose: 2 unit Documented By: CANDELARIO Mirtazapine (Mirtazapine 7.5 Mg Tablet) 7.5 mg PO BEDTIME [facility] Last Admin: 09/17/24 21:07 Dose: 7.5 mg Documented By: BASILIO Omeprazole (Omeprazole 20 Mg Capsule.) 20 mg PO DAILY@0630 [facility] Last Admin: 09/18/24 09:50 Dose: 20 mg Documented By: CANDELARIO Risperidone (Risperidone 0.25 Mg Tablet) 0.25 mg PO DAILY@1700 [facility] Last Admin: 09/17/24 15:39 Dose: 0.25 mg Documented By: CANDELARIO Senna (Sennosides 8.6 Mg Tablet) 8.6 mg PO BEDTIME [facility] Last Admin: 09/17/24 21:07 Dose: 8.6 mg Documented By: BASILIO Labs 09/14/24 06:17 09/14/24 06:17 Labs: Laboratory Results - last 24 hr 09/17/24 09/17/24 09/18/24 16:47 21:22 07:50 POC Glucose 253 H 162 H 165 H 09/18/24 11:06 POC Glucose 191 H Assessment and Plan (1) Major neurocognitive disorder: Status: Acute Plan 88yo M with 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, DM2 with neuroipathy, HTN, HLD, CAD, mood disorder, CKD3 presented after unwitnessed fall at [facility], admitted for acute encephalopathy due to UTI hospital course complicated by hypothermia and bradycardia with changes to goals of care on 09/07. 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 mentation improved DC olanzapine Im Haldol if needed (not need since 09/14), Dcd Mirtazapine night time Start low dose Risperidone with good response Psychiatry following Hypothermia complicated with sinuse bradycardia, Resolved likely related to medications (Zyprexa) or Timolol eye drops rather than infection recent head CT Negative for acute findings urine analysis, CXR negative blood cultures negative , Abx DCd DC Zyprexa and Timolol Cardiology input appreciated, DC Carvedilol and Timolol (eye drops) , Amlodipine instead Psychiatry following up for medicaitons adjustment UTI completed amoxicillin 08/23-08/28 for Enterococcus faecalis repeat UA negative acute urinary retention resolved continue tamsulosin + finasteride, PRN straight cath prerenal SANTOS/CKD3 SCr back to baseline weakness w fall PT: STR recommended question of C2 fracture on C-spine resolved by negative MRI C-spine paroxysmal atrial fibrillation continue coumadin and adjust for INR 2-3 today to hold for high INR HTN, acceptable control amlodipine, carvedilol HLD statin DM2 correction-dose lispro mood disorder continue olanzapine + mirtazapine VTE ppx coumadin dispo Placement, TIRE MANAGER Care discontinued 09/08 per HCP recommendations. In my clinical judgment, the patient requires continued inpatient hospitalization for behavioral management and discharge planning Quality Stroke Does the patient have a stroke diagnosis?: No VTE Prior VTE?: No VTE Risk Level:: Medical - moderate - high VTE Device Contraindication: Treatment Not Indicated VTE Drug Contraindication: N/A - Med Ordered
--- NOTE | 2024-09-18 14:20 | PC.NURSE ---
patient still unable to urinate ,bladder scanned for 342 ml now,Dr. Steen notified
[2024-09-18 16:00] VITALS: BP 136/61; PULSE 73; RESP 16; TEMP 36.3; O2SAT 99
[2024-09-18 16:34] LABS: Glucose, Whole Blood 201 mg/dL (60-115)
--- NOTE | 2024-09-18 16:49 | PC.NURSE ---
patient became very agitated after Brianna GARCIA checked blood sugar ,yelling and scraming and attempting to hit staff
[2024-09-18 19:39] LABS: Glucose, Whole Blood 183 mg/dL (60-115)
[2024-09-18 23:44] VITALS: BP 124/96; PULSE 75; RESP 18; TEMP 36.2; O2SAT 96
--- NOTE | 2024-09-19 06:03 | PC.NURSE ---
sometimes combative , but can be easily redirectable with soft spoken voice with familiar things to him talked about his job and kids, and grandchildren , he also like talk about coworkers never direct approach it doesn't work.
[2024-09-19 06:04] LABS: Imm Gran Abs Auto 0.02 X10*3/uL (0.00-0.03); Imm Gran Pct Auto 0.4 % (0.0-0.4); MANUAL DIFF FLAG SCAN; NRBC Abs Auto 0.000 X10*3/uL (0.0-0.012); NRBC Pct Auto 0.0 /100WBC (0.0-0.2); PLT CLUMP 1; SCAN SMEAR FLAG 1
[2024-09-19 06:06] LABS: Hematocrit 31.9 % (42.0-52.0); Hemoglobin 11.3 g/dl (14.0-18.0); Lymphocytes Absolute Auto 1.3 X10*3/uL (1.2-4.9); Mean Corpuscular HGB Conc 35.4 g/dl (31.0-36.0); Mean Corpuscular Hemoglobin 34.5 pg (27.0-33.0); Mean Corpuscular Volume 97.3 fL (80.0-98.0); Red Blood Count 3.28 X10*6/uL (4.60-5.80)
[2024-09-19 06:31] LABS: Anion Gap 12 (12-20); Blood Urea Nitrogen 18 mg/dL (9-16); Calcium 9.0 mg/dL (8.4-10.2); Carbon Dioxide 21 mmol/L (22-29); Chloride 112 mmol/L (96-108); Creatinine Clr Calc Pharmacy 63.6; Estimated Glomerular Filt Rate > 60; Potassium 4.2 mmol/L (3.3-5.1); Sodium 141 mmol/L (135-145)
[2024-09-19 06:46] LABS: Platelet Count 91 X10*3/uL (160-400); White Blood Count 5.1 X10*3/uL (4.8-10.8)
[2024-09-19 07:44] LABS: Glucose, Whole Blood 210 mg/dL (60-115)
--- NOTE | 2024-09-19 07:56 | HO.PM.IMPN ---
Subjective Subjective Date of Service: 09/19/24 Interval History: Seen and examined this morning Interval history: somnolent but arousable. Not eating or drinking Review of Systems Review of Systems: Yes Unobtainable due to mental status Physical Exam Vital Signs: Vital Signs: Last Vital Signs Temp 97.2 F 09/18/24 23:44 Pulse 75 09/18/24 23:44 Resp 18 09/18/24 23:44 BP 124/96 H 09/18/24 23:44 Pulse Ox 96 09/18/24 23:44 O2 Del Method Room Air 09/18/24 23:44 O2 Flow Rate 96 08/27/24 03:21 BMI result Body Mass Index 35.8 Constitutional - somnolent but arousable, no distress Cardiovascular - S1S2, RRR, No edema Respiratory - Normal lung expansion, Normal respiratory effort, No respiratory distress, CTA bilaterally Gastrointestinal - NT / ND; +BS; No rebound or guarding Extremities - no calf tenderness bilaterally, no swelling Skin - Warm/Dry Neurological - somnolent, moving extremities Objective Data Active Medications Acetaminophen (Acetaminophen 325 Mg Tablet) 650 mg PO Q4H PRN PRN Reason: Fever >/= 100, Pain, mild 1-3 Last Admin: 09/17/24 21:07 Dose: 650 mg Documented By: BASILIO Amlodipine Besylate (Amlodipine Besylate 5 Mg Tablet) 5 mg PO DAILY [facility]; Protocol Last Admin: 09/18/24 09:52 Dose: 5 mg Documented By: CANDELARIO Apixaban (Apixaban 5 Mg Tablet) 5 mg PO BID [facility] Last Admin: 09/18/24 20:13 Dose: 5 mg Documented By: YVONNE Atorvastatin Calcium (Atorvastatin Calcium 10 Mg Tablet) 10 mg PO BEDTIME [facility] Last Admin: 09/18/24 20:14 Dose: 10 mg Documented By: YVONNE Docusate Sodium (Docusate Sodium 100 Mg Capsule) 100 mg PO BID [facility] Last Admin: 09/18/24 20:14 Dose: 100 mg Documented By: YVONNE Dorzolamide HCl (Dorzolamide Hcl 2 % Ophth Alexus 10 Ml Drpbtl) 1 drop EYE-BOTH BID [facility] Last Admin: 09/18/24 20:22 Dose: 1 drop Documented By: YVONNE Famotidine (Famotidine 20 Mg Tablet) 20 mg PO BID [facility] Last Admin: 09/18/24 20:14 Dose: 20 mg Documented By: YVONNE Finasteride (Finasteride 5 Mg Tablet) 5 mg PO DAILY [facility] Last Admin: 09/18/24 09:53 Dose: 5 mg Documented By: CANDELARIO Haloperidol Lactate (Haloperidol Lactate 5 Mg/Ml Vial) 2.5 mg IM ONCE PRN PRN Reason: anxiety/restlessness Last Admin: 09/18/24 17:03 Dose: 2.5 mg Documented By: DERRICK Comments: Insulin Human Lispro (Insulin Lispro 100 Unit/Ml 3 Ml Vial) 0 unit SUBCUT QIDACHS [facility]; Protocol Last Admin: 09/18/24 20:19 Dose: 2 unit Documented By: YVONNE Mirtazapine (Mirtazapine 7.5 Mg Tablet) 7.5 mg PO BEDTIME [facility] Last Admin: 09/18/24 20:13 Dose: 7.5 mg Documented By: YVONNE Omeprazole (Omeprazole 20 Mg Capsule.) 20 mg PO DAILY@0630 [facility] Last Admin: 09/18/24 09:50 Dose: 20 mg Documented By: CANDELARIO Risperidone (Risperidone 0.25 Mg Tablet) 0.25 mg PO DAILY@1700 [facility] Last Admin: 09/18/24 20:13 Dose: 0.25 mg Documented By: YVONNE Comments: 1700 dose was not given Senna (Sennosides 8.6 Mg Tablet) 8.6 mg PO BEDTIME [facility] Last Admin: 09/18/24 20:14 Dose: 8.6 mg Documented By: YVONNE Labs 09/19/24 05:56 09/19/24 05:56 Labs: Laboratory Results - last 24 hr 09/18/24 09/18/24 09/18/24 07:50 11:06 16:27 MCV MCH MCHC RDW Plt Count MPV Immature Gran % (Auto) Neut % (Auto) Lymph % (Auto) [place] % (Auto) Eos % (Auto) Baso % (Auto) Lymph # (Auto) [place] # (Auto) Eos # (Auto) Baso # (Auto) Abs Immat Gran (auto) Absolute Neuts (auto) Absolute Nucleated RBC Nucleated RBC % (auto) Smear Tech's Comments Anion Gap Estim Creat Clear Calc Estimated GFR POC Glucose 165 H 191 H 201 H Random Glucose Calcium 09/18/24 09/19/24 09/19/24 19:35 05:56 07:34 MCV 97.3 MCH 34.5 H MCHC 35.4 RDW 16.1 H Plt Count 91 L MPV 10.4 Immature Gran % (Auto) 0.4 Neut % (Auto) 61.8 Lymph % (Auto) 24.7 [place] % (Auto) 10.7 Eos % (Auto) 1.8 Baso % (Auto) 0.6 Lymph # (Auto) 1.3 [place] # (Auto) 0.5 Eos # (Auto) 0.1 Baso # (Auto) 0.0 Abs Immat Gran (auto) 0.02 Absolute Neuts (auto) 3.1 Absolute Nucleated RBC 0.000 Nucleated RBC % (auto) 0.0 Smear Tech's Comments VERIFIED Anion Gap 12 Estim Creat Clear Calc 63.6 Estimated GFR > 60 POC Glucose 183 H 210 H Random Glucose 150 H Calcium 9.0 Assessment and Plan (1) Major neurocognitive disorder: Status: Acute Plan 88yo M with 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 118ml on bladder scan without any urine output IVF for now to discuss goals of care with family Hypothermia complicated with sinuse bradycardia, Resolved likely related to medications (Zyprexa) or Timolol eye drops rather than infection recent head CT Negative for acute findings urine analysis, CXR negative blood cultures negative , Abx DCd DC Zyprexa and Timolol Cardiology input appreciated, DC Carvedilol and Timolol (eye drops) , Amlodipine instead Psychiatry following up for medicaitons adjustment UTI completed amoxicillin 08/23-08/28 for Enterococcus faecalis repeat UA negative acute urinary retention resolved continue tamsulosin + finasteride, PRN straight cath prerenal SANTOS/CKD3 SCr back to baseline weakness w fall PT: STR recommended question of C2 fracture on C-spine resolved by negative MRI C-spine paroxysmal atrial fibrillation continue coumadin and adjust for INR 2-3 today to hold for high INR HTN, acceptable control amlodipine, carvedilol HLD statin DM2 correction-dose lispro mood disorder continue olanzapine + mirtazapine VTE ppx coumadin dispo Placement, PLAN CHECKER Care discontinued 09/08 per HCP recommendations. Goals of care to be rediscussed In my clinical judgment, the patient requires continued inpatient hospitalization for behavioral management and discharge planning Quality Stroke Does the patient have a stroke diagnosis?: No VTE Prior VTE?: No VTE Risk Level:: Medical - moderate - high VTE Device Contraindication: Treatment Not Indicated VTE Drug Contraindication: N/A - Med Ordered
[2024-09-19 07:58] VITALS: BP 129/61; PULSE 72; RESP 16; TEMP 36.3; O2SAT 95
[2024-09-19] MEDS: Dorzolamide HCl 2 % Ophth Sol 10 ML DRPBTL 1 DROP EYE-BOTH (09:58)
[2024-09-19 11:35] LABS: Glucose, Whole Blood 142 mg/dL (60-115)
[2024-09-19 13:14] VITALS: BP 121/54; PULSE 64; RESP 16; TEMP 36.2; O2SAT 99
[2024-09-19] MEDS: Lactated Ringers 1,000 ML 80 ML IVCONT (14:04)
[2024-09-19 15:26] VITALS: BP 139/85; PULSE 69; RESP 16; TEMP 36.6; O2SAT 99
--- NOTE | 2024-09-19 15:49 | W.MHC.ACPN ---
Advanced Care Planning Note Advanced Care Planning Note Discussed with: family member(s) Time spent (in minutes): 30 Narrative: Records reviewed, patient examined, and discussed with care team. Call placed to patient's HCP with son and daughter in law in background. Discussed patient's failure to thrive. Poor prognosis, unlikely to regain capacity and functionality secondary to FTT/advancing dementia. Decision made to withdraw all care and transition to comfort measures only. Problems Discussed (1) Major neurocognitive disorder:
[2024-09-19 16:16] LABS: Glucose, Whole Blood 131 mg/dL (60-115)
--- NOTE | 2024-09-19 16:17 | PC.NURSE ---
Provider switch patient to HEAVY MOBILE EQUIPMENT OPERATOR.
[2024-09-19 23:28] VITALS: RESP 16
[2024-09-20] MEDS: diazePAM 10 MG/2 ML CARTRIDGE 5 MG IVPUSH ×3 (03:00→23:00)
--- NOTE | 2024-09-20 07:08 | P.PNIM_ITS ---
Subjective Subjective Date of Service: 09/20/24 Interval History: Seen and examined COMMERCIAL ACCOUNT OFFICER, no distress currently, agitated overnight Physical Exam 2 Vital Signs: Vital Signs: Last Vital Signs Temp 97.8 F 09/19/24 15:26 Pulse 69 09/19/24 15:26 Resp 16 09/19/24 23:28 BP 139/85 09/19/24 15:26 Pulse Ox 99 09/19/24 15:26 O2 Del Method Room Air 09/19/24 15:26 O2 Flow Rate 96 08/27/24 03:21 BMI result Body Mass Index 35.8 Constitutional - sleeping subtle moan with tactile stimulus, no distress Respiratory - Normal respiratory effort, No respiratory distress Skin - warm/dry Objective Data Active Medications Acetaminophen (Acetaminophen 325 Mg Tablet) 650 mg PO Q4H PRN PRN Reason: Fever >/= 100, Pain, mild 1-3 Last Admin: 09/17/24 21:07 Dose: 650 mg Documented By: BASILIO Diazepam (Diazepam 10 Mg/2 Ml Cartridge) 5 mg IVPUSH Q4H PRN PRN Reason: myoclonic jerking/anxiety Last Admin: 09/20/24 03:00 Dose: 5 mg Documented By: YVONNE Docusate Sodium (Docusate Sodium 100 Mg Capsule) 100 mg PO BID [facility] Last Admin: 09/19/24 21:43 Dose: Not Given Documented By: YVONNE Non-Admin Reason: unable to swallow Haloperidol (Haloperidol 1 Mg Tablet) 1 mg PO Q4H PRN PRN Reason: Delirium Last Admin: 09/20/24 00:37 Dose: 1 mg Documented By: YVONNE Haloperidol Lactate (Haloperidol Lactate 5 Mg/Ml Vial) 2.5 mg IM ONCE PRN PRN Reason: anxiety/restlessness Last Admin: 09/18/24 17:03 Dose: 2.5 mg Documented By: DERRICK Comments: Morphine Sulfate (Morphine Sulfate 2 Mg/Ml Cartridge) 2 mg IVPUSH Q1H PRN PRN Reason: Pain, Severe (7-10)/ RR>/=24 Last Admin: 09/20/24 00:38 Dose: 2 mg Documented By: YVONNE Ondansetron HCl (Ondansetron Odt 4 Mg Tab.Rapdis) 4 mg TRANSLINGU Q8H PRN PRN Reason: Nausea and Vomiting Senna (Sennosides 8.6 Mg Tablet) 8.6 mg PO BEDTIME [facility] Last Admin: 09/19/24 21:44 Dose: Not Given Documented By: YVONNE Non-Admin Reason: unable to swallow Labs 09/19/24 05:56 09/19/24 05:56 Labs: Laboratory Results - last 24 hr 09/19/24 09/19/24 09/19/24 07:34 11:23 16:03 POC Glucose 210 H 142 H 131 H Assessment and Plan (1) Major neurocognitive disorder: Status: Acute Plan 88yo M with 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, DM2 with neuroipathy, HTN, HLD, CAD, mood disorder, CKD3 presented after unwitnessed fall at [facility], admitted for acute encephalopathy due to UTI hospital course complicated by hypothermia and bradycardia with changes to goals of care on 09/07. 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 COMMERCIAL ACCOUNT OFFICER which was reversed 09/08. However given ongoing decline/failure decision to transition back to COMMERCIAL ACCOUNT OFFICER 09/19 COMMERCIAL ACCOUNT OFFICER HCP/family agreeable to withdrawing all care with goal of comfort for the patient Morphine p.r.n. Valium/Haldol p.r.n. Antiemetics p.r.n.. 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
[2024-09-20 08:00] VITALS: RESP 18
[2024-09-20 16:00] VITALS: RESP 16
[2024-09-20 23:25] VITALS: RESP 14
[2024-09-21] MEDS: diazePAM 10 MG/2 ML CARTRIDGE 5 MG IVPUSH ×3 (06:40→21:28)
--- NOTE | 2024-09-21 09:29 | P.PNIM_ITS ---
Subjective Subjective Date of Service: 09/21/24 Interval History: Seen and examined SENIOR INFORMATION SECURITY ANALYST, somnolent, no agiation this morning Physical Exam 2 Vital Signs: Vital Signs: Last Vital Signs Temp 97.8 F 09/19/24 15:26 Pulse 69 09/19/24 15:26 Resp 14 09/20/24 23:25 BP 139/85 09/19/24 15:26 Pulse Ox 99 09/19/24 15:26 O2 Del Method Room Air 09/19/24 15:26 O2 Flow Rate 96 08/27/24 03:21 BMI result Body Mass Index 35.8 Breathing comfortably, no distress Objective Data Active Medications Acetaminophen (Acetaminophen 325 Mg Tablet) 650 mg PO Q4H PRN PRN Reason: Fever >/= 100, Pain, mild 1-3 Last Admin: 09/20/24 10:42 Dose: 650 mg Documented By: KOREY Diazepam (Diazepam 10 Mg/2 Ml Cartridge) 5 mg IVPUSH Q4H PRN PRN Reason: myoclonic jerking/anxiety Last Admin: 09/21/24 06:40 Dose: 5 mg Documented By: JO Comments: computer down at time Docusate Sodium (Docusate Sodium 100 Mg/10 Ml Liquid) 100 mg PO BID [facility] Last Admin: 09/20/24 21:32 Dose: Not Given Documented By: JO Non-Admin Reason: Patient Asleep Haloperidol (Haloperidol 1 Mg Tablet) 1 mg PO Q4H PRN PRN Reason: Delirium Last Admin: 09/20/24 00:37 Dose: 1 mg Documented By: YVONNE Haloperidol Lactate (Haloperidol Lactate 5 Mg/Ml Vial) 2.5 mg IM ONCE PRN PRN Reason: anxiety/restlessness Last Admin: 09/18/24 17:03 Dose: 2.5 mg Documented By: DERRICK Comments: Morphine Sulfate (Morphine Sulfate 2 Mg/Ml Cartridge) 2 mg IVPUSH Q1H PRN PRN Reason: Pain, Severe (7-10)/ RR>/=24 Last Admin: 09/20/24 21:52 Dose: 2 mg Documented By: JO Ondansetron HCl (Ondansetron Odt 4 Mg Tab.Rapdis) 4 mg TRANSLINGU Q8H PRN PRN Reason: Nausea and Vomiting Senna (Sennosides 8.6 Mg Tablet) 8.6 mg PO BEDTIME [facility] Last Admin: 09/20/24 21:32 Dose: Not Given Documented By: JO Non-Admin Reason: Patient Asleep Labs 09/19/24 05:56 09/19/24 05:56 Assessment and Plan (1) Major neurocognitive disorder: Status: Acute Plan 88yo M with 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, DM2 with neuroipathy, HTN, HLD, CAD, mood disorder, CKD3 presented after unwitnessed fall at [facility], admitted for acute encephalopathy due to UTI hospital course complicated by hypothermia and bradycardia with changes to goals of care on 09/07. 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 SENIOR INFORMATION SECURITY ANALYST which was reversed the next day09/08. However given ongoing decline/failure decision to transition back to SENIOR INFORMATION SECURITY ANALYST 09/19 SENIOR INFORMATION SECURITY ANALYST HCP/family agreeable to withdrawing all care with goal of comfort for the patient Morphine p.r.n. Valium/Haldol p.r.n. Antiemetics p.r.n.. 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
--- NOTE | 2024-09-21 12:13 | MHC.CLN ---
F/U PATENT STATUS CHANGED TO COMFORT MEASURES ONLY 09/19/24. PO VERY POOR. CONTINUES DIET= REGULAR, GROUND CONSISTENCY. ENSURE SUPPLEMENT DISCONTINUED. RD AVAILABLE NEEDED.
--- NOTE | 2024-09-21 14:16 | MHC.CM.PN ---
EMR REVIEWED. 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 FAMILY (SON IVAN/CHRISTIANA GAO) CALLED TO SPEAK WITH MD REGARDING SALES SUPPORT REPRESENTATIVE STATUS. MESSAGE LEFT FOR PROVIDER TO CALL.
[2024-09-21 15:15] VITALS: RESP 14
--- NOTE | 2024-09-22 00:39 | PC.NURSE ---
pt denture packer yelling in room for mom agitated/discomfort. prn morphine given with little result. prn valium q4 given at 2127. dr bear notified - valium changed to q2
[2024-09-22] MEDS: diazePAM 10 MG/2 ML CARTRIDGE 5 MG IVPUSH ×3 (01:10→10:32)
[2024-09-22 09:54] VITALS: RESP 16
--- NOTE | 2024-09-22 11:48 | MHC.CM.PN ---
Addendum entered by Gloria Campbell 09/22/24 14:22: A call was received from patients HCP/Kathleen. 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 MD spoke with HCP Kathleen via phone. He confirmed she wants patient to return to TRUCK MANAGER. 2 RNs and this RN CM were present for the conversation. Original Note: CM spoke with HCP, Kathleen via phone. She stated that family has questions about TRUCK MANAGER. She stated that they want the [place] transferred [place] [facility] The process for transfer was explained. Kathleen was informed that it is unlikely to find accepting MD. Hospitalist was notified. He placed a call to Kathleen. T/W was present. A family meeting was offered today, by MD. The patients son, Meir is requesting Hydration+ nutrition. explained TRUCK MANAGER and the patient's condition at length. Emotional support and encouragement were provided. Per family request patient is no longer TRUCK MANAGER. Meir stated that he would find an accepting MD. CM will follow.
[2024-09-22 12:14] LABS: Glucose, Whole Blood 99 mg/dL (60-115)
[2024-09-22] MEDS: Lactated Ringers 1,000 ML 150 ML IVCONT (12:15)
[2024-09-22 12:16] LABS: Hematocrit 30.5 % (42.0-52.0); Hemoglobin 10.7 g/dl (14.0-18.0); Mean Corpuscular HGB Conc 35.1 g/dl (31.0-36.0); Mean Corpuscular Hemoglobin 34.9 pg (27.0-33.0); Mean Corpuscular Volume 99.3 fL (80.0-98.0); NRBC Abs Auto 0.000 X10*3/uL (0.0-0.012); NRBC Pct Auto 0.0 /100WBC (0.0-0.2); Platelet Count 101 X10*3/uL (160-400); Red Blood Count 3.07 X10*6/uL (4.60-5.80); White Blood Count 3.6 X10*3/uL (4.8-10.8)
[2024-09-22 12:28] LABS: Anion Gap 10 (12-20); Blood Urea Nitrogen 21 mg/dL (9-16); Calcium 8.7 mg/dL (8.4-10.2); Carbon Dioxide 25 mmol/L (22-29); Chloride 112 mmol/L (96-108); Creatinine Clr Calc Pharmacy 66.9; Estimated Glomerular Filt Rate > 60; Potassium 4.0 mmol/L (3.3-5.1); Sodium 143 mmol/L (135-145)
--- NOTE | 2024-09-22 13:58 | PC.NURSE ---
11:50 [facility] informed this RN pts code status was to changed to DRN/DRI per family. Vital sign taken, WNL, blood sugar POC obtained 99. IVF started per MAR. At this time pt appears comfortable, continues to be lethargic, rise and fall of chest noted, RR 12. All safety measures in place. At approximately 14:00 MD spoke with HCP over phone, with this RN, and manager intel present, per HCP pt to be transitioned back to CASH ANALYST. IVF stopped per , At this time pt appears comfortable, continues to be lethargic, rise and fall of chest noted, RR 12. All safety measures in place.
--- NOTE | 2024-09-22 14:01 | P.EN_ITS ---
Event Note Date of Service: 09/22/24 Event Note: Family called to reverse PRAWN TRAWLER HAND status and only to call back shortly requesting PRAWN TRAWLER HAND to continue, after talking to a family friend with in hospice care. PRAWN TRAWLER HAND has thus been reinstated. Conversation witnessed by ELLE Campbell, patient's RN, Time Spent With Patient Time: Total time managing care of this patient today ____ minutes.
--- NOTE | 2024-09-22 14:01 | PM.EVENT ---
Event Note Date of Service: 09/22/24 Event Note: Family called to reverse GROUP TESTER status and only to call back shortly requesting GROUP TESTER to continue, after talking to a family friend with in hospice care. GROUP TESTER has thus been reinstated. Conversation witnessed by ELLE Campbell, patient's RN, Time Spent With Patient Time: Total time managing care of this patient today ____ minutes.
[2024-09-22 14:55] VITALS: RESP 14
--- NOTE | 2024-09-22 17:02 | P.PNIM_ITS ---
Subjective Subjective Date of Service: 09/22/24 Interval History: Pt's family called this morning and wanting to change status back to non NUTRITIONAL SERVICES COOK which because they said they did not have a good understanding that the patient would not be on IVF and nutrition as full code, however. After discussing the case further with a family friends with hospice knowledge they agreed to revert back comfort measures with the understanding of no IVF or IV nutrition and that meds will be given for comfort only Physical Exam 2 Vital Signs: Vital Signs: Last Vital Signs Temp 97.8 F 09/19/24 15:26 Pulse 69 09/19/24 15:26 Resp 14 09/22/24 14:55 BP 139/85 09/19/24 15:26 Pulse Ox 99 09/19/24 15:26 O2 Del Method Room Air 09/19/24 15:26 O2 Flow Rate 96 08/27/24 03:21 BMI result Body Mass Index 35.8 Const: Other: Unresponsive, comfortable Objective Data Active Medications Diazepam (Diazepam 10 Mg/2 Ml Cartridge) 5 mg IVPUSH Q2H PRN PRN Reason: myoclonic jerking/anxiety Last Admin: 09/22/24 10:32 Dose: 5 mg Documented By: SILVIANO Morphine Sulfate (Morphine Sulfate 2 Mg/Ml Cartridge) 2 mg IVPUSH Q1H PRN PRN Reason: Pain, Severe (7-10)/ RR>/=24 Last Admin: 09/22/24 09:54 Dose: 2 mg Documented By: SILVIANO Ondansetron HCl (Ondansetron Odt 4 Mg Tab.Rapdis) 4 mg TRANSLINGU Q8H PRN PRN Reason: Nausea and Vomiting Scopolamine (Scopolamine 1.5 Mg Patch.Td.3) 1.5 mg TRANSDERMA Q72H BISMARK Last Admin: 09/22/24 15:09 Dose: 1.5 mg Documented By: RIGOBERTO Labs 09/22/24 12:09 09/22/24 12:09 Labs: Laboratory Results - last 24 hr 09/22/24 09/22/24 12:08 12:09 MCV 99.3 H MCH 34.9 H MCHC 35.1 RDW 16.8 H Plt Count 101 L MPV 10.3 Absolute Nucleated RBC 0.000 Nucleated RBC % (auto) 0.0 Anion Gap 10 L Estim Creat Clear Calc 66.9 Estimated GFR > 60 POC Glucose 99 Random Glucose 108 Calcium 8.7 Assessment and Plan (1) Major neurocognitive disorder: Status: Acute Plan 88yo M with 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, DM2 with neuroipathy, HTN, HLD, CAD, mood disorder, CKD3 presented after unwitnessed fall at [facility], admitted for acute encephalopathy due to UTI hospital course complicated by hypothermia and bradycardia with changes to goals of care on 09/07. 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 NUTRITIONAL SERVICES COOK which was reversed the next day09/08. However given ongoing decline/failure decision to transition back to NUTRITIONAL SERVICES COOK 09/19 NUTRITIONAL SERVICES COOK HCP/family agreeable to comfort measures only with no IVF, no Abx, no IV nutrion and meds for comfort such as morphine, valium and Psychotropics continue Valium/Haldol p.r.n. Antiemetics p.r.n.. Scopolamine Not conscious enought to eat on his own Goals of care conversation was discussed with HCP (daughter in law/son) with ELLE Campbell and LINDA Ramos and her orientee present. 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
[2024-09-22 23:50] VITALS: RESP 14
[2024-09-23] MEDS: diazePAM 10 MG/2 ML CARTRIDGE 5 MG IVPUSH ×3 (03:09→12:10)
[2024-09-23 08:00] VITALS: RESP 15
--- NOTE | 2024-09-23 08:09 | P.PNIM_ITS ---
Subjective Subjective Date of Service: 09/23/24 Interval History: Remains comfort measures only with no issues reported overnight Physical Exam 2 Vital Signs: Vital Signs: Last Vital Signs Temp 97.8 F 09/19/24 15:26 Pulse 69 09/19/24 15:26 Resp 14 09/22/24 23:50 BP 139/85 09/19/24 15:26 Pulse Ox 99 09/19/24 15:26 O2 Del Method Room Air 09/19/24 15:26 O2 Flow Rate 96 08/27/24 03:21 BMI result Body Mass Index 35.8 Const: Other: Unresponsive, comfortable Objective Data Active Medications Diazepam (Diazepam 10 Mg/2 Ml Cartridge) 5 mg IVPUSH Q2H PRN PRN Reason: myoclonic jerking/anxiety Last Admin: 09/23/24 03:09 Dose: 5 mg Documented By: MATTHEW Morphine Sulfate (Morphine Sulfate 2 Mg/Ml Cartridge) 2 mg IVPUSH Q1H PRN PRN Reason: Pain, Severe (7-10)/ RR>/=24 Last Admin: 09/23/24 04:35 Dose: 2 mg Documented By: MADELEINE Ondansetron HCl (Ondansetron Odt 4 Mg Tab.Rapdis) 4 mg TRANSLINGU Q8H PRN PRN Reason: Nausea and Vomiting Scopolamine (Scopolamine 1.5 Mg Patch.Td.3) 1.5 mg TRANSDERMA Q72H BISMARK Last Admin: 09/22/24 15:09 Dose: 1.5 mg Documented By: RIGOBERTO Labs 09/22/24 12:09 09/22/24 12:09 Labs: Laboratory Results - last 24 hr 09/22/24 09/22/24 12:08 12:09 MCV 99.3 H MCH 34.9 H MCHC 35.1 RDW 16.8 H Plt Count 101 L MPV 10.3 Absolute Nucleated RBC 0.000 Nucleated RBC % (auto) 0.0 Anion Gap 10 L Estim Creat Clear Calc 66.9 Estimated GFR > 60 POC Glucose 99 Random Glucose 108 Calcium 8.7 Assessment and Plan (1) Major neurocognitive disorder: Status: Acute Plan 88yo M with 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, admitted for acute encephalopathy due to UTI hospital course complicated by hypothermia and bradycardia with changes to goals of care on 09/07. 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 ADMINISTRATIVE SUPERVISOR which was reversed the next day09/08. However given ongoing decline/failure decision to transition back to ADMINISTRATIVE SUPERVISOR 09/19 ADMINISTRATIVE SUPERVISOR HCP/family agreeable to comfort measures only with no IVF, no Abx, no IV nutrion and meds for comfort such as morphine, valium and Psychotropics as needed continue Valium/Haldol p.r.n. Antiemetics p.r.n.. Scopolamine for secretions Not conscious enough to eat on his own Goals of care conversation was discussed with HCP (daughter in law/son) with ELLE Campbell and LINDA Ramos and her orientee present. 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
--- NOTE | 2024-09-23 15:43 | MHC.CM.PN ---
Patient continues TELEMARKETER SUPERVISOR status. Two SNFs are interested in the pt, [facility]
[2024-09-23 23:16] VITALS: RESP 14
[2024-09-24] MEDS: diazePAM 10 MG/2 ML CARTRIDGE 5 MG IVPUSH (03:51)
[2024-09-24 04:49] LABS: Cortisol, Free 1.50 mcg/dL
[2024-09-24 08:00] VITALS: RESP 14
--- NOTE | 2024-09-24 08:36 | P.PNIM_ITS ---
Subjective Subjective Date of Service: 09/24/24 Interval History: Resting comfortably, no issues overnight Physical Exam 2 Vital Signs: Vital Signs: Last Vital Signs Temp 97.8 F 09/19/24 15:26 Pulse 69 09/19/24 15:26 Resp 14 09/23/24 23:16 BP 139/85 09/19/24 15:26 Pulse Ox 99 09/19/24 15:26 O2 Del Method Room Air 09/19/24 15:26 O2 Flow Rate 96 08/27/24 03:21 BMI result Body Mass Index 35.8 Const: Other: Unresponsive, brething comfortably, no agitation Objective Data Active Medications Diazepam (Diazepam 10 Mg/2 Ml Cartridge) 5 mg IVPUSH Q2H PRN PRN Reason: myoclonic jerking/anxiety Last Admin: 09/24/24 03:51 Dose: 5 mg Documented By: MATTHEW Morphine Sulfate (Morphine Sulfate 2 Mg/Ml Cartridge) 2 mg IVPUSH Q1H PRN PRN Reason: Pain, Severe (7-10)/ RR>/=24 Last Admin: 09/23/24 04:35 Dose: 2 mg Documented By: MADELEINE Ondansetron HCl (Ondansetron Odt 4 Mg Tab.Rapdis) 4 mg TRANSLINGU Q8H PRN PRN Reason: Nausea and Vomiting Scopolamine (Scopolamine 1.5 Mg Patch.Td.3) 1.5 mg TRANSDERMA Q72H BISMARK Last Admin: 09/22/24 15:09 Dose: 1.5 mg Documented By: RIGOBERTO Labs 09/22/24 12:09 09/22/24 12:09 Labs: Laboratory Results - last 24 hr 09/16/24 13:09 Free Cortisol 1.50 H Assessment and Plan (1) Major neurocognitive disorder: Status: Acute Plan 88yo M with 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, DM2 with neuroipathy, HTN, HLD, CAD, mood disorder, CKD3 presented after unwitnessed fall at [facility], admitted for acute encephalopathy due to UTI hospital course complicated by hypothermia and bradycardia with changes to goals of care on 09/07. 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 CRYPTOZOOLOGIST which was reversed the next day09/08. However given ongoing decline/failure decision to transition back to CRYPTOZOOLOGIST 09/19 CRYPTOZOOLOGIST HCP/family agreeable to comfort measures only with no IVF, no Abx, no IV nutrion and meds for comfort such as morphine, valium and Psychotropics as needed continue morphine, Valium/Haldol p.r.n. and adjust as needed for optimal comfort Antiemetics p.r.n.. Scopolamine for secretions Not conscious enough to eat on his own Goals of care conversation was discussed with HCP (daughter in law/son) with ELLE Campbell and LINDA Ramos and her orientee present. Previously treated conditions- Unspecified dementia with behavioral disturbance- treat agitation as above Hypothermia/bradycardia UTI/retention SANTOS/CKD Neurocognitive disorder 2/2 dementia complicated with behavioral disturbance Paroxysmal atrial fibrillation Hypertension Hyperlipidemia Diabetes ONgoing inpt stay- orthotist/prosthetist dvt ppx- dc'd due to above Quality Stroke Does the patient have a stroke diagnosis?: No VTE Prior VTE?: No VTE Risk Level:: Medical - moderate - high VTE Device Contraindication: Treatment Not Indicated VTE Drug Contraindication: N/A - Med Ordered
[2024-09-24 15:22] VITALS: RESP 12
[2024-09-25] VITALS: RESP 12
[2024-09-25] MEDS: diazePAM 10 MG/2 ML CARTRIDGE 5 MG IVPUSH (00:31)
[2024-09-25 07:58] VITALS: RESP 12
--- NOTE | 2024-09-25 08:42 | HO.PM.IMPN ---
Subjective Subjective Date of Service: 09/25/24 Interval History: Resting comfortably, no issues overnight Physical Exam Vital Signs: Vital Signs: Last Vital Signs Temp 97.8 F 09/19/24 15:26 Pulse 69 09/19/24 15:26 Resp 12 09/25/24 07:58 BP 139/85 09/19/24 15:26 Pulse Ox 99 09/19/24 15:26 O2 Del Method Room Air 09/19/24 15:26 O2 Flow Rate 96 08/27/24 03:21 BMI result Body Mass Index 35.8 Const: Other: Unresponsive, brething comfortably, no agitation Objective Data Active Medications Diazepam (Diazepam 10 Mg/2 Ml Cartridge) 5 mg IVPUSH Q2H PRN PRN Reason: myoclonic jerking/anxiety Last Admin: 09/25/24 00:31 Dose: 5 mg Documented By: DWIGHT Ondansetron HCl (Ondansetron Odt 4 Mg Tab.Rapdis) 4 mg TRANSLINGU Q8H PRN PRN Reason: Nausea and Vomiting Scopolamine (Scopolamine 1.5 Mg Patch.Td.3) 1.5 mg TRANSDERMA Q72H BISMARK Last Admin: 09/22/24 15:09 Dose: 1.5 mg Documented By: RIGOBERTO Labs 09/22/24 12:09 09/22/24 12:09 Labs: Laboratory Results - last 24 hr 09/16/24 13:09 Free Cortisol 1.50 H Assessment and Plan (1) Major neurocognitive disorder: Status: Acute Plan 88yo M with 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, DM2 with neuroipathy, HTN, HLD, CAD, mood disorder, CKD3 presented after unwitnessed fall at [facility], admitted for acute encephalopathy due to UTI hospital course complicated by hypothermia and bradycardia with changes to goals of care on 09/07. 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 PSYCHOLOGY DEPARTMENT CHAIR which was reversed the next day09/08. However given ongoing decline/failure decision to transition back to PSYCHOLOGY DEPARTMENT CHAIR 09/19 PSYCHOLOGY DEPARTMENT CHAIR HCP/family has made him comfort measures only with the understanding of no IVF, no Abx, no IV nutrion and meds for comfort such as morphine, valium and Psychotropics as needed continue morphine, Valium/Haldol p.r.n. and adjust as needed for optimal comfort Antiemetics p.r.n.. Scopolamine for secretions Goals of care conversation was discussed with HCP (daughter in law/son) with ELLE Campbell and LINDA Ramos and her orientee present. Previously treated conditions- Unspecified dementia with behavioral disturbance- treat agitation as above Hypothermia/bradycardia UTI/retention SANTOS/CKD Neurocognitive disorder 2/2 dementia complicated with behavioral disturbance Paroxysmal atrial fibrillation Hypertension Hyperlipidemia Diabetes ONgoing inpt stay- vocal performer dvt ppx- dc'd due to above Quality Stroke Does the patient have a stroke diagnosis?: No VTE Prior VTE?: No VTE Risk Level:: Medical - moderate - high VTE Device Contraindication: Treatment Not Indicated VTE Drug Contraindication: N/A - Med Ordered
--- NOTE | 2024-09-25 13:16 | MHC.CM.PN ---
EMR REVIEWED. 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 SNF REFERRALS UPDATED, NO BED OFFERS EXTENDED AT THIS TIME. CM WILL CONTINUE TO FOLLOW.
[2024-09-25 15:30] VITALS: RESP 17
[2024-09-25 23:43] VITALS: RESP 16
[2024-09-26 07:16] VITALS: RESP 14
--- NOTE | 2024-09-26 09:50 | PC.NURSE ---
Pt is DONOR SPECIALIST level of care . Pt at this time appears comfortable no signs of pain and respirations unlabored. T&P for comfort
--- NOTE | 2024-09-26 12:14 | P.PNIM_ITS ---
Subjective Subjective Date of Service: 09/26/24 Interval History: seen this morning laying comfortable in his bed no complaints Physical Exam 2 Vital Signs: Vital Signs: Last Vital Signs Temp 97.8 F 09/19/24 15:26 Pulse 69 09/19/24 15:26 Resp 14 09/26/24 07:16 BP 139/85 09/19/24 15:26 Pulse Ox 99 09/19/24 15:26 O2 Del Method Room Air 09/19/24 15:26 O2 Flow Rate 96 08/27/24 03:21 BMI result Body Mass Index 35.8 Const: Other: comfortably breathing, not interactive, no restlessness bilateral chest movement, not in resp distress Skin Warm, Dry Objective Data Active Medications Diazepam (Diazepam 10 Mg/2 Ml Cartridge) 5 mg IVPUSH Q2H PRN PRN Reason: myoclonic jerking/anxiety Last Admin: 09/25/24 00:31 Dose: 5 mg Documented By: DWIGHT Ondansetron HCl (Ondansetron Odt 4 Mg Tab.Rapdis) 4 mg TRANSLINGU Q8H PRN PRN Reason: Nausea and Vomiting Scopolamine (Scopolamine 1.5 Mg Patch.Td.3) 1.5 mg TRANSDERMA Q72H BISMARK Last Admin: 09/25/24 14:28 Dose: 1.5 mg Documented By: EDGAR Labs 09/22/24 12:09 09/22/24 12:09 Assessment and Plan (1) Major neurocognitive disorder: Status: Acute Plan 88yo M with 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, DM2 with neuroipathy, HTN, HLD, CAD, mood disorder, CKD3 presented after unwitnessed fall at [facility], admitted for acute encephalopathy due to UTI hospital course complicated by hypothermia and bradycardia with changes to goals of care on 09/07. 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 FLAKEBOARD LINE TENDER which was reversed the next day09/08. However given ongoing decline/failure decision to transition back to FLAKEBOARD LINE TENDER 09/19 FLAKEBOARD LINE TENDER HCP/family has made him comfort measures only with the understanding of no IVF, no Abx, no IV nutrion and meds for comfort such as morphine, valium and Psychotropics as needed continue morphine, Valium/Haldol p.r.n. and adjust as needed for optimal comfort Antiemetics p.r.n.. Scopolamine for secretions Goals of care conversation was discussed with HCP (daughter in law/son) with ELLE Campbell and RN Alexx Ramos and her orientee present. 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
--- NOTE | 2024-09-26 15:20 | PC.NURSE ---
Pt comfortable has not required any PRN medications respirations unlabored
--- NOTE | 2024-09-26 18:35 | HE.NUR.EV ---
Status Change: Immediate Actions Taken: Notifications: Further Monitoring and Treatment:
--- NOTE | 2024-09-26 18:36 | PC.NURSE ---
Pt family at bedside update given
--- NOTE | 2024-09-27 10:33 | HO.PM.IMPN ---
Subjective Subjective Date of Service: 09/27/24 Interval History: seen this morning laying comfortable in his bed no complaints Physical Exam Vital Signs: Vital Signs: Last Vital Signs Temp 97.8 F 09/19/24 15:26 Pulse 69 09/19/24 15:26 Resp 14 09/26/24 07:16 BP 139/85 09/19/24 15:26 Pulse Ox 99 09/19/24 15:26 O2 Del Method Room Air 09/19/24 15:26 O2 Flow Rate 96 08/27/24 03:21 BMI result Body Mass Index 35.8 Const: Other: comfortably breathing, not interactive, no restlessness bilateral chest movement, not in resp distress Skin Warm, Dry Objective Data Active Medications Diazepam (Diazepam 10 Mg/2 Ml Cartridge) 5 mg IVPUSH Q2H PRN PRN Reason: myoclonic jerking/anxiety Last Admin: 09/25/24 00:31 Dose: 5 mg Documented By: DWIGHT Morphine Sulfate (Morphine Sulfate 2 Mg/Ml Cartridge) 2 mg IVPUSH Q1H PRN; Protocol PRN Reason: Dyspnea\Pain\comfort Ondansetron HCl (Ondansetron Odt 4 Mg Tab.Rapdis) 4 mg TRANSLINGU Q8H PRN PRN Reason: Nausea and Vomiting Scopolamine (Scopolamine 1.5 Mg Patch.Td.3) 1.5 mg TRANSDERMA Q72H BISMARK Last Admin: 09/25/24 14:28 Dose: 1.5 mg Documented By: EDGAR Gray 09/22/24 12:09 09/22/24 12:09 Assessment and Plan (1) Major neurocognitive disorder: Status: Acute Plan 88yo M with 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, DM2 with neuroipathy, HTN, HLD, CAD, mood disorder, CKD3 presented after unwitnessed fall at [facility], admitted for acute encephalopathy due to UTI hospital course complicated by hypothermia and bradycardia with changes to goals of care on 09/07. 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 PHARMACY TECHNICIAN INPATIENT which was reversed the next day09/08. However given ongoing decline/failure decision to transition back to PHARMACY TECHNICIAN INPATIENT 09/19 PHARMACY TECHNICIAN INPATIENT HCP/family has made him comfort measures only with the understanding of no IVF, no Abx, no IV nutrion and meds for comfort such as morphine, valium and Psychotropics as needed continue morphine, Valium/Haldol p.r.n. and adjust as needed for optimal comfort Antiemetics p.r.n.. Scopolamine for secretions Goals of care conversation was discussed with HCP (daughter in law/son) with ELLE Campbell and LINDA Ramos by AYLEEN Alvarez. Needs of hospital stay for PHARMACY TECHNICIAN INPATIENT. Quality Stroke Does the patient have a stroke diagnosis?: No VTE Prior VTE?: No VTE Risk Level:: Medical - moderate - high VTE Device Contraindication: Treatment Not Indicated VTE Drug Contraindication: N/A - Med Ordered
--- NOTE | 2024-09-27 11:22 | PC.NURSE ---
During morning assessment, patient was spontaneously opening eyes, starring off, did not verbally communicate. Patient appears to be resting comfortably. Unlabored breathing, eyes closed. Foam dressing on coccyx - area underneath intact, pink but blanchable.Patient has intact foam dressing on right forearm. Patient turned and repositioned every 2 hours and more if needed for comfort. Bed alarm in place. Call galicia in reach.
--- NOTE | 2024-09-27 15:40 | PC.NURSE ---
Left forearm 22 gauge IV removed due to leaking. Kit Bahena notified via [employer]. No indication for PRN IV pain medications at this time. MD asked if IV medications can be switched to liquid PO due to lack of IV access. Patient appears to be resting comfortably, eyes closed, unlabored breathing. Turn and repositioned for comfort. Mouth care, eye care performed. Bed alarm on. Call galicia in reach.
--- NOTE | 2024-09-28 09:50 | HO.PM.IMPN ---
Subjective Subjective Date of Service: 09/28/24 Interval History: seen this morning laying comfortable in his bed no complaints Physical Exam Vital Signs: Vital Signs: Last Vital Signs Temp 97.8 F 09/19/24 15:26 Pulse 69 09/19/24 15:26 Resp 14 09/26/24 07:16 BP 139/85 09/19/24 15:26 Pulse Ox 99 09/19/24 15:26 O2 Del Method Room Air 09/19/24 15:26 O2 Flow Rate 96 08/27/24 03:21 BMI result Body Mass Index 35.8 sedated Objective Data Active Medications Lorazepam (Lorazepam 0.5 Mg Tablet) 0.25 mg PO Q4H PRN PRN Reason: anxiety/restlessness Morphine Sulfate (Morphine Sulfate Oral Alexus 10 Mg/5 Ml Solution) 5 mg SUBLINGUAL Q4H PRN PRN Reason: Dyspnea\Pain\Comfort Ondansetron HCl (Ondansetron Odt 4 Mg Tab.Rapdis) 4 mg TRANSLINGU Q8H PRN PRN Reason: Nausea and Vomiting Scopolamine (Scopolamine 1.5 Mg Patch.Td.3) 1.5 mg TRANSDERMA Q72H BISMARK Last Admin: 09/25/24 14:28 Dose: 1.5 mg Documented By: EDGAR Labs 09/22/24 12:09 09/22/24 12:09 Assessment and Plan (1) Major neurocognitive disorder: Status: Acute Plan 88yo M with 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, DM2 with neuroipathy, HTN, HLD, CAD, mood disorder, CKD3 presented after unwitnessed fall at [facility], admitted for acute encephalopathy due to UTI hospital course complicated by hypothermia and bradycardia with changes to goals of care on 09/07. 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 GUMMING MACHINE OPERATOR which was reversed the next day09/08. However given ongoing decline/failure decision to transition back to GUMMING MACHINE OPERATOR 09/19 GUMMING MACHINE OPERATOR HCP/family has made him comfort measures only with the understanding of no IVF, no Abx, no IV nutrion and meds for comfort such as morphine, valium and Psychotropics as needed continue morphine, Valium/Haldol p.r.n. and adjust as needed for optimal comfort Antiemetics p.r.n.. Scopolamine for secretions Goals of care conversation was discussed with HCP (daughter in law/son) with ELLE Campbell and LINDA Ramos by AYLEEN Alvarez. Needs of hospital stay for GUMMING MACHINE OPERATOR. Quality Stroke Does the patient have a stroke diagnosis?: No VTE Prior VTE?: No VTE Risk Level:: Medical - moderate - high VTE Device Contraindication: Treatment Not Indicated VTE Drug Contraindication: N/A - Med Ordered
--- NOTE | 2024-09-28 11:03 | MHC.CLN ---
F/U CONTINUES COMFORT MEASURES ONLY AND NPO. RD AVAILABLE NEEDED.
--- NOTE | 2024-09-28 13:54 | MHC.CM.PN ---
PT REMAINS INPT, PRN OCCUPATIONAL THERAPIST STATUS CM FOLLOWING
[2024-09-28 20:09] VITALS: RESP 12
--- NOTE | 2024-09-29 11:52 | HO.PM.IMPN ---
Subjective Subjective Date of Service: 09/29/24 Interval History: seen this morning laying comfortable in his bed no complaints Physical Exam Vital Signs: Vital Signs: Last Vital Signs Temp 97.8 F 09/19/24 15:26 Pulse 69 09/19/24 15:26 Resp 12 09/28/24 20:09 BP 139/85 09/19/24 15:26 Pulse Ox 99 09/19/24 15:26 O2 Del Method Room Air 09/19/24 15:26 O2 Flow Rate 96 08/27/24 03:21 BMI result Body Mass Index 35.8 sedated Objective Data Active Medications Lorazepam (Lorazepam 0.5 Mg Tablet) 0.25 mg PO Q4H PRN PRN Reason: anxiety/restlessness Last Admin: 09/28/24 17:15 Dose: 0.25 mg Documented By: ZIA Morphine Sulfate (Morphine Sulfate Oral Alexus 10 Mg/5 Ml Solution) 5 mg SUBLINGUAL Q4H PRN PRN Reason: Dyspnea\Pain\Comfort Ondansetron HCl (Ondansetron Odt 4 Mg Tab.Rapdis) 4 mg TRANSLINGU Q8H PRN PRN Reason: Nausea and Vomiting Scopolamine (Scopolamine 1.5 Mg Patch.Td.3) 1.5 mg TRANSDERMA Q72H BISMARK Last Admin: 09/28/24 13:37 Dose: 1.5 mg Documented By: ZIA Labs 09/22/24 12:09 09/22/24 12:09 Assessment and Plan (1) Major neurocognitive disorder: Status: Acute Plan 88yo M with 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, DM2 with neuroipathy, HTN, HLD, CAD, mood disorder, CKD3 presented after unwitnessed fall at [facility], admitted for acute encephalopathy due to UTI hospital course complicated by hypothermia and bradycardia with changes to goals of care on 09/07. 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 REGIONAL VICE PRESIDENT SURGICAL SALES which was reversed the next day09/08. However given ongoing decline/failure decision to transition back to REGIONAL VICE PRESIDENT SURGICAL SALES 09/19 REGIONAL VICE PRESIDENT SURGICAL SALES HCP/family has made him comfort measures only with the understanding of no IVF, no Abx, no IV nutrion and meds for comfort such as morphine, valium and Psychotropics as needed continue morphine, Valium/Haldol p.r.n. and adjust as needed for optimal comfort Antiemetics p.r.n.. Scopolamine for secretions Goals of care conversation was discussed with HCP (daughter in law/son) with ELLE Campbell and LINDA Ramos by AYLEEN Alvarez. Needs of hospital stay for REGIONAL VICE PRESIDENT SURGICAL SALES. Quality Stroke Does the patient have a stroke diagnosis?: No VTE Prior VTE?: No VTE Risk Level:: Medical - moderate - high VTE Device Contraindication: Treatment Not Indicated VTE Drug Contraindication: N/A - Med Ordered
--- NOTE | 2024-09-30 05:27 | PC.NURSE ---
Pt CHEMICAL PROCESS ENGINEER. Calm and cooperative with incontinent care. Lethargic throughout this shift. Breathing shallow, unlabored.
[2024-09-30 09:32] VITALS: RESP 12
--- NOTE | 2024-09-30 09:33 | HO.PM.IMPN ---
Subjective Subjective Date of Service: 09/30/24 Physical Exam Vital Signs: Vital Signs: Last Vital Signs Temp 97.8 F 09/19/24 15:26 Pulse 69 09/19/24 15:26 Resp 12 09/30/24 09:32 BP 139/85 09/19/24 15:26 Pulse Ox 99 09/19/24 15:26 O2 Del Method Room Air 09/19/24 15:26 O2 Flow Rate 96 08/27/24 03:21 BMI result Body Mass Index 35.8 Objective Data Active Medications Lorazepam (Lorazepam 0.5 Mg Tablet) 0.25 mg PO Q4H PRN PRN Reason: anxiety/restlessness Last Admin: 09/28/24 17:15 Dose: 0.25 mg Documented By: ZIA Morphine Sulfate (Morphine Sulfate Oral Alexus 10 Mg/5 Ml Solution) 5 mg SUBLINGUAL Q4H PRN PRN Reason: Dyspnea\Pain\Comfort Ondansetron HCl (Ondansetron Odt 4 Mg Tab.Rapdis) 4 mg TRANSLINGU Q8H PRN PRN Reason: Nausea and Vomiting Scopolamine (Scopolamine 1.5 Mg Patch.Td.3) 1.5 mg TRANSDERMA Q72H BISMARK Last Admin: 09/28/24 13:37 Dose: 1.5 mg Documented By: ZIA Labs 09/22/24 12:09 09/22/24 12:09 Assessment and Plan (1) Major neurocognitive disorder: Status: Acute Plan 88yo M with 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, DM2 with neuroipathy, HTN, HLD, CAD, mood disorder, CKD3 presented after unwitnessed fall at [facility], admitted for acute encephalopathy due to UTI hospital course complicated by hypothermia and bradycardia with changes to goals of care on 09/07. 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 DEMONSTRATOR SEWING TECHNIQUES which was reversed the next day09/08. However given ongoing decline/failure decision to transition back to DEMONSTRATOR SEWING TECHNIQUES 09/19 DEMONSTRATOR SEWING TECHNIQUES HCP/family has made him comfort measures only with the understanding of no IVF, no Abx, no IV nutrition and meds for comfort such as morphine, valium and Psychotropics as needed continue morphine, Valium/Haldol p.r.n. and adjust as needed for optimal comfort Antiemetics p.r.n.. Scopolamine for secretions Goals of care conversation was discussed with HCP (daughter in law/son) Quality Stroke Does the patient have a stroke diagnosis?: No VTE Prior VTE?: No VTE Risk Level:: Medical - moderate - high VTE Device Contraindication: Treatment Not Indicated VTE Drug Contraindication: N/A - Med Ordered
[2024-09-30 10:47] VITALS: RESP 12
--- NOTE | 2024-09-30 13:38 | MHC.CM.PN ---
EMR reviewed and per MD rounds, pt is not medically cleared for discharge due to REMNANT SORTER status. SNF referral updated, awaiting bed offer.
--- NOTE | 2024-09-30 14:43 | PC.NURSE ---
14:43 Pt MILLER KILN DRIED SALT, appearing comfortable, rise and fall of chest noted, asleep w/ unlabored respirations, RR 12, does not appear to be in distress.
[2024-09-30 16:08] VITALS: RESP 16
--- NOTE | 2024-10-01 09:00 | P.PNIM_ITS ---
Subjective Subjective Date of Service: 10/01/24 Interval History: Resting comfortably, no issues overnight Physical Exam 2 Vital Signs: Vital Signs: Last Vital Signs Temp 97.8 F 09/19/24 15:26 Pulse 69 09/19/24 15:26 Resp 16 09/30/24 16:08 BP 139/85 09/19/24 15:26 Pulse Ox 99 09/19/24 15:26 O2 Del Method Room Air 09/19/24 15:26 O2 Flow Rate 96 08/27/24 03:21 BMI result Body Mass Index 35.8 Const: Other: Unresponsive, brething comfortably, no agitation Objective Data Active Medications Lorazepam (Lorazepam 0.5 Mg Tablet) 0.25 mg PO Q4H PRN PRN Reason: anxiety/restlessness Last Admin: 09/28/24 17:15 Dose: 0.25 mg Documented By: ZIA Morphine Sulfate (Morphine Sulfate Oral Alexus 10 Mg/5 Ml Solution) 5 mg SUBLINGUAL Q4H PRN PRN Reason: Dyspnea\Pain\Comfort Ondansetron HCl (Ondansetron Odt 4 Mg Tab.Rapdis) 4 mg TRANSLINGU Q8H PRN PRN Reason: Nausea and Vomiting Scopolamine (Scopolamine 1.5 Mg Patch.Td.3) 1.5 mg TRANSDERMA Q72H BISMARK Last Admin: 09/28/24 13:37 Dose: 1.5 mg Documented By: ZIA Labs 09/22/24 12:09 09/22/24 12:09 Labs: Laboratory Results - last 24 hr 09/16/24 13:09 Free Cortisol 1.50 H Assessment and Plan (1) Major neurocognitive disorder: Status: Acute Plan 88yo M with 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, admitted for acute encephalopathy due to UTI hospital course complicated by hypothermia and bradycardia with changes to goals of care on 09/07. 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 LIVESTOCK YARD ATTENDANT which was reversed the next day09/08. However given ongoing decline/failure decision to transition back to LIVESTOCK YARD ATTENDANT 09/19 LIVESTOCK YARD ATTENDANT HCP/family transitioned to comfort measures only with no IVF, no Abx, no IV nutrion and meds for comfort such as morphine, valium and Psychotropics as needed continue morphine, Valium/Haldol p.r.n. and adjust as needed for optimal comfort Antiemetics p.r.n.. 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
[2024-10-01 10:18] VITALS: RESP 12
--- NOTE | 2024-10-01 10:18 | PC.NURSE ---
Pt CLOCK REPAIRER, sleeping in bed, rise and fall of chest noted, RR 12. Appears comfortable, no signs and symptoms of distress. All safety measures in place.
[2024-10-01] MEDS: Morphine Sulfate Oral Sol 10 MG/5 ML SOLUTION 5 MG SUBLINGUAL (12:33)
--- NOTE | 2024-10-02 08:48 | P.PNIM_ITS ---
Subjective Subjective Date of Service: 10/02/24 Interval History: comfortable, no restlessness Physical Exam 2 Vital Signs: Vital Signs: Last Vital Signs Temp 97.8 F 09/19/24 15:26 Pulse 69 09/19/24 15:26 Resp 12 10/01/24 10:18 BP 139/85 09/19/24 15:26 Pulse Ox 99 09/19/24 15:26 O2 Del Method Room Air 09/19/24 15:26 O2 Flow Rate 96 08/27/24 03:21 BMI result Body Mass Index 35.8 Const: Other: Unresponsive, brething comfortably, no agitation Objective Data Active Medications Lorazepam (Lorazepam 0.5 Mg Tablet) 0.25 mg PO Q4H PRN PRN Reason: anxiety/restlessness Last Admin: 10/01/24 13:56 Dose: 0.25 mg Documented By: SILVIANO Morphine Sulfate (Morphine Sulfate Oral Alexus 10 Mg/5 Ml Solution) 5 mg SUBLINGUAL Q4H PRN PRN Reason: Dyspnea\Pain\Comfort Last Admin: 10/01/24 12:33 Dose: 5 mg Documented By: RIGOBERTO Ondansetron HCl (Ondansetron Odt 4 Mg Tab.Rapdis) 4 mg TRANSLINGU Q8H PRN PRN Reason: Nausea and Vomiting Scopolamine (Scopolamine 1.5 Mg Patch.Td.3) 1.5 mg TRANSDERMA Q72H BISMARK Last Admin: 10/01/24 13:46 Dose: 1.5 mg Documented By: SILVIANO Labs 09/22/24 12:09 09/22/24 12:09 Labs: Laboratory Results - last 24 hr 09/16/24 13:09 Free Cortisol 1.50 H Assessment and Plan (1) Major neurocognitive disorder: Status: Acute Plan 88yo M with 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, DM2 with neuroipathy, HTN, HLD, CAD, mood disorder, CKD3 presented after unwitnessed fall at [facility], admitted for acute encephalopathy due to UTI hospital course complicated by hypothermia and bradycardia with changes to goals of care on 09/07. 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 HEALTH CARE FACILITY ADMINISTRATOR which was reversed the next day09/08. However given ongoing decline/failure decision to transition back to HEALTH CARE FACILITY ADMINISTRATOR 09/19 HEALTH CARE FACILITY ADMINISTRATOR HCP/family transitioned to comfort measures only with no IVF, no Abx, no IV nutrion and meds for comfort such as morphine, valium and Psychotropics as needed continue morphine, Valium/Haldol p.r.n. and adjust as needed for optimal comfort Antiemetics p.r.n.. 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
[2024-10-02 10:00] VITALS: RESP 12
[2024-10-02] MEDS: Morphine Sulfate Oral Sol 10 MG/5 ML SOLUTION 5 MG SUBLINGUAL (10:58)
[2024-10-03] MEDS: Morphine Sulfate Oral Sol 10 MG/5 ML SOLUTION 2.5 MG PO ×2 (07:15→13:20)
--- NOTE | 2024-10-03 07:20 | PC.NURSE ---
Skin check foam on coccyx intact, heels not red, scattered bruises noted on all of body.
--- NOTE | 2024-10-03 07:55 | P.PNIM_ITS ---
Subjective Subjective Date of Service: 10/03/24 Interval History: no change Physical Exam 2 Vital Signs: Vital Signs: Last Vital Signs Temp 97.8 F 09/19/24 15:26 Pulse 69 09/19/24 15:26 Resp 12 10/02/24 10:00 BP 139/85 09/19/24 15:26 Pulse Ox 99 09/19/24 15:26 O2 Del Method Room Air 09/19/24 15:26 O2 Flow Rate 96 08/27/24 03:21 BMI result Body Mass Index 35.8 Const: Other: Unresponsive, brething comfortably, no agitation Objective Data Active Medications Diazepam (Diazepam 10 Mg/2 Ml Cartridge) 10 mg IVPUSH Q4H PRN PRN Reason: Anxiety Lorazepam (Lorazepam 0.5 Mg Tablet) 0.5 mg PO Q4H PRN PRN Reason: Anxiety Morphine Sulfate (Morphine Sulfate 2 Mg/Ml Cartridge) 1 mg IVPUSH Q1H PRN; Protocol PRN Reason: Breakthrough Pain Morphine Sulfate (Morphine Sulfate Oral Alexus 10 Mg/5 Ml Solution) 2.5 mg PO Q2H PRN PRN Reason: Breakthrough Pain Last Admin: 10/03/24 07:15 Dose: 2.5 mg Documented By: DELMY Ondansetron HCl (Ondansetron Odt 4 Mg Tab.Rapdis) 4 mg TRANSLINGU Q8H PRN PRN Reason: Nausea and Vomiting Scopolamine (Scopolamine 1.5 Mg Patch.Td.3) 1.5 mg TRANSDERMA Q72H BISMARK Last Admin: 10/01/24 13:46 Dose: 1.5 mg Documented By: SILVIANO Labs 09/22/24 12:09 09/22/24 12:09 Labs: Laboratory Results - last 24 hr 09/16/24 13:09 Free Cortisol 1.50 H Assessment and Plan (1) Major neurocognitive disorder: Status: Acute Plan 88yo M with 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, DM2 with neuroipathy, HTN, HLD, CAD, mood disorder, CKD3 presented after unwitnessed fall at [facility], admitted for acute encephalopathy due to UTI hospital course complicated by hypothermia and bradycardia with changes to goals of care on 09/07. 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 CASING MATERIAL WEIGHER which was reversed the next day09/08. However given ongoing decline/failure decision to transition back to CASING MATERIAL WEIGHER 09/19 CASING MATERIAL WEIGHER HCP/family transitioned to comfort measures only with no IVF, no Abx, no IV nutrion and meds for comfort such as morphine, valium and Psychotropics as needed continue morphine, Valium/Haldol p.r.n. and adjust as needed for optimal comfort Antiemetics p.r.n.. 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
[2024-10-04] VITALS (9 sets, daily range): PULSE 52–60; RESP 11–13
[2024-10-04] MEDS: Morphine Sulfate Oral Sol 10 MG/5 ML SOLUTION 2.5 MG PO (00:38)
--- NOTE | 2024-10-04 09:10 | P.PNIM_ITS ---
Subjective Subjective Date of Service: 10/04/24 Interval History: Essentially no new issues Physical Exam 2 Vital Signs: Vital Signs: Last Vital Signs Temp 97.8 F 09/19/24 15:26 Pulse 52 10/04/24 07:51 Resp 12 10/04/24 08:00 BP 139/85 09/19/24 15:26 Pulse Ox 99 09/19/24 15:26 O2 Del Method Room Air 09/19/24 15:26 O2 Flow Rate 96 08/27/24 03:21 BMI result Body Mass Index 35.8 Const: Other: Unresponsive, brething comfortably, no agitation Objective Data Active Medications Diazepam (Diazepam 10 Mg/2 Ml Cartridge) 10 mg IVPUSH Q4H PRN PRN Reason: Anxiety Lorazepam (Lorazepam 0.5 Mg Tablet) 0.5 mg PO Q4H PRN PRN Reason: Anxiety Morphine Sulfate (Morphine Sulfate 2 Mg/Ml Cartridge) 1 mg IVPUSH Q1H PRN; Protocol PRN Reason: Breakthrough Pain Morphine Sulfate (Morphine Sulfate Oral Alexus 10 Mg/5 Ml Solution) 2.5 mg PO Q2H PRN PRN Reason: Breakthrough Pain Last Admin: 10/04/24 00:38 Dose: 2.5 mg Documented By: MATTHEW Ondansetron HCl (Ondansetron Odt 4 Mg Tab.Rapdis) 4 mg TRANSLINGU Q8H PRN PRN Reason: Nausea and Vomiting Scopolamine (Scopolamine 1.5 Mg Patch.Td.3) 1.5 mg TRANSDERMA Q72H BISMARK Last Admin: 10/01/24 13:46 Dose: 1.5 mg Documented By: SILVIANO Labs 09/22/24 12:09 09/22/24 12:09 Labs: Laboratory Results - last 24 hr 09/16/24 13:09 Free Cortisol 1.50 H Assessment and Plan (1) Major neurocognitive disorder: Status: Acute Plan 88yo M with 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, DM2 with neuroipathy, HTN, HLD, CAD, mood disorder, CKD3 presented after unwitnessed fall at [facility], admitted for acute encephalopathy due to UTI hospital course complicated by hypothermia and bradycardia with changes to goals of care on 09/07. 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 HOME MORTGAGE DISCLOSURE ACT SPECIALIST which was reversed the next day09/08. However given ongoing decline/failure decision to transition back to HOME MORTGAGE DISCLOSURE ACT SPECIALIST 09/19 HOME MORTGAGE DISCLOSURE ACT SPECIALIST--HCP/family transitioned to comfort measures only with no IVF, no Abx, no IV nutrion and meds for comfort such as morphine, valium and Psychotropics as needed continue morphine, Valium/Haldol p.r.n. and adjust as needed for optimal comfort--adjust med as needed . 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
--- NOTE | 2024-10-04 15:58 | MHC.CM.PN ---
PT NOT MEDICALLY CLEARED, TESTER SOUND STATUS, DOES NOT HAVE FUNDS OR COVERAGE FOR SNF PLACEMENT
[2024-10-05] VITALS (13 sets, daily range): RESP 12–20
--- NOTE | 2024-10-05 07:52 | PC.NURSE ---
Patient in bed, eyes closed, mouth care provided, unlabored breathing. Patient spontaneously moving upper extremities. Fall precautions in place, bed alarm on.
--- NOTE | 2024-10-05 10:47 | MHC.CM.PN ---
PT IS MEDICALLY CLEARED, CLEANING PROFESSIONAL STATUS, AWAITING BED OFFER
--- NOTE | 2024-10-05 10:48 | HO.PM.IMPN ---
Subjective Subjective Date of Service: 10/05/24 Interval History: Essentially no new issues Physical Exam Vital Signs: Vital Signs: Last Vital Signs Temp 97.8 F 09/19/24 15:26 Pulse 60 10/04/24 11:45 Resp 12 10/05/24 08:10 BP 139/85 09/19/24 15:26 Pulse Ox 99 09/19/24 15:26 O2 Del Method Room Air 09/19/24 15:26 O2 Flow Rate 96 08/27/24 03:21 BMI result Body Mass Index 35.8 Const: Other: Unresponsive, brething comfortably, no agitation Objective Data Active Medications Diazepam (Diazepam 10 Mg/2 Ml Cartridge) 10 mg IVPUSH Q4H PRN PRN Reason: Anxiety Lorazepam (Lorazepam 0.5 Mg Tablet) 0.5 mg PO Q4H PRN PRN Reason: Anxiety Morphine Sulfate (Morphine Sulfate 2 Mg/Ml Cartridge) 1 mg IVPUSH Q1H PRN; Protocol PRN Reason: Breakthrough Pain Morphine Sulfate (Morphine Sulfate Oral Alexus 10 Mg/5 Ml Solution) 2.5 mg PO Q2H PRN PRN Reason: Breakthrough Pain Last Admin: 10/04/24 00:38 Dose: 2.5 mg Documented By: MATTHEW Ondansetron HCl (Ondansetron Odt 4 Mg Tab.Rapdis) 4 mg TRANSLINGU Q8H PRN PRN Reason: Nausea and Vomiting Scopolamine (Scopolamine 1.5 Mg Patch.Td.3) 1.5 mg TRANSDERMA Q72H BISMARK Last Admin: 10/04/24 14:03 Dose: 1.5 mg Documented By: VIRGINIA Labs 09/22/24 12:09 09/22/24 12:09 Labs: Laboratory Results - last 24 hr 09/16/24 13:09 Free Cortisol 1.50 H Assessment and Plan (1) Major neurocognitive disorder: Status: Acute Plan 88yo M with 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, DM2 with neuroipathy, HTN, HLD, CAD, mood disorder, CKD3 presented after unwitnessed fall at [facility], admitted for acute encephalopathy due to UTI hospital course complicated by hypothermia and bradycardia with changes to goals of care on 09/07. 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 DRILLING ENGINEERING MANAGER which was reversed the next day09/08. However given ongoing decline/failure decision to transition back to DRILLING ENGINEERING MANAGER 09/19 DRILLING ENGINEERING MANAGER--HCP/family transitioned to comfort measures only with no IVF, no Abx, no IV nutrion and meds for comfort such as morphine, valium and Psychotropics as needed continue morphine, Valium/Haldol p.r.n. and adjust as needed for optimal comfort--adjust med as needed . 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
--- NOTE | 2024-10-05 15:38 | MHC.CLN ---
F/U CONTINUES COMFORT MEASURES ONLY AND NPO. RD AVAILABLE NEEDED.
[2024-10-06] VITALS (11 sets, daily range): PULSE 12; RESP 12–14
--- NOTE | 2024-10-06 10:58 | HO.PM.IMPN ---
Subjective Subjective Date of Service: 10/06/24 Interval History: Comfortable Physical Exam Vital Signs: Vital Signs: Last Vital Signs Temp 97.8 F 09/19/24 15:26 Pulse 60 10/04/24 11:45 Resp 12 10/06/24 08:00 BP 139/85 09/19/24 15:26 Pulse Ox 99 09/19/24 15:26 O2 Del Method Room Air 10/05/24 16:00 O2 Flow Rate 96 08/27/24 03:21 BMI result Body Mass Index 35.8 Const: Other: Unresponsive, brething comfortably, no agitation Objective Data Active Medications Diazepam (Diazepam 10 Mg/2 Ml Cartridge) 10 mg IVPUSH Q4H PRN PRN Reason: Anxiety Lorazepam (Lorazepam 0.5 Mg Tablet) 0.5 mg PO Q4H PRN PRN Reason: Anxiety Morphine Sulfate (Morphine Sulfate 2 Mg/Ml Cartridge) 1 mg IVPUSH Q1H PRN; Protocol PRN Reason: Breakthrough Pain Morphine Sulfate (Morphine Sulfate Oral Alexus 10 Mg/5 Ml Solution) 2.5 mg PO Q2H PRN PRN Reason: Breakthrough Pain Last Admin: 10/04/24 00:38 Dose: 2.5 mg Documented By: MATTHEW Ondansetron HCl (Ondansetron Odt 4 Mg Tab.Rapdis) 4 mg TRANSLINGU Q8H PRN PRN Reason: Nausea and Vomiting Scopolamine (Scopolamine 1.5 Mg Patch.Td.3) 1.5 mg TRANSDERMA Q72H BISMARK Last Admin: 10/04/24 14:03 Dose: 1.5 mg Documented By: VIRGINIA Labs 09/22/24 12:09 09/22/24 12:09 Labs: Laboratory Results - last 24 hr 09/16/24 13:09 Free Cortisol 1.50 H Assessment and Plan (1) Major neurocognitive disorder: Status: Acute Plan 88yo M with 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, DM2 with neuroipathy, HTN, HLD, CAD, mood disorder, CKD3 presented after unwitnessed fall at [facility], admitted for acute encephalopathy due to UTI hospital course complicated by hypothermia and bradycardia with changes to goals of care on 09/07. 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 STEAM ROLLER OPERATOR which was reversed the next day09/08. However given ongoing decline/failure decision to transition back to STEAM ROLLER OPERATOR 09/19 STEAM ROLLER OPERATOR--HCP/family transitioned to comfort measures only with no IVF, no Abx, no IV nutrion and meds for comfort such as morphine, valium and Psychotropics as needed continue morphine, Valium/Haldol p.r.n. and adjust as needed for optimal comfort--adjust med as needed . 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
--- NOTE | 2024-10-07 01:18 | PC.NURSE ---
Patient Alert upon first encounter. Laying in bed eyes open. Repositioned with CAMP HOUSEKEEPER, patient tolerated well, no facial grimace or moaning. Nonverbal. No outward signs of pain or discomfort.
--- NOTE | 2024-10-07 09:21 | HO.PM.IMPN ---
Subjective Subjective Date of Service: 10/07/24 Interval History: Comfortable no new issue Physical Exam Vital Signs: Vital Signs: Last Vital Signs Temp 97.8 F 09/19/24 15:26 Pulse 12 L 10/06/24 12:00 Resp 12 10/06/24 23:37 BP 139/85 09/19/24 15:26 Pulse Ox 99 09/19/24 15:26 O2 Del Method Room Air 10/05/24 16:00 O2 Flow Rate 96 08/27/24 03:21 BMI result Body Mass Index 35.8 Objective Data Active Medications Diazepam (Diazepam 10 Mg/2 Ml Cartridge) 10 mg IVPUSH Q4H PRN PRN Reason: Anxiety Lorazepam (Lorazepam 0.5 Mg Tablet) 0.5 mg PO Q4H PRN PRN Reason: Anxiety Morphine Sulfate (Morphine Sulfate 2 Mg/Ml Cartridge) 1 mg IVPUSH Q1H PRN; Protocol PRN Reason: Breakthrough Pain Morphine Sulfate (Morphine Sulfate Oral Alexus 10 Mg/5 Ml Solution) 2.5 mg PO Q2H PRN PRN Reason: Breakthrough Pain Last Admin: 10/04/24 00:38 Dose: 2.5 mg Documented By: MATTHEW Ondansetron HCl (Ondansetron Odt 4 Mg Tab.Rapdis) 4 mg TRANSLINGU Q8H PRN PRN Reason: Nausea and Vomiting Scopolamine (Scopolamine 1.5 Mg Patch.Td.3) 1.5 mg TRANSDERMA Q72H BISMARK Last Admin: 10/04/24 14:03 Dose: 1.5 mg Documented By: VIRGINIA Gray 09/22/24 12:09 09/22/24 12:09 Assessment and Plan (1) Major neurocognitive disorder: Status: Acute Plan 88yo M with 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, DM2 with neuroipathy, HTN, HLD, CAD, mood disorder, CKD3 presented after unwitnessed fall at [facility], admitted for acute encephalopathy due to UTI hospital course complicated by hypothermia and bradycardia with changes to goals of care on 09/07. 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 MANUFACTURED BUILDINGS SUPERVISOR which was reversed the next day09/08. However given ongoing decline/failure decision to transition back to MANUFACTURED BUILDINGS SUPERVISOR 09/19 MANUFACTURED BUILDINGS SUPERVISOR--HCP/family transitioned to comfort measures only with no IVF, no Abx, no IV nutrion and meds for comfort such as morphine, valium and Psychotropics as needed continue morphine, Valium/Haldol p.r.n. and adjust as needed for optimal comfort--adjust med as needed . Scopolamine for secretions Continue comfort care, and adjust meds as needed for comfort Previously treated conditions- Unspecified dementia with behavioral disturbance- treat agitation as above Hypothermia/bradycardia UTI/retention SANTOS/CKD Neurocognitive disorder 2/2 dementia complicated with behavioral disturbance Paroxysmal atrial fibrillation Hypertension Hyperlipidemia Diabetes ONgoing inpt stay- tool and cutter grinder dvt ppx- dc'd due to above Quality Stroke Does the patient have a stroke diagnosis?: No VTE Prior VTE?: No VTE Risk Level:: Medical - moderate - high VTE Device Contraindication: Treatment Not Indicated VTE Drug Contraindication: N/A - Med Ordered
--- NOTE | 2024-10-07 10:46 | MHC.CM.PN ---
Patient remains SENIOR RECEPTIONIST. Has been NPO x 2 weeks. CM continues to seek LTC/hospice placement. [address] w/ updates sent yesterday 10/06. No bed offers at this time. [facility] updated. CM will continue to follow.
--- NOTE | 2024-10-08 08:48 | HO.PM.IMPN ---
Subjective Subjective Date of Service: 10/08/24 Interval History: Breathing comfortably, Physical Exam Vital Signs: Vital Signs: Last Vital Signs Temp 97.8 F 09/19/24 15:26 Pulse 12 L 10/06/24 12:00 Resp 12 10/06/24 23:37 BP 139/85 09/19/24 15:26 Pulse Ox 99 09/19/24 15:26 O2 Del Method Room Air 10/05/24 16:00 O2 Flow Rate 96 08/27/24 03:21 BMI result Body Mass Index 35.8 Objective Data Active Medications Diazepam (Diazepam 10 Mg/2 Ml Cartridge) 10 mg IVPUSH Q4H PRN PRN Reason: Anxiety Ondansetron HCl (Ondansetron Odt 4 Mg Tab.Rapdis) 4 mg TRANSLINGU Q8H PRN PRN Reason: Nausea and Vomiting Scopolamine (Scopolamine 1.5 Mg Patch.Td.3) 1.5 mg TRANSDERMA Q72H BISMARK Last Admin: 10/07/24 13:22 Dose: 1.5 mg Documented By: VIRGINIA Gray 09/22/24 12:09 09/22/24 12:09 Assessment and Plan (1) Major neurocognitive disorder: Status: Acute Plan 88yo M with 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, DM2 with neuroipathy, HTN, HLD, CAD, mood disorder, CKD3 presented after unwitnessed fall at [facility], admitted for acute encephalopathy due to UTI hospital course complicated by hypothermia and bradycardia with changes to goals of care on 09/07. 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 SALESPERSON DRIVER which was reversed the next day09/08. However given ongoing decline/failure decision to transition back to SALESPERSON DRIVER 09/19 SALESPERSON DRIVER--HCP/family transitioned to comfort measures only with no IVF, no Abx, no IV nutrion and meds for comfort such as morphine, valium and Psychotropics as needed continue morphine, Valium/Haldol p.r.n. and adjust as needed for optimal comfort--adjust med as needed . Scopolamine for secretions Continue comfort care, and adjust meds as needed for comfort Previously treated conditions- Unspecified dementia with behavioral disturbance- treat agitation as above Hypothermia/bradycardia UTI/retention SANTOS/CKD Neurocognitive disorder 2/2 dementia complicated with behavioral disturbance Paroxysmal atrial fibrillation Hypertension Hyperlipidemia Diabetes ONgoing inpt stay- environmental designer dvt ppx- dc'd due to above Quality Stroke Does the patient have a stroke diagnosis?: No VTE Prior VTE?: No VTE Risk Level:: Medical - moderate - high VTE Device Contraindication: Treatment Not Indicated VTE Drug Contraindication: N/A - Med Ordered
--- NOTE | 2024-10-08 13:15 | P.CDIM_ITS ---
PROVIDER RESPONSE TEXT: To clarify, the appropriate diagnosis supported by the clinical indicators: Comatose, nontraumatic, due to underlying condition QUERY TEXT: >>> Provider Instructions - Do not remove this line >>> PHYSICIAN'S DOCUMENTATION REQUEST Date of Query: 10/06/2024 02:21 PM EDT Patient Name: Reji Weeks Admit Date: 08/21/2024 Dear Luis Barrientos MD, A review of the medical record indicates additional documentation may be needed. Please review below and update the documentation accordingly. Clinical Indicators: Major neurocognitive disorder patient is SYSTEMS SUPPORT SPECIALIST, meds for comfort unresponsive Based on the above, could you clarify the altered mental status? <<< Provider Instructions - Do not remove this line <<< Comatose, persistent vegetative state Comatose, nontraumatic, due to underlying condition Other (explain) Clinically unable to determine (explain) >>> Contact Info - Do not remove this line>>> Thank you, Monica Tse RN Use of terms such as suspected, likely, concern for, or probable (associated with a specific diagnosis that is being evaluated, monitored, or treated as if it exists) are acceptable and can be coded in the inpatient setting, when documented at the time of discharge. Please use your independent medical judgment in providing your response. THIS QUERY IS PART OF THE PERMANENT MEDICAL RECORD <<< Contact Info - Do not remove this line <<< >>> Disclaimer - Do no remove this line>>> Extension: [phone] <<< Disclaimer - Do not remove this line<<<
--- NOTE | 2024-10-09 10:31 | HO.PM.IMPN ---
Subjective Subjective Date of Service: 10/09/24 Interval History: Breathing comfortably, Physical Exam Vital Signs: Vital Signs: Last Vital Signs Temp 97.8 F 09/19/24 15:26 Pulse 12 L 10/06/24 12:00 Resp 12 10/06/24 23:37 BP 139/85 09/19/24 15:26 Pulse Ox 99 09/19/24 15:26 O2 Del Method Room Air 10/05/24 16:00 O2 Flow Rate 96 08/27/24 03:21 BMI result Body Mass Index 35.8 Objective Data Active Medications Diazepam (Diazepam 10 Mg/2 Ml Cartridge) 10 mg IVPUSH Q4H PRN PRN Reason: Anxiety Ondansetron HCl (Ondansetron Odt 4 Mg Tab.Rapdis) 4 mg TRANSLINGU Q8H PRN PRN Reason: Nausea and Vomiting Scopolamine (Scopolamine 1.5 Mg Patch.Td.3) 1.5 mg TRANSDERMA Q72H BISMARK Last Admin: 10/07/24 13:22 Dose: 1.5 mg Documented By: VIRGINIA Gray 09/22/24 12:09 09/22/24 12:09 Assessment and Plan (1) Major neurocognitive disorder: Status: Acute Plan 88yo M with 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, DM2 with neuroipathy, HTN, HLD, CAD, mood disorder, CKD3 presented after unwitnessed fall at [facility], admitted for acute encephalopathy due to UTI hospital course complicated by hypothermia and bradycardia with changes to goals of care on 09/07. 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 HAND POLISHER which was reversed the next day09/08. However given ongoing decline/failure decision to transition back to HAND POLISHER 09/19 HAND POLISHER--HCP/family transitioned to comfort measures only with no IVF, no Abx, no IV nutrion and meds for comfort such as morphine, valium and Psychotropics as needed continue morphine, Valium/Haldol p.r.n. and adjust as needed for optimal comfort--adjust med as needed . Scopolamine for secretions Continue comfort care, and adjust meds as needed for comfort Previously treated conditions- Unspecified dementia with behavioral disturbance- treat agitation as above Hypothermia/bradycardia UTI/retention SANTOS/CKD Neurocognitive disorder 2/2 dementia complicated with behavioral disturbance Paroxysmal atrial fibrillation Hypertension Hyperlipidemia Diabetes ONgoing inpt stay- hr administrator dvt ppx- dc'd due to above Quality Stroke Does the patient have a stroke diagnosis?: No VTE Prior VTE?: No VTE Risk Level:: Medical - moderate - high VTE Device Contraindication: Treatment Not Indicated VTE Drug Contraindication: N/A - Med Ordered
--- NOTE | 2024-10-09 11:34 | MHC.CM.PN ---
Addendum entered by Sanam Mcclure RN 10/09/24 11:52: Spoke with Irena, EMIR, who reports she is still awaiting documentation for sale of home. Per financial, this is the last piece of documentation needed for [facility]. Irena is aware there is a sense of urgency and will request this from their meter reading clerk today. Original Note: Remains SKID STRAPPER awaiting placement. [facility] pending. No bed offers at this time - [facility] considering, but would need medicaid in place prior to acceptance. CM will continue to follow.
[2024-10-09] MEDS: Morphine Sulfate Oral Sol 10 MG/5 ML SOLUTION 2.5 MG PO (13:50)
--- NOTE | 2024-10-09 17:06 | PM.EVENT ---
Event Note Date of Service: 10/09/24 Event Note: Pronounced at 5:00pm. Had no heart sounds, no lung sounds, pupils are dilated and fixed, no response to painful stimuli. Time Spent With Patient Time: Total time managing care of this patient today ____ minutes.
--- NOTE | 2024-10-09 17:09 | PM.DDS ---
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 Patient was sent as he fell at outside facility. Unclear details or preceding events. Unable to obtain history from the patient. History obtained from ER provider and chart review. As per the ER provider, patient was very agitated in the ER upon arrival. He was disoriented and not making any sense. Upon my examination, patient is sleeping. He awakens to verbal stimulus but falls back asleep. She is lethargic and disoriented. Unclear baseline. Earlier patient was unable to ambulate in the ER. Does have wheelchair but unknown baseline ambulatory status. Additional Data Attending physician: Luis Barrientos MD
--- NOTE | 2024-10-09 17:41 | PC.NURSE ---
In to see patient at approx 16:45hrs. No spontaneous respirations noted. No apical pulse could be auscultated. Pupils fixed. Hospitalist notified and came and pronounced patient at 1700hrs. HCP Irena Weeks was notified by phone at approx 1730hrs by this nurse. HCP stated that family would be coming in. M.D. completed certificate. [facility] was notified at 17:35hrs and pt was declined by outside medical sales representative Natalie. Post mortem care was completed by fabrication machine operator.
== END 2024-10-09 18:53 | disposition expired | DRG 689 ==
LOC: HO.ED 19:29 → HO.EDOVER 21:43 → HO.IMC 08-19 07:23 → HO.S3 08-26 10:22 → HO.IMC 09-07 13:23 → HO.S3 09-15 12:47
PROVIDERS: Emergency Medicine; Family Medicine; Hospitalist; Physician Assistant; Social Worker; Student in an Organized Health Care Education/Training Program; Admitting Provider Student in an Organized Health Care Education/Training Program; Emergency Provider Emergency Medicine; PCP Nurse Practitioner Family; Visit Provider Internal Medicine
DX: N39.0 Urinary tract infection, site not specified (principal); G93.41 Metabolic encephalopathy; R40.2A Nontraumatic coma due to underlying condition; N17.9 Acute kidney failure, unspecified; F03.918 Unspecified dementia, unspecified severity, with other behavioral disturbance; I25.10 Atherosclerotic heart disease of native coronary artery without angina pectoris; Z51.5 Encounter for palliative care; I12.9 Hypertensive chronic kidney disease with stage 1 through stage 4 chronic kidney disease, or unspecified chronic kidney disease; E11.22 Type 2 diabetes mellitus with diabetic chronic kidney disease; N18.30 Chronic kidney disease, stage 3 unspecified; R29.6 Repeated falls; W19.XXXA Unspecified fall, initial encounter; Z66 Do not resuscitate; B95.2 Enterococcus as the cause of diseases classified elsewhere; I48.0 Paroxysmal atrial fibrillation; R79.1 Abnormal coagulation profile; K21.9 Gastro-esophageal reflux disease without esophagitis; R33.9 Retention of urine, unspecified; E11.40 Type 2 diabetes mellitus with diabetic neuropathy, unspecified; I44.1 Atrioventricular block, second degree; R62.7 Adult failure to thrive; Z68.35 Body mass index [BMI] 35.0-35.9, adult; F39 Unspecified mood [affective] disorder; E66.9 Obesity, unspecified; R68.0 Hypothermia, not associated with low environmental temperature; T43.595A Adverse effect of other antipsychotics and neuroleptics, initial encounter; E78.2 Mixed hyperlipidemia; I49.5 Sick sinus syndrome; Z79.4 Long term (current) use of insulin; Z79.01 Long term (current) use of anticoagulants; Z79.899 Other long term (current) drug therapy
CPT/HCPCS: 36415; 70450; 71045; 71250; 72125; 72141; 73030; 73502; 74176; 80048; 80053; 80076; 81001; 81003; 82140; 82530; 82550; 82607; 82746; 82803; 82947; 83690; 84443; 84484; 85025; 85027; 85610; 87040; 87086; 87088; 87186; 92526; 92610; 93005; 97162; 97530; 99285; J0295; J0696; J1630; J2270; J2359; J3360; J7120; S9485

== ENCOUNTER → 2024-08-18 10:42 | Outpatient (BNV) | payer MEDICARE, SELFPAY | PROVIDERS: Emergency Provider Emergency Medicine; Visit Provider Radiology Diagnostic Radiology | DX: R10.32 Left lower quadrant pain (principal); M47.812 Spondylosis without myelopathy or radiculopathy, cervical region; G31.9 Degenerative disease of nervous system, unspecified; M25.551 Pain in right hip; M19.012 Primary osteoarthritis, left shoulder; M25.512 Pain in left shoulder; W19.XXXA Unspecified fall, initial encounter | CPT/HCPCS: 70450; 71045; 72125; 73030; 73502; 74176 ==

== ENCOUNTER → 2024-08-18 10:43 | Outpatient (BNV) | payer MEDICARE, SELFPAY | PROVIDERS: Emergency Provider Emergency Medicine; Visit Provider Internal Medicine Cardiovascular Disease | DX: I44.0 Atrioventricular block, first degree (principal); R00.1 Bradycardia, unspecified | CPT/HCPCS: 93010 ==

== ENCOUNTER 2024-08-18 21:36 | Outpatient (BNV) | payer MEDICARE, SELFPAY | END 2024-08-19 10:14 | PROVIDERS: Admitting Provider Student in an Organized Health Care Education/Training Program; Emergency Provider Emergency Medicine; Visit Provider Radiology Diagnostic Radiology | DX: S14.109A Unspecified injury at unspecified level of cervical spinal cord, initial encounter (principal) | CPT/HCPCS: 72141 ==

== ENCOUNTER → 2024-08-18 21:36 | Outpatient (BNV) | payer MEDICARE, SELFPAY | PROVIDERS: Admitting Provider Student in an Organized Health Care Education/Training Program; Emergency Provider Emergency Medicine; Visit Provider Student in an Organized Health Care Education/Training Program | DX: F03.90 Unspecified dementia, unspecified severity, without behavioral disturbance, psychotic disturbance, mood disturbance, and anxiety (principal) | CPT/HCPCS: 99222; 99232 ==

== ENCOUNTER 2024-08-21 12:14 | Outpatient (BNV) | payer MEDICARE, SELFPAY | END 2024-09-07 12:56 | PROVIDERS: Admitting Provider Student in an Organized Health Care Education/Training Program; Emergency Provider Emergency Medicine; PCP Nurse Practitioner Family; Visit Provider Internal Medicine Cardiovascular Disease | DX: I44.0 Atrioventricular block, first degree (principal); R00.1 Bradycardia, unspecified | CPT/HCPCS: 93010 ==

== ENCOUNTER 2024-08-21 12:14 | Outpatient (BNV) | payer MEDICARE, SELFPAY | END 2024-09-08 12:36 | PROVIDERS: Admitting Provider Student in an Organized Health Care Education/Training Program; Emergency Provider Emergency Medicine; PCP Nurse Practitioner Family; Visit Provider Radiology Diagnostic Radiology | DX: J98.11 Atelectasis (principal); R41.82 Altered mental status, unspecified | CPT/HCPCS: 70450; 71045; 71250 ==

== ENCOUNTER 2024-08-21 12:14 | Outpatient (BNV) | payer MEDICARE, SELFPAY | END 2024-09-08 13:21 | PROVIDERS: Admitting Provider Student in an Organized Health Care Education/Training Program; Emergency Provider Emergency Medicine; PCP Nurse Practitioner Family; Visit Provider Internal Medicine Cardiovascular Disease | DX: I44.0 Atrioventricular block, first degree (principal); R00.1 Bradycardia, unspecified | CPT/HCPCS: 93010 ==

== ENCOUNTER → 2024-08-21 12:14 | Outpatient (BNV) | payer MEDICARE, SELFPAY | PROVIDERS: Admitting Provider Student in an Organized Health Care Education/Training Program; Emergency Provider Emergency Medicine; PCP Nurse Practitioner Family; Visit Provider Social Worker | DX: F03.90 Unspecified dementia, unspecified severity, without behavioral disturbance, psychotic disturbance, mood disturbance, and anxiety (principal) | CPT/HCPCS: 99232 ==

== ENCOUNTER → 2024-08-21 12:14 | Outpatient (BNV) | payer MEDICARE, SELFPAY | PROVIDERS: Admitting Provider Student in an Organized Health Care Education/Training Program; Emergency Provider Emergency Medicine; PCP Nurse Practitioner Family; Visit Provider Internal Medicine Cardiovascular Disease | DX: R00.1 Bradycardia, unspecified (principal) | CPT/HCPCS: 99222 ==